=== PATIENT | male | born 1970 | race American Indian/Alaskan Native ===

== ENCOUNTER 2016-06-07 13:29 | Inpatient (IN) | payer MEDICARE ==
[2016-06-07 14:43] LABS: Basophils % (Auto) 0.6 % (0.0-1.8); Eosinophils % (Auto) 1.2 % (0.0-4.3); Hemoglobin 13.6 gm/dl (11.8-15.2); Mean Corpuscular HGB Conc 32 % (32-34); Mean Corpuscular Hemoglobin 27 pg (28-32); Mean Corpuscular Volume 84 fl (84-94); Platelet Count 203 K/mm3 (140-440); Red Blood Count 5.01 M/mm3 (3.65-5.03); Red Cell Distribution Width 13.3 % (13.2-15.2)
[2016-06-07 15:06] LABS: Blood Urea Nitrogen 13 mg/dL (9-20); Calcium 8.9 mg/dL (8.4-10.2); Carbon Dioxide 20 mmol/L (22-30); Glucose 156 mg/dL (75-100); Potassium 4.2 mmol/L (3.6-5.0); Sodium 140 mmol/L (137-145)
[2016-06-07 15:12] LABS: Anion Gap 18 mmol/L
--- NOTE | 2016-06-07 15:20 | Emergency Department Report ---
ED General Adult HPI - General Chief complaint: Medical Clearance Stated complaint: SYNCOPE Time Seen by Provider: 06/07/16 15:04 Source: patient, RN notes reviewed Mode of arrival: Ambulatory Limitations: No Limitations, Other (patient is a poor historian) - History of Present Illness Initial comments: This is a 45-year-old male, previously unknown to me. He typically follows at the [facility] in [place]. His edge inker heels is Dr. Troy Osullivan; [phone]. Patient has a past medical history of cardiomyopathy and AICD. He is not certain what his ejection fraction is, he does not know the etiology of his cardiomyopathy. Patient presents to the ER with epigastric pain, chest pain and syncope. Patient was taking a hot shower, reports that he developed upper abdominal discomfort, and reports that his to later activated/fired. He thinks he hit his head, but is not certain. He bit his lip. He has right shoulder pain. There is no extremity weakness. There is no extremity numbness. There is no posterior leg pain. No posterior leg swelling. No recent trips greater than 4 hours. He reports compliance with his medications. He denies toxic ingestions. -: Sudden Location: head, abdomen, right, upper extremity Quality: aching Consistency: intermittent Improves with: rest Worsens with: movement Associated Symptoms: chest pain, loss of appetite, syncope. denies: confusion - Related Data Home Medications Medication Instructions Recorded Confirmed Last Taken Amiodarone [Cordarone 200 MG TAB] 400 mg PO QDAY 09/27/15 06/07/16 06/06/16 Aspirin [Aspirin BABY CHEW TAB] 81 mg PO QDAY 09/27/15 06/07/16 06/06/16 Carvedilol [Coreg] 25 mg PO BID 09/27/15 06/07/16 06/06/16 Digoxin [Lanoxin] 0.125 mg PO DAILY 09/27/15 06/07/16 06/06/16 Furosemide [Lasix TAB] 40 mg PO QDAY 09/27/15 06/07/16 06/06/16 Lisinopril [Zestril] 20 mg PO QDAY 09/27/15 06/07/16 06/06/16 Pravastatin (Nf) [Pravachol] 40 mg PO QHS 09/27/15 06/07/16 06/06/16 amLODIPine [Norvasc] 10 mg PO DAILY 09/27/15 06/07/16 06/06/16 Insulin NPH Hum/Reg Insulin Hm 25 unit SQ QHS 06/07/16 06/07/16 06/06/16 [HumuLIN 70/30 Kwikpen] Insulin NPH Hum/Reg Insulin Hm 35 unit SQ QAM 06/07/16 06/07/16 06/06/16 [HumuLIN 70/30 Kwikpen] diphenhydrAMINE [Benadryl CAP] 25 mg PO Q8HR PRN 06/07/16 06/07/16 06/06/16 guaiFENesin [Mucinex] 600 mg PO BID 06/07/16 06/07/16 06/06/16 Allergies Allergy/AdvReac Type Severity Reaction Status Date / Time pineapple Allergy Anaphylaxis Verified 09/26/15 20:36 ED Review of Systems ROS: Stated complaint: SYNCOPE Other details as noted in HPI Constitutional: malaise. denies: fever Eyes: denies: eye discharge ENT: denies: epistaxis Respiratory: see HPI Cardiovascular: chest pain, syncope Gastrointestinal: abdominal pain Genitourinary: denies: urgency, dysuria Musculoskeletal: arthralgia Skin: denies: rash Neurological: headache. denies: as per HPI, numbness, paresthesias, confusion Psychiatric: as per HPI ED Past Medical Hx - Past Medical History Previous Medical History?: Yes Hx Hypertension: Yes Hx Congestive Heart Failure: Yes Hx Diabetes: Yes Additional medical history: Afib? - Surgical History Past Surgical History?: Yes Hx Internal Defibrillator: Yes - Social History Smoking Status: Never Smoker - Medications Home Medications: Home Medications Medication Instructions Recorded Confirmed Last Taken Type Amiodarone [Cordarone 200 MG TAB] 400 mg PO QDAY 09/27/15 06/07/16 06/06/16 History Aspirin [Aspirin BABY CHEW TAB] 81 mg PO QDAY 09/27/15 06/07/16 06/06/16 History Carvedilol [Coreg] 25 mg PO BID 09/27/15 06/07/16 06/06/16 History Digoxin [Lanoxin] 0.125 mg PO DAILY 09/27/15 06/07/16 06/06/16 History Furosemide [Lasix TAB] 40 mg PO QDAY 09/27/15 06/07/16 06/06/16 History Lisinopril [Zestril] 20 mg PO QDAY 09/27/15 06/07/16 06/06/16 History Pravastatin (Nf) [Pravachol] 40 mg PO QHS 09/27/15 06/07/16 06/06/16 History amLODIPine [Norvasc] 10 mg PO DAILY 09/27/15 06/07/16 06/06/16 History Insulin NPH Hum/Reg Insulin Hm 25 unit SQ QHS 06/07/16 06/07/16 06/06/16 History [HumuLIN 70/30 Kwikpen] Insulin NPH Hum/Reg Insulin Hm 35 unit SQ QAM 06/07/16 06/07/16 06/06/16 History [HumuLIN 70/30 Kwikpen] diphenhydrAMINE [Benadryl CAP] 25 mg PO Q8HR PRN 06/07/16 06/07/16 06/06/16 History guaiFENesin [Mucinex] 600 mg PO BID 06/07/16 06/07/16 06/06/16 History ED Physical Exam - General Limitations: No Limitations General appearance: alert, in no apparent distress - Head Head exam: Present: atraumatic, normocephalic - Eye Eye exam: Present: normal appearance, PERRL, EOMI. Absent: nystagmus - ENT ENT exam: Present: normal exam, normal orophraynx, mucous membranes moist, normal external ear exam, other (no intraoral lacerations are noted. The teeth have no laxity and are not mobile.) - Neck Neck exam: Present: normal inspection, full ROM. Absent: tenderness, meningismus - Respiratory Respiratory exam: Present: normal lung sounds bilaterally. Absent: respiratory distress, wheezes, rales, rhonchi, stridor, chest wall tenderness - Cardiovascular Cardiovascular Exam: Present: regular rate, normal rhythm, normal heart sounds. Absent: bradycardia, tachycardia, irregular rhythm, systolic murmur, diastolic murmur, rubs, gallop - GI/Abdominal GI/Abdominal exam: Present: soft, normal bowel sounds. Absent: distended, tenderness, guarding, rebound, rigid, pulsatile mass - Rectal Rectal exam: Present: deferred - Extremities Exam Extremities exam: Present: normal inspection, full ROM, normal capillary refill. Absent: tenderness, pedal edema, joint swelling, calf tenderness - Back Exam Back exam: Present: normal inspection, full ROM. Absent: tenderness, CVA tenderness (R), CVA tenderness (L), muscle spasm, paraspinal tenderness, vertebral tenderness - Neurological Exam Neurological exam: Present: alert, oriented X3, normal gait, other (Extraocular movements intact. Tongue midline. No facial droop. Facial sensation intact to light touch in the V1, V2, V3 distribution bilaterally. 5 and 5 strength in 4 extremities.. Sensation is intact to light touch in 4 extremities.). Absent : motor sensory deficit - Psychiatric Psychiatric exam: Present: normal affect, normal mood - Skin Skin exam: Present: warm, dry, intact, normal color. Absent: rash ED Course Vital Signs 06/07/16 06/07/16 06/07/16 13:59 14:01 14:09 Temperature 98.2 F Pulse Rate 96 H 96 H Respiratory 17 13 16 Rate Blood Pressure 123/74 123/74 O2 Sat by Pulse 99 99 Oximetry 06/07/16 06/07/16 06/07/16 15:00 15:40 17:15 Temperature Pulse Rate 81 89 Respiratory 29 H 18 Rate Blood Pressure 130/103 130/103 O2 Sat by Pulse 96 100 Oximetry - Reevaluation(s) Reevaluation #1: 06/07/16 16:37 Differential diagnosis: Structural cardiac disease, arrhythmia Assessment and plan: 45-year-old male status post episode of syncope. He has a GCS of 15, with an NIH score of 0. He is clinically sober. No pulmonary embolus or DVT risk factors, low risk by well's criteria, perc negative. Intraoral exam shows a minimal contusion on the lower lip, no obvious lacerations. Has full passive and active range of motion of the right upper extremity/shoulder. Chest x-ray negative, shows defibrillator The patient has a [employer] device, and it was interrogated, which demonstrated a run of ventricular fibrillation which was terminated with defibrillator shock. Patient is clinically sober at this time. The cervical spine is cleared through nexus and tongan c spine rule 06/07/16 16:39 Reevaluation #2: 06/07/16 16:38 CT scan of the head, abdomen, pelvis are performed and are pending. Case is discussed with the Hospital physician, , who accepts the patient to his service. Case discussed with cardiology, Alla Lucas, her group will follow as a consult. I have requested the patient's medical records to be faxed over from the [facility] in [place]. Currently awaiting. Reevaluation #3: 06/07/16 18:39 CT scan of the head, abdomen, pelvis negative ED Medical Decision Making - Lab Data Result diagrams: 06/07/16 14:25 06/07/16 14:25 Vital Signs 06/07/16 06/07/16 14:09 15:40 Temperature 98.2 F Pulse Rate 96 H Respiratory 16 18 Rate Blood Pressure 123/74 O2 Sat by Pulse 99 100 Oximetry Lab Results 06/07/16 06/07/16 06/07/16 Range/Units 14:25 14:25 15:33 WBC 9.0 (4.5-11.0) K/mm3 RBC 5.01 (3.65-5.03) M/mm3 Hgb 13.6 (11.8-15.2) gm/dl Hct 42.0 (35.5-45.6) % MCV 84 (84-94) fl MCH 27 L (28-32) pg MCHC 32 (32-34) % RDW 13.3 (13.2-15.2) % Plt Count 203 (140-440) K/mm3 Lymph % (Auto) 19.9 (13.4-35.0) % [place] % (Auto) 11.6 H (0.0-7.3) % Eos % (Auto) 1.2 (0.0-4.3) % Baso % (Auto) 0.6 (0.0-1.8) % Lymph # 1.8 (1.2-5.4) K/mm3 [place] # 1.0 H (0.0-0.8) K/mm3 Eos # 0.1 (0.0-0.4) K/mm3 Baso # 0.1 (0.0-0.1) K/mm3 Seg Neutrophils % 66.7 (40.0-70.0) % Seg Neutrophils # 6.0 (1.8-7.7) K/mm3 PT 14.2 (12.2-14.9) Sec. INR 1.11 (0.87-1.13) Sodium 140 (137-145) mmol/L Potassium 4.2 (3.6-5.0) mmol/L Chloride 106.0 (98-107) mmol/L Carbon Dioxide 20 L (22-30) mmol/L Anion Gap 18 mmol/L BUN 13 (9-20) mg/dL Creatinine 1.3 (0.8-1.5) mg/dL Estimated GFR > 60 ml/min BUN/Creatinine Ratio 10.00 % Glucose 156 H (75-100) mg/dL Calcium 8.9 (8.4-10.2) mg/dL Magnesium (1.7-2.3) mg/dL Troponin T 0.014 (0.00-0.029) ng/mL Lipase (13-60) units/L 06/07/16 06/07/16 Range/Units 15:33 15:33 WBC (4.5-11.0) K/mm3 RBC (3.65-5.03) M/mm3 Hgb (11.8-15.2) gm/dl Hct (35.5-45.6) % MCV (84-94) fl MCH (28-32) pg MCHC (32-34) % RDW (13.2-15.2) % Plt Count (140-440) K/mm3 Lymph % (Auto) (13.4-35.0) % [place] % (Auto) (0.0-7.3) % Eos % (Auto) (0.0-4.3) % Baso % (Auto) (0.0-1.8) % Lymph # (1.2-5.4) K/mm3 [place] # (0.0-0.8) K/mm3 Eos # (0.0-0.4) K/mm3 Baso # (0.0-0.1) K/mm3 Seg Neutrophils % (40.0-70.0) % Seg Neutrophils # (1.8-7.7) K/mm3 PT (12.2-14.9) Sec. INR (0.87-1.13) Sodium (137-145) mmol/L Potassium (3.6-5.0) mmol/L Chloride (98-107) mmol/L Carbon Dioxide (22-30) mmol/L Anion Gap mmol/L BUN (9-20) mg/dL Creatinine (0.8-1.5) mg/dL Estimated GFR ml/min BUN/Creatinine Ratio % Glucose (75-100) mg/dL Calcium (8.4-10.2) mg/dL Magnesium 1.9 (1.7-2.3) mg/dL Troponin T (0.00-0.029) ng/mL Lipase 46 (13-60) units/L - EKG Data 06/07/16 16:41 Normal sinus, 93 bpm, prolonged QTC at 494 ms, borderline left axis deviation, poor R-wave progression noted, atrial enlargement, abnormal EKG, not morphologically consistent with STEMI. - Radiology Data Radiology results: report reviewed, image reviewed Chest x-ray negative, demonstrates left-sided AICD. CT scan of the head, abdomen, pelvis negative Critical care attestation.: If time is entered above; I have spent that time in minutes in the direct care of this critically ill patient, excluding procedure time. ED Disposition Clinical Impression: Ventricular fibrillation, Syncope Disposition: OP ADMITTED IP TO THIS HOSP Is pt being admited?: Yes Does the pt Need Aspirin: Yes Condition: Good Instructions: Syncope (ED) Referrals: PRIMARY CARE, [Primary Care Provider] - 3-5 Days
--- NOTE | 2016-06-07 15:49 | XRay Report ---
Portable chest: Comparison is made to the prior examination of September 27, 2015. The cardiac contour is normal and unchanged. There has been interval replacement of the pacer battery with addition of a second monitor lead both of which are in the right ventricle. The lungs remain clear and there is no vascular congestion. Impression: No acute cardiopulmonary pathology identified.
[2016-06-07 16:27] LABS: INR 1.11 (0.87-1.13)
--- NOTE | 2016-06-07 16:34 | Cat Scan Report ---
FINAL REPORT PROCEDURE: CT HEAD/BRAIN WO CON TECHNIQUE: Computerized tomography of the head was performed without contrast material. HISTORY: syncope COMPARISON: No prior studies are available for comparison. FINDINGS: Brain: Brain density appears normal. No evidence of intracranial hemorrhage. No parenchymal hemorrhage, mass lesions or mass effect are seen. No abnormal extraxial fluid collects or masses are seen. Minimal nonspecific mineralization of the basal ganglia are visualized. Ventricles: Ventricles are normal size and are midline. Bone Windows: No evidence of skull fracture. Paranasal sinuses: Clear Mastoid air cells: Clear IMPRESSION: Negative exam. No acute abnormalities are seen.
--- NOTE | 2016-06-07 16:41 | Cat Scan Report ---
FINAL REPORT PROCEDURE: CT ABDOMEN PELVIS WO CON TECHNIQUE: Computerized axial tomography of the abdomen and pelvis was performed without intravenous contrast. This study is performed without intravascular contrast material and its sensitivity for abdominal and pelvic pathology, including neoplasms, inflammation, abscess, free fluid, thrombosis, arterial dissection and infarction, is reduced compared with a contrast enhanced study. HISTORY: syncope abd pain COMPARISON: No prior studies are available for comparison. FINDINGS: Lower Lung barker: No sinificant abnormality seen. Cardiac leads are visualized in the right side of the heart. Upper Abdomen: The unenhanced images the liver, gallbladder, spleen, adrenal glands and pancreas are unremarkable. Kidneys, Ureters and Urinary bladder: No abnormalities are seen. Retroperitoneum: Atherosclerotic changes are seen in the abdominal aorta. No aneurysm is visualized. Nonspecific subcentimeter lymph nodes are seen in the retroperitoneum. No pathologically enlarged lymph nodes are identified. Bowel: Minimal diverticulosis visualized in the hepatic flexure. No evidence of diverticulitis. No evidence of bowel obstruction, ascites or free intraperitoneal gas. Normal-appearing appendix is seen in the right lower quadrant. Reproductive organs: Prostate gland does not appear to be enlarged. Other: No acute bony abnormalities are identified. IMPRESSION: Minimal colonic diverticulosis without evidence of diverticulitis. Pacemaker leads visualized in the right side of the heart. No acute abnormalities are identified..
[2016-06-07 17:38] LABS: Urine Drugs of Abuse Note Disclamer
--- NOTE | 2016-06-07 17:43 | Event Note ---
Date: 06/07/16 See H/p in reports Syncope Chest pain V fib transient AICD discharge Cardiomyopathy CHF HTN
[2016-06-07] MEDS ORDERED: BENADRYL PO PRN (17:48)
[2016-06-07] MEDS ORDERED: DULCOLAX PR PRN ×2 (18:01→18:18)
[2016-06-07] MEDS ORDERED: MILK OF MAGNESIA PO PRN ×2 (18:01→18:18)
[2016-06-07] MEDS ORDERED: DILAUDID IV PRN (18:01)
[2016-06-07] MEDS ORDERED: ZOFRAN IV PRN ×2 (18:01→18:18)
[2016-06-07] MEDS ORDERED: PERCOCET 5/325 PO PRN (18:01)
[2016-06-07] MEDS ORDERED: TYLENOL PO PRN ×2 (18:01→18:18)
[2016-06-07 18:19] LABS: Bilirubin,Urine NEG (Negative); Blood,Urine SM (Negative); Ketones,Urine NEG (Negative); Leukocyte Esterase,Urine NEG (Negative); Mucus,Urine FEW /HPF; Nitrite,Urine NEG (Negative); Urobilinogen,Urine < 2.0 mg/dL (<2.0)
[2016-06-07 18:21] LABS: Protein,Urine >500 mg/dL (Negative)
[2016-06-07] MEDS ORDERED: SODIUM CHLORIDE FLUSH SYRINGE 10 ML IV PRN (18:27)
[2016-06-07] MEDS ORDERED: BABY ASPIRIN PO ONE (18:40)
[2016-06-07] MEDS ORDERED: LASIX ONE (19:04)
[2016-06-07] MEDS: LASIX PO SCH (19:14)
[2016-06-07] MEDS: BABY ASPIRIN PO SCH (19:14)
[2016-06-07 19:23] LABS: Creatine Kinase MB 2.5 ng/mL (0.0-4.0)
[2016-06-07] MEDS: LOVENOX SUB-Q SCH (19:24)
[2016-06-07] MEDS: ZESTRIL PO SCH (19:26)
[2016-06-07] MEDS: NORVASC PO SCH (19:27)
[2016-06-07] MEDS: LANOXIN PO SCH (19:45)
[2016-06-07] MEDS: CORDARONE PO SCH (19:45)
--- NOTE | 2016-06-07 20:15 | Event Note ---
Date: 06/07/16 Patient's digoxin level is still pending. The digoxin level is a send out assay is our lab does not have the ability to run it. The results are still pending. I will defer to the inpatient team to follow-up on the digoxin level.
[2016-06-07] MEDS ORDERED: INSULIN NPH HUM SQ SCH (22:00)
[2016-06-07] MEDS ORDERED: REG INSULIN SQ SCH (22:00)
[2016-06-07] MEDS ORDERED: PRAVASTATIN 40 MG PO SCH (22:00)
[2016-06-07] MEDS: MUCINEX ER PO SCH (22:36)
[2016-06-07 22:37] LABS: Creatine Kinase MB 2.4 ng/mL (0.0-4.0)
[2016-06-07] MEDS: ZOCOR PO SCH (22:37)
[2016-06-07] MEDS: COREG PO SCH (22:37)
--- NOTE | 2016-06-08 00:54 | Admit Criteria Form ---
Admission Criteria Documentation: CARDIOLOGY GRG Clinical Indications for Admission to Inpatient Care ( Place 'X' for any and all applicable criteria): Hospital admission is needed for appropriate care of the patient because of ANY ONE of the following (1): [ ] I. Hemodynamic instability as indicated by ALL of the following (1)(2)(3) (4)(5) [ ]a) Vital signs or other findings not as expected for chronic patient condition or baseline [ ]b) Instability indicated by ANY ONE of the following: [ ]i) Hypotension [ ]ii) Symptomatic Tachycardia unresponsive to treatment ( e.g., analgesia, fluids, sedation as indicated) [ ]iii) Inadequate perfusion indicated by ANY ONE of the following: [ ] 1) Lactic acidosis (> 2 mmol/L) [ ] 2) New abnormal capillary refill (> 3 seconds) [ ] 3) Reduced urine output [ ] 4) New altered mental status [ ]iv) Orthostatic vital sign changes unresponsive to treatment (e.g., fluids) [ ]v) IV inotropic or vasopressor medication required to maintain adequate blood pressure or perfusion [ ] II. Severe heart failure as indicated by ANY ONE of the following(17)(18) [ ]a) Respiratory distress [ ]b) Hypotension [ ]c) Anasarca (refractory to outpatient therapy) [ ]d) Cardiac arrhythmias of immediate concern [ ]e) Myocardial ischemia [ ] III. Cardiac arrhythmias or findings of immediate concern indicated by ANY ONE of the following (19)(20): [ ] a) Heart rhythms that are inherently dangerous or unstable indicated by ANY ONE of the following (21)(22)(23): [ ] i) Resuscitated ventricular fibrillation or cardiac arrest [ ] ii) Ventricular escape rhythm [ ] iii) Sustained ventricular tachycardia (30 seconds or more of ventricular rhythm at greater than 100 beats per minute) [ ] iv) Nonsustained ventricular tachycardia and ANY ONE of the following: [ ] 1) Suspected cardiac ischemia as cause or consequence of ventricular tachycardia [ ] 2) In setting of acute myocarditis [ ] b) Unstable cardiac conduction defects indicated by ANY ONE of the following(23)(24)(25) [ ] i) Type II second-degree atrioventricular block [ ]ii) Third-degree atrioventricular block [ ]iii) New-onset left bundle branch block with suspected myocardial ischemia [ ]c) Any heart rhythm and ANY ONE of the following (21)(22)(26)(27) (28) [ ] i) Continuous long-term ECG monitoring needed (e.g., initiation of drug requiring monitoring for more than 24 hours) [ ] ii) Patient has automatic implanted cardioverter defibrillator that is repeatedly firing, malfunctioning, or in need of immediate adjustment of settings beyond the scope of ambulatory or observation care [ ]d) Heart rhythms of concern due to ANY ONE of the following: [ ] i) Hypotension [ ] ii) Respiratory distress [ ] iii) Association with other significant symptoms (e.g., bradycardia with syncope or ongoing dizziness, supraventricular tachycardia with chest pain (14)(15)(17) [ ] IV. Monitoring for cardiac contusion beyond the scope of observation care needed [A](30)(31)(32) [ ] V. Surgical or device complication (e.g., valve replacement complication , pacemaker dysfunction) (35)(41)(44)(45)(46) [ ] . Inpatient palliative care needed. [B](49) Also use Inpatient Palliative Care Criteria [ ] VII. Nonbacterial thrombotic (marantic) endocarditis (36)(43)(47)(48) [X ] VIII. Cardiology condition, symptom, or finding for which emergency and observation care has failed or are not considered appropriate. [ ] IX. Acute valvular disease requiring inpatient as indicated by ANY ONE of the following (41) [ ]a) Acute valvular regurgitation (42) [ ]b) Noninfectious valvulitis (43) [ ]c) Obstructive valve thrombosis [ ]d) Paravalvular leak [ ]e) Other significant valvular disorder remaining after emergency or observation level of care (as appropriate) [ ]X. Pericardial disease requiring inpatient treatment as indicated by ANY ONE of the following (33)(34)(35)(36)(37) [ ]a) Suspected tamponade (38)(39)(40) [ ]b) Hemopericardium [ ]c) Other significant pericardial disorder remaining after emergency or observation level of care (as appropriate) [ ] XI. Cardiac ischemia beyond scope of emergency and observation care. [ ] XII. Hypertension requiring inpatient treatment as indicated by ANY ONE of the following (6)(7)(8) [ ]a) SBP greater than 220 mm Hg or DBP greater than 120 mmHg despite treatment [ ]b) SBP greater than 140 mm Hg or DBP greater than 100 mm Hg with evidence of acute end organ damage as indicated by ANY ONE of the following [ ] i) Altered mental status [ ] ii) Acute renal failure as indicated by new onset of ANY ONE of the following (9)(10)(11)(12)(13) [ ]1) 3-fold rise in serum creatinine from baseline [ ]2) Serum creatinine greater than 4 mg/dL ( 354 micromoles/L) with acute rise greater than 0.5 mg/dL (44.2 micromoles/L) [ ]3) Reduction of more than 75% in estimated glomerular filtration rate from baseline [ ]4) Estimated glomerular filtration rate less than 35 mL/min/1.73m2 (0.59 mL/sec/1.73m2) in child up to 18 years of age [ ]5) Cessation of urine output indicated by ALL of the following [ ]A. Adequate volume status [ ]B. Inadequate urine output as indicated by ANY ONE of the following [ ]a. Urine output less than 0.3 mL/kg/hr for 24 hours [ ]b. Anuria (urine output less than 0.1 mL/kg/hr) for 12 hours [ ] iii) Aortic dissection [ ] iv) Myocardial Ischemia [ ] v) Left ventricular heart failure [ ]vi) Retinal Hemorrhage [ ]vii) Other significant finding [ ]c) Hypertension in child requiring inpatient treatment as indicated by ALL of the following(14)(15)(16) [ ] i) Outpatient treatment not effective, not available, or not appropriate [ ]ii) SBP or DBP greater than 95th percentile for age [ ]iii) Evidence of acute end organ damage as indicated by ANY ONE of the following [ ]1) Altered mental status [ ]2) Acute renal failure as indicated by new onset of ANY ONE of the following(9)(10)(11)(12)(13) [ ]A. 3-fold rise in serum creatinine from baseline [ ]B. Serum creatinine greater than 4 mg/dL (354 micromoles/L) with acute rise greater than 0.5 mg/dL (44.2 micromoles/L) [ ]C. Reduction of more than 75% in estimated glomerular filtration rate from baseline [ ]D. Estimated glomerular filtration rate less than 35 mL/min/1.73m2 (0.59 mL/sec/1.73m2) in child up to 18 years of age [ ]E. Cessation of urine output indicated by ALL of the following [ ]a. Adequate volume status [ ]b. Inadequate urine output as indicated by ANY ONE of the following [ ]i) Urine output less than 0.3 mL/kg/hr for 24 hours [ ]ii) Anuria ( urine output less than 0.1 mL/kg/hr) for 12 hours [ ]3) Severe headache [ ]4) Visual disturbance [ ]5) Retinal hemorrhage [ ]6) Other significant finding [ ]XIII. Complications of transplanted heart indicated by ANY ONE of the following(61): [ ]a) Acute graft rejection requiring inpatient management (eg, intravenous immunosuppression)(62)(63) [ ]b) Acute graft heart failure indicated by ANY ONE of the following(64): [ ]i) Hemodynamic instability [ ]ii) Cardiac arrhythmias of immediate concern [ ]iii) Pulmonary edema that is very severe (eg, mechanical ventilation needed, imminent or likely, need for 100% oxygen to keep oxygen saturation above 90%) [ ]iv) Pulmonary edema that is persistent as indicated by ALL of the following: [ ]1) New need for oxygen therapy to keep oxygen saturation above 90% (or increased FiO2 need from baseline) [ ]2) Has not improved sufficiently with emergency department or observation care IV diuretics or other heart failure treatments[E] [ ]v) Altered mental status that is severe or persistent [ ]vi) Increased creatinine (new on laboratory test) with reduction of more than 50% in estimated glomerular filtration rate from baseline [ ]vii) Progressively (ongoing) rising creatinine (known from past laboratory test) with reduction of more than 25% in estimated glomerular filtration rate from baseline [ ]viii) Acute renal failure [ ]ix) Acute peripheral ischemia (eg, examination shows pulseless, cool, mottled, or cyanotic extremity) [ ]x) Pulmonary artery catheter monitoring needed [ ]xi) Other sign or symptom of heart failure requiring inpatient treatment (ie, too severe or not responsive to outpatient and observation care treatment) [ ]c) Infection requiring inpatient management (eg, Hemodynamic instability, need for intravenous antimicrobial treatment)(66)(67)(68)(69)(70) [ ]d) Cardiac allograft vasculopathy requiring inpatient management ( eg evidence of cardiac ischemia)(71) [ ]e) Other complication of transplanted heart (eg, stroke, severe pulmonary hypertension, severe valvular dysfunction) requiring inpatient management(72) The original [facility] [employer] content created by [facility] [employer] has been revised. The portions of the content which have been revised are identified through the use of italic text or in bold, and [facility] has neither reviewed nor approved the modified material. All other unmodified content is copyright [facility] [email or web address]. Please see references footnoted in the original [facility] [email or web address] edition 2016 Admission Criteria Met: Yes
[2016-06-08 01:05] LABS: Creatine Kinase MB 2.2 ng/mL (0.0-4.0)
[2016-06-08 05:37] LABS: Basophils % (Auto) 0.5 % (0.0-1.8); Eosinophils % (Auto) 3.1 % (0.0-4.3); Hematocrit 42.3 % (35.5-45.6); Hemoglobin 14.1 gm/dl (11.8-15.2); Mean Corpuscular HGB Conc 33 % (32-34); Mean Corpuscular Hemoglobin 27 pg (28-32); Mean Corpuscular Volume 82 fl (84-94); Platelet Count 192 K/mm3 (140-440); Red Blood Count 5.14 M/mm3 (3.65-5.03); Red Cell Distribution Width 13.1 % (13.2-15.2); White Blood Count 7.9 K/mm3 (4.5-11.0)
[2016-06-08 06:03] LABS: Alanine Aminotransferase 19 units/L (7-56); Albumin 3.1 g/dL (3.9-5); Albumin/Globulin Ratio 0.9 %; Alkaline Phosphatase 46 units/L (35-129); Anion Gap 17 mmol/L; BUN/Creatinine Ratio 10.71; Bilirubin,Total 0.5 mg/dL (0.1-1.2); Blood Urea Nitrogen 15 mg/dL (9-20); Calcium 8.6 mg/dL (8.4-10.2); Carbon Dioxide 22 mmol/L (22-30); Chloride 104.3 mmol/L (98-107); Glucose 170 mg/dL (75-100); Potassium 3.7 mmol/L (3.6-5.0); Sodium 140 mmol/L (137-145); Total Protein 6.4 g/dL (6.3-8.2)
[2016-06-08] MEDS ORDERED: LEXISCAN IV ONE (08:40)
[2016-06-08] MEDS ORDERED: REG INSULIN SQ SCH (10:00)
[2016-06-08] MEDS ORDERED: INSULIN NPH HUM SQ SCH (10:00)
[2016-06-08] MEDS: CORDARONE PO SCH (10:58)
[2016-06-08] MEDS: NORVASC PO SCH (10:58)
[2016-06-08] MEDS: LOVENOX SUB-Q SCH (10:58)
[2016-06-08] MEDS: LASIX PO SCH (10:58)
[2016-06-08] MEDS: MUCINEX ER PO SCH ×2 (10:58→22:15)
[2016-06-08] MEDS: LANOXIN PO SCH (10:58)
[2016-06-08] MEDS: BABY ASPIRIN PO SCH (10:58)
[2016-06-08] MEDS: COREG PO SCH ×2 (10:58→22:15)
[2016-06-08] MEDS: ZESTRIL PO SCH (10:58)
--- NOTE | 2016-06-08 11:20 | Consultation ---
History of Present Illness Consult date: 06/08/16 History of present illness: 45 year old -[place] male with a history of a dilated cardiomyopathy presented after defibrillation by these AICD. Currently denies any chest pain dizziness. 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 Past History Past Medical History: hypertension, other (Dilated nonischemic cardiomyopathy) Past Surgical History: Other (S/p AICD) Medications and Allergies Allergies Allergy/AdvReac Type Severity Reaction Status Date / Time pineapple Allergy Anaphylaxis Verified 09/26/15 20:36 Home Medications Medication Instructions Recorded Confirmed Last Taken Type Amiodarone [Cordarone 200 MG TAB] 400 mg PO QDAY 09/27/15 06/07/16 06/06/16 History Aspirin [Aspirin BABY CHEW TAB] 81 mg PO QDAY 09/27/15 06/07/16 06/06/16 History Carvedilol [Coreg] 25 mg PO BID 09/27/15 06/07/16 06/06/16 History Digoxin [Lanoxin] 0.125 mg PO DAILY 09/27/15 06/07/16 06/06/16 History Furosemide [Lasix TAB] 40 mg PO QDAY 09/27/15 06/07/16 06/06/16 History Lisinopril [Zestril] 20 mg PO QDAY 09/27/15 06/07/16 06/06/16 History Pravastatin (Nf) [Pravachol] 40 mg PO QHS 09/27/15 06/07/16 06/06/16 History amLODIPine [Norvasc] 10 mg PO DAILY 09/27/15 06/07/16 06/06/16 History Insulin NPH Hum/Reg Insulin Hm 25 unit SQ QHS 06/07/16 06/07/16 06/06/16 History [HumuLIN 70/30 Kwikpen] Insulin NPH Hum/Reg Insulin Hm 35 unit SQ QAM 06/07/16 06/07/16 06/06/16 History [HumuLIN 70/30 Kwikpen] diphenhydrAMINE [Benadryl CAP] 25 mg PO Q8HR PRN 06/07/16 06/07/16 06/06/16 History guaiFENesin [Mucinex] 600 mg PO BID 06/07/16 06/07/16 06/06/16 History Active Meds: Active Medications Acetaminophen (Tylenol) 650 mg PO Q4H PRN PRN Reason: Pain MILD(1-3)/Fever >100.5/SPRING Amiodarone HCl (Cordarone) 400 mg PO QDAY [facility] Last Admin: 06/08/16 10:58 Dose: 400 mg Amlodipine Besylate (Norvasc) 10 mg PO DAILY [facility] Last Admin: 06/08/16 10:58 Dose: 10 mg Aspirin (Baby Aspirin) 81 mg PO QDAY [facility] Last Admin: 06/08/16 10:58 Dose: 81 mg Bisacodyl (Dulcolax) 10 mg MO QDAY PRN PRN Reason: Constipation unrelieved by MOM Carvedilol (Coreg) 25 mg PO BID [facility] Last Admin: 06/08/16 10:58 Dose: 25 mg Digoxin (Lanoxin) 0.125 mg PO DAILY [facility] Last Admin: 06/08/16 10:58 Dose: 0.125 mg Diphenhydramine HCl (Benadryl) 25 mg PO Q8HR PRN PRN Reason: as needeed Enoxaparin Sodium (Lovenox) 40 mg SUB-Q QDAY [facility] Last Admin: 06/08/16 10:58 Dose: 40 mg Furosemide (Lasix) 40 mg PO QDAY [facility] Last Admin: 06/08/16 10:58 Dose: 40 mg Guaifenesin (Mucinex Er) 600 mg PO BID [facility] Last Admin: 06/08/16 10:58 Dose: 600 mg Hydromorphone HCl (Dilaudid) 0.5 mg IV Q3H PRN PRN Reason: Pain , Severe (7-10) Insulin Human Isoph/Insulin Regular (Novolin 70/30) 25 unit SUB-Q QHS [facility] Last Admin: 06/07/16 22:37 Dose: Not Given Insulin Human Isoph/Insulin Regular (Novolin 70/30) 35 unit SUB-Q QAMDIAB [facility] Last Admin: 06/08/16 11:03 Dose: 35 unit Lisinopril (Zestril) 20 mg PO QDAY [facility] Last Admin: 06/08/16 10:58 Dose: 20 mg Magnesium Hydroxide (Milk Of Magnesia) 30 ml PO Q4H PRN PRN Reason: Constipation Ondansetron HCl (Zofran) 4 mg IV Q8H PRN PRN Reason: N/V unrelieved by Reglan Oxycodone/Acetaminophen (Percocet 5/325) 1 tab PO Q6H PRN PRN Reason: Pain, Moderate (4-6) Simvastatin (Zocor) 20 mg PO QHS [facility] Last Admin: 06/07/16 22:37 Dose: 20 mg Sodium Chloride (Sodium Chloride Flush Syringe 10 Ml) 10 ml IV PRN PRN PRN Reason: LINE FLUSH Review of Systems All systems: negative Physical Examination Vital Signs Resp 17 06/07/16 13:59 General appearance: no acute distress, well-nourished HEENT: Positive: PERRL, Mucus Membranes Moist Neck: Positive: neck supple, trachea midline Cardiac: Positive: Reg Rate and Rhythm, S1/S2, S3, PMI, Dilated, Laterally Displaced. Negative: Audible Murmur Lungs: Positive: clear to auscultation, Normal Breath Sounds, No Wheeze, Rales, Rhonchi Neuro: Positive: Grossly Intact Abdomen: Positive: Soft, Active Bowel Sounds. Negative: Tender, Distended Male genitourinary: Positive: normal Skin: Positive: Clear Incision: Cardiac Cath Site Musculoskeletal: No Pain, Normal Range of Motion Extremities: Present: normal. Absent: edema Results 06/08/16 05:18 06/08/16 05:18 Cardiac Enzymes 06/07/16 06/07/16 06/08/16 Range/Units 18:49 21:43 00:25 AST (5-40) units/L CK-MB (CK-2) 2.5 2.4 2.2 (0.0-4.0) ng/mL 06/08/16 Range/Units 05:18 AST 15 (5-40) units/L CK-MB (CK-2) (0.0-4.0) ng/mL Lipids 06/08/16 Range/Units 00:25 Triglycerides 336 H (2-149) mg/dL Cholesterol 184 (50-199) mg/dL HDL Cholesterol 35 L (40-59) mg/dL Cholesterol/HDL Ratio 5.25 % CBC 06/08/16 Range/Units 05:18 WBC 7.9 (4.5-11.0) K/mm3 RBC 5.14 H (3.65-5.03) M/mm3 Hgb 14.1 (11.8-15.2) gm/dl Hct 42.3 (35.5-45.6) % Plt Count 192 (140-440) K/mm3 Lymph # 2.3 (1.2-5.4) K/mm3 Pierce # 0.9 H (0.0-0.8) K/mm3 Eos # 0.2 (0.0-0.4) K/mm3 Baso # 0.0 (0.0-0.1) K/mm3 Comprehensive Metabolic Panel 06/08/16 Range/Units 05:18 Sodium 140 (137-145) mmol/L Potassium 3.7 (3.6-5.0) mmol/L Chloride 104.3 (98-107) mmol/L Carbon Dioxide 22 (22-30) mmol/L BUN 15 (9-20) mg/dL Creatinine 1.4 (0.8-1.5) mg/dL Glucose 170 H (75-100) mg/dL Calcium 8.6 (8.4-10.2) mg/dL AST 15 (5-40) units/L ALT 19 (7-56) units/L Alkaline Phosphatase 46 (35-129) units/L Total Protein 6.4 (6.3-8.2) g/dL Albumin 3.1 L (3.9-5) g/dL Assessment and Plan 1. Spontaneous V. fib status post AICD discharge. 2. Dilated known ischemic cardiomyopathy. Plan. Resume home medication. Stress importance of compliance. Increase amiodarone to 400 mg twice a day.
--- NOTE | 2016-06-08 19:25 | Progress Note ---
Assessment and Plan - Patient Problems (1) Syncope Current Visit: Yes Status: Acute Plan to address problem: Sec to Vfib of 5 secs followed by AICD discharge AICD interrogated in ER (2) Ventricular fibrillation Current Visit: Yes Status: Resolved Plan to address problem: one episode of V fib of 5 secs.No further events Patient to continue Amiodarone 400 mg po qd And be compliant (3) IDDM (insulin dependent diabetes mellitus) Current Visit: Yes Status: Chronic Plan to address problem: Cont humalog 70/30 at 20 and 25 am and pm. Needs upward adjustment at discharge. Will increase to 30 in am and 30 in pm (4) HTN (hypertension) Current Visit: Yes Status: Chronic Qualifiers: Hypertension type: essential hypertension Qualified Code(s): I10 - Essential (primary) hypertension Plan to address problem: Cont coreg and lisinopril (5) Chest pain Current Visit: Yes Status: Acute Plan to address problem: Lexiscan negative (6) HLD (hyperlipidemia) Current Visit: Yes Status: Chronic Qualifiers: Hyperlipidemia type: mixed hyperlipidemia Qualified Code(s): E78.2 - Mixed hyperlipidemia Plan to address problem: Add fenofibrate (7) DVT prophylaxis Current Visit: Yes Status: Acute Plan to address problem: on lovenox (8) Discharge planning issues Current Visit: Yes Status: Acute Plan to address problem: For discarge in am Subjective Date of service: 06/08/16 Principal diagnosis: Syncope+V fib for 5 secs folowed by AICD discarge and shock Interval history: Doing well.No further discharges No chest pain Objective - Constitutional Vitals: Vital Signs - 12hr 06/08/16 06/08/16 06/08/16 10:00 10:51 11:00 Temperature 97.5 F L Pulse Rate 90 Pulse Rate [ 87 From Monitor] Respiratory 20 Rate Blood Pressure 124/90 [Left Arm] O2 Sat by Pulse 97 97 Oximetry 06/08/16 15:32 Temperature 97.4 F L Pulse Rate Pulse Rate [ 78 From Monitor] Respiratory 20 Rate Blood Pressure 105/68 [Left Arm] O2 Sat by Pulse 97 Oximetry General appearance: Present: no acute distress, well-nourished - EENT Eyes: PERRL, EOM intact ENT: hearing intact, clear oral mucosa Ears: bilateral: normal - Neck Neck: supple, normal ROM - Respiratory Respiratory effort: normal Respiratory: bilateral: CTA - Breasts Breasts: normal - Cardiovascular Rhythm: regular Heart Sounds: Present: S1 & S2. Absent: gallop, rub Extremities: pulses intact, No edema, normal color, Full ROM - Gastrointestinal General gastrointestinal: Present: soft, non-tender, non-distended, normal bowel sounds - Genitourinary Male genitourinary: normal - Integumentary Integumentary: clear, warm, dry - Musculoskeletal Musculoskeletal: 1, strength equal bilaterally - Neurologic Neurologic: moves all extremities - Psychiatric Psychiatric: memory intact, appropriate mood/affect, intact judgment & insight - Labs CBC & Chem 7: 06/08/16 05:18 06/08/16 05:18 Labs: Abnormal lab results 06/08/16 06/08/16 06/08/16 Range/Units 00:25 05:18 05:18 RBC 5.14 H (3.65-5.03) M/mm3 MCV 82 L (84-94) fl MCH 27 L (28-32) pg RDW 13.1 L (13.2-15.2) % Mobile % (Auto) 11.7 H (0.0-7.3) % Mobile # 0.9 H (0.0-0.8) K/mm3 Glucose 170 H (75-100) mg/dL Troponin T 0.032 H (0.00-0.029) ng/mL Albumin 3.1 L (3.9-5) g/dL Triglycerides 336 H (2-149) mg/dL HDL Cholesterol 35 L (40-59) mg/dL
--- NOTE | 2016-06-08 19:39 | Discharge Summary ---
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 Hospitalization Condition: Good Procedures: AICD interrogation Vfib for 5 secs Lexiscan negative Hospital course: High A1c insulin adjusted Disposition: DISCHARGED TO HOME OR SELFCARE Time spent for discharge: 32 minutes - Discharge Diagnoses (1) Syncope Status: Acute (2) Ventricular fibrillation Status: Resolved (3) IDDM (insulin dependent diabetes mellitus) Status: Chronic (4) HTN (hypertension) Status: Chronic Qualifiers: Hypertension type: essential hypertension Qualified Code(s): I10 - Essential (primary) hypertension (5) Chest pain Status: Acute (6) HLD (hyperlipidemia) Status: Chronic Qualifiers: Hyperlipidemia type: mixed hyperlipidemia Qualified Code(s): E78.2 - Mixed hyperlipidemia (7) DVT prophylaxis Status: Acute (8) Discharge planning issues Status: Acute Core Measure Documentation - Palliative Care Palliative Care/ Comfort Measures: Not Applicable - Core Measures Any of the following diagnoses?: none Exam - Constitutional Vitals: Temp Pulse Resp BP Pulse Ox 97.4 F L 78 20 105/68 97 06/08/16 15:32 06/08/16 15:32 06/08/16 15:32 06/08/16 15:32 06/08/16 15:32 General appearance: Present: no acute distress, well-nourished - EENT Eyes: Present: PERRL ENT: hearing intact, clear oral mucosa - Neck Neck: Present: supple, normal ROM - Respiratory Respiratory effort: normal Respiratory: bilateral: CTA - Cardiovascular Heart Sounds: Present: S1 & S2. Absent: rub, click - Extremities Extremities: pulses symmetrical, No edema Peripheral Pulses: within normal limits - Abdominal General gastrointestinal: Present: soft, non-tender, non-distended, normal bowel sounds Male genitourinary: Present: normal - Integumentary Integumentary: Present: clear, warm, dry - Musculoskeletal Musculoskeletal: gait normal, strength equal bilaterally - Psychiatric Psychiatric: appropriate mood/affect, intact judgment & insight - Neurologic Neurologic: CNII-XII intact, moves all extremities Plan Activity: no restrictions Diet: diabetic Follow up with: PRIMARY CARE, [Primary Care Provider] - 3-5 Days Prescriptions: Fenofibrate [Tricor] 145 mg PO QDAY #30 tablet Insulin NPH/Regular [NovoLIN 70/30] 35 unit SUB-Q BID #3 vial Lisinopril [Zestril TAB] 20 mg PO QDAY #30 tablet
--- NOTE | 2016-06-08 21:21 | History and Physical Report ---
CHIEF COMPLAINT: Chest pain and passed out. HISTORY OF PRESENT ILLNESS: A 45-year-old male with history of cardiomyopathy and AICD, felt chest pain and passed out. He felt a shock. He was taking a hot shower when he developed upper abdominal discomfort and reports that his AICD activated and fired. He thinks he passed out and apparently, hit his head, but is not certain. Also, he bit his lip. Also, he has right shoulder pain. No palpitations. No diaphoresis. Chest pain was transient. Syncope was transient. AICD was interrogated in the ER and was found to have a 5 second ventricular fibrillation. Hence the AICD went off. PAST MEDICAL HISTORY: Significant for arrhythmias, V-fib, hypertension, congestive heart failure, hyperlipidemia, insulin-dependent diabetes. CURRENT MEDICATIONS: Amiodarone 400 mg p.o. daily, aspirin 81 mg p.o. daily, Coreg 25 mg p.o. b.i.d., digoxin 0.125 p.o. daily, Lasix 40 mg p.o. daily, lisinopril 20 mg p.o. daily, pravastatin 40 mg p.o. at bedtime, amlodipine 10 mg p.o. daily, insulin NPH 70/30 25 units in the night time and 35 units in the morning, diphenhydramine 25 p.o. q.8, and guaifenesin 600 mg twice a day. ALLERGIES: PINEAPPLE. PAST SURGICAL HISTORY: AICD placement. SOCIAL HISTORY: Does not smoke. No alcohol, no recreational drugs. FAMILY HISTORY: Significant for hypertension. REVIEW OF SYSTEMS: GENERAL: No weight loss, no weight gain, no fever, no chills. HEENT: No sore throat, . No diplopia. RESPIRATORY SYSTEM: No shortness of breath, no wheezing, no cough. CARDIOVASCULAR: Chest pain present. Passed out. Palpitations present. Shock x 1 present. GASTROINTESTINAL: No hematemesis, no hematuria, no flank pain, no constipation. Has had some epigastric pain, which resolved spontaneously. GENITOURINARY SYSTEM: No dysuria, no flank pain, hematuria. CENTRAL NERVOUS SYSTEM: Syncope present. No seizures present. SKIN: No rashes. PSYCHIATRIC: No depression. INTEGUMENTARY: No rash and no ulcer. ALLERGIES AND IMMUNOLOGIC: No urticaria. No wheezing. HEMATOLOGIC AND LYMPHATIC SYSTEM: No lymphadenopathy. No easy bruising. A 14-point review of systems done other than syncope, shock, and chest pain, review of systems is essentially negative. PHYSICAL EXAMINATION: GENERAL: Young male, cooperative during examination. VITAL SIGNS: Blood pressure was 108/71, temperature 97.6, pulse is 86, respirations 18. HEENT: Unremarkable. Pupils equal and reactive. NECK: Supple. No lymphadenopathy, no thyromegaly. LUNGS: Clear to auscultation and percussion. Good air entry. CARDIOVASCULAR: S1, S2 heard. No gallop, no murmur, no rub. Apical impulse in left fifth intercostal space and midclavicular line. ABDOMEN: Soft and benign. No hepatosplenomegaly, no guarding, no rigidity. Hernial orifices are normal. EXTREMITIES: Good pedal pulses. No pedal edema. CENTRAL NERVOUS SYSTEM: Alert and oriented x 4. Nonfocal exam. SKIN: Normal. LABORATORY DATA: Significant for white count of 9000, H and H of 13.6 and 42.0, platelet count is 203. Sodium is 140, potassium is 4.2, chloride is 106, bicarb is 20, BUN and creatinine are 13 and 1.3. A1c is 10.6. Troponin is 0.014 and 0.025, and 0.028. CK is 74, 69, and 62. CK-MB is negative. Triglycerides are 336. Cholesterol is 184. Urine negative. Digoxin is less than 0.2. ASSESSMENT AND PLAN: 1. Syncope secondary to ventricular fibrillation, cause known. Hence no extensive workup for syncope. Stress test ordered. Interrogation done and AICD is functioning well. The patient had 5 second ventricular fibrillation. 2. Ventricular fibrillation. The patient's amiodarone to continue at 400 mg once a day. 3. Hyperlipidemia. Continue Pravachol 40 mg p.o. daily. 4. . Continue lisinopril 20 mg daily and Coreg 25 mg twice a day. 5. Insulin-dependent diabetes. Continue insulin 25 units in the night time and 20 units of 70/30 in the morning. 6. Hypertriglyceridemia. Add fenofibrate 145 p.o. daily. The patient to be discharged on fenofibrate 145. 7. Chest pain, enzymes have been negative. Lexiscan to be done. 8. Deep venous thrombosis prophylaxis, Lovenox 40 mg subcutaneous daily. [facility]# [id number] VICKY/ANA
[2016-06-08] MEDS: ZOCOR PO SCH (22:15)
[2016-06-09 08:32] VITALS: BP 129/97
--- NOTE | 2016-06-09 09:35 | Progress Note ---
Assessment and Plan 1. Spontaneous V. fib status post AICD discharge. 2. Dilated known ischemic cardiomyopathy. Plan. Resume home medication. Stress importance of compliance. Increase amiodarone to 400 mg twice a day. Patient is stable and Cardiac oliver may be discharged home to follow up in the office Subjective Date of service: 06/09/16 Principal diagnosis: Syncope+V fib for 5 secs folowed by AICD discarge and shock Interval history: No cardiac symptoms. Objective Vital Signs Temp Pulse Pulse Resp BP Pulse Ox 06/09/16 07:30 97.4 F L 77 20 134/81 97 06/09/16 06:00 81 06/09/16 05:08 98.7 F 60 18 121/64 100 06/09/16 00:14 98.2 F 80 18 109/81 97 06/08/16 20:12 97.9 F 80 18 118/86 99 06/08/16 15:32 97.4 F L 78 20 105/68 97 06/08/16 11:00 90 06/08/16 10:51 97.5 F L 87 20 124/90 97 06/08/16 10:00 97 - Physical Examination General: Appears Well, No Apparent Distress HEENT: Positive: PERRL, Mucus Membranes Moist Neck: Positive: neck supple, trachea midline Cardiac: Positive: Regular Rate, S1/S2, S3, PMI, Dilated, Laterally Displaced Lungs: Positive: No Wheeze, Rales, Rhonchi Neuro: Positive: Grossly Intact Abdomen: Positive: Soft, Active Bowel Sounds. Negative: Tender, Distended Skin: Positive: Clear Incision: Cardiac Cath Site Musculoskeletal: No Pain, Normal Range of Motion Extremities: Present: normal. Absent: edema
[2016-06-09] MEDS: COREG PO SCH (10:11)
[2016-06-09] MEDS: LANOXIN PO SCH (10:12)
[2016-06-09] MEDS: CORDARONE PO SCH (10:12)
[2016-06-09] MEDS: NORVASC PO SCH (10:12)
[2016-06-09] MEDS: MUCINEX ER PO SCH (10:12)
[2016-06-09] MEDS: LOVENOX SUB-Q SCH (10:13)
[2016-06-09] MEDS: ZESTRIL PO SCH (10:13)
[2016-06-09] MEDS: LASIX PO SCH (10:13)
[2016-06-09] MEDS: BABY ASPIRIN PO SCH (10:13)
--- NOTE | 2016-06-10 21:18 | Treadmill Report ---
THALLIUM STRESS TEST LEFT VENTRICLE: Left ventricle is dilated. There is a moderate size, fixed inferior defect with no reversibility on the resting study. Gated analysis suggests at least moderately severe left ventricular systolic dysfunction with ejection fraction calculated at 30%. CONCLUSION: Evidence of dilated cardiomyopathy, with a prior inferior wall myocardial infarction. There is minimal to no significant reversible ischemia demonstrated. Clinical correlation is recommended. JOB# [id number] CA/NTS
== END 2016-06-09 11:16 | disposition home or self-care (01) | DRG 310 ==
LOC: ED 13:29 → 4A 18:01
PROVIDERS: ADMIT Internal Medicine; ATTEND Hospitalist
PROC: 4B02XTZ Measurement of Cardiac Defibrillator, External Approach (ICD-10-PCS; principal; 2016-06-07)
DX: I49.01 Ventricular fibrillation (principal); I42.0 Dilated cardiomyopathy; I50.9 Heart failure, unspecified; E11.9 Type 2 diabetes mellitus without complications; E78.2 Mixed hyperlipidemia; I11.0 Hypertensive heart disease with heart failure; E78.1 Pure hyperglyceridemia; Z95.810 Presence of automatic (implantable) cardiac defibrillator; Z79.899 Other long term (current) drug therapy; Z79.4 Long term (current) use of insulin; Z79.82 Long term (current) use of aspirin; Z91.018 Allergy to other foods; Z82.49 Family history of ischemic heart disease and other diseases of the circulatory system
CPT/HCPCS: 36415; 70450; 71010; 74176; 78452; 80048; 80053; 80061; 80162; 80307; 81001; 82550; 82553; 82962; 83036; 83690; 83735; 84484; 85025; 85610; 93005; 93010; 93017; 96372; A9502; J1650; J1815; J2785

== ENCOUNTER 2016-10-22 15:42 | Inpatient (IN) | payer MEDICARE ==
--- NOTE | 2016-10-22 17:52 | Emergency Department Report ---
Entered by ANGELINA SPENCER, acting as scribe for SHARRON CELIS PA. Chief Complaint: Nausea/Vomiting/Diarrhea Stated Complaint: ABD PAIN/DIZZY Time Seen by Provider: 10/22/16 17:40 - HPI History of Present Illness: 46 year old male with PMHx Cardiomyopathy presents hypotensive with c/o nausea and vomiting. Patient was recently admitted to this facility for cardiac issues on 06/11/2016. - ROS Review of Systems: Abdomen/GI: positive for nausea, vomiting - Exam Vital Signs: Vital Signs 10/22/16 17:18 Temperature 98.2 F Pulse Rate 64 Respiratory 20 Rate Blood Pressure 87/59 O2 Sat by Pulse 98 Oximetry Physical Exam: Constitutional: Patient is non-toxic and in no acute distress. ENT: Dry mucous membranes. Cardiac: Normal rate and rhythm. Normal S1/S2 with no murmurs, rubs or gallops. Respiratory: No respiratory distress. Breath sounds are clear to auscultation bilaterally. Abdomen: No distension. Soft and non-tender in all quadrants. MSE screening note: Focused history and physical exam performed. Due to findings the following was ordered: EKG, CBC, BMP, UA ED Disposition for MSE Condition: Stable This documentation as recorded by the scribe,ANGELINA SPENCER,accurately reflects the service I personally performed and the decisions made by ,SHARRON CELIS PA.
[2016-10-22 18:14] LABS: Basophils % (Auto) 0.2 % (0.0-1.8); Eosinophils % (Auto) 2.7 % (0.0-4.3); Hematocrit 55.8 % (35.5-45.6); Hemoglobin 17.7 gm/dl (11.8-15.2); Mean Corpuscular HGB Conc 32 % (32-34); Mean Corpuscular Hemoglobin 27 pg (28-32); Mean Corpuscular Volume 84 fl (84-94); Platelet Count 265 K/mm3 (140-440); Red Blood Count 6.64 M/mm3 (3.65-5.03); Red Cell Distribution Width 15.9 % (13.2-15.2); White Blood Count 12.7 K/mm3 (4.5-11.0)
[2016-10-22 18:30] LABS: BUN/Creatinine Ratio 10.95; Calcium 9.4 mg/dL (8.4-10.2); Chloride 99.2 mmol/L (98-107); Potassium 5.1 mmol/L (3.6-5.0)
[2016-10-23] MEDS ORDERED: ZOFRAN IV ONE (00:17)
[2016-10-23] MEDS ORDERED: NACL 0.9% 500 ML 500 ML IV ONE (00:17)
--- NOTE | 2016-10-23 00:19 | Emergency Department Report ---
HPI - General Chief Complaint: Nausea/Vomiting/Diarrhea Time Seen by Provider: 10/22/16 17:51 - HPI HPI: The patient is a 46-year-old male with a history of diabetes or hypertension, who presents for evaluation of abdominal pain. The patient reports generalized cramping in quality abdominal pain for the past 2 days, 8/10 in severity, exacerbated with retching, and associated with nausea and nonbilious, nonbloody emesis and multiple episodes of loose watery stools, . He believes that his symptoms resulted from something that he ate 2 days ago. The patient denies fever, chills, night sweats, blood in the stool, dark tarry stool, dysuria, hematuria, flank pain, genital discharge, inability to pass flatus. ED Past Medical Hx - Past Medical History Previous Medical History?: Yes Hx Hypertension: Yes Hx Congestive Heart Failure: Yes Hx Diabetes: Yes Additional medical history: Afib? - Surgical History Past Surgical History?: Yes Hx Pacemaker: Yes Hx Internal Defibrillator: Yes - Social History Smoking Status: Never Smoker Substance Use Type: None - Medications Home Medications: Home Medications Medication Instructions Recorded Confirmed Last Taken Type Amiodarone [Cordarone 200 MG TAB] 400 mg PO QDAY 09/27/15 10/23/16 06/06/16 History Aspirin [Aspirin BABY CHEW TAB] 81 mg PO QDAY 09/27/15 10/23/16 06/06/16 History Carvedilol [Coreg] 25 mg PO BID 09/27/15 10/23/16 06/06/16 History Furosemide [Lasix TAB] 40 mg PO QDAY 09/27/15 10/23/16 06/06/16 History Pravastatin (Nf) [Pravachol] 40 mg PO QHS 09/27/15 10/23/16 06/06/16 History amLODIPine [Norvasc] 10 mg PO DAILY 09/27/15 10/23/16 06/06/16 History Insulin NPH Hum/Reg Insulin Hm 25 unit SQ QHS 06/07/16 10/23/16 06/06/16 History [HumuLIN 70/30 Kwikpen] Insulin NPH Hum/Reg Insulin Hm 35 unit SQ QAM 06/07/16 10/23/16 06/06/16 History [HumuLIN 70/30 Kwikpen] diphenhydrAMINE [Benadryl CAP] 25 mg PO Q8HR PRN 06/07/16 10/23/16 06/06/16 History guaiFENesin [Mucinex] 600 mg PO BID 06/07/16 10/23/16 06/06/16 History Digoxin [Lanoxin] 0.125 mg PO DAILY tablet 06/08/16 10/23/16 Unknown Rx Fenofibrate [Tricor] 145 mg PO QDAY #30 tablet 06/08/16 10/23/16 Unknown Rx Insulin NPH/Regular [NovoLIN 70/30] 35 unit SUB-Q BID #3 vial 06/08/16 10/23/16 Unknown Rx Lisinopril [Zestril TAB] 20 mg PO QDAY #30 tablet 06/08/16 10/23/16 Unknown Rx Amiodarone [Cordarone 200 MG TAB] 400 mg PO QDAY #30 tablet 06/09/16 10/23/16 Unknown Rx Carvedilol [Coreg] 25 mg PO BID #60 tablet 06/09/16 10/23/16 Unknown Rx Insulin NPH/Regular [NovoLIN 70/30] 35 unit SUB-Q QHS #3 vial 06/09/16 10/23/16 Unknown Rx ED Review of Systems ROS: Stated complaint: ABD PAIN/DIZZY Other details as noted in HPI Constitutional: denies: fever ENT: denies: throat or neck pain Respiratory: denies: cough, shortness of breath Cardiovascular: denies: chest pain Endocrine: denies unexplained weight loss or gain Gastrointestinal: reports abdominal pain, nausea Genitourinary: denies: dysuria Musculoskeletal: denies: leg swelling Skin: denies: rash Neurological: denies: headache Hematological/Lymphatic: denies: easy bleeding or easy bruising Psych: denies sadness or hopelessness Physical Exam - Physical Exam Vital Signs: Vital Signs 10/22/16 10/22/16 10/22/16 17:18 22:53 23:53 Temperature 98.2 F Pulse Rate 64 73 75 Respiratory 20 18 16 Rate Blood Pressure 87/59 103/64 Blood Pressure 102/75 [Left] O2 Sat by Pulse 98 100 100 Oximetry Physical Exam: General: well-nourished, well-developed, no acute distress Head: Normocephalic, atraumatic Eyes: normal sclera ENT: Mucous membranes are pale and dry Neck: No neck stiffness, no cervical adenopathy Respiratory: Breath sounds equal bilaterally, no wheezing, rales, or rhonchi Cardio: S1 and S2 present, no murmurs, rubs, gallops, capillary refill is delayed Abdomen: Normoactive bowel sounds, soft abdomen, generalized tenderness to palpation present, no rigidity, no guarding or rebound tenderness Chest WALL/Back: No tenderness to palpation of the chest wall, no CVA tenderness with percussion Musc: No pitting edema Skin: No rash Neuro: no facial drooping, normal speech Psych: Normal affect ED Course Vital Signs 10/22/16 10/22/16 10/22/16 17:18 22:53 23:53 Temperature 98.2 F Pulse Rate 64 73 75 Respiratory 20 18 16 Rate Blood Pressure 87/59 103/64 Blood Pressure 102/75 [Left] O2 Sat by Pulse 98 100 100 Oximetry ED Medical Decision Making - Lab Data Result diagrams: 10/22/16 18:03 10/22/16 18:03 - Medical Decision Making The patient was seen and examined by myself. The patient is placed on a front desk monitor and continuous pulse ox. On initial evaluation, the patient was found to be in no distress. Evaluation orders are placed. IV access is established and the patient is given 1 L normal saline fluid bolus for treatment of dehydration, and Zofran for nausea, and IV morphine for pain. Lab results revealed severely elevated creatinine of 4.0, elevated BUN, elevated potassium level of 5.1, the patient given Kayexalate for treatment of hyperkalemia. And elevated glucose of 190. As patient is found to have significantly increased creatinine from baseline of 1.4, and with elevated potassium level, he will be admitted for continued resuscitation, and close cardiovascular monitoring.The on-call hospitalist service was contacted. They agreed to admit the patient for further treatment and close monitoring. The ED admit order was placed. The patient was admitted in guarded condition. Critical care attestation.: If time is entered above; I have spent that time in minutes in the direct care of this critically ill patient, excluding procedure time. ED Disposition Clinical Impression: Dehydration, Acute hyperkalemia, Abdominal pain, acute, generalized Acute renal failure (ARF) Qualifiers: Acute renal failure type: unspecified Qualified Code(s): N17.9 - Acute kidney failure, unspecified Disposition: OP ADMITTED IP TO THIS HOSP Is pt being admited?: Yes Does the pt Need Aspirin: Yes Condition: Serious Referrals: PRIMARY CARE, [Primary Care Provider] - 3-5 Days Time of Disposition: 00:18
[2016-10-23 00:36] LABS: Bilirubin,Urine NEG (Negative); Blood,Urine NEG (Negative); Ketones,Urine TR mg/dL (Negative); Leukocyte Esterase,Urine TR (Negative); Nitrite,Urine NEG (Negative); RBC,Urine < 1.0 /HPF (0.0-6.0); Urobilinogen,Urine < 2.0 mg/dL (<2.0); WBC,Urine < 1.0 /HPF (0.0-6.0)
[2016-10-23 00:39] LABS: Protein,Urine >500 mg/dL (Negative)
[2016-10-23] MEDS ORDERED: MORPHINE IV ONE (00:44)
[2016-10-23] MEDS ORDERED: KIONEX PO ONE (00:44)
[2016-10-23] MEDS ORDERED: NACL 0.9% 1000 ML 1,000 ML ONE (00:44)
[2016-10-23] MEDS ORDERED: D50W (25GM) IV PRN (03:25)
[2016-10-23] MEDS ORDERED: TYLENOL PO PRN (03:25)
--- NOTE | 2016-10-23 03:57 | History and Physical Report ---
History of Present Illness Date of examination: 10/23/16 Chief complaint: Abdominal pain History of present illness: Patient is a 46-year-old man with a history of CHF, hypertension, diabetes mellitus type 2, dilated cardiomyopathy with the AICD (pt says he has defibrillator with pacemaker, but prior Cardiology note just mentions AICD) and prior syncopal V.fib shocks who presents with 2 day history of generalized crampy intermittent moderately intense abdominal pains associated with nonbloody loose stools and nausea vomiting. Patient believes is something he ate. Patient denies any fevers or mucus of blood in the stools. Patient doesn' t member of family member having similar symptoms. Past medical history: As HPI Past surgical history: Defibrillator placement Social history: Nonsmoker, no alcohol or drugs, full code Family history: Mother had a heart attack in her 50s, diabetes and hypertension run in the family ROS: as HPI and all other ROS reviewed and negative. Medications and Allergies Allergies Allergy/AdvReac Type Severity Reaction Status Date / Time pineapple Allergy Anaphylaxis Verified 09/26/15 20:36 Home Medications Medication Instructions Recorded Confirmed Last Taken Type Amiodarone [Cordarone 200 MG TAB] 400 mg PO QDAY 09/27/15 10/23/16 06/06/16 History Aspirin [Aspirin BABY CHEW TAB] 81 mg PO QDAY 09/27/15 10/23/16 06/06/16 History Carvedilol [Coreg] 25 mg PO BID 09/27/15 10/23/16 06/06/16 History Furosemide [Lasix TAB] 40 mg PO QDAY 09/27/15 10/23/16 06/06/16 History Pravastatin (Nf) [Pravachol] 40 mg PO QHS 09/27/15 10/23/16 06/06/16 History amLODIPine [Norvasc] 10 mg PO DAILY 09/27/15 10/23/16 06/06/16 History Insulin NPH Hum/Reg Insulin Hm 25 unit SQ QHS 06/07/16 10/23/16 06/06/16 History [HumuLIN 70/30 Kwikpen] Insulin NPH Hum/Reg Insulin Hm 35 unit SQ QAM 06/07/16 10/23/16 06/06/16 History [HumuLIN 70/30 Kwikpen] diphenhydrAMINE [Benadryl CAP] 25 mg PO Q8HR PRN 06/07/16 10/23/16 06/06/16 History guaiFENesin [Mucinex] 600 mg PO BID 06/07/16 10/23/16 06/06/16 History Digoxin [Lanoxin] 0.125 mg PO DAILY tablet 06/08/16 10/23/16 Unknown Rx Fenofibrate [Tricor] 145 mg PO QDAY #30 tablet 06/08/16 10/23/16 Unknown Rx Insulin NPH/Regular [NovoLIN 70/30] 35 unit SUB-Q BID #3 vial 06/08/16 10/23/16 Unknown Rx Lisinopril [Zestril TAB] 20 mg PO QDAY #30 tablet 06/08/16 10/23/16 Unknown Rx Amiodarone [Cordarone 200 MG TAB] 400 mg PO QDAY #30 tablet 06/09/16 10/23/16 Unknown Rx Carvedilol [Coreg] 25 mg PO BID #60 tablet 06/09/16 10/23/16 Unknown Rx Insulin NPH/Regular [NovoLIN 70/30] 35 unit SUB-Q QHS #3 vial 06/09/16 10/23/16 Unknown Rx Active Meds: Active Medications Acetaminophen (Tylenol) 325 mg PO Q6H PRN PRN Reason: Pain, Mild (1-3) Amiodarone HCl (Cordarone) 400 mg PO QDAY MALACHI Aspirin (Baby Aspirin) 81 mg PO QDAY MALACHI Dextrose (D50w (25gm)) 50 ml IV PRN PRN PRN Reason: Hypoglycemia Diphenhydramine HCl (Benadryl) 25 mg PO Q8HR PRN PRN Reason: as needeed Furosemide (Lasix) 40 mg PO QDAY MALACHI Heparin Sodium (Porcine) (Heparin) 5,000 unit SUB-Q Q12HR MALACHI Sodium Chloride (Nacl 0.9% 1000 Ml) 500 mls @ 100 mls/hr IV DIRECT MALACHI Insulin Aspart (Novolog) 0 units SUB-Q ACHS MALACHI PRN Reason: Protocol Miscellaneous Medication (Pravastatin (Nf)) 40 mg PO QHS MALACHI Ondansetron HCl (Zofran) 4 mg IV Q4H PRN PRN Reason: Nausea And Vomiting Exam - Physical Exam Narrative exam: GEN: WDWN, NAD, AWAKE, ALERT, ORIENTATED3 HEENT: NCAT, PERRL, EOMI, OP CLEAR NECK: SUPPLE, NO THYROMEGALY, NO JVD, NO LAD CVS: RRR, NORMAL S1S2 LUNGS/CHEST: CTA B, NORMAL CHEST EXPANSION B, GOOD AIR ENTRY B ABD: SOFT NTND, GBS, NO REBOUND OR GUARDING EXT/SKIN: NO SIGNIFICANT EDEMA OR RASH, mucous membranes dry MSK: FROM X 4 EXTREMITIES NEURO: CN 2-12 GROSSLY INTACT, NO new FOCAL DEFICITS PSY: CALM - Constitutional Vitals: Temp Pulse Resp BP Pulse Ox 98.2 F 75 16 102/75 100 10/22/16 17:18 10/22/16 23:53 10/22/16 23:53 10/22/16 23:53 10/22/16 23:53 Results - Labs CBC & Chem 7: 10/22/16 18:03 10/22/16 18:03 Labs: Abnormal lab results 10/22/16 10/22/16 10/22/16 Range/Units 18:03 18:03 18:03 WBC 12.7 H (4.5-11.0) K/mm3 RBC 6.64 H (3.65-5.03) M/mm3 Hgb 17.7 H (11.8-15.2) gm/dl Hct 55.8 H (35.5-45.6) % MCH 27 L (28-32) pg RDW 15.9 H (13.2-15.2) % Lymph % (Auto) 9.4 L (13.4-35.0) % Day % (Auto) 7.5 H (0.0-7.3) % Day # 1.0 H (0.0-0.8) K/mm3 Seg Neutrophils % 80.2 H (40.0-70.0) % Seg Neutrophils # 10.2 H (1.8-7.7) K/mm3 Sodium 136 L (137-145) mmol/L Potassium 5.1 H (3.6-5.0) mmol/L Carbon Dioxide 20 L (22-30) mmol/L BUN 46 H (9-20) mg/dL Creatinine 4.2 H (0.8-1.5) mg/dL Glucose 197 H (75-100) mg/dL POC Glucose (70-105) NT-Pro-B Natriuret Pep 937.2 H (0-450) pg/mL 10/22/16 10/23/16 Range/Units 21:18 00:40 WBC (4.5-11.0) K/mm3 RBC (3.65-5.03) M/mm3 Hgb (11.8-15.2) gm/dl Hct (35.5-45.6) % MCH (28-32) pg RDW (13.2-15.2) % Lymph % (Auto) (13.4-35.0) % Day % (Auto) (0.0-7.3) % Day # (0.0-0.8) K/mm3 Seg Neutrophils % (40.0-70.0) % Seg Neutrophils # (1.8-7.7) K/mm3 Sodium (137-145) mmol/L Potassium (3.6-5.0) mmol/L Carbon Dioxide (22-30) mmol/L BUN (9-20) mg/dL Creatinine (0.8-1.5) mg/dL Glucose (75-100) mg/dL POC Glucose 130 H 183 H (70-105) NT-Pro-B Natriuret Pep (0-450) pg/mL Assessment and Plan Patient is a 46-year-old man with a history of CHF, hypertension, diabetes mellitus type 2, dyslipidemia, dilated cardiomyopathy with the AICD (pt says he has defibrillator with pacemaker, but prior Cardiology note just mentions AICD) and prior syncopal V.fib shocks who presents with 2 day history of generalized crampy intermittent moderately intense abdominal pains associated with nonbloody loose stools and nausea vomiting. Patient believes is something he ate. Patient denies any fevers or mucus of blood in the stools. Patient doesn' t member of family member having similar symptoms. He is found have a creatinine of 1.2 with a baseline creatinine 1.4 on 06/08/2016, so digoxin was held. He was also found to have hyperkalemia so lisinopril was held and low blood pressure so Coreg and Norvasc were held. -Abdominal pain, appears to be acute gastroenteritis: Treat symptomatically and supportively -Acute renal failure, due to renal tubular stasis/hypotension: Treat w/ IV fluids but careful w/ heart failure, renal ultrasound and consult nephrology -Hyperkalemia, mild: Hold lisinopril -Hypotension: Hold antihypertensive, consult cardiology -Diabetes mellitus, uncontrolled with hyperglycemia: Add sliding scale insulin -History of CHF, dilated cardiomyopathy: Consult cardiology to adjust medications, question if he needs to be on amiodarone and digoxin -DVT prophylaxis: SCDs and subcutaneous heparin
[2016-10-23] MEDS ORDERED: NACL 0.9% 1000 ML 500 ML IV SCH (04:00)
--- NOTE | 2016-10-23 05:02 | Ultrasound Report ---
FINAL REPORT PROCEDURE: US RENAL BILAT TECHNIQUE: Real-time sonography in multiple planes of the kidneys, ureters and urinary bladder was performed with image documentation. CPT 82719 HISTORY: arf COMPARISON: No prior studies are available for comparison. FINDINGS: RIGHT kidney: There is increased cortical echotexture indicating chronic medical renal disease. There is no mass, cyst, stone or hydronephrosis.. Length: 9.1 cm. LEFT kidney: There is increased cortical echotexture indicating chronic medical renal disease. There is no mass, cyst, stone or hydronephrosis... Length: 9.7cm. Bladder: Normal. IMPRESSION: There is increased cortical echotexture bilaterally indicating chronic medical renal disease. There is no hydronephrosis.
--- NOTE | 2016-10-23 07:31 | XRay Report ---
AP CHEST: HISTORY: chest pain 2-lead pacemaker device is unchanged since 06/07/16. AP view of the chest demonstrates a normal mediastinal and cardiac contour with clear lungs and normal bony and soft tissue structures. IMPRESSION: No acute cardiopulmonary process identified.
--- NOTE | 2016-10-23 07:51 | Admit Criteria Form ---
Admission Criteria Documentation: GENERAL ADMISSION CRITERIA (Place 'X' for any and all applicable criteria): Admission is indicated for ANY ONE of the following: [X ]I. Hemodynamic instability as indicated by ANY ONE of the following(1)(2 )(3)(4)(5): [X ]a) Vital sign abnormality not readily corrected by appropriate treatment within 12 to 24 hours indicated by ANY ONE of the following: [X ]i) Hypotension [ ]ii) Symptomatic Tachycardia unresponsive to treatment (eg , analgesia, fluids, sedation as indicated) [ ]iii) Orthostatic vital sign changes unresponsive to treatment (eg, fluids) [ ]b) Vital sign abnormality that is severe indicated by ANY ONE of the following: [ ]i) Inadequate perfusion indicated by ANY ONE of the following: [ ]1) Lactic acidosis (greater than 2 mmol/L) [ ]2) New abnormal capillary refill (greater than 3 seconds) [ ]3) Other metabolic acidosis (arterial pH less than 7.35) not otherwise explained [ ]4) Reduced urine output [ ]5) Altered mental status [ ]6) Myocardial Ischemia [ ]v) Mean arterial pressure[A] less than 60 mm Hg [ ]vi) Mean arterial pressure[A] less than 70 mm Hg after 30 minutes of appropriate treatment (eg, fluid resuscitation) [ ]vii) IV inotropic or vasopressor medication required to maintain adequate blood pressure or perfusion [ ]viii) Sustained heart rate greater than 120 beats per minute in adult or child 6 years or older[B]] [ ]II. Hypertension requiring inpatient treatment as indicated by ANY ONE of the following(6)(7)(8): [ ]a) SBP greater than 220 mm Hg or DBP greater than 120 mm Hg despite treatment [ ]b) SBP greater than 140 mm Hg or DBP greater than 100 mm Hg with evidence of acute end organ damage as indicated by ANY ONE of the following: [ ]i) Encephalopathy [ ]ii) Acute renal failure as indicated by new onset of ANY ONE of the following(9)(10)(11)(12)(13): [ ]1) A 3-fold rise in serum creatinine from baseline [ ]2) Serum creatinine greater than 4 mg/dL ( 354 micromoles/L) with acute rise greater than 0.5 mg/dL (44.2 micromoles/L) [ ]3) Reduction of more than 75% in estimated glomerular filtration rate from baseline [ ]4) Estimated glomerular filtration rate less than 35 mL/min/1.73m2 (0.59 mL/sec/1.73m2) in child up to 18 years of age [ ]5) Cessation of urine output indicated by ALL of the following: [ ]A. Adequate volume status [ ]B. Inadequate urine output as indicated by ANY ONE of the following: [ ]a. Urine output less than 0.3 mL/kg/hr for 24 hours [ ]b. Anuria (urine output less than 0.1 mL/kg/hr) for 12 hours [ ]iii) Aortic dissection [ ]iv) Myocardial ischemia [ ]v) Left ventricular heart failure [ ]vi) Retinal hemorrhage [ ]vii) Other significant finding [ ]c) Hypertension in child requiring inpatient treatment as indicated by ALL of the following(14)(15)(16): [ ]i) Outpatient treatment not effective, not available, or not appropriate [ ]ii) SBP or DBP greater than 95th percentile for age [ ]iii) Evidence of acute end organ damage as indicated by ANY ONE of the following: [ ]1) Altered mental status [ ]2) Acute renal failure as indicated by new onset of ANY ONE of the following(9)(10)(11)(12)(13): [ ]A. A 3-fold rise in serum creatinine from baseline [ ]B. Serum creatinine greater than 4 mg/dL (354 micromoles/L) with acute rise greater than 0.5 mg/dL (44.2 micromoles/L) [ ]C. Reduction of more than 75% in estimated glomerular filtration rate from baseline [ ]D. Estimated glomerular filtration rate less than 35 mL/min/1.73m2 (0.59 mL/sec/1.73m2)in child up to 18 years of age [ ]E. Cessation of urine output indicated by ALL of the following: [ ]a. Adequate volume status [ ]b. Inadequate urine output as indicated by ANY ONE of the following: [ ]1) Urine output less than 0.3 mL/kg/hr for 24 hours [ ]2) Anuria (urine output less than 0.1 mL/kg/hr) for 12 hours [ ]3) Severe headache [ ]4) Visual disturbance [ ]5) Retinal hemorrhage [ ]6) Other significant finding [ ]III. Acute cardiac or peripheral ischemia as indicated by ANY ONE of the following: [ ]a) Acute coronary syndrome(17)(18) [ ]b) Acute peripheral ischemia (eg, pulseless, cool, mottled, or cyanotic extremity)(19) [ ]IV. Cardiac arrhythmias or findings of immediate concern indicated by ANY ONE of the following(20)(21): [ ]a) Heart rhythms that are inherently dangerous or unstable indicated by ANY ONE of the following(22)(23)(24): [ ]i) Resuscitated ventricular fibrillation or cardiac arrest [ ]ii) Ventricular escape rhythm [ ]iii) Sustained ventricular tachycardia (30 seconds or more of ventricular rhythm at greater than 100 beats per minute) [ ]iv) Nonsustained ventricular tachycardia and ANY ONE of the following: [ ]1) Suspected cardiac ischemia as cause or consequence of ventricular tachycardia [ ]2) In setting of acute myocarditis [ ]b) Unstable cardiac conduction defects indicated by ANY ONE of the following(24)(25)(26): [ ]i) Type II second-degree atrioventricular block [ ]ii) Third-degree atrioventricular block [ ]iii) New-onset left bundle branch block with suspected myocardial ischemia [ ]c) Any heart rhythm and ANY ONE of the following(22)(23)(27)(28)( 29): [ ] i) Continuous long-term ECG monitoring needed (eg, initiation of drug requiring monitoring for more than 24 hours) [ ] ii) Patient has automatic implanted cardioverter defibrillator that is repeatedly firing, malfunctioning, or in need of immediate adjustment of settings beyond the scope of ambulatory or observation care. [ ]d) Heart rhythms of concern due to ANY ONE of the following: [ ]i) Hypotension [ ]ii) Respiratory distress [ ]iii) Association with other significant symptoms (eg, bradycardia with syncope or ongoing dizziness, supraventricular tachycardia with chest pain) (27)(28) (30) [ ] V. Severe heart failure as indicated by ANY ONE of the following ( 31)(32): [ ]a) Respiratory distress [ ]b) Hypotension [ ]c) Anasarca (refractory to outpatient therapy) [ ]d) Cardiac arrhythmias of immediate concern [ ]e) Myocardial ischemia [ ]. Respiratory abnormalities, including ANY ONE of the following(33)(34) (35)(36): [ ]a) Respiratory rate greater than 30 breaths per minute unresponsive to treatment [A] [ ]b) New saturation of arterial oxygen less than 90% [ ]c) New partial pressure of carbon dioxide greater than 44 mm Hg ( 5.9 kPa) [ ]d) Supplemental oxygen or respiratory treatments needed that are new or not performable at other levels of care [ ]e) New-onset cyanosis [ ]f) Inability to protect airway [ ]g) Chronic lung disease with severe deterioration (not responsive to emergency and observation care treatment as appropriate) as indicated by ANY ONE of the following(34)(36 ): [ ]i) SaO2 5% below baseline in patient with chronic hypoxemia [ ]ii) New requirement for supplemental oxygen to keep SaO2 at baseline or acceptable level [ ]iii) Required supplemental oxygen performable only in acute inpatient setting [ ]iv) Severe airflow or ventilation abnormalities [ ]v) Previously mobile patient unable to walk between rooms [ ]vi Inability to eat or sleep due to dyspnea [ ]vii) Rapid rate of exacerbation onset [ ]viii) Altered mental status ]VII. Severe airflow or ventilation abnormalities (not responsive to emergency and observation care treatment as appropriate) as indicated by ANY ONE of the following(33)(34)(35)(37): [ ]a) PCO2 greater than 42 mm Hg (5.6 kPa) and pH less than 7.35 (new ) [ ]b) Documented PCO2 increased more than 5 mm Hg (0.7 kPa) from disease baseline [ ]c) Airflow measurements [B] less than 60% of previous best or predicted (eg, peak expiratory flow rate less than 300 L/minute) despite intensive emergent treatment [C] [ ]d) Required respiratory treatments that are performable only in acute inpatient setting [ ]VIII. Impending or actual respiratory arrest ( Also use Respiratory Failure GRG for severe respiratory disease and long-term mechanical ventilation patients) [ ]IX. Neurologic abnormalities, including ANY ONE of the following: [ ]a) New findings that suggest ANY ONE of the following: [ ]i) [employer] infection(38) [ ]ii) Cerebral bleeding, ischemia, or vasospasm(39)(40) [ ]iii) Increased intracranial pressure, hydrocephalus, or cerebral edema(41)(42)(43) [ ]iv) Spinal cord injury(44) [ ]b) Uncontrolled seizures(45) [ ]c) New-onset coma (eg, Ern[place] coma scale score less than 9) or unexplained abnormal mental status (eg, [place] coma scale score less than 14) [D](41)(46)(47) [ ]X. New-onset severe neurologic findings requiring inpatient care; examples include(42)(48)(49): [ ]a) Papilledema [ ]b) Cerebral edema [ ]c) Mass effect on CT scan [ ]XI. Suspected acute intra-abdominal process with peritoneal signs, abdominal mass, or similar findings (50)(51)(52) [ ]XII. Severe physiologic disorder remaining after emergency or observation level care (as appropriate) as indicated by ANY ONE of the following (53): [ ]a) Significant dehydration [ ]b) Diabetic ketoacidosis [ ]c) Hyperglycemic hyperosmolar state (eg, osmolality greater than 320 mOsm/kg (mmol/kg) [ ]d) Hypoglycemia [ ]e) Other (new) acid-base disorder with pH less than 7.35 or greater than 7.5(54) [ ]f) Thyroid storm (55) [ ]g) Myxedema coma (55) [ ]XIII. Abdominal abnormalities with ANY ONE of the following(56)(57): [ ]a) Absent bowel sounds with complete ileus [ ]b) Signs of intestinal obstruction or peritonitis [E] [ ]c) Nausea and vomiting that cannot be controlled with outpatient or observation care [ ]XIV. Acute renal failure as indicated by new onset of ANY ONE of the following(9)(10)(11)(12)(13): [ ]a) A 3-fold rise in serum creatinine from baseline [ ]b) Serum creatinine greater than 4 mg/dL (354 micromoles/L) with acute rise greater than 0.5 mg/dL (44.2 micromoles/L) [ ]c) Reduction of more than 75% in estimated glomerular filtration rate from baseline [ ]d) Estimated glomerular filtration rate less than 35 mL/min/ 1.73m2 (0.59 mL/sec/1.73m2) in child up to 18 years of age [ ]e) Cessation of urine output indicated by ALL of the following: [ ]i) Adequate volume status [ ]ii) Inadequate urine output as indicated by ANY ONE of the following: [ ]1) Urine output less than 0.3 mL/kg/hr for 24 hours [ ]2) Anuria (urine output less than 0.1 mL/kg/hr) for 12 hours [ ]XV. Significant uremic complications as indicated by ANY ONE of the following(58)(59)(60): [ ]a) Outpatient therapy is ineffective or not feasible for ANY ONE of the following: [ ]i) Severe heart failure [ ]ii) Severehypertension [ ]iii) Pleural effusion [ ]iv) Pericarditis or pericardial effusion [ ]b) Cardiac arrhythmias of immediate concern [ ]c) Intractable nausea or vomiting [ ]d) Recurrent seizures [ ]e) Encephalopathy [ ]f) Bleeding abnormalities (eg, platelet dysfunction) with active (eg, gastrointestinal) bleeding [ ]g) Dialysis indicated before long-term access or ambulatory arrangements can be made [ ]h) Significant metabolic or electrolyte abnormalities (eg, severe acidosis or hyperkalemia) [ ]XVI. High fever or other high-risk infection situation as indicated by ANY ONE of the following(61)(62)(63)(64): [ ]a) Outpatient and observation care antimicrobial treatment unavailable, not effective, or not appropriate [ ]b) Documented bacteremia [ ]c) Temperature greater than 40.5 degrees C (104.9 degrees F) ( oral) [ ]d) Temperature greater than 39.5 degrees C (103.1 degrees F) ( oral) or less than 36 degrees C (96.8 degrees F) (rectal) that does not respond to e treatment and observation care [ ] XVII. Temperature less than 95 degrees F (35 degrees C)(rectal)(65) [ ] XVIII. Severe nutritional abnormalities as indicated by ALL of the following (66)(67): [ ]a) Inability to tolerate or establish sufficient oral or other enteral nutrition in outpatient setting [ ]b) Parenteral nutrition regimen need that must be implemented on inpatient basis [ ] XIX. Severe electrolyte abnormalities indicated by ALL of the following(68) (69)(70): [ ]a) Electrolytes and associated findings are not as expected for patient baseline or acceptable treatment effects. [ ]b) Severe abnormalities indicated by ANY ONE of the following: [ ]i) Sodium less than 130 mEq/L (mmol/L) (new) [ ]ii)Sodium less than 135 mEq/L (mmol/L) with ANY ONE of the following: [ ]1) Uncorrectable (to near normal or chronic baseline) after trial of outpatient and emergency treatment [ ]2) Altered mental status [ ]3) Seizures [ ]4) Severe medical etiology requiring inpatient management (eg, heart failure, hypovolemia) [ ]iii) Sodium greater than 155 mEq/L (mmol/L) [ ]iv) Sodium greater than 150 mEq/L (mmol/L) with ANY ONE of the following: [ ]1) Uncorrectable (to near normal or chronic baseline) with outpatient and emergency treatment [ ]2) Altered mental status [ ]3) Seizures [ ]4) Severe medical etiology (eg, hypovolemia, diabetes insipidus) [ ]v) Potassium less than 2.5 mEq/L (mmol/L) despite outpatient and emergency treatment [ ]vi) Potassium less than 3 mEq/L (mmol/L) with ANY ONE of the following: [ ]1) Weakness [ ]2) Cardiac abnormality (eg, arrhythmia, conduction disturbance) [ ]3) Cardiac ischemia [ ]4) Ileus [ ]5) Ongoing medical cause requiring inpatient management (eg, acute renal wasting or SIADH) [ ]6) Other severe symptoms [ ]vii) Potassium greater than 6.5 mEq/L (mmol/L) [ ]viii) Potassium greater than 5 mEq/L (mmol/L) with ANY ONE of the following: [ ]1) Uncorrectable (to near normal or chronic baseline) with outpatient and emergency treatment [ ]2) Severe ECG findings [F] [ ]3) Acute worsening of renal failure (creatinine greater than 2.5 mg/dL (221 micromoles/L) or significant elevation for age and size) [ ]4) Severe weakness [ ]5) Severe medical etiology (eg, hemolysis, infection, drug overdose) [ ]ix) Calcium less than 7 mg/dL (1.75 mmol/L) despite outpatient and emergency treatment (72) [ ]x) Calcium less than 8 mg/dL (2 mmol/L) with significant symptoms or findings; examples include(72): [ ]1) Altered mental status [ ]2) Muscle spasms [ ]3) Seizures [ ]4) Breathing difficulty [ ]5) Cardiac abnormality (eg, arrhythmia or conduction disturbance) [ ]xi) Calcium greater than 14 mg/dL (3.5 mmol/L)(72) [ ]xii) Calcium greater than 12 mg/dL (3 mmol/L) with ANY ONE of the following(72): [ ]1) Uncorrectable (to near normal or chronic baseline) with outpatient and emergency treatment [ ]2) Significant dehydration or hypovolemia as indicated by ALL of the following(70)(73)(74): [ ]A. Not resolved with initial treatments [ ]B. Clinically significant dehydration as indicated by ANY ONE of the following: [ ]a. Vomiting refractory to outpatient treatment (ie, precluding oral rehydration) [ ]b. Inability to drink [ ]c. Hypernatremia or other electrolyte abnormality unable to be corrected with outpatient and emergency treatment [ ]d. Failure to remain hydrated with outpatient therapy [ ]e. Reduced urine output [ ]f. Hypotension [ ]g. Serious cause for dehydration requiring acute hospitalization (eg, bowel obstruction, increased intracranial pressure, infectious cause) [ ]h. Child with ANY ONE of the following(75): [ ]1) Severe abdominal tenderness [ ]2) Adequate care not available at home [ ]3) Severe dehydration ( greater than 9% loss of body weight) [ ]4) Significant symptoms or findings; examples include: [ ]A. Altered mental status [ ]B. Cardiac abnormality (eg, arrhythmia, conduction disturbance) [ ]C. Malignant etiology requiring inpatient treatment [ ]xiii) Phosphorus less than 1 mg/dL (0.32 mmol/L) [ ]xiv) Phosphorus less than 1.5 mg/dL (0.48 mmol/L) with ANY ONE of the following: [ ]1) Patient unresponsive to outpatient and emergency treatment [ ]2) Significant symptoms or findings; examples include: [ ]A. Weakness [ ]B. Altered mental status [ ]C. Breathing difficulty [ ]D. Seizures [ ]E. Rhabdomyolysis [ ]xv) Phosphorus greater than 10 mg/dL (3.2 mmol/L) [ ]xvi) Phosphorus greater than 4.5 mg/dL (1.45 mmol/L) (new) with ANY ONE of the following: [ ]1) Severe medical etiology (eg, crush injury, acute renal failure) [ ]2) Associated hypocalcemia with significant findings; examples include: [ ]A. Neurologic symptoms [ ]B. Altered mental status [ ]C. Muscle spasms [ ]D. Seizures [ ]E. Breathing difficulty [ ]F. Cardiac abnormality (eg, arrhythmia, conduction disturbance) [ ]xvii) Magnesium less than 1 mg/dL (0.41 mmol/L) [ ]xviii) Magnesium less than 1.5 mg/dL (0.62 mmol/L) with ANY ONE of the following: [ ]1) Patient unresponsive to outpatient and emergency treatment [ ]2) Associated hypocalcemia with significant findings; examples include: [ ]A. Altered mental status [ ]B. Muscle spasms [ ]C. Seizures [ ]D. Breathing difficulty [ ]E. Cardiac abnormality (eg, arrhythmia , conduction disturbance) [ ]3) Associated hypokalemia (potassium less than 3 mEq/L (mmol/L)) with risk of arrhythmia [ ]xix) Magnesium greater than 4 mEq/L (2 mmol/L) [ ]xx) Magnesium greater than 2.5 mEq/L (1.25 mmol/L) with significant symptoms or findings; examples include: [ ]1) Weakness [ ]2) Altered mental status [ ]3) Cardiac abnormality (eg, arrhythmia, conduction disturbance) [ ]4) Breathing difficulty [ ]5) Severe medical etiology (eg, renal failure, hypovolemia) [ ]xxi) Uric acid greater than 20 mg/dL (1190 micromoles/L)(76) [ ]xxii) Uric acid greater than 8 mg/dL (476 micromoles/L) with significant symptoms or findings of tumor lysis syndrome; examples include(76): [ ]1) Creatinine greater than 1.5 times upper limit of normal [ ]2) Cardiac abnormality (eg, arrhythmia, conduction disturbance) [ ]3) Seizure [ ]XX. Acute blood loss causing significant abnormality as indicated by ANY ONE of the following(77)(78): [ ]a) Hemoglobin less than 10 g/dL (100 g/L) (not baseline) [ ]b) Hematocrit less than 30% (0.30) (not baseline) [ ]c) Repeat hematocrit decreased more than 2% (0.02) [ ]d) Uncontrolled bleeding [ ]XXI. Severe anemia indicated by ANY ONE of the following(78)(79): [ ]a) Altered mental status [ ]b) Chest pain [ ]c) Exertional dyspnea [ ]d) Syncope [ ]e) Other findings suggesting inadequate perfusion [ ]f) Treatment with transfusion or volume replacement is ineffective at resolving ANY ONE of the following [G]: [ ]i) Tachycardia for age [ ]ii) Orthostatic vital sign changes as indicated by ANY ONE of the following(80): [ ]1) Fall in SBP of 20 mm Hg or more 1 to 3 minutes after patient sits or stands from recumbent position [ ]2) Fall in DBP of 10 mm Hg or more 1 to 3 minutes after patient sits or stands from recumbent position [ ]XXII. High-risk low platelet count as indicated by ANY ONE of the following( 81)(82): [ ]a) Severe or life-threatening bleeding (eg, intracranial, major gastrointestinal, or extensive mucosal bleeding), with any reduced platelet count [ ]b) Platelet count less than 20,000/mm3 (20 x109/L) with any active bleeding [ ]c) Platelet count less than 10,000/mm3 (10 x109/L) with minor purpura or petechiae [ ]d) Platelet count less than 5000/mm3 (5 x109/L) [ ]e) Low platelet count with hemolytic anemia [ ]XXIII. Disseminated intravascular coagulation(77)(83) [ ]XXIV. Severe adverse drug or systemic toxin reaction requiring inpatient treatment; examples include(84)(85): [ ]a) Serotonin syndrome(86) [ ]b) Neuroleptic malignant syndrome(86) [ ]c) Cholinergic syndrome with severe symptoms (eg, bronchorrhea, weakness, mental status changes, seizures) [ ]d) Sympathetic syndrome with severe symptoms (eg, seizures, mental status changes, cardiac dysrhythmias) [ ]e) Anticholinergic syndrome [ ]XXV. Severe pain requiring acute inpatient management as indicated by ALL of the following (87)(88)(89): [ ]a) Continuous or frequent (eg, every 2 to 4 hours) parenteral analgesics required [H] [ ]b) Rapid improvement expected from treatment or acute intervention (eg, surgery, anesthesia procedure) [ ]XXVI.Severe behavioral health issues judged unmanageable at a lower level of care (eg, residential) in a patient who is ANY ONE of the following(91) [ ]a) Acutely suicidal [ ]b) A danger to self (eg, self-mutilating or suicidal behavior) [ ]c) A danger to others (eg, assaultive or homicidal behavior) [ ]d) Incapacitated because of grave disability (eg, inability to provide for self at lower level of care) (92) [ ]XXVII. Inpatient monitoring needed; examples include(1)(3)(87)(93)(94)(95)(96 ): [ ]a) Vital signs, neurologic signs, or vascular checks more frequently than every 4 hours [ ]b) Cardiac or respiratory monitoring beyond the scope (eg, over 24 hours) of observation care [ ]c) Pulmonary artery catheter monitoring [ ]d) Suspected compartment syndrome(97) (98) [ ]e) Cerebral bleeding, hydrocephalus, or vasospasm monitoring [ ]f) Increased intracranial pressure or cerebral edema monitoring [ ]g) monitoring [ ]XXVIII. Treatment requiring inpatient care; examples include: [ ]a) IV fluid to replace significant ongoing losses (greater than 3 L/m2 per day)(53) [ ]b) High concentration oxygen (greater than 40%)(33)(99)(100) [ ]c) Frequent respiratory therapy (more frequently than every 4 hours) to maintain airflow rates greater than 60% of baseline(33)(99)(100) [ ]d) Epidural analgesia(87) [ ]e) IV anticoagulation, vasoactive, or antiarrhythmic medication(19 )(23) [ ]f) Acute thrombolytics (generally require 24 hours of observation )(101)(102) [ ]XXIX. Emergency procedures needed; examples include: [ ]a) Emergency inpatient surgery [ ]b) Temporary pacemaker placement(103) [ ]c) Chest tube placement with active evacuation (eg, suction, drainage)(104) [ ]d) Emergent cardioversion(105) [ ]e) Emergent cardiac or vascular procedures (eg, cardiac catheterization, angioplasty) (17)(18) [ ]f) Emergent dialysis access placement and institution(10)(106) [ ]g) Emergent pericardiocentesis(107) [ ]h) Emergent plasmapheresis or leukapheresis(83) [ ]i) Emergent tracheostomy The original [employer] content created by [employer] has been revised. The portions of the content which have been revised are identified through the use of italic text or in bold, and [employer] has neither reviewed nor approved the modified material. All other unmodified content is copyright [employer]. Please see references footnoted in the original [employer] edition 2016 Admission Criteria Met: Yes
[2016-10-23] MEDS: NOVOLOG SUB-Q SCH ×4 (08:36→21:44)
[2016-10-23] MEDS ORDERED: NORVASC PO SCH (10:00)
[2016-10-23] MEDS ORDERED: CORDARONE PO SCH (10:00)
[2016-10-23] MEDS ORDERED: LASIX PO SCH (10:00)
[2016-10-23] MEDS ORDERED: TRICOR PO SCH (10:00)
[2016-10-23] MEDS ORDERED: COREG PO SCH (10:00)
[2016-10-23] MEDS ORDERED: LANOXIN PO SCH (10:00)
--- NOTE | 2016-10-23 11:19 | Consultation ---
History of Present Illness - Reason for Consult Consult date: 10/23/16 acute renal failure, chronic renal failure, hyperkalemia - History of Present Illness Patient is a 46-year-old man with a history of Chronic systolic CHF eith EF 30% , Hypertension, Diabetes mellitus type 2, Dilated cardiomyopathy s/p AICD and prior syncopal V.fib shocks who presented with 3 day history of N, V, D and abdominal pain. He has had several episodes of N & V over the past few days. Stools are watery and non-bloody. Abdominal pain is generalized, crampy, intermittent and moderately intense. His symptoms are mostly improved except for semi formed stools. Patient denies any fever, jaundice, dizziness, dysuria , hematuria, weakness or blood in the stools. His baseline creatinine is around 1.4 and admitted with creatinine os 4.2 and potassium of 5.1. His initial BP was low, currently his BP is better. Past History Past Medical History: arrhythmia, diabetes, heart failure, hypertension Medications and Allergies Allergies Allergy/AdvReac Type Severity Reaction Status Date / Time pineapple Allergy Anaphylaxis Verified 09/26/15 20:36 Home Medications Medication Instructions Recorded Confirmed Last Taken Type Amiodarone [Cordarone 200 MG TAB] 400 mg PO QDAY 09/27/15 10/23/16 06/06/16 History Aspirin [Aspirin BABY CHEW TAB] 81 mg PO QDAY 09/27/15 10/23/16 06/06/16 History Carvedilol [Coreg] 25 mg PO BID 09/27/15 10/23/16 06/06/16 History Furosemide [Lasix TAB] 40 mg PO QDAY 09/27/15 10/23/16 06/06/16 History Pravastatin (Nf) [Pravachol] 40 mg PO QHS 09/27/15 10/23/16 06/06/16 History amLODIPine [Norvasc] 10 mg PO DAILY 09/27/15 10/23/16 06/06/16 History Insulin NPH Hum/Reg Insulin Hm 25 unit SQ QHS 06/07/16 10/23/16 06/06/16 History [HumuLIN 70/30 Kwikpen] Insulin NPH Hum/Reg Insulin Hm 35 unit SQ QAM 06/07/16 10/23/16 06/06/16 History [HumuLIN 70/30 Kwikpen] diphenhydrAMINE [Benadryl CAP] 25 mg PO Q8HR PRN 06/07/16 10/23/16 06/06/16 History guaiFENesin [Mucinex] 600 mg PO BID 06/07/16 10/23/16 06/06/16 History Digoxin [Lanoxin] 0.125 mg PO DAILY tablet 06/08/16 10/23/16 Unknown Rx Fenofibrate [Tricor] 145 mg PO QDAY #30 tablet 06/08/16 10/23/16 Unknown Rx Insulin NPH/Regular [NovoLIN 70/30] 35 unit SUB-Q BID #3 vial 06/08/16 10/23/16 Unknown Rx Lisinopril [Zestril TAB] 20 mg PO QDAY #30 tablet 06/08/16 10/23/16 Unknown Rx Amiodarone [Cordarone 200 MG TAB] 400 mg PO QDAY #30 tablet 06/09/16 10/23/16 Unknown Rx Carvedilol [Coreg] 25 mg PO BID #60 tablet 06/09/16 10/23/16 Unknown Rx Insulin NPH/Regular [NovoLIN 70/30] 35 unit SUB-Q QHS #3 vial 06/09/16 10/23/16 Unknown Rx Active Meds: Active Medications Acetaminophen (Tylenol) 325 mg PO Q6H PRN PRN Reason: Pain, Mild (1-3) Amiodarone HCl (Cordarone) 400 mg PO QDAY MALACHI Aspirin (Baby Aspirin) 81 mg PO QDAY MALACHI Dextrose (D50w (25gm)) 50 ml IV PRN PRN PRN Reason: Hypoglycemia Diphenhydramine HCl (Benadryl) 25 mg PO Q8HR PRN PRN Reason: as needeed Furosemide (Lasix) 40 mg PO QDAY MALACHI Heparin Sodium (Porcine) (Heparin) 5,000 unit SUB-Q Q12HR MALACHI Sodium Chloride (Nacl 0.9% 1000 Ml) 500 mls @ 100 mls/hr IV DIRECT MALACHI Insulin Aspart (Novolog) 0 units SUB-Q ACHS MALACHI PRN Reason: Protocol Last Admin: 10/23/16 08:36 Dose: Not Given Ondansetron HCl (Zofran) 4 mg IV Q4H PRN PRN Reason: Nausea And Vomiting Simvastatin (Zocor) 20 mg PO QHS [facility] Review of Systems Constitutional: no weight loss, no weight gain, no fever, no chills, no weakness , no poor appetite Ears, nose, mouth and throat: no sinus pain, no epistaxis Cardiovascular: high blood pressure, no chest pain, no orthopnea, no rapid/ irregular heart beat, no edema, no syncope, no lightheadedness, no shortness of breath Respiratory: no cough, no shortness of breath Gastrointestinal: abdominal pain, nausea, vomiting, diarrhea, change in bowel habits, no hematemesis, no coffee ground emesis, no BRBPR, no melena, no hematochezia Genitourinary Male: no dysuria, no hematuria Rectal: no pain, no bleeding Musculoskeletal: no neck stiffness Integumentary: no rash, no wounds Neurological: no head injury, no paralysis, no syncope Psychiatric: no memory loss Endocrine: no weight change Hematologic/Lymphatic: no easy bruising, no easy bleeding Exam - Vital Signs Vital signs: Vital Signs Temp Pulse Resp BP Pulse Ox 98.2 F 64 20 87/59 98 10/22/16 17:18 10/22/16 17:18 10/22/16 17:18 10/22/16 17:18 10/22/16 17:18 - General Appearance General appearance: well-developed, well-nourished, appears stated age, other ( no distress) EENT: ATNC, PERRL, mucous membranes dry, hearing intact, vision intact Neck: Present: neck supple, trachea midline Respiratory: Clear to Ascultation Heart: regular, S1S2, no murmurs Gastrointestinal: Present: normoactive bowel sounds. Absent: tenderness, distended Integumentary: no rash Neurologic: no focal deficit, no asterixis, alert and oriented x3, CN 3-12 intact Musculoskeletal: Present: other (no edema) Psychiatric: mood/affect appropriate, cooperative Results - Lab Results 10/22/16 18:03 10/22/16 18:03 Most recent lab results Calcium 9.4 mg/dL (8.4-10.2) 10/22/16 18:03 - Image Kidney/bladder ultrasound: pending Assessment and Plan - Patient Problems (1) Acute renal failure (ARF) Current Visit: Yes Status: Acute Qualifiers: Acute renal failure type: unspecified Qualified Code(s): N17.9 - Acute kidney failure, unspecified Plan to address problem: Acute Kidney Injury superimposed on CKD stage 2-3 in the volume depletion and hypotension. BP is better at this time. If needed will give IV fluids. Monitor renal function. (2) Acute hyperkalemia Current Visit: Yes Status: Acute Plan to address problem: Hyperkalemia in the setting of [place]. Repeat lab results are pending. (3) Abdominal pain, acute, generalized Current Visit: Yes Status: Acute (4) Systolic CHF, chronic Current Visit: Yes Status: Chronic Plan to address problem: Compensated.
--- NOTE | 2016-10-23 11:27 | Consultation ---
History of Present Illness Consult date: 10/23/16 Consult reason: known to you History of present illness: This is a 46yr old male with a long standing history of dilated cardiomyopathy with an single chamber AICD for primary prevention. Most recent cardiac workup was done at this hospital 4 months ago. He had a persantine thallium stress test that showed no reversible ischemia, EF 30%. He presented to this hospital with nausea vomiting and abdominal pain. He has no chest pain or shortness of breath. He denies AICD discharge. Found acute renal failure with a creatinine of 4.2 and hyperkalemic with a potassium of 5.1 and admitted for treatment. Past History Past Medical History: diabetes, heart failure, hypertension Medications and Allergies Allergies Allergy/AdvReac Type Severity Reaction Status Date / Time pineapple Allergy Anaphylaxis Verified 09/26/15 20:36 Home Medications Medication Instructions Recorded Confirmed Last Taken Type Amiodarone [Cordarone 200 MG TAB] 400 mg PO QDAY 09/27/15 10/23/16 06/06/16 History Aspirin [Aspirin BABY CHEW TAB] 81 mg PO QDAY 09/27/15 10/23/16 06/06/16 History Carvedilol [Coreg] 25 mg PO BID 09/27/15 10/23/16 06/06/16 History Furosemide [Lasix TAB] 40 mg PO QDAY 09/27/15 10/23/16 06/06/16 History Pravastatin (Nf) [Pravachol] 40 mg PO QHS 09/27/15 10/23/16 06/06/16 History amLODIPine [Norvasc] 10 mg PO DAILY 09/27/15 10/23/16 06/06/16 History Insulin NPH Hum/Reg Insulin Hm 25 unit SQ QHS 06/07/16 10/23/16 06/06/16 History [HumuLIN 70/30 Kwikpen] Insulin NPH Hum/Reg Insulin Hm 35 unit SQ QAM 06/07/16 10/23/16 06/06/16 History [HumuLIN 70/30 Kwikpen] diphenhydrAMINE [Benadryl CAP] 25 mg PO Q8HR PRN 06/07/16 10/23/16 06/06/16 History guaiFENesin [Mucinex] 600 mg PO BID 06/07/16 10/23/16 06/06/16 History Digoxin [Lanoxin] 0.125 mg PO DAILY tablet 06/08/16 10/23/16 Unknown Rx Fenofibrate [Tricor] 145 mg PO QDAY #30 tablet 06/08/16 10/23/16 Unknown Rx Insulin NPH/Regular [NovoLIN 70/30] 35 unit SUB-Q BID #3 vial 06/08/16 10/23/16 Unknown Rx Lisinopril [Zestril TAB] 20 mg PO QDAY #30 tablet 06/08/16 10/23/16 Unknown Rx Amiodarone [Cordarone 200 MG TAB] 400 mg PO QDAY #30 tablet 06/09/16 10/23/16 Unknown Rx Carvedilol [Coreg] 25 mg PO BID #60 tablet 06/09/16 10/23/16 Unknown Rx Insulin NPH/Regular [NovoLIN 70/30] 35 unit SUB-Q QHS #3 vial 06/09/16 10/23/16 Unknown Rx Active Meds: Active Medications Acetaminophen (Tylenol) 325 mg PO Q6H PRN PRN Reason: Pain, Mild (1-3) Amiodarone HCl (Cordarone) 400 mg PO QDAY MALACHI Aspirin (Baby Aspirin) 81 mg PO QDAY MALACHI Dextrose (D50w (25gm)) 50 ml IV PRN PRN PRN Reason: Hypoglycemia Diphenhydramine HCl (Benadryl) 25 mg PO Q8HR PRN PRN Reason: as needeed Furosemide (Lasix) 40 mg PO QDAY MALACHI Heparin Sodium (Porcine) (Heparin) 5,000 unit SUB-Q Q12HR MALACHI Sodium Chloride (Nacl 0.9% 1000 Ml) 500 mls @ 100 mls/hr IV DIRECT MALACHI Insulin Aspart (Novolog) 0 units SUB-Q ACHS MALACHI PRN Reason: Protocol Last Admin: 10/23/16 08:36 Dose: Not Given Ondansetron HCl (Zofran) 4 mg IV Q4H PRN PRN Reason: Nausea And Vomiting Simvastatin (Zocor) 20 mg PO QHS [facility] Physical Examination Vital Signs Temp Pulse Resp BP Pulse Ox 98.2 F 64 20 87/59 98 10/22/16 17:18 10/22/16 17:18 10/22/16 17:18 10/22/16 17:18 10/22/16 17:18 General appearance: no acute distress HEENT: Positive: PERRL Neck: Positive: trachea midline Cardiac: Positive: Reg Rate and Rhythm Results 10/22/16 18:03 10/22/16 18:03 Assessment and Plan Abdominal pain with n/v Acute renal failure Hyperkalemia Hx of Nonischemic cardiomyopathy no reversible ischemia on MPI 05/2016 Presence of AICD (Medtronic) Hx of VF -on amiodarone for suppression Diabetes mellitus
[2016-10-23] MEDS: BABY ASPIRIN PO SCH (12:01)
[2016-10-23 14:10] LABS: BUN/Creatinine Ratio 13.25; Calcium 8.7 mg/dL (8.4-10.2); Chloride 98.3 mmol/L (98-107); Potassium 4.1 mmol/L (3.6-5.0)
[2016-10-23] MEDS: ZOCOR PO SCH (21:44)
[2016-10-23] MEDS: BENADRYL PO PRN (21:44)
[2016-10-23] MEDS: HEPARIN SUB-Q SCH (21:44)
[2016-10-23] MEDS ORDERED: PRAVASTATIN 40 MG PO SCH (22:00)
--- NOTE | 2016-10-24 08:51 | Progress Note ---
Assessment and Plan Abdominal pain with n/v Acute renal failure coreg, lisinopril and digoxin are currently on hold Hyperkalemia Hx of Nonischemic cardiomyopathy no reversible ischemia on MPI 05/2016 Presence of AICD (Medtronic) Hx of VF -on amiodarone for suppression Diabetes mellitus Continue amiodarone to 200 mg po daily for suppression of Vfib. Subjective Date of service: 10/24/16 Interval history: Patient is resting in bed comfortably. He has no chest pain, shortness of breath or palpitations. Objective Vital Signs Temp Pulse Pulse Pulse Resp BP 10/23/16 22:00 97.7 F 74 75 18 106/78 10/23/16 16:00 97.9 F 69 20 124/72 - Physical Examination General: No Apparent Distress HEENT: Positive: PERRL Neck: Positive: trachea midline Cardiac: Positive: Reg Rate and Rhythm - Labs and Meds Comprehensive Metabolic Panel 10/23/16 Range/Units 13:30 Sodium 137 (137-145) mmol/L Potassium 4.1 (3.6-5.0) mmol/L Chloride 98.3 (98-107) mmol/L Carbon Dioxide 21 L (22-30) mmol/L BUN 57 H (9-20) mg/dL Creatinine 4.3 H (0.8-1.5) mg/dL Glucose 157 H (75-100) mg/dL Calcium 8.7 (8.4-10.2) mg/dL
[2016-10-24] MEDS: ZOFRAN IV PRN ×2 (09:00→20:32)
[2016-10-24] MEDS: NOVOLOG SUB-Q SCH ×3 (09:04→16:53)
[2016-10-24 09:32] LABS: Hematocrit 52.3 % (35.5-45.6); Hemoglobin 17.2 gm/dl (11.8-15.2); Mean Corpuscular HGB Conc 33 % (32-34); Mean Corpuscular Hemoglobin 27 pg (28-32); Mean Corpuscular Volume 83 fl (84-94); Platelet Count 266 K/mm3 (140-440); Red Blood Count 6.35 M/mm3 (3.65-5.03); Red Cell Distribution Width 15.5 % (13.2-15.2); White Blood Count 11.7 K/mm3 (4.5-11.0)
[2016-10-24 09:48] LABS: BUN/Creatinine Ratio 16.47; Calcium 8.8 mg/dL (8.4-10.2); Chloride 99.7 mmol/L (98-107); Potassium 4.4 mmol/L (3.6-5.0)
[2016-10-24] MEDS: BABY ASPIRIN PO SCH (10:29)
[2016-10-24] MEDS: HEPARIN SUB-Q SCH (10:29)
[2016-10-24] MEDS: CORDARONE PO SCH (10:29)
--- NOTE | 2016-10-24 12:48 | Progress Note ---
Assessment and Plan - Patient Problems (1) Acute renal failure (ARF) Current Visit: Yes Status: Acute Qualifiers: Acute renal failure type: unspecified Qualified Code(s): N17.9 - Acute kidney failure, unspecified Plan to address problem: Acute Kidney Injury superimposed on CKD stage 2-3 in the volume depletion and hypotension. Creatinine is improving. BP is better. Due to N, V and poor PO intake will start him on IV fluids. Monitor renal function. (2) Acute hyperkalemia Current Visit: Yes Status: Acute Plan to address problem: Hyperkalemia in the setting of [place]. Improved. (3) Abdominal pain, acute, generalized Current Visit: Yes Status: Acute (4) Systolic CHF, chronic Current Visit: Yes Status: Chronic Plan to address problem: Compensated. Subjective Date of service: 10/24/16 Interval history: Patient c/o N & V this morning. Objective - Vital Signs Vital signs: Vital Signs - 12hr 10/24/16 10/24/16 08:01 12:20 Temperature 98 F 98.3 F Pulse Rate [ 88 76 Apical] Respiratory 18 18 Rate Blood Pressure 108/68 122/84 [Left Arm] O2 Sat by Pulse 98 Oximetry - General Appearance General appearance: well-developed, well-nourished, appears stated age, other ( no distress) EENT: ATNC, PERRL, mucous membranes moist Neck: supple Respiratory: Present: Clear to Ascultation Cardiology: regular, S1S2, no murmurs Gastrointestinal: normoactive bowel sounds, no tenderness, no distended Integumentary: no rash Neurologic: no focal deficit, no asterixis, alert and oriented x3, CN 3-12 intact Musculoskeletal: other (no edema) Psychiatric: mood/affect appropriate, cooperative - Lab 10/24/16 09:18 10/24/16 09:18 Most recent lab results Calcium 8.8 mg/dL (8.4-10.2) 10/24/16 09:18
--- NOTE | 2016-10-24 13:58 | Progress Note ---
Assessment and Plan Assessment and plan: Patient is a 46-year-old man with a history of CHF, hypertension, diabetes mellitus type 2, dyslipidemia, dilated cardiomyopathy with the AICD (pt says he has defibrillator with pacemaker, but prior Cardiology note just mentions AICD) and prior syncopal V.fib shocks who presents with 2 day history of generalized crampy intermittent moderately intense abdominal pains associated with nonbloody loose stools and nausea vomiting. Patient believes is something he ate. Patient denies any fevers or mucus of blood in the stools. Patient doesn' t member of family member having similar symptoms. He is found have a creatinine of 1.2 with a baseline creatinine 1.4 on 06/08/2016, so digoxin was held. He was also found to have hyperkalemia so lisinopril was held and low blood pressure so Coreg and Norvasc were held. -Abdominal pain, appears to be acute gastroenteritis: Treat symptomatically and supportively -Acute renal failure, due to renal tubular stasis/hypotension: Treat w/ IV fluids but careful w/ heart failure, renal ultrasound and consult nephrology -Hyperkalemia, mild: Hold lisinopril -Hypotension: Hold antihypertensive, consult cardiology -Diabetes mellitus, uncontrolled with hyperglycemia: Add sliding scale insulin -History of CHF, dilated cardiomyopathy: Consult cardiology adjusted medications , -DVT prophylaxis: SCDs and subcutaneous heparin Still with nausea vomiting: Chest abdominal x-ray. History Interval history: Patient seen and examined. Follow up on acute renal failure. Overnight uneventful. No cp, sob, or severe headaches. Imaging, old records, testing, labs , nursing notes reviewed. Patient has nausea vomiting without abdominal pain Hospitalist Physical - Physical exam Narrative exam: GEN: WDWN, NAD, AWAKE, ALERT, ORIENTATED3 HEENT: NCAT, PERRL, EOMI, OP CLEAR NECK: SUPPLE, NO THYROMEGALY, NO JVD, NO LAD CVS: RRR, NORMAL S1S2 LUNGS/CHEST: CTA B, NORMAL CHEST EXPANSION B, GOOD AIR ENTRY B ABD: SOFT NTND, GBS, NO REBOUND OR GUARDING EXT/SKIN: NO SIGNIFICANT EDEMA OR RASH, mucous membranes dry MSK: FROM X 4 EXTREMITIES NEURO: CN 2-12 GROSSLY INTACT, NO new FOCAL DEFICITS PSY: CALM - Constitutional Vitals: Temp Pulse Resp BP Pulse Ox 98.3 F 76 18 122/84 98 10/24/16 12:20 10/24/16 12:20 10/24/16 12:20 10/24/16 12:20 10/24/16 08:01 General appearance: Present: no acute distress Results - Labs CBC & Chem 7: 10/24/16 09:18 10/24/16 09:18 Labs: Laboratory Last Values WBC 11.7 K/mm3 (4.5-11.0) H 10/24/16 09:18 RBC 6.35 M/mm3 (3.65-5.03) H 10/24/16 09:18 Hgb 17.2 gm/dl (11.8-15.2) H 10/24/16 09:18 Hct 52.3 % (35.5-45.6) H 10/24/16 09:18 MCV 83 fl (84-94) L 10/24/16 09:18 MCH 27 pg (28-32) L 10/24/16 09:18 MCHC 33 % (32-34) 10/24/16 09:18 RDW 15.5 % (13.2-15.2) H 10/24/16 09:18 Plt Count 266 K/mm3 (140-440) 10/24/16 09:18 Lymph % (Auto) 9.4 % (13.4-35.0) L 10/22/16 18:03 [place] % (Auto) 7.5 % (0.0-7.3) H 10/22/16 18:03 Eos % (Auto) 2.7 % (0.0-4.3) 10/22/16 18:03 Baso % (Auto) 0.2 % (0.0-1.8) 10/22/16 18:03 Lymph # 1.2 K/mm3 (1.2-5.4) 10/22/16 18:03 [place] # 1.0 K/mm3 (0.0-0.8) H 10/22/16 18:03 Eos # 0.3 K/mm3 (0.0-0.4) 10/22/16 18:03 Baso # 0.0 K/mm3 (0.0-0.1) 10/22/16 18:03 Seg Neutrophils % 80.2 % (40.0-70.0) H 10/22/16 18:03 Seg Neutrophils # 10.2 K/mm3 (1.8-7.7) H 10/22/16 18:03 Sodium 138 mmol/L (137-145) 10/24/16 09:18 Potassium 4.4 mmol/L (3.6-5.0) 10/24/16 09:18 Chloride 99.7 mmol/L (98-107) 10/24/16 09:18 Carbon Dioxide 22 mmol/L (22-30) 10/24/16 09:18 Anion Gap 21 mmol/L 10/24/16 09:18 BUN 56 mg/dL (9-20) H 10/24/16 09:18 Creatinine 3.4 mg/dL (0.8-1.5) H 10/24/16 09:18 Estimated GFR 24 ml/min 10/24/16 09:18 BUN/Creatinine Ratio 16.47 % 10/24/16 09:18 Glucose 119 mg/dL (75-100) H 10/24/16 09:18 POC Glucose 149 (70-105) H 10/24/16 11:10 Calcium 8.8 mg/dL (8.4-10.2) 10/24/16 09:18 NT-Pro-B Natriuret Pep 937.2 pg/mL (0-450) H 10/22/16 18:03 Urine Color [place] (Yellow) 10/22/16 23:53 Urine Turbidity Cloudy (Clear) 10/22/16 23:53 Urine pH 5.0 (5.0-7.0) 10/22/16 23:53 Ur Specific [place] 1.028 (1.003-1.030) 10/22/16 23:53 Urine Protein >500 mg/dL (Negative) 10/22/16 23:53 Urine Glucose (UA) 50 mg/dL (Negative) 10/22/16 23:53 Urine Ketones Tr mg/dL (Negative) 10/22/16 23:53 Urine Blood Neg (Negative) 10/22/16 23:53 Urine Nitrite Neg (Negative) 10/22/16 23:53 Urine Bilirubin Neg (Negative) 10/22/16 23:53 Urine Urobilinogen < 2.0 mg/dL (<2.0) 10/22/16 23:53 Ur Leukocyte Esterase Tr (Negative) 10/22/16 23:53 Urine WBC (Auto) < 1.0 /HPF (0.0-6.0) 10/22/16 23:53 Urine RBC (Auto) < 1.0 /HPF (0.0-6.0) 10/22/16 23:53
--- NOTE | 2016-10-24 14:36 | XRay Report ---
ABDOMEN RADIOGRAPHS INDICATION: Nausea, vomiting. COMPARISON: 06/07/[address] FINDINGS: Frontal abdominal radiographs demonstrate nonobstructive bowel gas pattern. No focal suspicious calcifications, pneumatosis or pneumoperitoneum. Clear visualized lung bases. Left AICD with dual-chamber leads. EKG leads. Intact bones. CONCLUSION: No acute abdominal radiographic abnormality, as described. Thank you for the opportunity to participate in this patient's care.
[2016-10-25] MEDS: NOVOLOG SUB-Q SCH ×5 (00:03→21:48)
[2016-10-25] MEDS: HEPARIN SUB-Q SCH ×3 (00:10→21:44)
[2016-10-25] MEDS: ZOCOR PO SCH ×2 (00:10→21:44)
[2016-10-25] MEDS: ZOFRAN IV PRN ×2 (02:00→08:01)
[2016-10-25 06:18] LABS: Calcium 8.6 mg/dL (8.4-10.2)
--- NOTE | 2016-10-25 08:54 | Progress Note ---
Assessment and Plan - Patient Problems (1) Acute renal failure (ARF) Current Visit: Yes Status: Acute Qualifiers: Acute renal failure type: unspecified Qualified Code(s): N17.9 - Acute kidney failure, unspecified Plan to address problem: Acute Kidney Injury superimposed on CKD stage 2-3 in the volume depletion and hypotension. Creatinine continues to improve. IV fluids. Monitor renal function. (2) Acute hyperkalemia Current Visit: Yes Status: Acute Plan to address problem: Hyperkalemia in the setting of [place]. Improved. (3) Abdominal pain, acute, generalized Current Visit: Yes Status: Acute Plan to address problem: GI consulted. (4) Systolic CHF, chronic Current Visit: Yes Status: Chronic Plan to address problem: Compensated. Subjective Date of service: 10/25/16 Interval history: Patient continues to have N & V. Objective - Vital Signs Vital signs: Vital Signs - 12hr 10/25/16 00:00 Temperature 97.4 F L Pulse Rate [ 74 Apical] Respiratory 20 Rate Blood Pressure 126/71 [Left Arm] O2 Sat by Pulse 97 Oximetry - General Appearance General appearance: well-developed, well-nourished, appears stated age, other ( no distress) EENT: ATNC, PERRL, mucous membranes moist, hearing intact, vision intact Neck: supple Respiratory: Present: Clear to Ascultation Cardiology: regular, S1S2, no murmurs Gastrointestinal: normoactive bowel sounds, no tenderness, no distended Integumentary: no rash Neurologic: no focal deficit, no asterixis, alert and oriented x3, CN 3-12 intact Musculoskeletal: other (no edema) Psychiatric: mood/affect appropriate, cooperative - Lab 10/24/16 09:18 10/25/16 05:30 Most recent lab results Calcium 8.6 mg/dL (8.4-10.2) 10/25/16 05:30
--- NOTE | 2016-10-25 09:31 | Progress Note ---
Assessment and Plan Abdominal pain with n/v Acute renal failure coreg and lisinopril currently on hold Hyperkalemia Hx of Nonischemic cardiomyopathy no reversible ischemia on MPI 05/2016 Presence of AICD ([employer]tronic) Hx of VF -on amiodarone for suppression digoxin held due to renal failure Diabetes mellitus Recommendations: Resume medical therapy for his nonischemic cardiomyopathy as BP tolerates. Conservative cardiac management. Subjective Date of service: 10/25/16 Interval history: Patient reports intermittent abdominal pain. He has no chest pain, shortness of breath or palpitations. Objective Vital Signs Temp Pulse Resp BP Pulse Ox 10/25/16 00:00 97.4 F L 74 20 126/71 97 10/24/16 20:00 97.9 F 79 20 131/85 99 10/24/16 16:20 98.3 F 82 16 112/72 10/24/16 12:20 98.3 F 76 18 122/84 - Physical Examination General: No Apparent Distress HEENT: Positive: PERRL Neck: Positive: trachea midline Cardiac: Positive: Reg Rate and Rhythm Lungs: Positive: Decreased Breath Sounds Neuro: Positive: Grossly Intact - Labs and Meds CBC 10/24/16 Range/Units 09:18 WBC 11.7 H (4.5-11.0) K/mm3 RBC 6.35 H (3.65-5.03) M/mm3 Hgb 17.2 H (11.8-15.2) gm/dl Hct 52.3 H (35.5-45.6) % Plt Count 266 (140-440) K/mm3 Comprehensive Metabolic Panel 10/24/16 10/25/16 Range/Units 09:18 05:30 Sodium 138 136 L (137-145) mmol/L Potassium 4.4 4.0 (3.6-5.0) mmol/L Chloride 99.7 102.0 (98-107) mmol/L Carbon Dioxide 22 20 L (22-30) mmol/L BUN 56 H 51 H (9-20) mg/dL Creatinine 3.4 H 3.0 H (0.8-1.5) mg/dL Glucose 119 H 135 H (75-100) mg/dL Calcium 8.8 8.6 (8.4-10.2) mg/dL
--- NOTE | 2016-10-25 09:41 | Progress Note ---
Assessment and Plan Assessment and plan: Patient is a 46-year-old man with a history of CHF, hypertension, diabetes mellitus type 2, dyslipidemia, dilated cardiomyopathy with the AICD (pt says he has defibrillator with pacemaker, but prior Cardiology note just mentions AICD) and prior syncopal V.fib shocks who presents with 2 day history of generalized crampy intermittent moderately intense abdominal pains associated with nonbloody loose stools and nausea vomiting. Patient believes is something he ate. Patient denies any fevers or mucus of blood in the stools. Patient doesn' t member of family member having similar symptoms. He is found have a creatinine of 1.2 with a baseline creatinine 1.4 on 06/08/2016, so digoxin was held. He was also found to have hyperkalemia so lisinopril was held and low blood pressure so Coreg and Norvasc were held. -Abdominal pain, appears to be acute gastroenteritis: Treat symptomatically and supportively -Acute renal failure, due to renal tubular stasis/hypotension: Treat w/ IV fluids but careful w/ heart failure, renal ultrasound and consult nephrology -Hyperkalemia, mild: Hold lisinopril -Hypotension: Hold antihypertensive, consult cardiology -Diabetes mellitus, uncontrolled with hyperglycemia: Add sliding scale insulin -History of CHF, dilated cardiomyopathy: Consult cardiology adjusted medications , -DVT prophylaxis: SCDs and subcutaneous heparin Still with nausea and vomiting: Downgrade diet, CT abdomen and pelvis with oral contrast only, consult GI History Interval history: Patient seen and examined. Follow up on acute renal failure. Overnight uneventful. No cp, sob, or severe headaches. Imaging, old records, testing, labs , nursing notes reviewed. Patient still has nausea, vomiting without abdominal pains. Hospitalist Physical - Physical exam Narrative exam: GEN: WDWN, NAD, AWAKE, ALERT, ORIENTATED3 CVS: RRR, NORMAL S1S2 LUNGS/CHEST: CTA B, NORMAL CHEST EXPANSION B, GOOD AIR ENTRY B ABD: SOFT, nd, GBS, NO REBOUND OR GUARDING EXT/SKIN: NO SIGNIFICANT EDEMA OR RASH, mucous membranes moist MSK: FROM X 4 EXTREMITIES NEURO: CN 2-12 GROSSLY INTACT, NO new FOCAL DEFICITS PSY: CALM - Constitutional Vitals: Temp Pulse Resp BP Pulse Ox 98.1 F 76 18 124/88 98 10/25/16 07:30 10/25/16 07:30 10/25/16 07:30 10/25/16 07:30 10/25/16 07:30 General appearance: Present: no acute distress Results - Labs CBC & Chem 7: 10/24/16 09:18 10/25/16 05:30 Labs: Laboratory Last Values WBC 11.7 K/mm3 (4.5-11.0) H 10/24/16 09:18 RBC 6.35 M/mm3 (3.65-5.03) H 10/24/16 09:18 Hgb 17.2 gm/dl (11.8-15.2) H 10/24/16 09:18 Hct 52.3 % (35.5-45.6) H 10/24/16 09:18 MCV 83 fl (84-94) L 10/24/16 09:18 MCH 27 pg (28-32) L 10/24/16 09:18 MCHC 33 % (32-34) 10/24/16 09:18 RDW 15.5 % (13.2-15.2) H 10/24/16 09:18 Plt Count 266 K/mm3 (140-440) 10/24/16 09:18 Lymph % (Auto) 9.4 % (13.4-35.0) L 10/22/16 18:03 [place] % (Auto) 7.5 % (0.0-7.3) H 10/22/16 18:03 Eos % (Auto) 2.7 % (0.0-4.3) 10/22/16 18:03 Baso % (Auto) 0.2 % (0.0-1.8) 10/22/16 18:03 Lymph # 1.2 K/mm3 (1.2-5.4) 10/22/16 18:03 [place] # 1.0 K/mm3 (0.0-0.8) H 10/22/16 18:03 Eos # 0.3 K/mm3 (0.0-0.4) 10/22/16 18:03 Baso # 0.0 K/mm3 (0.0-0.1) 10/22/16 18:03 Seg Neutrophils % 80.2 % (40.0-70.0) H 10/22/16 18:03 Seg Neutrophils # 10.2 K/mm3 (1.8-7.7) H 10/22/16 18:03 Sodium 136 mmol/L (137-145) L 10/25/16 05:30 Potassium 4.0 mmol/L (3.6-5.0) 10/25/16 05:30 Chloride 102.0 mmol/L (98-107) 10/25/16 05:30 Carbon Dioxide 20 mmol/L (22-30) L 10/25/16 05:30 Anion Gap 18 mmol/L 10/25/16 05:30 BUN 51 mg/dL (9-20) H 10/25/16 05:30 Creatinine 3.0 mg/dL (0.8-1.5) H 10/25/16 05:30 Estimated GFR 28 ml/min 10/25/16 05:30 BUN/Creatinine Ratio 17.00 % 10/25/16 05:30 Glucose 135 mg/dL (75-100) H 10/25/16 05:30 POC Glucose 121 (70-105) H 10/25/16 06:00 Calcium 8.6 mg/dL (8.4-10.2) 10/25/16 05:30 NT-Pro-B Natriuret Pep 937.2 pg/mL (0-450) H 10/22/16 18:03 Urine Color Malathi (Yellow) 10/22/16 23:53 Urine Turbidity Cloudy (Clear) 10/22/16 23:53 Urine pH 5.0 (5.0-7.0) 10/22/16 23:53 Ur Specific Dell 1.028 (1.003-1.030) 10/22/16 23:53 Urine Protein >500 mg/dL (Negative) 10/22/16 23:53 Urine Glucose (UA) 50 mg/dL (Negative) 10/22/16 23:53 Urine Ketones Tr mg/dL (Negative) 10/22/16 23:53 Urine Blood Neg (Negative) 10/22/16 23:53 Urine Nitrite Neg (Negative) 10/22/16 23:53 Urine Bilirubin Neg (Negative) 10/22/16 23:53 Urine Urobilinogen < 2.0 mg/dL (<2.0) 10/22/16 23:53 Ur Leukocyte Esterase Tr (Negative) 10/22/16 23:53 Urine WBC (Auto) < 1.0 /HPF (0.0-6.0) 10/22/16 23:53 Urine RBC (Auto) < 1.0 /HPF (0.0-6.0) 10/22/16 23:53
[2016-10-25] MEDS ORDERED: NACL 0.9% 1000 ML 1,000 ML IV SCH (10:00)
[2016-10-25] MEDS: CORDARONE PO SCH (10:00)
[2016-10-25] MEDS: BABY ASPIRIN PO SCH (10:01)
--- NOTE | 2016-10-25 10:32 | Gastroenterology Consultation ---
History of Present Illness - Reason for Consult Consult date: 10/25/16 intractable N/V - History of Present Illness Patient is a 46 y/o male with 4 day hx of N/V and watery/loose stools. Pt correlates symptoms starting after something he ate on Friday. Reports BM x 2 today with green watery stool and vomiting x 1 after eating eggs/grits/toast for breakfast. He admits to abdominal soreness from vomiting, but denies abd pain. Abd is not distended. Denies odynophagia, dysphagia, heartburn/ regurgitation, hematemesis, melena, hematochezia, fever, chills, night sweats, or wt loss. No hx of PUD or gastroparesis. PMH significant for CHF, HTN, cardiomyopathy w/AICD, and DM. Past History Past Medical History: arrhythmia, diabetes, heart failure, hypertension Medications and Allergies Allergies Allergy/AdvReac Type Severity Reaction Status Date / Time pineapple Allergy Anaphylaxis Verified 09/26/15 20:36 Home Medications Medication Instructions Recorded Confirmed Last Taken Type Amiodarone [Cordarone 200 MG TAB] 400 mg PO QDAY 09/27/15 10/23/16 06/06/16 History Aspirin [Aspirin BABY CHEW TAB] 81 mg PO QDAY 09/27/15 10/23/16 06/06/16 History Carvedilol [Coreg] 25 mg PO BID 09/27/15 10/23/16 06/06/16 History Furosemide [Lasix TAB] 40 mg PO QDAY 09/27/15 10/23/16 06/06/16 History Pravastatin (Nf) [Pravachol] 40 mg PO QHS 09/27/15 10/23/16 06/06/16 History amLODIPine [Norvasc] 10 mg PO DAILY 09/27/15 10/23/16 06/06/16 History Insulin NPH Hum/Reg Insulin Hm 25 unit SQ QHS 06/07/16 10/23/16 06/06/16 History [HumuLIN 70/30 Kwikpen] Insulin NPH Hum/Reg Insulin Hm 35 unit SQ QAM 06/07/16 10/23/16 06/06/16 History [HumuLIN 70/30 Kwikpen] diphenhydrAMINE [Benadryl CAP] 25 mg PO Q8HR PRN 06/07/16 10/23/1606/06/17 History guaiFENesin [Mucinex] 600 mg PO BID 06/07/16 10/23/16 06/06/16 History Digoxin [Lanoxin] 0.125 mg PO DAILY tablet 06/08/16 10/23/16 Unknown Rx Fenofibrate [Tricor] 145 mg PO QDAY #30 tablet 06/08/16 10/23/16 Unknown Rx Insulin NPH/Regular [NovoLIN 70/30] 35 unit SUB-Q BID #3 vial 06/08/16 10/23/16 Unknown Rx Lisinopril [Zestril TAB] 20 mg PO QDAY #30 tablet 06/08/16 10/23/16 Unknown Rx Amiodarone [Cordarone 200 MG TAB] 400 mg PO QDAY #30 tablet 06/09/16 10/23/16 Unknown Rx Carvedilol [Coreg] 25 mg PO BID #60 tablet 06/09/16 10/23/16 Unknown Rx Insulin NPH/Regular [NovoLIN 70/30] 35 unit SUB-Q QHS #3 vial 06/09/16 10/23/16 Unknown Rx Active Meds: Active Medications Acetaminophen (Tylenol) 325 mg PO Q6H PRN PRN Reason: Pain, Mild (1-3) Amiodarone HCl (Cordarone) 200 mg PO QDAY [facility] Last Admin: 10/25/16 10:00 Dose: 200 mg Aspirin (Baby Aspirin) 81 mg PO QDAY [facility] Last Admin: 10/25/16 10:01 Dose: 81 mg Dextrose (D50w (25gm)) 50 ml IV PRN PRN PRN Reason: Hypoglycemia Diphenhydramine HCl (Benadryl) 25 mg PO Q8HR PRN PRN Reason: as needeed Last Admin: 10/23/16 21:44 Dose: 25 mg Heparin Sodium (Porcine) (Heparin) 5,000 unit SUB-Q Q12HR [facility] Last Admin: 10/25/16 10:01 Dose: 5,000 unit Sodium Chloride (Nacl 0.9% 1000 Ml) 500 mls @ 100 mls/hr IV DIRECT MALACHI Sodium Chloride (Nacl 0.9% 1000 Ml) 1,000 mls @ 50 mls/hr IV DIRECT MALACHI Insulin Aspart (Novolog) 0 units SUB-Q ACHS [facility] PRN Reason: Protocol Last Admin: 10/25/16 09:08 Dose: Not Given Ondansetron HCl (Zofran) 4 mg IV Q4H PRN PRN Reason: Nausea And Vomiting Last Admin: 10/25/16 08:01 Dose: 4 mg Simvastatin (Zocor) 20 mg PO QHS [facility] Last Admin: 10/25/16 00:10 Dose: 20 mg Review of Systems - Review of Systems All systems: negative Gastrointestinal: abdominal pain (cramps and soreness from vomiting), nausea, vomiting, diarrhea Exam - Constitutional Vital Signs: Temp Pulse Resp BP Pulse Ox 98.1 F 76 18 124/88 98 10/25/16 07:30 10/25/16 07:30 10/25/16 07:30 10/25/16 07:30 10/25/16 07:30 General appearance: no acute distress - EENT Eyes: PERRL, EOM intact ENT: hearing intact - Neck Neck: normal ROM - Respiratory Respiratory: bilateral: CTA - Cardiovascular Rhythm: regular Heart Sounds: Present: S1 & S2 Extremities: No edema - Gastrointestinal General gastrointestinal: Present: soft, tender (generalized), non-distended, normal bowel sounds - Integumentary Integumentary: Present: warm, dry - Neurologic Neurological: alert and oriented x3 - Psychiatric Psychiatric: appropriate mood/affect, cooperative - Labs CBC & Chem 7: 10/24/16 09:18 10/25/16 05:30 Lab Results: Laboratory Results - last 24 hr 10/24/16 10/24/16 10/24/16 11:10 16:42 22:11 Sodium Potassium Chloride Carbon Dioxide Anion Gap BUN Creatinine Estimated GFR BUN/Creatinine Ratio Glucose POC Glucose 149 H 117 H 146 H Calcium 10/25/16 10/25/16 05:30 06:00 Sodium 136 L Potassium 4.0 Chloride 102.0 Carbon Dioxide 20 L Anion Gap 18 BUN 51 H Creatinine 3.0 H Estimated GFR 28 BUN/Creatinine Ratio 17.00 Glucose 135 H POC Glucose 121 H Calcium 8.6 Assessment and Plan 1. intractable N/V - most likely acute gastroenteritis -WBC 11.7 -afebrile -pt unable to tolerate regular diet- changed to clear liquids -diarrhea x 2 today with loose green stool- if continues will check stool culture - continue current meds - CT scan-results pending - further recommendations pending CT scan results
--- NOTE | 2016-10-25 15:00 | Cat Scan Report ---
CT OF THE ABDOMEN AND PELVIS WITHOUT CONTRAST HISTORY: Nausea and vomiting. TECHNIQUE: Helical CT without contrast. Sagittal and coronal reformatted images. FINDINGS: Within the limits of a noncontrast exam, the abdominal and pelvic viscera are within normal limits. The liver, biliary system, pancreas, spleen, kidneys, adrenal glands and bladder are unremarkable. The bowel loops are normal caliber and wall thickness. Normal appendix. The aorta is normal caliber. No ascites, bulky adenopathy or inflammatory changes. The lung bases are clear. Normal heart size. No suspicious bony lesion. IMPRESSION: Unremarkable noncontrast CT of the abdomen and pelvis. No significant change since 06/07/16.
[2016-10-25] MEDS: BENADRYL PO PRN (21:50)
[2016-10-26 06:08] LABS: Albumin 3.1 g/dL (3.9-5); Albumin/Globulin Ratio 0.8 %; BUN/Creatinine Ratio 14.61; Bilirubin,Total 0.5 mg/dL (0.1-1.2); Calcium 8.7 mg/dL (8.4-10.2); Chloride 102.8 mmol/L (98-107); Potassium 4.1 mmol/L (3.6-5.0); Total Protein 6.9 g/dL (6.3-8.2)
[2016-10-26] MEDS: NOVOLOG SUB-Q SCH ×2 (07:54→11:31)
--- NOTE | 2016-10-26 08:59 | Discharge Summary ---
Providers - Providers Date of Admission: 10/23/16 03:23 Date of discharge: 10/26/16 Attending physician: DALLAS HU 10/23/16 03:49 Consult to Physician [CONS] Routine Consulting Provider: REGGIE LEE Reason For Exam: h/o vfib, cmp, pt known to you Place consult to:: Mona GONZALEZ Notified:: [place], office Phone number called:: Was contact made?: Yes If yes, spoke with:: aiyana Time called:: 09:58 10/25/16 09:37 Consult to Physician [CONS] Routine Consulting Provider: ALAINA PARISI Reason For Exam: intractable n/v Place consult to:: Adrián Parisi MD Notified:: OFFICE Phone number called:: [phone] Was contact made?: Yes If yes, spoke with:: MARGO BELTRÁN Time called:: 09:50 Comment:: JEANIE NOTIFIED Primary care physician: RADIOLOGICAL TECHNOLOGIST Hospitalization Condition: Stable Hospital course: Patient is a 46-year-old man with a history of CHF, hypertension, diabetes mellitus type 2, dyslipidemia, dilated cardiomyopathy with the AICD (pt says he has defibrillator with pacemaker, but prior Cardiology note just mentions AICD) and prior syncopal V.fib shocks who presents with 2 day history of generalized crampy intermittent moderately intense abdominal pains associated with nonbloody loose stools and nausea vomiting. Patient believes is something he ate. Patient denies any fevers or mucus of blood in the stools. Patient doesn' t member of family member having similar symptoms. He is found have a creatinine of 1.2 with a baseline creatinine 1.4 on 06/08/2016, so digoxin was held. He was also found to have hyperkalemia so lisinopril was held and low blood pressure so Coreg. lasix and Norvasc were held. -Abdominal pain, appears to be acute gastroenteritis: Treat symptomatically and supportively -Acute renal failure, due to renal tubular stasis/hypotension: Treat w/ IV fluids but careful w/ heart failure, renal ultrasound and consult nephrology -Hyperkalemia, mild: Hold lisinopril -Hypotension: Hold antihypertensive, consult cardiology -Diabetes mellitus, uncontrolled with hyperglycemia: Add sliding scale insulin -History of CHF, dilated cardiomyopathy: Consult cardiology adjusted medications ==>new dose of amiodarone, -DVT prophylaxis: SCDs and subcutaneous heparin Still with nausea and vomiting: Downgrade diet, CT abdomen and pelvis with oral contrast only, consult GI==>resolved, ct ap negative Cr went from 4.5 down to 2.6 today 10/26/16 per GI pt seen and examined, chart reviewed, consult below reviewed - pt preents 4 days abdominal pain, nausea vomiting after meal vss p.e.: nad abd: benign - probable gastroenteritis - await ct results - if ct benign advance diet - ok to d/c in am if stable - other management as below Disposition: DISCHARGED TO HOME OR SELFCARE Time spent for discharge: 36 minutes Core Measure Documentation - Palliative Care Palliative Care/ Comfort Measures: Not Applicable - Core Measures Any of the following diagnoses?: none - VTE Discharge Requirements Deep Vein Thrombosis/Pulmonary Embolism Present on Admission: No Has pt received <5 days of overlap therapy or INR<2.0: No Anticoagulant overlap therapy prescribed at discharge: No Contraindication No Overlap Therapy order at DC: Not Indicated Exam - Physical Exam Narrative exam: GEN: WDWN, NAD, AWAKE, ALERT, ORIENTATED3 CVS: RRR, NORMAL S1S2 LUNGS/CHEST: CTA B, NORMAL CHEST EXPANSION B, GOOD AIR ENTRY B ABD: SOFT, nd, GBS, NO REBOUND OR GUARDING EXT/SKIN: NO SIGNIFICANT EDEMA OR RASH, mucous membranes moist MSK: FROM X 4 EXTREMITIES NEURO: CN 2-12 GROSSLY INTACT, NO new FOCAL DEFICITS PSY: CALM - Constitutional Vitals: Temp Pulse Resp BP Pulse Ox 97.6 F 72 18 135/101 97 10/26/16 07:27 10/26/16 07:27 10/26/16 07:27 10/26/16 07:27 10/26/16 07:27 Plan Activity: other (no strenous activites until cleared by PCP. ) Diet: clear liquids, advance as tolerated Additional Instructions: See your Cardiology to restart blood pressure medications. Tell them to review this discharge summary. Follow up with: JUVE VILLEDA MD [Primary Care Provider] - 3-5 Days REGGIE LEE MD [Staff Physician] - 7 Days Prescriptions: RX: Amiodarone [Cordarone 200 MG TAB] 200 mg PO QDAY #30 tablet RX: Carvedilol [Coreg] 3.125 mg PO BID #60 tablet RX: hydrALAZINE [Apresoline TAB] 25 mg PO Q8HR #90 tablet
[2016-10-26] MEDS: CORDARONE PO SCH (09:38)
[2016-10-26] MEDS: BABY ASPIRIN PO SCH (09:38)
[2016-10-26] MEDS: HEPARIN SUB-Q SCH (09:39)
--- NOTE | 2016-10-26 09:46 | Progress Note ---
Assessment and Plan - Patient Problems (1) Acute renal failure (ARF) Current Visit: Yes Status: Acute Qualifiers: Acute renal failure type: unspecified Qualified Code(s): N17.9 - Acute kidney failure, unspecified Plan to address problem: Acute Kidney Injury superimposed on CKD stage 2-3 in the volume depletion and hypotension. Creatinine continues to improve. F/u with me in 1-2 weeks. (2) Acute hyperkalemia Current Visit: Yes Status: Acute Plan to address problem: Hyperkalemia in the setting of [place]. Improved. (3) Abdominal pain, acute, generalized Current Visit: Yes Status: Acute Plan to address problem: Improved. (4) Systolic CHF, chronic Current Visit: Yes Status: Chronic Plan to address problem: Compensated. Subjective Date of service: 10/26/16 Interval history: Patient is feeling better. Objective - Vital Signs Vital signs: Vital Signs - 12hr 10/26/16 10/26/16 10/26/16 00:33 03:49 07:27 Temperature 98.6 F 97.5 F L 97.6 F Pulse Rate [ 64 Left Radial] Pulse Rate [ 60 72 Right Radial] Respiratory 18 18 18 Rate Blood Pressure 145/100 127/89 135/101 [Left Arm] O2 Sat by Pulse 98 96 97 Oximetry - General Appearance General appearance: well-developed, well-nourished, other (no distress) EENT: ATNC, PERRL, mucous membranes moist, hearing intact, vision intact Neck: no JVD, supple Respiratory: Present: Clear to Ascultation Cardiology: regular, S1S2, no murmurs Gastrointestinal: normoactive bowel sounds, no tenderness, no distended Integumentary: no rash Neurologic: no focal deficit, no asterixis, alert and oriented x3, CN 3-12 intact Musculoskeletal: other (no edema) Psychiatric: mood/affect appropriate, cooperative - Lab 10/24/16 09:18 10/26/16 05:23 Most recent lab results Calcium 8.7 mg/dL (8.4-10.2) 10/26/16 05:23
--- NOTE | 2016-10-26 10:17 | Progress Note ---
Assessment and Plan - Patient Problems (1) Systolic CHF, chronic Current Visit: Yes Status: Chronic Plan to address problem: Patient has a history of nonischemic cardiomyopathy and chronic left ventricle systolic dysfunction. We will resume routine heart failure medications, start carvedilol 3.125 mg twice a day, but due to his renal insufficiency and recent hypokalemia, I will hold off on CAITLIN inhibitor therapy at this time and instead use hydralazine 25 mg 3 times a day for afterload reduction. Subjective Date of service: 10/26/16 Interval history: Patient looks and feels comfortable, his abdominal pain, nausea vomiting and diarrhea improving. There are no cardiac complaints. Objective Vital Signs Temp Pulse Pulse Pulse Resp BP Pulse Ox 10/26/16 07:27 97.6 F 72 18 135/101 97 10/26/16 03:49 97.5 F L 60 18 127/89 96 10/26/16 00:33 98.6 F 64 18 145/100 98 10/25/16 21:10 98.4 F 84 18 120/84 98 10/25/16 16:30 98.1 F 68 16 140/90 - Physical Examination General: Appears Well, No Apparent Distress HEENT: Positive: PERRL Neck: Positive: trachea midline Cardiac: Positive: Reg Rate and Rhythm Lungs: Positive: clear to auscultation Neuro: Positive: Grossly Intact Abdomen: Positive: Soft Skin: Positive: Clear Extremities: Absent: edema - Labs and Meds Cardiac Enzymes 10/26/16 Range/Units 05:23 AST 12 (5-40) units/L Comprehensive Metabolic Panel 10/26/16 Range/Units 05:23 Sodium 139 (137-145) mmol/L Potassium 4.1 (3.6-5.0) mmol/L Chloride 102.8 (98-107) mmol/L Carbon Dioxide 21 L (22-30) mmol/L BUN 38 H (9-20) mg/dL Creatinine 2.6 H (0.8-1.5) mg/dL Glucose 91 (75-100) mg/dL Calcium 8.7 (8.4-10.2) mg/dL AST 12 (5-40) units/L ALT 10 (7-56) units/L Alkaline Phosphatase 53 (35-129) units/L Total Protein 6.9 (6.3-8.2) g/dL Albumin 3.1 L (3.9-5) g/dL
[2016-10-26] MEDS ORDERED: COREG PO SCH (11:00)
[2016-10-26] MEDS ORDERED: PNEUMOVAX 23 IM ONE (11:01)
[2016-10-26 11:52] VITALS: BP 127/93
[2016-10-26] MEDS ORDERED: APRESOLINE PO SCH (14:00)
== END 2016-10-26 14:07 | disposition home or self-care (01) | DRG 314 ==
LOC: ED 15:42 → 3A 10-23 03:23
PROVIDERS: ADMIT Internal Medicine; ATTEND Internal Medicine
DX: I95.9 Hypotension, unspecified (principal); N17.0 Acute kidney failure with tubular necrosis; I42.0 Dilated cardiomyopathy; I50.22 Chronic systolic (congestive) heart failure; K52.9 Noninfective gastroenteritis and colitis, unspecified; E87.5 Hyperkalemia; E11.22 Type 2 diabetes mellitus with diabetic chronic kidney disease; N18.3 Chronic kidney disease, stage 3 (moderate); E11.65 Type 2 diabetes mellitus with hyperglycemia; E86.0 Dehydration; Z95.810 Presence of automatic (implantable) cardiac defibrillator; Z91.018 Allergy to other foods; Z79.82 Long term (current) use of aspirin; Z79.899 Other long term (current) drug therapy; Z82.49 Family history of ischemic heart disease and other diseases of the circulatory system; Z83.3 Family history of diabetes mellitus
CPT/HCPCS: 36415; 71010; 74020; 74176; 76770; 80048; 80053; 81001; 82962; 83880; 85025; 85027; 87040; 87086; 90732; 93005; 93010; J1644; J1815; J2270; J2405; J7030

== ENCOUNTER 2016-10-30 15:13 | Outpatient (CLI) | payer MEDICARE ==
[2016-10-30 15:42] LABS: Bilirubin,Urine NEG (Negative); Blood,Urine SM (Negative); Ketones,Urine NEG (Negative); Leukocyte Esterase,Urine NEG (Negative); Mucus,Urine FEW /HPF; Nitrite,Urine NEG (Negative); Urobilinogen,Urine < 2.0 mg/dL (<2.0)
[2016-10-30 15:45] LABS: Protein,Urine >500 mg/dL (Negative)
[2016-10-30 15:58] LABS: BUN/Creatinine Ratio 8.88; Calcium 8.9 mg/dL (8.4-10.2); Magnesium 1.8 mg/dL (1.7-2.3); Phosphorous 3.6 mg/dL (2.5-4.5); Potassium 4.3 mmol/L (3.6-5.0)
== END 2016-10-30 15:14 | disposition home or self-care (01) ==
LOC: LAB 15:13
PROVIDERS: ATTEND Internal Medicine Nephrology
DX: N17.9 Acute kidney failure, unspecified (principal); I11.0 Hypertensive heart disease with heart failure; E11.9 Type 2 diabetes mellitus without complications
CPT/HCPCS: 36415; 80048; 81001; 83735; 84100

== ENCOUNTER 2016-12-13 10:10 | Inpatient (IN) | payer MEDICARE ==
[2016-12-13 11:34] LABS: BUN/Creatinine Ratio 10.55; Calcium 8.7 mg/dL (8.4-10.2); Chloride 105.6 mmol/L (98-107); Potassium 4.8 mmol/L (3.6-5.0)
[2016-12-13 11:52] LABS: Basophils % (Auto) 0.6 % (0.0-1.8); Hematocrit 39.1 % (35.5-45.6); Hemoglobin 12.4 gm/dl (11.8-15.2); Mean Corpuscular HGB Conc 32 % (32-34); Mean Corpuscular Hemoglobin 27 pg (28-32); Mean Corpuscular Volume 85 fl (84-94); Platelet Count 279 K/mm3 (140-440); Red Blood Count 4.62 M/mm3 (3.65-5.03); Red Cell Distribution Width 17.5 % (13.2-15.2); White Blood Count 10.6 K/mm3 (4.5-11.0)
[2016-12-13 12:00] LABS: INR 1.05 (0.87-1.13); Partial Thromboplastin Time 30.1 Sec. (24.2-36.6)
--- NOTE | 2016-12-13 12:03 | XRay Report ---
PA and lateral chest: SOB. The heart is big. A precordial pacer is present with a disconnected ICD. There is no vascular congestion in the lungs are generally clear. The disconnected ICD is new as is the precordial pacer when compared to the study of November 08, 2016. There is some question as to whether the cardiac contour may be larger. Impressions: 1. Interval change in pacers as described. 2. Questionable interval enlargement of cardiac contour.
[2016-12-13] MEDS ORDERED: PROVENTIL IH ONE (17:38)
--- NOTE | 2016-12-13 17:42 | Emergency Department Report ---
ED Shortness of Breath HPI - General Chief Complaint: Dyspnea/Respdistress Stated Complaint: ASTHMA/SOB/POST SURGERY Time Seen by Provider: 12/13/16 17:35 Source: patient Mode of arrival: Ambulatory Limitations: No Limitations - History of Present Illness Initial Comments: 46-year-old male with past medical history of CHF ejection fraction 20%, hypertension presenting to the complaining of shortness of breath. Patient states symptoms started approximate 4 days ago after he had his face ICD inserted. Patient states initially after surgery he had no complaints however the day after he started havign cough with SOB. Initially cough is productive however now it is dry and nonproductive. Patient denies chest pain. Patient denies lower extremity edema or hemoptysis. Patient states coughing is worse when he lays supine and improves when he sits upright. Patient admits he has history of asthma however his last exacerbation with and his teenage years. MD Complaint: shortness of breath -: Gradual, days(s) (4) Severity: mild Quality: dull Consistency: intermittent Improves With: upright position Worsens With: lying flat, exertion Known History Of: asthma Associated Symptoms: denies other symptoms - Related Data Home Oxygen Therapy: No Home Medications Medication Instructions Recorded Confirmed Last Taken Furosemide [Lasix TAB] 40 mg PO QDAY 11/08/16 11/08/16 11/07/16 Previous Rx's Medication Instructions Recorded Last Taken Type Carvedilol [Coreg] 3.125 mg PO BID #60 tablet 10/26/16 11/07/16 Rx Pravastatin (Nf) [Pravachol] 40 mg PO QHS #30 10/26/16 11/07/16 Rx hydrALAZINE [Apresoline TAB] 25 mg PO Q8HR #90 tablet 10/26/16 11/07/16 Rx Allergies Allergy/AdvReac Type Severity Reaction Status Date / Time pineapple Allergy Anaphylaxis Verified 12/13/16 10:42 lisinopril AdvReac COUGH Verified 12/13/16 10:44 ED Review of Systems ROS: Stated complaint: ASTHMA/SOB/POST SURGERY Other details as noted in HPI Constitutional: denies: chills, fever Eyes: denies: eye pain, eye discharge, vision change ENT: denies: ear pain, throat pain Respiratory: denies: cough, shortness of breath, wheezing Cardiovascular: denies: chest pain, palpitations Endocrine: no symptoms reported Gastrointestinal: denies: abdominal pain, nausea, diarrhea Genitourinary: denies: urgency, dysuria Musculoskeletal: denies: back pain, joint swelling, arthralgia Skin: denies: rash, lesions Neurological: denies: headache, weakness, paresthesias Psychiatric: denies: anxiety, depression Hematological/Lymphatic: denies: easy bleeding, easy bruising ED Past Medical Hx - Past Medical History Hx Hypertension: Yes Hx Congestive Heart Failure: Yes Hx Diabetes: Yes Hx Asthma: Yes Hx COPD: No Additional medical history: Afib? - Surgical History Hx Pacemaker: Yes Hx Internal Defibrillator: Yes (X 3) - Social History Smoking Status: Never Smoker Substance Use Type: Prescribed - Medications Home Medications: Home Medications Medication Instructions Recorded Confirmed Last Taken Type Carvedilol [Coreg] 3.125 mg PO BID #60 tablet 10/26/16 11/08/16 11/07/16 Rx Pravastatin (Nf) [Pravachol] 40 mg PO QHS #30 10/26/16 11/08/16 11/07/16 Rx hydrALAZINE [Apresoline TAB] 25 mg PO Q8HR #90 tablet 10/26/16 11/08/16 Rx Furosemide [Lasix TAB] 40 mg PO QDAY 11/08/16 11/08/16 11/07/16 History ED Physical Exam - General Limitations: No Limitations General appearance: alert, in no apparent distress - Head Head exam: Present: atraumatic, normocephalic - Eye Eye exam: Present: normal appearance - ENT ENT exam: Present: mucous membranes moist - Neck Neck exam: Present: normal inspection - Respiratory Respiratory exam: Present: normal lung sounds bilaterally. Absent: respiratory distress, wheezes, rales, rhonchi, chest wall tenderness, accessory muscle use, decreased breath sounds - Cardiovascular Cardiovascular Exam: Present: regular rate, normal rhythm. Absent: systolic murmur, diastolic murmur, rubs, gallop - GI/Abdominal GI/Abdominal exam: Present: soft, normal bowel sounds - Rectal Rectal exam: Present: deferred - Extremities Exam Extremities exam: Present: normal inspection, full ROM. Absent: tenderness, calf tenderness - Back Exam Back exam: Present: normal inspection - Neurological Exam Neurological exam: Present: alert, oriented X3 - Psychiatric Psychiatric exam: Present: normal affect, normal mood - Skin Skin exam: Present: warm, dry, intact, normal color. Absent: rash ED Course Vital Signs 12/13/16 12/13/16 12/13/16 10:45 16:53 17:09 Temperature 97.5 F L Pulse Rate 83 Pulse Rate [ Bilateral Upper Lobe] Respiratory 17 16 18 Rate Respiratory Rate [Bilateral Upper Lobe] Blood Pressure 110/82 O2 Sat by Pulse 99 100 Oximetry 12/13/16 12/13/16 18:26 18:33 Temperature Pulse Rate Pulse Rate [ 85 88 Bilateral Upper Lobe] Respiratory Rate Respiratory 18 18 Rate [Bilateral Upper Lobe] Blood Pressure O2 Sat by Pulse Oximetry - Reevaluation(s) Reevaluation #1: 12/13/16 18:35 Dr. Mcdonald cardiology, agrees with workup thus far and will see patient in consult. Reevaluation #2: 12/13/16 19:48 Patient states treatment in the ED has improved his symptoms he agrees to admission. ED Medical Decision Making - Lab Data Result diagrams: 12/13/16 11:03 12/13/16 11:03 - EKG Data -: EKG Interpreted by Me EKG shows normal: sinus rhythm (84), axis (negative axis), intervals (QTC 545 ) , ST-T waves (non specific ) Rate: normal - EKG Data When compared to previous EKG there are: no significant change Interpretation: no acute changes - Radiology Data Radiology results: image reviewed interpreted by me: Chest x-ray positive for cardiomegaly, no pulmonary edema appreciated, no infiltrates appreciated. - Medical Decision Making 46-year-old male with history of CHF, hypertension presenting to the ED with shortness of breath. 1) short Of breath I'm concerned CHF exacerbation differential could be pulmonary embolism given he just had a procedure 4 days ago. His creatinine elevated therefore CTA chest pain cannot be performed, we will order a VQ scan. Given BNP is elevated I will also give patient 40 Lasix IV for aggressive diuresis and admitted to hospitalist. Dr. Dubon has admitted the patient to his service. Patient agrees to admission plan. - Differential Diagnosis ACS, PE, PNA, Bronchitis Critical Care Time: Yes Critical care time in (mins) excluding proc time.: 35 Critical care attestation.: If time is entered above; I have spent that time in minutes in the direct care of this critically ill patient, excluding procedure time. Critical Care Time: 35 minutes ED Disposition Clinical Impression: Systolic CHF, chronic, Shortness of breath, Cough Disposition: DC-[id number] OP ADMIT IP TO THIS HOSP Is pt being admited?: Yes Condition: Stable Referrals: PRIMARY CARE, [Primary Care Provider] - 3-5 Days
[2016-12-13] MEDS ORDERED: LASIX IV ONE (18:34)
--- NOTE | 2016-12-13 19:27 | Admit Criteria Form ---
Admission Criteria Documentation: HEART FAILURE: COMMON COMPLICATIONS Clinical Indications for Inpatient Care (andreafski/check or initial the applicable condition/criteria): Ongoing inpatient care may be indicated for heart failure with 1 or more of the following (1)(2)(3)(4)(5)(6)(7)(8): [ ]I. New-onset heart failure [ ]II. Acute cardiac ischemia causing or associated with failure [ ]III. Ongoing need for care for primary condition requiring frequent therapy adjustments because of changes in cardiac function (eg, drug dosage changes for drugs that are renally metabolized) [X]IV. Complications of heart failure, including 1 or more of the following: [ ]a) Hemodynamic instability [ ]b) Pericardial effusion [ ]c) Symptomatic pleural effusion(16) [ ]d) Hypoxemia [ ]e) Tachypnea [X]f) Dyspnea [ ]g) Syncope [ ]h) Altered mental status [ ]i) Acute renal insufficiency that is severe (reduction of more than 50% in estimated glomerular filtration rate from baseline) or progressive (reduction of more than 25% in estimated glomerular filtration rate from baseline, with creatinine continuing to rise) [ ]j) Debilitating anasarca (eg tissue breakdown with infection, inability to void due to edema)(E) (17) [ ]k) Clinically significant metabolic abnormalities due to heart failure (e.g., new-onset metabolic acidosis) Extended stay may be needed until ALL of the following are present(1)(3)(18)(41) (55): [ ]a) Hemodynamic stability [ ]b) Stable and effective diuretic regimen established (or patient on stable dialysis regimen if in chronic renal failure) [ ]c) Volume status acceptable on oral medication [ ]d) Breathing comfortably at rest [ ]e) Saturation of arterial oxygen greater than 90% or at acceptable baseline [ ]f) Pulmonary edema absent or improved [ ]g) Peripheral or sacral edema absent or improved [ ]h) Renal function stable and manageable at a lower level of care [ ]i) Complications (e.g., pleural effusion) resolved or manageable at a lower level of care [ ]j) Patient or caregiver has received written discharge instructions or educational material addressing activity level, diet, discharge medications, follow-up appointment, weight monitoring, and what to do if symptoms worsen. (56)(57)(58) The original [facility] [employer] content created by Annita Meier has been revised. The portions of the content which have been revised are identified through the use of italic text or in bold, and Annita Meier has neither reviewed nor approved the modified material.All other unmodified content is copyright [facility] [employer]. Please see references footnoted in the original [facility] edition 2017 Admission Criteria Met: Yes
--- NOTE | 2016-12-13 19:49 | History and Physical Report ---
History of Present Illness History of present illness: 46 YO Male with CHF, Systolic(EF 20%), HTN, DM, Asthma, Atrial Fib presents to ED for evaluation. Pt states that he has been experiencing shortness of breath and coughing for the past 4 days, with worsening symptoms over the past 1 day. Patient states symptoms started approximately 4 days ago after he had his ICD inserted. Patient denies chest pain, fever, chills, Palpitations, lower extremity edema or hemoptysis. Patient acknowledges productive cough with clear sputum. Past History Past Medical History: atrial fib, diabetes, heart failure, hypertension Past Surgical History: Other (ICD placement) Social history: single. denies: smoking, alcohol abuse, prescription drug abuse , IV drug use Family history: hypertension Medications and Allergies Allergies Allergy/AdvReac Type Severity Reaction Status Date / Time pineapple Allergy Anaphylaxis Verified 12/13/16 10:42 lisinopril AdvReac COUGH Verified 12/13/16 10:44 Home Medications Medication Instructions Recorded Confirmed Last Taken Type Carvedilol [Coreg] 3.125 mg PO BID #60 tablet 10/26/16 12/13/16 11/07/16 Rx Pravastatin (Nf) [Pravachol] 40 mg PO QHS #30 10/26/16 12/13/16 11/07/16 Rx Furosemide [Lasix TAB] 40 mg PO QDAY 11/08/16 12/13/16 11/07/16 History Amiodarone [Cordarone 200 MG TAB] 200 mg PO QDAY 12/13/16 12/13/16 Unknown History Aspirin EC [Aspirin Enteric Coated 81 mg PO QDAY 12/13/16 12/13/16 Unknown History TAB] Insulin Aspart Prot/Aspart(Nf) 35 units SQ QAM 12/13/16 12/13/16 Unknown History [NovoLOG Mix 70/30 VIAL] Losartan [Cozaar] 50 mg PO QDAY 12/13/16 12/13/16 Unknown History Oxycodone HCl/Acetaminophen 1 tab PO Q6H PRN 12/13/16 12/13/16 Unknown History [Percocet 10/325 mg] Spironolactone [Aldactone] 25 mg PO QDAY 12/13/16 12/13/16 Unknown History Review of Systems All systems: negative Constitutional: no fever Ears, nose, mouth and throat: no ear pain Cardiovascular: orthopnea, shortness of breath, paroxysmal nocturnal dyspnea Respiratory: cough, cough with sputum Gastrointestinal: no abdominal pain Genitourinary Male: no dysuria Rectal: no pain Musculoskeletal: no neck stiffness Integumentary: no rash Neurological: no head injury, no ataxia Psychiatric: no anxiety Endocrine: no cold intolerance, no polyuria, no nocturia Hematologic/Lymphatic: no easy bruising Allergic/Immunologic: no urticaria Exam - Constitutional Vitals: Temp Pulse Resp BP Pulse Ox 97.5 F L 88 18 110/82 100 12/13/16 10:45 12/13/16 18:33 12/13/16 18:33 12/13/16 10:45 12/13/16 17:09 General appearance: Present: mild distress - EENT Eyes: Present: PERRL ENT: hearing intact, clear oral mucosa - Neck Neck: Present: supple, normal ROM - Respiratory Respiratory effort: normal Respiratory: bilateral: CTA - Cardiovascular Heart Sounds: Present: S1 & S2. Absent: rub, click - Extremities Extremities: pulses symmetrical, No edema Peripheral Pulses: within normal limits - Abdominal General gastrointestinal: Present: soft, non-tender, non-distended, normal bowel sounds Male genitourinary: Present: normal - Integumentary Integumentary: Present: clear, warm, dry - Musculoskeletal Musculoskeletal: gait normal, strength equal bilaterally - Psychiatric Psychiatric: appropriate mood/affect, intact judgment & insight - Neurologic Neurologic: CNII-XII intact, moves all extremities Results - Labs CBC & Chem 7: 12/13/16 11:03 12/13/16 11:03 Labs: Abnormal lab results 12/13/16 12/13/16 12/13/16 Range/Units 11:03 11:03 11:03 MCH 27 L (28-32) pg RDW 17.5 H (13.2-15.2) % Lymph % (Auto) 12.6 L (13.4-35.0) % Seg Neutrophils % 77.5 H (40.0-70.0) % Seg Neutrophils # 8.2 H (1.8-7.7) K/mm3 Creatinine 1.8 H (0.8-1.5) mg/dL Glucose 143 H (75-100) mg/dL POC Glucose (70-105) Troponin T 0.068 H (0.00-0.029) ng/mL NT-Pro-B Natriuret Pep 6987 H (0-450) pg/mL 12/13/16 Range/Units 13:30 MCH (28-32) pg RDW (13.2-15.2) % Lymph % (Auto) (13.4-35.0) % Seg Neutrophils % (40.0-70.0) % Seg Neutrophils # (1.8-7.7) K/mm3 Creatinine (0.8-1.5) mg/dL Glucose (75-100) mg/dL POC Glucose 128 H (70-105) Troponin T (0.00-0.029) ng/mL NT-Pro-B Natriuret Pep (0-450) pg/mL Assessment and Plan - Patient Problems (1) CHF (congestive heart failure) Current Visit: Yes Status: Acute Qualifiers: Congestive heart failure type: systolic Congestive heart failure chronicity : acute on chronic Qualified Code(s): I50.23 - Acute on chronic systolic ( congestive) heart failure Plan to address problem: CHF protocol: fluid restriction, monitor uop q shift, daily weight, afterload reduction, resume home medication, diuretics, telemetry monitoring, cardiology consulted. (2) Respiratory failure Current Visit: Yes Status: Acute Qualifiers: Chronicity: acute Respiratory failure complication: hypoxia Qualified Code(s): J96.01 - Acute respiratory failure with hypoxia Plan to address problem: Supplemental oxygen, nebs, aspiration precautions, NIPPV as clinically indicated. (3) HTN (hypertension) Current Visit: Yes Status: Acute Qualifiers: Hypertension type: H (4) Diabetes Current Visit: Yes Status: Acute Qualifiers: Diabetes mellitus type: D Diabetes mellitus complication status: D Diabetes mellitus complication detail: D Diabetic retinopathy severity: D Proliferative retinopathy type: P Diabetes mellitus macular edema: D Diabetes mellitus care home insulin use: D Laterality: L Chronic kidney disease stage: C Plan to address problem: Monitor BP q shift (5) Atrial fibrillation Current Visit: Yes Status: Acute Qualifiers: Atrial fibrillation type: A Plan to address problem: rate controlled, continue current therapy, cardiology consulted. (6) DVT prophylaxis Current Visit: Yes Status: Acute
[2016-12-13] MEDS ORDERED: TYLENOL PO PRN (19:51)
[2016-12-13] MEDS ORDERED: DUONEB *Not for PRN Use IH (19:51)
[2016-12-13] MEDS ORDERED: PROVENTIL IH PRN (20:14)
[2016-12-13] MEDS ORDERED: PRAVASTATIN 40 MG PO SCH (22:00)
[2016-12-13] MEDS: APRESOLINE PO SCH (22:57)
[2016-12-13] MEDS: COREG PO SCH (22:58)
[2016-12-13] MEDS: ZOCOR PO SCH (22:59)
[2016-12-14] MEDS: LASIX IV SCH ×2 (05:26→17:25)
[2016-12-14] MEDS: APRESOLINE PO SCH ×2 (05:26→13:57)
--- NOTE | 2016-12-14 09:52 | Consultation ---
History of Present Illness Consult date: 12/14/16 Consult reason: congestive heart failure History of present illness: 46-year-old man with a history of a dilated, nonischemic cardiomyopathy and severe left ventricle systolic dysfunction. He has an indwelling [employer] ICD. He presents to the emergency room at this time with shortness of breath and orthopnea, clinically consistent with decompensated heart failure. Chest x- ray reveals severe cardiomegaly, with mild interstitial edema. EKG is in normal sinus rhythm, left anterior fascicular block, poor R-wave progression, no acute ischemic changes. Cardiology consultation was requested. Past History Past Medical History: heart failure Past Surgical History: Other (ICD placement) Medications and Allergies Allergies Allergy/AdvReac Type Severity Reaction Status Date / Time pineapple Allergy Anaphylaxis Verified 12/13/16 10:42 lisinopril AdvReac COUGH Verified 12/13/16 10:44 Home Medications Medication Instructions Recorded Confirmed Last Taken Type Carvedilol [Coreg] 3.125 mg PO BID #60 tablet 10/26/16 12/13/16 11/07/16 Rx Pravastatin (Nf) [Pravachol] 40 mg PO QHS #30 10/26/16 12/13/16 11/07/16 Rx Furosemide [Lasix TAB] 40 mg PO QDAY 11/08/16 12/13/16 11/07/16 History Amiodarone [Cordarone 200 MG TAB] 200 mg PO QDAY 12/13/16 12/13/16 Unknown History Aspirin EC [Aspirin Enteric Coated 81 mg PO QDAY 12/13/16 12/13/16 Unknown History TAB] Insulin Aspart Prot/Aspart(Nf) 35 units SQ QAM 12/13/16 12/13/16 Unknown History [NovoLOG Mix 70/30 VIAL] Losartan [Cozaar] 50 mg PO QDAY 12/13/16 12/13/16 Unknown History Oxycodone HCl/Acetaminophen 1 tab PO Q6H PRN 12/13/16 12/13/16 Unknown History [Percocet 10/325 mg] Spironolactone [Aldactone] 25 mg PO QDAY 12/13/16 12/13/16 Unknown History Active Meds: Active Medications Acetaminophen (Tylenol) 650 mg PO Q4H PRN PRN Reason: Pain MILD(1-3)/Fever >100.5/SPRING Last Admin: 12/13/16 22:59 Dose: 650 mg Albuterol (Proventil) 2.5 mg IH Q4HRT PRN PRN Reason: Wheezing Carvedilol (Coreg) 3.125 mg PO BID REPLACED BY [facility] Last Admin: 12/13/16 22:58 Dose: 3.125 mg Furosemide (Lasix) 20 mg IV BID@0600,1800 REPLACED BY [facility] Last Admin: 12/14/16 05:26 Dose: 20 mg Hydralazine HCl (Apresoline) 25 mg PO Q8HR REPLACED BY [facility] Last Admin: 12/14/16 05:26 Dose: 25 mg Insulin Aspart (Novolog) 0 units SUB-Q ACHS REPLACED BY [facility] PRN Reason: Protocol Simvastatin (Zocor) 40 mg PO QHS REPLACED BY [facility] Last Admin: 12/13/16 22:59 Dose: 40 mg Review of Systems Cardiovascular: orthopnea, shortness of breath, no chest pain, no palpitations, no rapid/irregular heart beat, no edema, no syncope, no lightheadedness Physical Examination Vital Signs Temp Pulse Resp BP Pulse Ox 97.5 F L 83 17 110/82 99 12/13/16 10:45 12/13/16 10:45 12/13/16 10:45 12/13/16 10:45 12/13/16 10:45 General appearance: no acute distress HEENT: Positive: PERRL Neck: Positive: neck supple Cardiac: Positive: Reg Rate and Rhythm Lungs: Positive: Decreased Breath Sounds Neuro: Positive: Grossly Intact Abdomen: Positive: Soft Male genitourinary: Positive: deferred Skin: Positive: Clear Extremities: Absent: edema Results 12/13/16 11:03 12/13/16 11:03 EKG interpretations - EKG Sinus rhythms and dysrhythmias: sinus rhythm Assessment and Plan - Patient Problems (1) Systolic CHF, chronic Current Visit: Yes Status: Chronic Plan to address problem: Patient presents with acute on chronic systolic heart failure. In addition to diuretics, afterload reducing agents and beta blockers, will institute a trial of IV inotropic therapy. Milrinone therapy for 48 hours.
[2016-12-14] MEDS: COREG PO SCH (10:16)
[2016-12-14] MEDS: NOVOLOG SUB-Q SCH ×4 (10:18→23:00)
--- NOTE | 2016-12-14 10:57 | Nuclear Medicine Report ---
VENTILATION/PERFUSION LUNG SCAN: 12/13/16 19:51:00 CLINICAL: Shortness of breath TECHNIQUE: 15.0 millicuries of xenon-133 was administered by aerosol and 5.0 mCi of technetium 99m MAA was administered intravenously. Comparison is made to yesterday's chest x-ray. FINDINGS: Inhalation of Xenon gas demonstrates a normal distribution of the activity throughout both lungs. The wash out phases show no focal retention of activity. After injection of Technetium 99m macroaggregated albumin gamma camera imaging of the lungs in multiple projections demonstrates normal pulmonary contours with a homogeneous distribution of activity. No focal areas of perfusion deficiency are identified. IMPRESSION: Low probability for pulmonary embolus.
[2016-12-14] MEDS: PRIMACOR 20 MG in D5W 80 ML IV SCH (11:18)
--- NOTE | 2016-12-14 16:10 | Progress Note ---
Assessment and Plan Assessment and plan: --Acute on chronic respiratory failure secondary to acute exacerbation of congestive heart failure systolic dysfunction Oxygen titrated to O2 sats more than 90%, Nebulizers as needed Anti-failure medications and supportive care --Acute on chronic systolic congestive heart failure Continue antiseizure medications and output monitoring and cardiology evaluation if needed Cardiology started milrinone drip --Hypertension; rate controlled, continue current antihypertensives and when necessary medications --Type 2 diabetes mellitus; Accu-Chek sliding scale coverage and ADA diet and insulin Closely monitor blood sugars and adjust as needed --Atrial fibrillation rate controlled Continue beta blockers --DVT prophylaxis; Lovenox renal dose Closely monitor the patient and adjust management as needed Care discussed with the patient as well as his nurse History Interval history: Patient seen and evaluated medical records reviewed Feels slightly better still complains of shortness of breath Alert awake oriented 3 not in acute distress, afebrile and vital signs are stable Hospitalist Physical - Constitutional Vitals: Temp Pulse Resp BP Pulse Ox 98.1 F 94 H 18 120/74 94 12/14/16 11:35 12/14/16 13:57 12/14/16 11:35 12/14/16 13:57 12/14/16 11:51 General appearance: Present: no acute distress, well-nourished, disheveled - EENT Eyes: Present: PERRL, EOM intact - Neck Neck: Present: supple, normal ROM - Cardiovascular Rhythm: regular Heart Sounds: Present: S1 & S2, gallop - Extremities Extremities: no ischemia, pulses intact - Abdominal General gastrointestinal: soft, non-tender - Integumentary Integumentary: Present: clear, warm - Psychiatric Psychiatric: appropriate mood/affect, cooperative - Neurologic Neurologic: CNII-XII intact, moves all extremities Results - Labs CBC & Chem 7: 12/13/16 11:03 12/13/16 11:03 Labs: Laboratory Last Values WBC 10.6 K/mm3 (4.5-11.0) 12/13/16 11:03 RBC 4.62 M/mm3 (3.65-5.03) 12/13/16 11:03 Hgb 12.4 gm/dl (11.8-15.2) 12/13/16 11:03 Hct 39.1 % (35.5-45.6) 12/13/16 11:03 MCV 85 fl (84-94) 12/13/16 11:03 MCH 27 pg (28-32) L 12/13/16 11:03 MCHC 32 % (32-34) 12/13/16 11:03 RDW 17.5 % (13.2-15.2) H 12/13/16 11:03 Plt Count 279 K/mm3 (140-440) 12/13/16 11:03 Lymph % (Auto) 12.6 % (13.4-35.0) L 12/13/16 11:03 [place] % (Auto) 7.3 % (0.0-7.3) 12/13/16 11:03 Eos % (Auto) 2.0 % (0.0-4.3) 12/13/16 11:03 Baso % (Auto) 0.6 % (0.0-1.8) 12/13/16 11:03 Lymph # 1.3 K/mm3 (1.2-5.4) 12/13/16 11:03 [place] # 0.8 K/mm3 (0.0-0.8) 12/13/16 11:03 Eos # 0.2 K/mm3 (0.0-0.4) 12/13/16 11:03 Baso # 0.1 K/mm3 (0.0-0.1) 12/13/16 11:03 Seg Neutrophils % 77.5 % (40.0-70.0) H 12/13/16 11:03 Seg Neutrophils # 8.2 K/mm3 (1.8-7.7) H 12/13/16 11:03 PT 14.2 Sec. (12.2-14.9) 12/13/16 11:11 INR 1.05 (0.87-1.13) 12/13/16 11:11 APTT 30.1 Sec. (24.2-36.6) 12/13/16 11:11 D-Dimer 787.66 ng/mlDDU (0-234) H 12/13/16 20:11 Sodium 140 mmol/L (137-145) 12/13/16 11:03 Potassium 4.8 mmol/L (3.6-5.0) 12/13/16 11:03 Chloride 105.6 mmol/L (98-107) 12/13/16 11:03 Carbon Dioxide 22 mmol/L (22-30) 12/13/16 11:03 Anion Gap 17 mmol/L 12/13/16 11:03 BUN 19 mg/dL (9-20) 12/13/16 11:03 Creatinine 1.8 mg/dL (0.8-1.5) H 12/13/16 11:03 Estimated GFR 50 ml/min 12/13/16 11:03 BUN/Creatinine Ratio 10.55 % 12/13/16 11:03 Glucose 143 mg/dL (75-100) H 12/13/16 11:03 POC Glucose 130 (70-105) H 12/14/16 11:39 Calcium 8.7 mg/dL (8.4-10.2) 12/13/16 11:03 Troponin T 0.068 ng/mL (0.00-0.029) H 12/13/16 11:03 NT-Pro-B Natriuret Pep 6987 pg/mL (0-450) H 12/13/16 11:03 Triglycerides 145 mg/dL (2-149) 12/13/16 11:03 Cholesterol 187 mg/dL (50-199) 12/13/16 11:03 LDL Cholesterol Direct 112 mg/dL (50-130) 12/13/16 11:03 HDL Cholesterol 46 mg/dL (40-59) 12/13/16 11:03 Cholesterol/HDL Ratio 4.06 % 12/13/16 11:03
[2016-12-14] MEDS: LOVENOX SUB-Q SCH (17:25)
[2016-12-15] MEDS: APRESOLINE PO SCH ×3 (02:49→21:59)
[2016-12-15] MEDS: ZOCOR PO SCH ×2 (02:49→21:58)
[2016-12-15] MEDS: COREG PO SCH ×4 (02:50→21:58)
[2016-12-15] MEDS: NOVOLOG SUB-Q SCH ×4 (08:18→22:01)
[2016-12-15] MEDS ORDERED: LOVENOX SUB-Q SCH (10:00)
--- NOTE | 2016-12-15 10:05 | Progress Note ---
Assessment and Plan Assessment and plan: --Acute on chronic systolic congestive heart failure, EF 30% Continue anti-failure medications and output monitoring Milrinone drip per protocol --Acute on chronic respiratory failure secondary to acute exacerbation of congestive heart failure systolic dysfunction Oxygen titrated to O2 sats more than 90%, Nebulizers as needed Anti-failure medications and supportive care --Hypertension; rate controlled, continue current antihypertensives and when necessary medications --Type 2 diabetes mellitus; Accu-Chek sliding scale coverage and ADA diet and insulin Closely monitor blood sugars and adjust as needed --s/p AICD ; stable --DVT prophylaxis; Lovenox renal dose Possible discharge in 1-2 days if stable Plan of Care discussed with the patient as well as his nurse History Interval history: Patient seen and examined in his room this morning medical records reviewed Patient is receiving milrinone drip, denies any chest pain or shortness of breath Alert awake oriented 3 not in acute distress, vital signs reviewed stable Hospitalist Physical - Constitutional Vitals: Temp Pulse Resp BP Pulse Ox 97.8 F 80 18 132/89 92 12/15/16 07:55 12/15/16 09:19 12/15/16 08:49 12/15/16 09:19 12/15/16 07:55 General appearance: Present: no acute distress, well-nourished, disheveled - EENT Eyes: Present: PERRL, EOM intact - Neck Neck: Present: supple, normal ROM - Respiratory Respiratory: bilateral: diminished, negative: rales, rhonchi, wheezing - Cardiovascular Rhythm: regular Heart Sounds: Present: S1 & S2 - Extremities Extremities: no ischemia, No edema - Abdominal General gastrointestinal: soft, non-tender, non-distended, normal bowel sounds - Integumentary Integumentary: Present: clear, warm - Psychiatric Psychiatric: appropriate mood/affect, cooperative - Neurologic Neurologic: CNII-XII intact, moves all extremities Results - Labs CBC & Chem 7: 12/13/16 11:03 12/13/16 11:03 Labs: Laboratory Last Values WBC 10.6 K/mm3 (4.5-11.0) 12/13/16 11:03 RBC 4.62 M/mm3 (3.65-5.03) 12/13/16 11:03 Hgb 12.4 gm/dl (11.8-15.2) 12/13/16 11:03 Hct 39.1 % (35.5-45.6) 12/13/16 11:03 MCV 85 fl (84-94) 12/13/16 11:03 MCH 27 pg (28-32) L 12/13/16 11:03 MCHC 32 % (32-34) 12/13/16 11:03 RDW 17.5 % (13.2-15.2) H 12/13/16 11:03 Plt Count 279 K/mm3 (140-440) 12/13/16 11:03 Lymph % (Auto) 12.6 % (13.4-35.0) L 12/13/16 11:03 [place] % (Auto) 7.3 % (0.0-7.3) 12/13/16 11:03 Eos % (Auto) 2.0 % (0.0-4.3) 12/13/16 11:03 Baso % (Auto) 0.6 % (0.0-1.8) 12/13/16 11:03 Lymph # 1.3 K/mm3 (1.2-5.4) 12/13/16 11:03 [place] # 0.8 K/mm3 (0.0-0.8) 12/13/16 11:03 Eos # 0.2 K/mm3 (0.0-0.4) 12/13/16 11:03 Baso # 0.1 K/mm3 (0.0-0.1) 12/13/16 11:03 Seg Neutrophils % 77.5 % (40.0-70.0) H 12/13/16 11:03 Seg Neutrophils # 8.2 K/mm3 (1.8-7.7) H 12/13/16 11:03 PT 14.2 Sec. (12.2-14.9) 12/13/16 11:11 INR 1.05 (0.87-1.13) 12/13/16 11:11 APTT 30.1 Sec. (24.2-36.6) 12/13/16 11:11 D-Dimer 787.66 ng/mlDDU (0-234) H 12/13/16 20:11 Sodium 140 mmol/L (137-145) 12/13/16 11:03 Potassium 4.8 mmol/L (3.6-5.0) 12/13/16 11:03 Chloride 105.6 mmol/L (98-107) 12/13/16 11:03 Carbon Dioxide 22 mmol/L (22-30) 12/13/16 11:03 Anion Gap 17 mmol/L 12/13/16 11:03 BUN 19 mg/dL (9-20) 12/13/16 11:03 Creatinine 1.8 mg/dL (0.8-1.5) H 12/13/16 11:03 Estimated GFR 50 ml/min 12/13/16 11:03 BUN/Creatinine Ratio 10.55 % 12/13/16 11:03 Glucose 143 mg/dL (75-100) H 12/13/16 11:03 POC Glucose 138 (70-105) H 12/15/16 08:02 Calcium 8.7 mg/dL (8.4-10.2) 12/13/16 11:03 Troponin T 0.068 ng/mL (0.00-0.029) H 12/13/16 11:03 NT-Pro-B Natriuret Pep 6987 pg/mL (0-450) H 12/13/16 11:03 Triglycerides 145 mg/dL (2-149) 12/13/16 11:03 Cholesterol 187 mg/dL (50-199) 12/13/16 11:03 LDL Cholesterol Direct 112 mg/dL (50-130) 12/13/16 11:03 HDL Cholesterol 46 mg/dL (40-59) 12/13/16 11:03 Cholesterol/HDL Ratio 4.06 % 12/13/16 11:03
--- NOTE | 2016-12-15 13:01 | Progress Note ---
Assessment and Plan - Patient Problems (1) Systolic CHF, chronic Current Visit: Yes Status: Chronic Plan to address problem: Continue medical therapy for heart failure including intravenous milrinone. Subjective Date of service: 12/15/16 Interval history: Patient is comfortable, in no acute distress. Shortness of breath and orthopnea have improved. Objective Vital Signs Temp Pulse Pulse Resp BP BP Pulse Ox 12/15/16 09:19 80 132/89 12/15/16 09:00 97 12/15/16 08:49 18 12/15/16 07:55 97.8 F 80 18 132/89 92 12/15/16 05:50 64 12/15/16 04:53 98.6 F 64 18 121/68 95 12/15/16 00:54 98.3 F 85 18 137/91 100 12/14/16 21:36 90 12/14/16 21:13 60 12/14/16 20:38 97.9 F 86 20 115/80 99 12/14/16 16:56 72 12/14/16 16:15 98.0 F 90 18 115/72 92 12/14/16 13:57 94 H 120/74 - Physical Examination General: No Apparent Distress HEENT: Positive: PERRL Neck: Positive: neck supple Cardiac: Positive: Reg Rate and Rhythm Lungs: Positive: Decreased Breath Sounds Neuro: Positive: Grossly Intact Abdomen: Positive: Soft Skin: Positive: Clear Extremities: Absent: edema - EKG Sinus rhythms and dysrhythmias: sinus rhythm
[2016-12-15] MEDS: LASIX IV SCH (18:35)
[2016-12-15] MEDS: LOVENOX SUB-Q SCH (18:36)
[2016-12-15] MEDS: PRIMACOR 20 MG in D5W 80 ML IV SCH (20:10)
[2016-12-16] MEDS: LASIX IV SCH (06:16)
[2016-12-16] MEDS: APRESOLINE PO SCH (06:17)
[2016-12-16 08:24] VITALS: BP 131/95
[2016-12-16] MEDS: COREG PO SCH (09:33)
[2016-12-16] MEDS: NOVOLOG SUB-Q SCH (09:34)
--- NOTE | 2016-12-16 11:27 | Discharge Summary ---
Providers - Providers Date of Admission: 12/13/16 19:51 Date of discharge: 12/23/16 Attending physician: LORETTA MCDONALD Primary care physician: JUVE VILLEDA MD Hospitalization Condition: Stable Disposition: DC-30 STILL A PATIENT Exam - Constitutional Vitals: Temp Pulse Resp BP Pulse Ox 98.7 F 84 20 131/95 92 12/16/16 07:30 12/16/16 09:55 12/16/16 09:55 12/16/16 07:30 12/16/16 10:58 Plan Follow up with: JUVE VILLEDA MD [Primary Care Provider] - 3-5 Days
--- NOTE | 2016-12-16 12:37 | Progress Note ---
Assessment and Plan Systolic heart failure Hx of Nonischemic cardiomyopathy no reversible ischemia on MPI 05/2016 Presence of AICD ([employer]) Hx of VF -on amiodarone as an outpatient for suppression Diabetes mellitus Recommendations: Continue medical therapy for his nonischemic cardiomyopathy. Stable cardiac oliver. F/U with [facility] within 1 week of discharge. Subjective Date of service: 12/16/16 Interval history: Patient reports he is feeling better. Continues on IV milrinone. No events on telemetry overnight. Objective Vital Signs Temp Pulse Pulse Resp BP BP Pulse Ox 12/16/16 10:58 92 12/16/16 09:55 84 20 96 12/16/16 07:59 80 12/16/16 07:30 98.7 F 84 20 131/95 96 12/16/16 06:17 81 122/77 12/16/16 04:20 98.2 F 81 20 120/77 92 12/16/16 01:29 98.3 F 82 18 118/78 98 12/15/16 22:29 100 12/15/16 21:59 80 121/79 12/15/16 21:58 80 121/79 12/15/16 20:35 98.0 F 80 18 121/79 97 12/15/16 16:50 97.4 F L 80 18 120/84 94 - Physical Examination General: No Apparent Distress HEENT: Positive: PERRL Neck: Positive: neck supple Cardiac: Positive: Reg Rate and Rhythm Neuro: Positive: Grossly Intact Extremities: Absent: edema - EKG Sinus rhythms and dysrhythmias: sinus rhythm
== END 2016-12-16 12:08 | disposition home or self-care (01) | DRG 291 ==
LOC: ED 10:10 → 4A 19:51
PROVIDERS: ADMIT Internal Medicine; ATTEND Internal Medicine
DX: I11.0 Hypertensive heart disease with heart failure (principal); J96.20 Acute and chronic respiratory failure, unspecified whether with hypoxia or hypercapnia; I50.23 Acute on chronic systolic (congestive) heart failure; E11.9 Type 2 diabetes mellitus without complications; I48.91 Unspecified atrial fibrillation; J45.909 Unspecified asthma, uncomplicated; I42.9 Cardiomyopathy, unspecified; Z95.810 Presence of automatic (implantable) cardiac defibrillator; Z79.899 Other long term (current) drug therapy; Z91.018 Allergy to other foods; Z88.8 Allergy status to other drugs, medicaments and biological substances
CPT/HCPCS: 36415; 71020; 78582; 80048; 80061; 82962; 83735; 83880; 84484; 85025; 85379; 85610; 85730; 93005; 93010; 94640; 96374; A9540; A9558; J1650; J1940; J2260

== ENCOUNTER 2016-12-24 09:16 | Inpatient (IN) | payer MEDICARE ==
--- NOTE | 2016-12-24 09:31 | Emergency Department Report ---
Chief Complaint: Dyspnea/Respdistress Stated Complaint: DEEPIKA Time Seen by Provider: 12/24/16 09:25 - HPI History of Present Illness: PT c/o sob. gradual onset yesterday. PT states he is taking his medication as prescribed but he feels like he felt when he was dx with fluid on his lungs on - ROS Review of Systems: + cough - cp - Exam Vital Signs: Vital Signs 12/24/16 09:23 Temperature 97.6 F Pulse Rate 43 L Respiratory 18 Rate Blood Pressure 140/102 O2 Sat by Pulse 98 Oximetry Physical Exam: pt looks well, non toxic. bradycardic lungs cta - dry cough noted MSE screening note: Focused history and physical exam performed. Due to findings the following was ordered: labs, ekg, xr ED Disposition for MSE Condition: Stable
[2016-12-24 10:45] LABS: Basophils % (Auto) 0.7 % (0.0-1.8); Eosinophils % (Auto) 1.5 % (0.0-4.3); Hemoglobin 13.5 gm/dl (11.8-15.2); Mean Corpuscular HGB Conc 32 % (32-34); Mean Corpuscular Hemoglobin 28 pg (28-32); Mean Corpuscular Volume 86 fl (84-94); Platelet Count 314 K/mm3 (140-440); Red Cell Distribution Width 17.8 % (13.2-15.2)
[2016-12-24 11:19] LABS: Albumin 2.9 g/dL (3.9-5); Albumin/Globulin Ratio 0.7 %; Bilirubin,Total 1.3 mg/dL (0.1-1.2); Calcium 8.8 mg/dL (8.4-10.2); Chloride 104.2 mmol/L (98-107); Potassium 4.6 mmol/L (3.6-5.0); Total Protein 6.8 g/dL (6.3-8.2)
--- NOTE | 2016-12-24 13:01 | XRay Report ---
CHEST 2 VIEWS INDICATION: Shortness of breath. COMPARISON: 12/13/2016 FINDINGS: PA and lateral chest radiographs demonstrate stable cardiomediastinal silhouette/mild cardiomegaly. Slightly crowded markings centrally again seen as also an abandoned ventricular pacemaker lead coiled proximally over the left mid lung while another left chest wall AICD with a single lead heading cephalad projects over the spine. No pleural effusions or CHF. Intact bones. CONCLUSION: No significant interval change, as described. Thank you for the opportunity to participate in this patient's care.
--- NOTE | 2016-12-24 16:38 | Emergency Department Report ---
HPI - General Chief Complaint: Dyspnea/Respdistress Time Seen by Provider: 12/24/16 09:25 - HPI HPI: PT c/o sob. gradual onset yesterday. PT states he is taking his medication as prescribed but he feels like he felt when he was dx with fluid on his lungs on . The patient has a history of CHF, AICD placement. He states that he has been compliant with his medication but has not been taking his Lasix due to a lapse on his prescription. Patient denies any fever but does have nightly cough. Has PND and orthopnea. Leg swelling slightly improved since last admission but still present. ED Past Medical Hx - Past Medical History Previous Medical History?: Yes Hx Hypertension: Yes Hx Congestive Heart Failure: Yes Hx Diabetes: Yes Hx Asthma: Yes Hx COPD: No Additional medical history: Afib? - Surgical History Past Surgical History?: Yes Hx Pacemaker: Yes Hx Internal Defibrillator: Yes (X 3) - Social History Smoking Status: Never Smoker Substance Use Type: Prescribed - Medications Home Medications: Home Medications Medication Instructions Recorded Confirmed Last Taken Type Carvedilol [Coreg] 3.125 mg PO BID #60 tablet 10/26/16 12/13/16 11/07/16 Rx Pravastatin (Nf) [Pravachol] 40 mg PO QHS #30 10/26/16 12/13/16 11/07/16 Rx Furosemide [Lasix TAB] 40 mg PO QDAY 11/08/16 12/13/16 11/07/16 History Amiodarone [Cordarone 200 MG TAB] 200 mg PO QDAY 12/13/16 12/13/16 Unknown History Aspirin EC [Aspirin Enteric Coated 81 mg PO QDAY 12/13/16 12/13/16 Unknown History TAB] Insulin Aspart Prot/Aspart(Nf) 35 units SQ QAM 12/13/16 12/13/16 Unknown History [NovoLOG Mix 70/30 VIAL] Losartan [Cozaar] 50 mg PO QDAY 12/13/16 12/13/16 Unknown History Oxycodone HCl/Acetaminophen 1 tab PO Q6H PRN 12/13/16 12/13/16 Unknown History [Percocet 10/325 mg] Spironolactone [Aldactone] 25 mg PO QDAY 12/13/16 12/13/16 Unknown History ED Review of Systems ROS: Stated complaint: DEEPIKA Other details as noted in HPI Comment: All other systems reviewed and negative Cardiovascular: chest pain, dyspnea on exertion, orthopnea, edema, paroxysmal nocturnal dyspnea Psychiatric: as per HPI Physical Exam - Physical Exam Vital Signs: Vital Signs 12/24/16 12/24/16 12/24/16 09:23 15:10 15:12 Temperature 97.6 F Pulse Rate 43 L 86 86 Respiratory 18 17 16 Rate Blood Pressure 140/102 Blood Pressure [Left] O2 Sat by Pulse 98 95 Oximetry 12/24/16 12/24/16 12/24/16 15:14 15:16 15:18 Temperature Pulse Rate 86 88 86 Respiratory 21 19 19 Rate Blood Pressure 133/100 133/100 133/100 Blood Pressure [Left] O2 Sat by Pulse 97 97 96 Oximetry 12/24/16 12/24/16 12/24/16 15:20 15:21 15:22 Temperature Pulse Rate 86 87 87 Respiratory 10 L 12 26 H Rate Blood Pressure 119/98 119/98 119/98 Blood Pressure [Left] O2 Sat by Pulse 98 97 95 Oximetry 12/24/16 12/24/16 12/24/16 15:24 15:26 15:28 Temperature Pulse Rate 85 86 86 Respiratory 11 L 10 L 17 Rate Blood Pressure 119/98 119/98 119/98 Blood Pressure [Left] O2 Sat by Pulse 96 94 94 Oximetry 12/24/16 15:32 Temperature 98.1 F Pulse Rate 84 Respiratory 12 Rate Blood Pressure Blood Pressure 119/98 [Left] O2 Sat by Pulse 94 Oximetry Physical Exam: General Adult Exam GENERAL APPEARANCE: Well developed, well nourished, alert and cooperative, and appears to be in no acute distress. HEAD: normocephalic. EYES: PERRL, EOMI. Fundi normal, vision is grossly intact. EARS: External auditory canals and tympanic membranes clear, hearing grossly intact. NOSE: No nasal discharge. THROAT: Oral cavity and pharynx normal. No inflammation, swelling, exudate, or lesions. Teeth and gingiva in good general condition. NECK: Neck supple, non-tender without lymphadenopathy, masses or thyromegaly. CARDIAC: Normal S1 and S2. No S3, S4 or murmurs. Rhythm is regular. Severe JVD bilaterally Capillary refill is less than 2 seconds. No carotid bruits. LUNGS: diminished breath sounds, bilaterally ABDOMEN: Positive bowel sounds. Soft, nondistended, nontender. No guarding or rebound. No masses. MUSKULOSKELETAL: Adequately aligned spine. ROM intact spine and extremities. No joint erythema or tenderness. Normal muscular development. Normal gait. BACK: Examination of the spine reveals normal gait and posture, no spinal deformity, symmetry of spinal muscles, without tenderness, decreased range of motion or muscular spasm. EXTREMITIES: No significant deformity or joint abnormality. No edema. Peripheral pulses intact. No varicosities. LOWER EXTREMITY: 2+ edema bilateral NEUROLOGICAL: CN II-XII intact. Strength and sensation symmetric and intact throughout. Reflexes 2+ throughout. Cerebellar testing normal. SKIN: Skin normal color, texture and turgor with no lesions or eruptions. PSYCHIATRIC: The mental examination revealed the patient was oriented to person , place, and time. The patient was able to demonstrate good judgement and reason , without hallucinations, abnormal affect or abnormal behaviors during the examination. Patient is not suicidal. ED Course Vital Signs 12/24/16 12/24/16 12/24/16 09:23 15:10 15:12 Temperature 97.6 F Pulse Rate 43 L 86 86 Respiratory 18 17 16 Rate Blood Pressure 140/102 Blood Pressure [Left] O2 Sat by Pulse 98 95 Oximetry 12/24/16 12/24/16 12/24/16 15:14 15:16 15:18 Temperature Pulse Rate 86 88 86 Respiratory 21 19 19 Rate Blood Pressure 133/100 133/100 133/100 Blood Pressure [Left] O2 Sat by Pulse 97 97 96 Oximetry 12/24/16 12/24/16 12/24/16 15:20 15:21 15:22 Temperature Pulse Rate 86 87 87 Respiratory 10 L 12 26 H Rate Blood Pressure 119/98 119/98 119/98 Blood Pressure [Left] O2 Sat by Pulse 98 97 95 Oximetry 12/24/16 12/24/16 12/24/16 15:24 15:26 15:28 Temperature Pulse Rate 85 86 86 Respiratory 11 L 10 L 17 Rate Blood Pressure 119/98 119/98 119/98 Blood Pressure [Left] O2 Sat by Pulse 96 94 94 Oximetry 12/24/16 15:32 Temperature 98.1 F Pulse Rate 84 Respiratory 12 Rate Blood Pressure Blood Pressure 119/98 [Left] O2 Sat by Pulse 94 Oximetry ED Medical Decision Making - Lab Data Result diagrams: 12/24/16 10:33 12/24/16 10:33 Critical care attestation.: If time is entered above; I have spent that time in minutes in the direct care of this critically ill patient, excluding procedure time. ED Disposition Clinical Impression: Acute exacerbation of CHF (congestive heart failure) Disposition: OP ADMIT IP TO THIS HOSP Is pt being admited?: Yes Does the pt Need Aspirin: No Condition: Stable Referrals: PRIMARY CARE, [Primary Care Provider] - 3-5 Days
--- NOTE | 2016-12-24 16:59 | History and Physical Report ---
History of Present Illness Chief complaint: I cant breathe History of present illness: 46 YO Male with CHF, Systolic(EF 20%), HTN, DM, Asthma, Atrial Fib presents to ED for evaluation. Pt states that he has been experiencing shortness of breath and coughing for the past week, with worsening symptoms over the past 1 day. Patient states symptoms started approximately 7 days ago and have gotten progressively worse. Pt acknowledges Othopnea/PND, diet and medication noncompliance. Patient denies chest pain, fever, chills, Palpitations, hemoptysis, productive cough, or recent ill contacts. Past History Past Medical History: atrial fib, diabetes, heart failure, hypertension, other ( asthma) Past Surgical History: Other (Pacemaker/ICD) Social history: single. denies: smoking, alcohol abuse Family history: diabetes, hypertension Medications and Allergies Allergies Allergy/AdvReac Type Severity Reaction Status Date / Time pineapple Allergy Anaphylaxis Verified 12/13/16 10:42 lisinopril AdvReac COUGH Verified 12/13/16 10:44 Home Medications Medication Instructions Recorded Confirmed Last Taken Type Carvedilol [Coreg] 3.125 mg PO BID #60 tablet 10/26/16 12/24/16 12/23/16 Rx Pravastatin (Nf) [Pravachol] 40 mg PO QHS #30 10/26/16 12/24/16 12/23/16 Rx Furosemide [Lasix TAB] 40 mg PO QDAY 11/08/16 12/24/16 11/07/16 History Amiodarone [Cordarone 200 MG TAB] 200 mg PO QDAY 12/13/16 12/24/16 12/23/16 History Aspirin EC [Aspirin Enteric Coated 81 mg PO QDAY 12/13/16 12/24/16 12/23/16 History TAB] Insulin Aspart Prot/Aspart(Nf) 35 units SQ QAM 12/13/16 12/24/16 12/23/16 History [NovoLOG Mix 70/30 VIAL] Losartan [Cozaar] 50 mg PO QDAY 12/13/16 12/24/16 12/23/16 History Oxycodone HCl/Acetaminophen 1 tab PO Q6H PRN 12/13/16 12/24/16 12/23/16 History [Percocet 10/325 mg] Spironolactone [Aldactone] 25 mg PO QDAY 12/13/16 12/24/16 12/23/16 History Review of Systems All systems: negative Constitutional: weight gain, no weight loss Ears, nose, mouth and throat: no ear pain Cardiovascular: orthopnea, paroxysmal nocturnal dyspnea, no chest pain Respiratory: no cough Gastrointestinal: no abdominal pain Genitourinary Male: no flank pain Rectal: no pain Musculoskeletal: no neck stiffness Integumentary: no rash Neurological: no weakness Psychiatric: no anxiety Endocrine: no cold intolerance, no heat intolerance Hematologic/Lymphatic: no easy bruising Allergic/Immunologic: no urticaria Exam - Constitutional Vitals: Temp Pulse Resp BP Pulse Ox 98.1 F 84 12 119/98 94 12/24/16 15:32 12/24/16 15:32 12/24/16 15:32 12/24/16 15:32 12/24/16 15:32 General appearance: Present: mild distress - EENT Eyes: Present: PERRL ENT: hearing intact, clear oral mucosa - Neck Neck: Present: supple, normal ROM - Respiratory Respiratory effort: normal Respiratory: bilateral: diminished - Cardiovascular Rhythm: irregularly irregular Heart Sounds: Present: S1 & S2. Absent: rub, click - Extremities Extremities: pulses symmetrical Extremity abnormal: edema Peripheral Pulses: within normal limits - Abdominal General gastrointestinal: Present: soft, non-tender, non-distended, normal bowel sounds Male genitourinary: Present: normal - Integumentary Integumentary: Present: clear, warm, dry - Musculoskeletal Musculoskeletal: gait normal, strength equal bilaterally - Psychiatric Psychiatric: appropriate mood/affect, intact judgment & insight - Neurologic Neurologic: CNII-XII intact, moves all extremities Results - Labs CBC & Chem 7: 12/24/16 10:33 12/24/16 10:33 Labs: Abnormal lab results 12/24/16 12/24/16 Range/Units 10:33 10:33 RDW 17.8 H (13.2-15.2) % Lymph % (Auto) 12.3 L (13.4-35.0) % [place] % (Auto) 7.4 H (0.0-7.3) % Seg Neutrophils % 78.1 H (40.0-70.0) % Seg Neutrophils # 8.6 H (1.8-7.7) K/mm3 Sodium 136 L (137-145) mmol/L Carbon Dioxide 14 L (22-30) mmol/L BUN 28 H (9-20) mg/dL Creatinine 2.0 H (0.8-1.5) mg/dL Glucose 115 H (75-100) mg/dL Total Bilirubin 1.30 H (0.1-1.2) mg/dL NT-Pro-B Natriuret Pep 7791 H (0-450) pg/mL Albumin 2.9 L (3.9-5) g/dL Assessment and Plan - Patient Problems (1) Acute exacerbation of CHF (congestive heart failure) Current Visit: Yes Status: Acute Qualifiers: Congestive heart failure type: systolic Qualified Code(s): I50.23 - Acute on chronic systolic (congestive) heart failure (2) Metabolic acidosis Current Visit: Yes Status: Acute (3) Acute renal failure (ARF) Current Visit: No Status: Acute Qualifiers: Acute renal failure type: unspecified Qualified Code(s): N17.9 - Acute kidney failure, unspecified (4) DVT prophylaxis Current Visit: No Status: Acute (5) Diabetes Current Visit: No Status: Acute Qualifiers: Diabetes mellitus type: D Diabetes mellitus complication status: D Diabetes mellitus complication detail: D Diabetic retinopathy severity: D Proliferative retinopathy type: P Diabetes mellitus macular edema: D Diabetes mellitus residential insulin use: D Laterality: L Chronic kidney disease stage: C (6) HTN (hypertension) Current Visit: No Status: Chronic Qualifiers: Hypertension type: essential hypertension Qualified Code(s): I10 - Essential (primary) hypertension (7) DVT prophylaxis Current Visit: Yes Status: Acute
--- NOTE | 2016-12-24 17:12 | Admit Criteria Form ---
Admission Criteria Documentation: HEART FAILURE: COMMON COMPLICATIONS Clinical Indications for Inpatient Care ([place]/check or initial the applicable condition/criteria): Ongoing inpatient care may be indicated for heart failure with 1 or more of the following (1)(2)(3)(4)(5)(6)(7)(8): [ ]I. New-onset heart failure [ ]II. Acute cardiac ischemia causing or associated with failure [ ]III. Ongoing need for care for primary condition requiring frequent therapy adjustments because of changes in cardiac function (eg, drug dosage changes for drugs that are renally metabolized) [X]IV. Complications of heart failure, including 1 or more of the following: [ ]a) Hemodynamic instability [ ]b) Pericardial effusion [ ]c) Symptomatic pleural effusion(16) [ ]d) Hypoxemia [ ]e) Tachypnea [ X]f) Dyspnea [ ]g) Syncope [ ]h) Altered mental status [ ]i) Acute renal insufficiency that is severe (reduction of more than 50% in estimated glomerular filtration rate from baseline) or progressive (reduction of more than 25% in estimated glomerular filtration rate from baseline, with creatinine continuing to rise) [ ]j) Debilitating anasarca (eg tissue breakdown with infection, inability to void due to edema)(E) (17) [ ]k) Clinically significant metabolic abnormalities due to heart failure (e.g., new-onset metabolic acidosis) Extended stay may be needed until ALL of the following are present(1)(3)(18)(41) (55): [ ]a) Hemodynamic stability [ ]b) Stable and effective diuretic regimen established (or patient on stable dialysis regimen if in chronic renal failure) [ ]c) Volume status acceptable on oral medication [ ]d) Breathing comfortably at rest [ ]e) Saturation of arterial oxygen greater than 90% or at acceptable baseline [ ]f) Pulmonary edema absent or improved [ ]g) Peripheral or sacral edema absent or improved [ ]h) Renal function stable and manageable at a lower level of care [ ]i) Complications (e.g., pleural effusion) resolved or manageable at a lower level of care [ ]j) Patient or caregiver has received written discharge instructions or educational material addressing activity level, diet, discharge medications, follow-up appointment, weight monitoring, and what to do if symptoms worsen. (56)(57)(58) The original [facility] [employer] content created by Annita Meier has been revised. The portions of the content which have been revised are identified through the use of italic text or in bold, and Annita Meier has neither reviewed nor approved the modified material.All other unmodified content is copyright [facility]. Please see references footnoted in the original [facility] edition 2017 Admission Criteria Met: Yes
[2016-12-24] MEDS ORDERED: ZOFRAN IV PRN (17:54)
[2016-12-24] MEDS ORDERED: PROVENTIL IH PRN (17:54)
[2016-12-24] MEDS ORDERED: MILK OF MAGNESIA PO PRN (17:54)
[2016-12-24] MEDS ORDERED: DULCOLAX PR PRN (17:54)
[2016-12-24] MEDS ORDERED: TYLENOL PO PRN (17:54)
[2016-12-24] MEDS ORDERED: NON-FORMULARY (Oxycodone Hcl/Acetaminophen [Percocet 10/325 Mg] 1 TAB) PO PRN (17:58)
[2016-12-24] MEDS ORDERED: PERCOCET 5/325 PO PRN (18:12)
[2016-12-24] MEDS ORDERED: ROXICODONE PO PRN (18:12)
[2016-12-24] MEDS: ZOCOR PO SCH (21:26)
[2016-12-24] MEDS: COREG PO SCH (21:27)
[2016-12-24] MEDS ORDERED: PRAVASTATIN 40 MG PO SCH (22:00)
[2016-12-25] MEDS: NOVOLOG SUB-Q SCH ×4 (07:57→22:29)
[2016-12-25] MEDS ORDERED: ASPART SQ SCH (10:00)
[2016-12-25] MEDS ORDERED: ALDACTONE PO SCH (10:00)
[2016-12-25] MEDS ORDERED: COZAAR PO SCH (10:00)
[2016-12-25] MEDS ORDERED: INSULIN ASPART PROT SQ SCH (10:00)
[2016-12-25] MEDS: COREG PO SCH ×2 (10:52→22:28)
[2016-12-25] MEDS: CORDARONE PO SCH (10:52)
[2016-12-25] MEDS: LASIX IV SCH (10:53)
[2016-12-25] MEDS: HALFPRIN EC PO SCH (10:53)
--- NOTE | 2016-12-25 14:15 | Progress Note ---
Assessment and Plan Assessment and plan: 46 YO Male with CHF, Systolic(EF 20%), HTN, DM, Asthma, Atrial Fib presents to ED for evaluation. Pt states that he has been experiencing shortness of breath and coughing for the past week, with worsening symptoms over the past 1 day. Patient states symptoms started approximately 7 days ago and have gotten progressively worse. Pt acknowledges Othopnea/PND, diet and medication noncompliance. Patient denies chest pain, fever, chills, Palpitations, hemoptysis, productive cough, or recent ill contacts. * Acute on chronic systolic congestive heart failure * cardiology consult, daily weight, BB, ARB. Counselling on medication and physician follow up compliance, lasix prescription on discharge. * Metabolic acidosis * expect improvement with diuresis, if not, will add Bicarb. * Acute on chronic respiratory failure secondary to CHF * oxygen and wean as tolerated * Acute kidney injury secondary to vasomotor nephropathy * Monitor, baseline creatnine 1.8 * Diabetes mellitus * continue insulin therapy * Hypertension * Continue home meds * S/P AICD * DVT/GI Prophy * pLAN DISCUSSED IN DETAIL WITH PATIENT. History Interval history: Patient seen and examined, in no acute distress. reports improvement in respiratory status. ran out of medication for lasix and missed doctors appt. Hospitalist Physical - Physical exam Narrative exam: VITAL SIGNS: Reviewed. GENERAL: The patient appeared well nourished and normally developed. Vital signs as documented. HEAD: No signs of head trauma. EYES: Pupils are equal. Extraocular motions intact. EARS: Hearing grossly intact. MOUTH: Oropharynx is normal. NECK: No adenopathy, no JVD. CHEST: Chest with diminished breath sounds bilaterally. No wheezes, rales, or rhonchi. CARDIAC: Regular rate and rhythm. S1 and S2, without murmurs, gallops, or rubs. VASCULAR: No Edema. Peripheral pulses normal and equal in all extremities. ABDOMEN: Soft, without detectable tenderness. No sign of distention. No rebound or guarding, and no masses palpated. Bowel Sounds normal. MUSCULOSKELETAL: Good range of motion of all major joints. Extremities without clubbing, cyanosis or edema. NEUROLOGIC EXAM: Alert and oriented x 3. No focal sensory or strength deficits. Speech normal. Follows commands. PSYCHIATRIC: Mood normal. SKIN: No rash or lesions. - Constitutional Vitals: Temp Pulse Resp BP Pulse Ox 99.0 F 88 18 130/110 97 12/25/16 12:15 12/25/16 12:15 12/25/16 12:15 12/25/16 12:15 12/25/16 12:15 General appearance: Present: mild distress Results - Labs CBC & Chem 7: 12/24/16 10:33 12/24/16 10:33 Labs: Laboratory Last Values WBC 11.0 K/mm3 (4.5-11.0) 12/24/16 10:33 RBC 4.90 M/mm3 (3.65-5.03) 12/24/16 10:33 Hgb 13.5 gm/dl (11.8-15.2) 12/24/16 10:33 Hct 42.0 % (35.5-45.6) 12/24/16 10:33 MCV 86 fl (84-94) 12/24/16 10:33 MCH 28 pg (28-32) 12/24/16 10:33 MCHC 32 % (32-34) 12/24/16 10:33 RDW 17.8 % (13.2-15.2) H 12/24/16 10:33 Plt Count 314 K/mm3 (140-440) 12/24/16 10:33 Lymph % (Auto) 12.3 % (13.4-35.0) L 12/24/16 10:33 [place] % (Auto) 7.4 % (0.0-7.3) H 12/24/16 10:33 Eos % (Auto) 1.5 % (0.0-4.3) 12/24/16 10:33 Baso % (Auto) 0.7 % (0.0-1.8) 12/24/16 10:33 Lymph # 1.4 K/mm3 (1.2-5.4) 12/24/16 10:33 [place] # 0.8 K/mm3 (0.0-0.8) 12/24/16 10:33 Eos # 0.2 K/mm3 (0.0-0.4) 12/24/16 10:33 Baso # 0.1 K/mm3 (0.0-0.1) 12/24/16 10:33 Seg Neutrophils % 78.1 % (40.0-70.0) H 12/24/16 10:33 Seg Neutrophils # 8.6 K/mm3 (1.8-7.7) H 12/24/16 10:33 Sodium 136 mmol/L (137-145) L 12/24/16 10:33 Potassium 4.6 mmol/L (3.6-5.0) 12/24/16 10:33 Chloride 104.2 mmol/L (98-107) 12/24/16 10:33 Carbon Dioxide 14 mmol/L (22-30) L 12/24/16 10:33 Anion Gap 22 mmol/L 12/24/16 10:33 BUN 28 mg/dL (9-20) H 12/24/16 10:33 Creatinine 2.0 mg/dL (0.8-1.5) H 12/24/16 10:33 Estimated GFR 44 ml/min 12/24/16 10:33 BUN/Creatinine Ratio 14.00 % 12/24/16 10:33 Glucose 115 mg/dL (75-100) H 12/24/16 10:33 POC Glucose 111 (70-105) H 12/25/16 12:19 Calcium 8.8 mg/dL (8.4-10.2) 12/24/16 10:33 Total Bilirubin 1.30 mg/dL (0.1-1.2) H 12/24/16 10:33 AST 34 units/L (5-40) 12/24/16 10:33 ALT 54 units/L (7-56) 12/24/16 10:33 Alkaline Phosphatase 90 units/L (35-129) 12/24/16 10:33 Troponin T 0.022 ng/mL (0.00-0.029) 12/24/16 10:33 NT-Pro-B Natriuret Pep 7791 pg/mL (0-450) H 12/24/16 10:33 Total Protein 6.8 g/dL (6.3-8.2) 12/24/16 10:33 Albumin 2.9 g/dL (3.9-5) L 12/24/16 10:33 Albumin/Globulin Ratio 0.7 % 12/24/16 10:33
[2016-12-25] MEDS: ZOCOR PO SCH (22:28)
[2016-12-26] MEDS: NOVOLOG SUB-Q SCH (08:46)
--- NOTE | 2016-12-26 09:07 | Discharge Summary ---
Providers - Providers Date of Admission: 12/24/16 17:54 Date of discharge: 12/26/16 Attending physician: KANU MCLAUGHLIN MD 12/25/16 11:28 Consult to Physician [CONS] Routine Consulting Provider: REGGIE LEE Reason For Exam: chf Place consult to:: DR. LEE Notified:: OFFICE Phone number called:: [phone] Was contact made?: Yes Time called:: 11:42 Comment:: CONSULT COMPLETED - RONNIE Primary care physician: FLEET MAINTENANCE MANAGER Hospitalization Reason for admission: CHF Condition: Stable Hospital course: 46 YO Male with CHF, Systolic(EF 20%), HTN, DM, Asthma, Atrial Fib presents to ED for evaluation. Pt states that he has been experiencing shortness of breath and coughing for the past week, with worsening symptoms over the past 1 day. Patient states symptoms started approximately 7 days ago and have gotten progressively worse. Pt acknowledges Othopnea/PND, diet and medication noncompliance. Patient denies chest pain, fever, chills, Palpitations, hemoptysis, productive cough, or recent ill contacts. Discharge diagnosis * Acute on chronic systolic congestive heart failure * Patient was seen by cardiology, daily weights were obtained and measured patient was continued on beta yris and ARB. Patient has not been compliant with his medications this was discussed and stressed in detail also follow-up appointment was also stressed in detail. lasix prescription was given on discharge. He does have ACEI allergy * Metabolic acidosis * Improved * Acute on chronic respiratory failure secondary to CHF * oxygen and wean as tolerated * Acute kidney injury secondary to vasomotor nephropathy * Monitor, baseline creatnine 1.8 * Diabetes mellitus * continue insulin therapy * Hypertension * Continue home meds * History of V. fib-vision chronically on amiodarone for suppression * Nonischemic cardiomyopathy * Patient was informed to follow-up with cardiology in 1 week from discharge and occasional slow [place] at that time he verbalized understanding * Moderate protein calorie malnutrition * We have extensive discussion about dietary changes patient verbalized understanding. Is clinically stable at this point for discharge Disposition: DC-01 TO HOME OR SELFCARE Time spent for discharge: 35 mins Core Measure Documentation - Palliative Care Palliative Care/ Comfort Measures: Not Applicable - Core Measures Any of the following diagnoses?: heart failure - VTE Discharge Requirements Deep Vein Thrombosis/Pulmonary Embolism Present on Admission: No - Heart Failure Discharge Requirements CAITLIN/ARB for LVSD if EF <40%: Yes Beta yris at discharge: Yes Exam - Physical Exam Narrative exam: VITAL SIGNS: Reviewed. GENERAL: The patient appeared well nourished and normally developed. Vital signs as documented. HEAD: No signs of head trauma. EYES: Pupils are equal. Extraocular motions intact. EARS: Hearing grossly intact. MOUTH: Oropharynx is normal. NECK: No adenopathy, no JVD. CHEST: Chest with diminished breath sounds bilaterally. No wheezes, rales, or rhonchi. CARDIAC: Regular rate and rhythm. S1 and S2, without murmurs, gallops, or rubs. VASCULAR: No Edema. Peripheral pulses normal and equal in all extremities. ABDOMEN: Soft, without detectable tenderness. No sign of distention. No rebound or guarding, and no masses palpated. Bowel Sounds normal. MUSCULOSKELETAL: Good range of motion of all major joints. Extremities without clubbing, cyanosis or edema. NEUROLOGIC EXAM: Alert and oriented x 3. No focal sensory or strength deficits. Speech normal. Follows commands. PSYCHIATRIC: Mood normal. SKIN: No rash or lesions. - Constitutional Vitals: Temp Pulse Resp BP Pulse Ox 97.7 F 88 22 123/104 95 12/26/16 08:42 12/26/16 08:42 12/26/16 08:42 12/26/16 08:42 12/26/16 08:42 Plan Activity: advance as tolerated, fall precautions Diet: low fat, renal Special Instructions: restrict fluid intake to (1000CC/DAY), record daily weights, record daily BP diary Additional Instructions: NEEDS RENAL FUNCTION TEST IN 1 WEEK. Follow up with: JUVE VILLEDA MD [Primary Care Provider] - 3-5 Days DARIEN RAY MD [Staff Physician] - 7 Days Prescriptions: Amiodarone [Cordarone 200 MG TAB] 200 mg PO QDAY #14 tablet Carvedilol [Coreg] 3.125 mg PO BID #30 tablet Furosemide [Lasix TAB] 40 mg PO QDAY #15 tablet Losartan [Cozaar] 100 mg PO QDAY #15 tablet Spironolactone [Aldactone] 25 mg PO QDAY #15 tablet traMADol [Ultram] 50 mg PO Q6HR PRN #14 tablet PRN Reason: Pain
[2016-12-26] MEDS ORDERED: COREG PO SCH ×2 (10:00)
[2016-12-26] MEDS ORDERED: COZAAR PO SCH (10:00)
--- NOTE | 2016-12-26 10:58 | Consultation ---
History of Present Illness Consult date: 12/26/16 Consult reason: congestive heart failure History of present illness: This is a 46yr old man with a history of a ventricular fibrillation and takes amiodarone for suppression. He has a dilated, nonischemic cardiomyopathy. He has an indwelling [employer] ICD. A year ago, while living in [place], he was found to have an impending lead fracture. At that time his he had a new lead placed, abandoning the old. His most recent cardiac workup was done within the last year. He had a persantine thallium test that reports no ischemia. Ejection fraction 10-15% on his most recent echocardiogram. He presents to the emergency room at this time with shortness of breath admitted with decompensated heart failure. Patient admits to running out of his diuretics. Chest x-ray reports mild cardiomegaly, but no evidence of CHF. EKG shows no acute ischemic changes. Cardiology consultation was requested. Patient is on the telemetry floor and reports feeling better since his initial treatment including intravenous diuretics. Past History Past Medical History: atrial fib, diabetes, heart failure, hypertension, other ( asthma) Past Surgical History: Other (Pacemaker/ICD) Social history: single. denies: smoking, alcohol abuse Family history: diabetes, hypertension Medications and Allergies Allergies Allergy/AdvReac Type Severity Reaction Status Date / Time pineapple Allergy Anaphylaxis Verified 12/13/16 10:42 lisinopril AdvReac COUGH Verified 12/13/16 10:44 Home Medications Medication Instructions Recorded Confirmed Last Taken Type Pravastatin (Nf) [Pravachol] 40 mg PO QHS #30 10/26/16 12/24/16 12/23/16 Rx Aspirin EC [Aspirin Enteric Coated 81 mg PO QDAY 12/13/16 12/24/16 12/23/16 History TAB] Insulin Aspart Prot/Aspart(Nf) 35 units SQ QAM 12/13/16 12/24/16 12/23/16 History [NovoLOG Mix 70/30 VIAL] Amiodarone [Cordarone 200 MG TAB] 200 mg PO QDAY #14 tablet 12/26/16 Unknown Rx Carvedilol [Coreg] 3.125 mg PO BID #30 tablet 12/26/16 Unknown Rx Furosemide [Lasix TAB] 40 mg PO QDAY #15 tablet 12/26/16 Unknown Rx Losartan [Cozaar] 100 mg PO QDAY #15 tablet 12/26/16 Unknown Rx Spironolactone [Aldactone] 25 mg PO QDAY #15 tablet 12/26/16 Unknown Rx traMADol [Ultram] 50 mg PO Q6HR PRN #14 tablet 12/26/16 Unknown Rx Active Meds: Active Medications Acetaminophen (Tylenol) 650 mg PO Q4H PRN PRN Reason: Pain MILD(1-3)/Fever >100.5/SPRING Albuterol (Proventil) 2.5 mg IH Q4HRT PRN PRN Reason: Shortness Of Breath Amiodarone HCl (Cordarone) 200 mg PO QDAY [facility] Last Admin: 12/25/16 10:52 Dose: 200 mg Aspirin (Halfprin Ec) 81 mg PO QDAY [facility] Last Admin: 12/25/16 10:53 Dose: 81 mg Bisacodyl (Dulcolax) 10 mg DE QDAY PRN PRN Reason: Constipation unrelieved by MOM Carvedilol (Coreg) 3.125 mg PO BID [facility] Furosemide (Lasix) 40 mg IV QDAY [facility] Last Admin: 12/25/16 10:53 Dose: 40 mg Insulin Aspart (Novolog) 0 units SUB-Q ACHS [facility] PRN Reason: Protocol Last Admin: 12/26/16 08:46 Dose: Not Given Insulin Human Isoph/Insulin Regular (Novolin 70/30) 35 unit SUB-Q QAMDIAB [facility] Last Admin: 12/26/16 08:47 Dose: Not Given Losartan Potassium (Cozaar) 100 mg PO QDAY [facility] Magnesium Hydroxide (Milk Of Magnesia) 30 ml PO Q4H PRN PRN Reason: Constipation Ondansetron HCl (Zofran) 4 mg IV Q8H PRN PRN Reason: N/V unrelieved by Reglan Oxycodone HCl (Roxicodone) 5 mg PO Q6H PRN PRN Reason: Pain, Moderate (4-6) Oxycodone/Acetaminophen (Percocet 5/325) 1 tab PO Q6H PRN PRN Reason: Pain, Moderate (4-6) Last Admin: 12/24/16 21:26 Dose: 1 tab Simvastatin (Zocor) 20 mg PO QHS [facility] Last Admin: 12/25/16 22:28 Dose: 20 mg Spironolactone (Aldactone) 25 mg PO QDAY [facility] Last Admin: 12/25/16 10:51 Dose: 25 mg Physical Examination Vital Signs Temp Pulse Resp BP Pulse Ox 97.6 F 43 L 18 140/102 98 12/24/16 09:23 12/24/16 09:23 12/24/16 09:23 12/24/16 09:23 12/24/16 09:23 Results 12/24/16 10:33 12/24/16 10:33 Assessment and Plan Acute CHF exacerbation, systolic s/t noncompliance with medications Acute on chronic renal failure Hx of Nonischemic cardiomyopathy no reversible ischemia on MPI 05/2016 EF 10-15% on echo 09/2016 ACEi allergy Hx of VF -on amiodarone for suppression Diabetes mellitus Recommendations: Continue medical therapy for his nonischemic cardiomyopathy and history of VF. Advised compliance with medications and dietary restrictions. F/U with [facility] within 1wk of discharge.
[2016-12-26] MEDS: HALFPRIN EC PO SCH (10:59)
[2016-12-26] MEDS: CORDARONE PO SCH (11:00)
[2016-12-26] MEDS: LASIX IV SCH (11:01)
[2016-12-26 11:03] VITALS: BP 124/103
== END 2016-12-26 12:05 | disposition home or self-care (01) | DRG 291 ==
LOC: ED 09:16 → 4A 17:54
PROVIDERS: ADMIT Internal Medicine; ATTEND Internal Medicine
DX: I11.0 Hypertensive heart disease with heart failure (principal); J96.20 Acute and chronic respiratory failure, unspecified whether with hypoxia or hypercapnia; N17.0 Acute kidney failure with tubular necrosis; E44.0 Moderate protein-calorie malnutrition; E87.2 Acidosis; I50.23 Acute on chronic systolic (congestive) heart failure; E11.9 Type 2 diabetes mellitus without complications; I48.91 Unspecified atrial fibrillation; J45.909 Unspecified asthma, uncomplicated; Z95.810 Presence of automatic (implantable) cardiac defibrillator; Z79.82 Long term (current) use of aspirin; Z83.3 Family history of diabetes mellitus; Z82.49 Family history of ischemic heart disease and other diseases of the circulatory system; Z91.018 Allergy to other foods; Z88.6 Allergy status to analgesic agent; Z68.25 Body mass index [BMI] 25.0-25.9, adult
CPT/HCPCS: 36415; 71020; 80053; 82962; 83880; 84484; 85025; 93005; 93010; J1815; J1940

== ENCOUNTER 2018-07-14 09:58 | Emergency (ER) | payer MEDICARE ==
[2018-07-14 10:15] VITALS: BP 108/82
--- NOTE | 2018-07-14 11:00 | Emergency Department Report ---
ED Back Pain/Injury HPI - General Chief Complaint: Back Pain/Injury Stated Complaint: LOWER BACK PAIN Time Seen by Provider: 07/14/18 10:47 Source: patient Limitations: No Limitations - History of Present Illness Initial Comments: Patient is a 48-year-old male with past medical history congestive heart failure diabetes hypertension who is presenting with low back pain for the last 4 days. Patient states hurts worse with movement. He denies any nausea vomiting diarrhea fevers chills dysuria or urinary frequency. Patient states she feels as though his back is tight and is worse in the morning. Patient states with bending over and feels a pulling sensation in his lower back. Patient denies any bowel or bladder dysfunction. Severity scale (0 -10): 7 Quality: aching - Related Data Home Medications Medication Instructions Recorded Confirmed Last Taken Aspirin EC [Aspirin Enteric Coated 81 mg PO QDAY 12/13/16 12/24/16 12/23/16 TAB] Insulin Aspart Prot/Aspart(Nf) 35 units SQ QAM 12/13/16 12/24/16 12/23/16 [NovoLOG Mix 70/30 VIAL] Previous Rx's Medication Instructions Recorded Last Taken Type Pravastatin [Pravachol] 40 mg PO QHS #30 10/26/16 12/23/16 Rx Amiodarone [Cordarone 200 MG TAB] 200 mg PO QDAY #14 tablet 12/26/16 Unknown Rx Carvedilol [Coreg] 3.125 mg PO BID #30 tablet 12/26/16 Unknown Rx Furosemide [Lasix TAB] 40 mg PO QDAY #15 tablet 12/26/16 Unknown Rx Losartan [Cozaar] 100 mg PO QDAY #15 tablet 12/26/16 Unknown Rx Spironolactone [Aldactone] 25 mg PO QDAY #15 tablet 12/26/16 Unknown Rx traMADol [Ultram] 50 mg PO Q6HR PRN #14 tablet 12/26/16 Unknown Rx methOCARBAMOL [Robaxin TAB] 500 mg PO Q6H PRN #15 tablet 07/14/18 Unknown Rx traMADol [Ultram] 50 mg PO Q6HR PRN #12 tablet 07/14/18 Unknown Rx Allergies Allergy/AdvReac Type Severity Reaction Status Date / Time pineapple Allergy Anaphylaxis Verified 07/14/18 10:03 ED Review of Systems ROS: Stated complaint: LOWER BACK PAIN Other details as noted in HPI Comment: All other systems reviewed and negative ED Past Medical Hx - Past Medical History Afib? Family history: no significant family history ED Back Pain Physical Exam - Exam General: Vital signs noted. No distress. Alert and acting appropriately. Back/Abdomen: Yes Perilumbar Tenderness, No Abdominal Tenderness, No Perithoracic Tenderness, No Sacroiliac Tenderness, No Flank Tenderness, No Straight Leg Raise Pain Neuro: Yes Normal Sensation, Yes Normal DTR's, Yes Normal Gait, No Motor Weakness ED Course Vital Signs 07/14/18 10:09 Temperature 97.4 F L Pulse Rate 89 Respiratory 18 Rate Blood Pressure 108/82 O2 Sat by Pulse 100 Oximetry ED Medical Decision Making - Medical Decision Making Patient clinically with muscular skeletal lower back pain. Patient will be referred to Dr. Watson will be given meds for symptomatic relief. Critical care attestation.: If time is entered above; I have spent that time in minutes in the direct care of this critically ill patient, excluding procedure time. ED Disposition Clinical Impression: Lumbar strain Qualifiers: Encounter type: initial encounter Qualified Code(s): S39.012A - Strain of muscle, fascia and tendon of lower back, initial encounter Disposition: DC-01 TO HOME OR SELFCARE Is pt being admited?: No Does the pt Need Aspirin: No Condition: Stable Instructions: Muscle Strain (ED), Back Pain (ED) Referrals: NIKUNJ WATSON MD [Staff Physician] - 3-5 Days Time of Disposition: 11:00
== END 2018-07-14 11:19 | disposition home or self-care (01) ==
LOC: ED 09:58
DX: S39.012A Strain of muscle, fascia and tendon of lower back, initial encounter (principal); I11.0 Hypertensive heart disease with heart failure; I50.9 Heart failure, unspecified; E11.9 Type 2 diabetes mellitus without complications; Z91.018 Allergy to other foods; Z79.899 Other long term (current) drug therapy
CPT/HCPCS: 99282

== ENCOUNTER 2018-08-24 09:26 | Inpatient (IN) | payer MEDICARE ==
--- NOTE | 2018-08-24 10:38 | Emergency Department Report ---
Chief Complaint: Weakness Stated Complaint: BODY SORE/SOB/PAIN - HPI History of Present Illness: numerous complaints: weak, dizzy, sob and chest pain pmh includes a/c chf, AICD... followed by [facility] Dr Briones asked we send to main ED Basic labs ordered for beginning work up - Exam Vital Signs: Vital Signs 08/24/18 09:37 Temperature 98.2 F Pulse Rate 85 Respiratory 20 Rate Blood Pressure 135/86 O2 Sat by Pulse 100 Oximetry MSE screening note: Focused history and physical exam performed. Due to findings the following was ordered: ED Disposition for MSE Condition: Stable Referrals: CORDELL GLEASON MD [Primary Care Provider] - 3-5 Days
--- NOTE | 2018-08-24 11:18 | Emergency Department Report ---
HPI - General Chief Complaint: Weakness Time Seen by Provider: 08/24/18 11:01 - HPI HPI: Room 6 The patient is a 48-year-old male presenting with a chief complaint of shortness of breath. The patient states his symptoms began 2 to 3 days ago with shortness of breath and dyspnea on exertion. Patient admits to a cough that has been nonproductive. Patient states she's also had chills and a dry mouth. Patient denies chest pain and tenderness to soreness of the rib cage when he coughs. The patient states he has been compliant with his Lasix. Patient denies history of fever Location: Lungs Duration: 2-3 days Quality: Shortness of breath Severity: [See above] Modifying factors: [see above] Context: [see above] Mode of transportation: [not driving] ED Past Medical Hx - Past Medical History Previous Medical History?: Yes Hx Hypertension: Yes Hx Congestive Heart Failure: Yes Hx Diabetes: Yes Hx Asthma: Yes Additional medical history: Afib - Surgical History Past Surgical History?: Yes Hx Pacemaker: Yes Hx Internal Defibrillator: Yes (X 3) - Family History Family history: no significant - Social History Smoking Status: Never Smoker Substance Use Type: None (denies illicit drug use) - Medications Home Medications: Home Medications Medication Instructions Recorded Confirmed Last Taken Type Pravastatin [Pravachol] 40 mg PO QHS #30 10/26/16 12/24/16 12/23/16 Rx Aspirin EC [Aspirin Enteric Coated 81 mg PO QDAY 12/13/16 12/24/16 12/23/16 History TAB] Insulin Aspart Prot/Aspart(Nf) 35 units SQ QAM 12/13/16 12/24/16 12/23/16 History [NovoLOG Mix 70/30 VIAL] Amiodarone [Cordarone 200 MG TAB] 200 mg PO QDAY #14 tablet 12/26/16 Unknown Rx Carvedilol [Coreg] 3.125 mg PO BID #30 tablet 12/26/16 Unknown Rx Furosemide [Lasix TAB] 40 mg PO QDAY #15 tablet 12/26/16 Unknown Rx Losartan [Cozaar] 100 mg PO QDAY #15 tablet 12/26/16 Unknown Rx Spironolactone [Aldactone] 25 mg PO QDAY #15 tablet 12/26/16 Unknown Rx traMADol [Ultram] 50 mg PO Q6HR PRN #14 tablet 12/26/16 Unknown Rx methOCARBAMOL [Robaxin TAB] 500 mg PO Q6H PRN #15 tablet 07/14/18 Unknown Rx traMADol [Ultram] 50 mg PO Q6HR PRN #12 tablet 07/14/18 Unknown Rx ED Review of Systems ROS: Stated complaint: BODY SORE/SOB/PAIN Other details as noted in HPI Constitutional: denies: fever Eyes: denies: eye pain Respiratory: cough, shortness of breath Cardiovascular: denies: chest pain Endocrine: no symptoms reported Gastrointestinal: denies: abdominal pain Genitourinary: denies: dysuria Musculoskeletal: myalgia Neurological: denies: headache Physical Exam - Physical Exam Vital Signs: Vital Signs 08/24/18 09:37 Temperature 98.2 F Pulse Rate 85 Respiratory 20 Rate Blood Pressure 135/86 O2 Sat by Pulse 100 Oximetry Physical Exam: GENERAL: The patient is well-developed well-nourished male lying on stretcher not appearing to be in acute distress. [] HEENT: Normocephalic. Atraumatic. Extraocular motions are intact. Patient has moist mucous membranes. NECK: Supple. Trachea midline CHEST/LUNGS: Clear to auscultation. There is no respiratory distress noted. HEART/CARDIOVASCULAR: Regular. There is no tachycardia. There is no gallop rub or murmur. ABDOMEN: Abdomen is soft, nontender. Patient has normal bowel sounds. There is no abdominal distention. SKIN: There is no rash. There is trace bilateral lower extremity edema. There is no diaphoresis. NEURO: The patient is awake, alert, and oriented. The patient is cooperative. The patient has normal speech MUSCULOSKELETAL: There is no evidence of acute injury. ED Course Vital Signs 08/24/18 09:37 Temperature 98.2 F Pulse Rate 85 Respiratory 20 Rate Blood Pressure 135/86 O2 Sat by Pulse 100 Oximetry ED Medical Decision Making - Lab Data Result diagrams: 08/24/18 11:07 08/24/18 11:07 Laboratory Tests 08/24/18 08/24/18 08/24/18 11:07 11:07 11:07 WBC 9.0 RBC 4.36 Hgb 12.1 Hct 37.0 MCV 85 MCH 28 MCHC 33 RDW 14.9 Plt Count 159 Lymph % (Auto) 8.2 L [place] % (Auto) 10.8 H Eos % (Auto) 0.8 Baso % (Auto) 0.6 Lymph # 0.7 L [place] # 1.0 H Eos # 0.1 Baso # 0.1 Seg Neutrophils % 79.6 H Seg Neutrophils # 7.2 Sodium 136 L Potassium 4.3 Chloride 105.1 Carbon Dioxide 17 L Anion Gap 18 BUN 32 H Creatinine 2.9 H Estimated GFR 28 BUN/Creatinine Ratio 11 Glucose 253 H Calcium 8.7 Total Bilirubin 1.10 AST 42 H ALT 46 Alkaline Phosphatase 71 Troponin T 0.059 H NT-Pro-B Natriuret Pep 21952 H Total Protein 7.1 Albumin 3.4 L Albumin/Globulin Ratio 0.9 Triglycerides 128 Cholesterol 199 LDL Cholesterol Direct 154 H TSH 28.340 H Free T4 0.47 L Urine Color Urine Turbidity Urine pH Ur Specific [place] Urine Protein Urine Glucose (UA) Urine Ketones Urine Blood Urine Nitrite Urine Bilirubin Urine Urobilinogen Ur Leukocyte Esterase Urine WBC (Auto) Urine RBC (Auto) Urine Mucus Influenza A (Rapid) Influenza B (Rapid) 08/24/18 08/24/18 12:10 Unknown WBC RBC Hgb Hct MCV MCH MCHC RDW Plt Count Lymph % (Auto) [place] % (Auto) Eos % (Auto) Baso % (Auto) Lymph # [place] # Eos # Baso # Seg Neutrophils % Seg Neutrophils # Sodium Potassium Chloride Carbon Dioxide Anion Gap BUN Creatinine Estimated GFR BUN/Creatinine Ratio Glucose Calcium Total Bilirubin AST ALT Alkaline Phosphatase Troponin T NT-Pro-B Natriuret Pep Total Protein Albumin Albumin/Globulin Ratio Triglycerides Cholesterol LDL Cholesterol Direct TSH Free T4 Urine Color Yellow Urine Turbidity Clear Urine pH 5.0 Ur Specific [place] 1.017 Urine Protein >2000 mg dl Urine Glucose (UA) >=500 Urine Ketones Neg Urine Blood Sm Urine Nitrite Neg Urine Bilirubin Neg Urine Urobilinogen < 2.0 Ur Leukocyte Esterase Neg Urine WBC (Auto) 1.0 Urine RBC (Auto) 2.0 Urine Mucus Few Influenza A (Rapid) Negative Influenza B (Rapid) Negative - EKG Data -: EKG Interpreted by Me EKG shows normal: sinus rhythm Rate: normal - EKG Data When compared to previous EKG there are: previous EKG unavailable Interpretation: nonspecific ST-T wave kaylie (T-wave inversions in lead aVL) - Radiology Data Radiology results: report reviewed (chest x-ray), image reviewed (chest x-ray) interpreted by me: Chest x-ray-no focal infiltrates, no pneumothorax [facility] [address] [place] [address] XRay Report Signed Patient: MELA HENSLEY MR#: [id number] : 1970 Acct:[id number] Age/Sex: 48 / M ADM Date: 08/24/18 Loc: ED Attending Dr: Ordering Physician: ASHER CHACON Date of Service: 08/24/18 Procedure(s): XR chest routine 2V Accession Number(s): [id number] cc: ASHER CHACON Fluoro Time In Minutes: ROUTINE CHEST, TWO VIEWS: HISTORY: Dyspnea. The trachea, heart, mediastinal contour, lung barker and bony thorax are unremarkable. Pacemaker device is unchanged since 12/24/16. IMPRESSION: No acute cardiopulmonary process is identified. Transcribed By: TTR Dictated By: ANNIE SKELTON JR, MD Electronically Authenticated By: ANNIE SKELTON JR, MD Signed Date/Time: 08/24/18 1133 DD/ 1133 TD/TT: 08/24/18 1133 - Differential Diagnosis CHF exacerbation, pneumonia, bronchitis, Critical care attestation.: If time is entered above; I have spent that time in minutes in the direct care of this critically ill patient, excluding procedure time. ED Disposition Clinical Impression: Acute on chronic renal insufficiency, Hypothyroidism, Shortness of breath Disposition: OP ADMIT IP TO THIS HOSP Is pt being admited?: Yes Does the pt Need Aspirin: No Condition: Stable Referrals: CORDELL GLEASON MD [Primary Care Provider] - 3-5 Days Time of Disposition: 12:39 (hospitalist paged (Dr Hilton))
--- NOTE | 2018-08-24 11:38 | XRay Report ---
ROUTINE CHEST, TWO VIEWS: HISTORY: Dyspnea. The trachea, heart, mediastinal contour, lung barker and bony thorax are unremarkable. Pacemaker device is unchanged since 12/24/16. IMPRESSION: No acute cardiopulmonary process is identified.
[2018-08-24 11:44] LABS: Basophils # (Auto) 0.1 K/mm3 (0.0-0.1); Basophils % (Auto) 0.6 % (0.0-1.8); Eosinophils # (Auto) 0.1 K/mm3 (0.0-0.4); Eosinophils % (Auto) 0.8 % (0.0-4.3); Hemoglobin 12.1 gm/dl (11.8-15.2); Lymphocytes # (Auto) 0.7 K/mm3 (1.2-5.4); Lymphocytes % (Auto) 8.2 % (13.4-35.0); Mean Corpuscular HGB Conc 33 % (32-34); Mean Corpuscular Volume 85 fl (84-94); Monocytes % (Auto) 10.8 % (0.0-7.3); Platelet Count 159 K/mm3 (140-440); Red Blood Count 4.36 M/mm3 (3.65-5.03); Red Cell Distribution Width 14.9 % (13.2-15.2)
[2018-08-24 12:02] LABS: Albumin 3.4 g/dL (3.9-5); Calcium 8.7 mg/dL (8.4-10.2)
[2018-08-24 12:13] LABS: Free T4 (Free Thyroxine) 0.47 ng/dL (0.76-1.46)
[2018-08-24 12:21] LABS: Bilirubin,Urine NEG (Negative); Blood,Urine SM (Negative); Color,Urine Yellow (Yellow); Mucus,Urine FEW /HPF; Urobilinogen,Urine < 2.0 mg/dL (<2.0)
[2018-08-24 12:23] LABS: Protein,Urine >2000 mg dL mg/dL (Negative)
[2018-08-24 12:42] LABS: Chol/HDL Ratio 4.14 %
--- NOTE | 2018-08-24 21:42 | Event Note ---
Date: 08/24/18
[2018-08-24] MEDS ORDERED: ROBAXIN PO PRN (21:44)
[2018-08-24] MEDS ORDERED: PERCOCET 5/325 PO PRN (21:47)
[2018-08-24] MEDS ORDERED: DILAUDID IV PRN (21:47)
[2018-08-24] MEDS ORDERED: SODIUM CHLORIDE FLUSH SYRINGE 10 ML IV PRN ×2 (21:47→21:54)
[2018-08-24] MEDS ORDERED: ZOFRAN IV PRN ×2 (21:47→21:54)
[2018-08-24] MEDS ORDERED: TYLENOL PO PRN ×2 (21:47→21:54)
[2018-08-24] MEDS ORDERED: SODIUM CHLORIDE FLUSH SYRINGE 10 ML IV SCH (22:00)
[2018-08-24] MEDS ORDERED: PEPCID PO SCH (22:00)
[2018-08-24] MEDS: ALDACTONE PO SCH (22:45)
[2018-08-24] MEDS: HALFPRIN EC PO SCH (22:46)
[2018-08-24] MEDS: K-DUR PO SCH (22:46)
[2018-08-24] MEDS: COZAAR PO SCH (22:46)
[2018-08-24] MEDS: COREG PO SCH (22:46)
[2018-08-24] MEDS: PRAVACHOL PO SCH (22:47)
[2018-08-24] MEDS: SODIUM CHLORIDE FLUSH SYRINGE 10 ML IV SCH (22:47)
[2018-08-24] MEDS: PEPCID PO SCH (22:47)
[2018-08-24] MEDS: CORDARONE PO SCH (22:47)
[2018-08-24] MEDS: LASIX IV SCH (22:48)
[2018-08-24] MEDS: LOVENOX SUB-Q SCH (22:48)
[2018-08-24] MEDS: HumaLOG SUB-Q SCH (22:48)
[2018-08-25 07:02] LABS: Basophils # (Auto) 0.1 K/mm3 (0.0-0.1); Basophils % (Auto) 0.8 % (0.0-1.8); Eosinophils # (Auto) 0.1 K/mm3 (0.0-0.4); Eosinophils % (Auto) 1.4 % (0.0-4.3); Hematocrit 37.4 % (35.5-45.6); Hemoglobin 12.2 gm/dl (11.8-15.2); Lymphocytes # (Auto) 1.2 K/mm3 (1.2-5.4); Lymphocytes % (Auto) 13.3 % (13.4-35.0); Mean Corpuscular HGB Conc 33 % (32-34); Mean Corpuscular Volume 85 fl (84-94); Monocytes % (Auto) 11.2 % (0.0-7.3); Platelet Count 170 K/mm3 (140-440); Red Cell Distribution Width 14.6 % (13.2-15.2)
--- NOTE | 2018-08-25 07:03 | Consultation ---
History of Present Illness - Reason for Consult Consult date: 08/25/18 acute renal failure, chronic renal failure - History of Present Illness Patient is a 47 Yo male who is well known to our service with history significant for HTN, Diabetes mellitus type 2, Dilated cardiomyopathy s/p AICD, Chronic systolic CHF and CKD stage 3 who presented to ER with multiple symptoms including generalized weakness, some shortness of breath, non-productive cough and rib pain. For the past 3-4 days he has been taking Advil for body pain. Patient denies any fever, jaundice, dizziness, dysuria, hematuria, weakness or blood in the stools. Labs were significant for creatinine 2.9, TSH 28, elevated Troponin and BNP. CXR without any acute changes. Nephrology was consulted for further evaluation and treatment. Past History Past Medical History: diabetes, heart failure, hypertension, hyperlipidemia, renal failure Medications and Allergies Allergies Allergy/AdvReac Type Severity Reaction Status Date / Time pineapple Allergy Anaphylaxis Verified 08/24/18 21:54 Home Medications Medication Instructions Recorded Confirmed Last Taken Type Pravastatin [Pravachol] 40 mg PO QHS #30 10/26/16 08/24/18 12/23/16 Rx Aspirin EC [Aspirin Enteric Coated 81 mg PO QDAY 12/13/16 08/24/18 12/23/16 History TAB] Insulin Aspart Prot/Aspart(Nf) 35 units SQ QAM 12/13/16 08/24/18 12/23/16 History [NovoLOG Mix 70/30 VIAL] Amiodarone [Cordarone 200 MG TAB] 200 mg PO QDAY #14 tablet 12/26/16 08/24/18 Unknown Rx Carvedilol [Coreg] 3.125 mg PO BID #30 tablet 12/26/16 08/24/18 Unknown Rx Furosemide [Lasix TAB] 40 mg PO QDAY #15 tablet 12/26/16 08/24/18 Unknown Rx Losartan [Cozaar] 100 mg PO QDAY #15 tablet 12/26/16 08/24/18 Unknown Rx Spironolactone [Aldactone] 25 mg PO QDAY #15 tablet 12/26/16 08/24/18 Unknown Rx methOCARBAMOL [Robaxin TAB] 500 mg PO Q6H PRN #15 tablet 07/14/18 08/24/18 Unknown Rx Active Meds: Active Medications Acetaminophen (Tylenol) 650 mg PO Q4H PRN PRN Reason: Pain MILD(1-3)/Fever >100.5/[place] Amiodarone HCl (Cordarone) 200 mg PO QDAY [facility] Last Admin: 08/24/18 22:47 Dose: 200 mg Documented by: Aspirin (Halfprin Ec) 81 mg PO QDAY [facility] Last Admin: 08/24/18 22:46 Dose: 81 mg Documented by: Carvedilol (Coreg) 3.125 mg PO BID [facility] Last Admin: 08/24/18 22:46 Dose: 3.125 mg Documented by: Enoxaparin Sodium (Lovenox) 30 mg SUB-Q QDAY@2200 [facility] Last Admin: 08/24/18 22:48 Dose: 30 mg Documented by: Famotidine (Pepcid) 10 mg PO BID [facility] Last Admin: 08/24/18 22:47 Dose: 10 mg Documented by: Furosemide (Lasix) 40 mg IV Q24HR [facility] Last Admin: 08/24/18 22:48 Dose: 40 mg Documented by: Hydromorphone HCl (Dilaudid) 0.5 mg IV Q3H PRN PRN Reason: Pain , Severe (7-10) Insulin Human Isoph/Insulin Regular (Humulin 70/30) [facility] Insulin Human Lispro (Humalog) 0 unit SUB-Q [facility]; Protocol Last Admin: 08/24/18 22:48 Dose: 3 unit Documented by: Levothyroxine Sodium (Synthroid) 125 mcg PO DAILY@0600 [facility] Losartan Potassium (Cozaar) 100 mg PO QDAY [facility] Last Admin: 08/24/18 22:46 Dose: 100 mg Documented by: Methocarbamol (Robaxin) 500 mg PO Q6H PRN PRN Reason: Pain Ondansetron HCl (Zofran) 4 mg IV Q8H PRN PRN Reason: Nausea And Vomiting Oxycodone/Acetaminophen (Percocet 5/325) 1 tab PO Q6H PRN PRN Reason: Pain, Moderate (4-6) Potassium Chloride (K-Dur) 20 meq PO QDAY [facility] Last Admin: 08/24/18 22:46 Dose: 20 meq Documented by: Pravastatin Sodium (Pravachol) 40 mg PO QHS [facility] Last Admin: 08/24/18 22:47 Dose: 40 mg Documented by: Sodium Chloride (Sodium Chloride Flush Syringe 10 Ml) 10 ml IV BID [facility] Last Admin: 08/24/18 22:47 Dose: 10 ml Documented by: Sodium Chloride (Sodium Chloride Flush Syringe 10 Ml) 10 ml IV PRN PRN PRN Reason: LINE FLUSH Last Admin: 08/24/18 23:33 Dose: 10 ml Documented by: Spironolactone (Aldactone) 25 mg PO QDAY [facility] Last Admin: 08/24/18 22:45 Dose: 25 mg Documented by: Review of Systems Constitutional: weakness, no weight loss, no weight gain, no fever, no chills, no poor appetite Cardiovascular: shortness of breath, dyspnea on exertion, high blood pressure, no chest pain, no orthopnea, no edema, no syncope, no lightheadedness, no leg edema Respiratory: cough, shortness of breath, dyspnea on exertion, no cough with sputum, no hemoptysis, no sleep apnea, no home oxygen Gastrointestinal: no abdominal pain, no nausea, no vomiting, no diarrhea, no hematemesis, no melena, no hematochezia Genitourinary Male: no dysuria, no hematuria Rectal: no bleeding Musculoskeletal: no neck stiffness, no gait dysfunction Integumentary: no redness, no wounds Neurological: weakness, no paralysis, no seizures, no syncope, no convulsions, no aphasia, no change in speech, no change in mentation, no confusion Exam - Vital Signs Vital signs: Vital Signs Temp Pulse Resp BP Pulse Ox 98.2 F 85 20 135/86 100 08/24/18 09:37 08/24/18 09:37 08/24/18 09:37 08/24/18 09:37 08/24/18 09:37 - General Appearance General appearance: well-developed, well-nourished, appears stated age, other (not in distress) EENT: ATNC, PERRL, mucous membranes moist, hearing intact, vision intact Neck: Present: neck supple, trachea midline Respiratory: Clear to Ascultation Heart: regular, S1S2, no murmurs Gastrointestinal: Present: normoactive bowel sounds. Absent: tenderness, distended Integumentary: no rash, warm and dry Neurologic: no focal deficit, no asterixis, alert and oriented x3 Musculoskeletal: Present: other (no edema) Psychiatric: cooperative Results - Lab Results 08/25/18 06:33 08/26/18 05:55 Most recent lab results Calcium 8.7 mg/dL (8.4-10.2) 08/24/18 11:07 - Image Kidney/bladder ultrasound: pending Assessment and Plan 1. Acute kidney injury: [place] superimposed on CKD in the setting of NSAID and CHF. Urine studies and Renal US. Monitor renal function. Renal prognosis is guarded. Avoid nephrotoxic agents. Meds dosage based on GFR. 2. CHF exacerbation: Followed by Cards. 3. Proteinuria: Secondary to diabetic nephropathy. HbA1C 13.7 4. Uncontrolled DM type 2. 5. Hypothyroid. 6. Hypertension. 7. Medical non-compliance: Counseled.
--- NOTE | 2018-08-25 07:17 | History and Physical Report ---
CHIEF COMPLAINT: 1. Increasing shortness of breath. 2. Cough. HISTORY OF PRESENT ILLNESS: A 48-year-old male presenting with a chief complaint of shortness of breath since last 3 days. Shortness of breath, more on exertion. Also, orthopnea present. Cough that is nonproductive. The patient has a history of CHF, but has been noncompliant with his Lasix. Exacerbating factors are minimal exertion. Rest is a relieving factor. No chest pain. The patient has class 4 NYHA symptoms. PAST MEDICAL HISTORY: Significant for hypertension, congestive heart failure, diabetes, asthma, atrial fibrillation. PAST SURGICAL HISTORY: Pacemaker and internal defibrillator. FAMILY HISTORY: No significant family history. SOCIAL HISTORY: Does not smoke. No alcohol, no recreational drugs. CURRENT MEDICATIONS: Pravachol 40 mg daily, insulin 70/30 is 35 units in the morning, amiodarone 200 mg p.o. daily, Coreg 3.125 b.i.d., Lasix 40 mg p.o. daily, losartan 100 mg p.o. daily, Aldactone 25 mg daily, tramadol 50 mg p.o. daily, Robaxin 500 mg p.o. q.6 hours and p.r.n. and tramadol 50 mg p.o. q.6 hours p.r.n. REVIEW OF SYSTEMS: Significant for shortness of breath on minimal exertion. Orthopnea present. PHYSICAL EXAMINATION: GENERAL: On examination, middle-aged male, cooperative during examination. VITAL SIGNS: Blood pressure is 141/98, temperature is 99.3, pulse is 95, and sats are 94%. HEENT: Unremarkable. Pupils are equal and reactive. NECK: Supple, no lymphadenopathy, no thyromegaly. LUNGS: Scattered rales bilaterally. CARDIOVASCULAR: S1, S2 heard. No gallop, no murmur, no rub. Apical impulse in left fifth intercostal space and midclavicular line. ABDOMEN: Soft and benign. No hepatosplenomegaly. No guarding, no rigidity. Hernial orifices are normal. EXTREMITIES: Good pedal pulses. No pedal edema. CENTRAL NERVOUS SYSTEM: Alert and oriented x 4, nonfocal exam. LABORATORY DATA: White count is 9000, H and H are 12.1 and 37.0, and platelet count is 159,000. Sodium is 136, potassium is 4.3, BUN and creatinine are 32 and 2.9, and glucose is 253. Hemoglobin A1c is 13.7. Troponin is 0.059. BNP is 17,864. Albumin is 3.4 and TSH is 28.34. Urine is negative. Flu rapid screen is negative. Chest x-ray shows no acute cardiopulmonary process is identified. EKG shows normal sinus rhythm, nonspecific ST-T wave changes. T-wave inversions in lead aVL. ASSESSMENT AND PLAN: 1. Congestive heart failure exacerbation. The patient is started on IV Lasix, daily weights, daily intake and output. Also, echocardiogram ordered. Stress test ordered. 2. Chest discomfort occasionally. We will get ____ stress test and troponins. Troponin is high. Cardiology consulted. 3. Acute kidney injury, renal consult was requested. Increase in creatinine from 2 to 2.9. The patient has chronic kidney disease on top of which Lasix is being used. We will try to optimize Lasix. 4. Hypertension. Continue antihypertensives in the form of Coreg. 5. Insulin-dependent diabetes. The patient's diabetes is poorly controlled. We will increase dosage of insulin from 35 to 50 units in the morning and night time. 6. New-onset hypothyroidism, levothyroxine 125 mcg is added. 7. Arrhythmias. The patient is on amiodarone. The patient has a defibrillator. 8. Deep venous thrombosis prophylaxis, Lovenox added. JOB# [id number] VICKY/ANA
[2018-08-25 07:26] LABS: Albumin 3.2 g/dL (3.9-5); Calcium 8.6 mg/dL (8.4-10.2)
[2018-08-25] MEDS: SYNTHROID PO SCH (07:34)
[2018-08-25] MEDS ORDERED: ASPART SQ SCH (10:00)
[2018-08-25] MEDS ORDERED: INSULIN ASPART PROT SQ SCH (10:00)
[2018-08-25] MEDS: ALDACTONE PO SCH (10:12)
[2018-08-25] MEDS: PEPCID PO SCH ×2 (10:12→21:40)
[2018-08-25] MEDS: COZAAR PO SCH (10:12)
[2018-08-25] MEDS: COREG PO SCH ×2 (10:13→21:41)
[2018-08-25] MEDS: CORDARONE PO SCH (10:13)
[2018-08-25] MEDS: K-DUR PO SCH (10:13)
[2018-08-25] MEDS: LASIX IV SCH (10:13)
[2018-08-25] MEDS: SODIUM CHLORIDE FLUSH SYRINGE 10 ML IV SCH ×2 (10:14→21:41)
[2018-08-25] MEDS: HALFPRIN EC PO SCH (10:14)
[2018-08-25] MEDS: HumaLOG SUB-Q SCH ×4 (12:24→21:41)
--- NOTE | 2018-08-25 13:26 | Progress Note ---
Assessment and Plan Assessment and plan: Acute on chronic systolic congestive heart failure, EF 30% Continue heart failure medications and output monitoring. Continue Coreg, Lasix Acute on chronic respiratory failure secondary to acute exacerbation of congestive heart failure systolic dysfunction Oxygen titrated to O2 sats more than 90%, Nebulizers as needed Continue diuresis as noted above Hypertension; continue current antihypertensives and when necessary medications Type 2 diabetes mellitus; Accu-Chek sliding scale coverage and ADA diet and long-acting insulin Closely monitor blood sugars and adjust as needed Dilated cardiomyopathy. As above. History of V. fib. s/p AICD. Patient also on amiodarone for suppression. DVT prophylaxis; Lovenox renal dose Stress test in May 2016 revealed evidence of dilated cardiomyopathy with prior inferior wall infarction. History Interval history: Patient complained of cough Hospitalist Physical - Constitutional Vitals: Temp Pulse Resp BP Pulse Ox 98.7 F 86 18 124/88 93 08/25/18 08:00 08/25/18 08:00 08/25/18 08:00 08/25/18 10:13 08/25/18 08:00 General appearance: Present: no acute distress, well-nourished - EENT Eyes: Present: PERRL, EOM intact ENT: hearing intact, clear oral mucosa, dentition normal - Neck Neck: Present: supple, normal ROM - Respiratory Respiratory effort: normal Respiratory: bilateral: CTA - Cardiovascular Rhythm: regular Heart Sounds: Present: S1 & S2. Absent: gallop, rub - Extremities Extremities: no ischemia, No edema, Full ROM - Abdominal General gastrointestinal: soft, non-tender, non-distended, normal bowel sounds - Integumentary Integumentary: Present: clear, warm, dry - Neurologic Neurologic: CNII-XII intact, moves all extremities Results - Labs CBC & Chem 7: 08/25/18 06:33 08/25/18 06:33 Labs: Laboratory Last Values WBC 8.9 K/mm3 (4.5-11.0) 08/25/18 06:33 RBC 4.40 M/mm3 (3.65-5.03) 08/25/18 06:33 Hgb 12.2 gm/dl (11.8-15.2) 08/25/18 06:33 Hct 37.4 % (35.5-45.6) 08/25/18 06:33 MCV 85 fl (84-94) 08/25/18 06:33 MCH 28 pg (28-32) 08/25/18 06:33 MCHC 33 % (32-34) 08/25/18 06:33 RDW 14.6 % (13.2-15.2) 08/25/18 06:33 Plt Count 170 K/mm3 (140-440) 08/25/18 06:33 Lymph % (Auto) 13.3 % (13.4-35.0) L 08/25/18 06:33 [place] % (Auto) 11.2 % (0.0-7.3) H 08/25/18 06:33 Eos % (Auto) 1.4 % (0.0-4.3) 08/25/18 06:33 Baso % (Auto) 0.8 % (0.0-1.8) 08/25/18 06:33 Lymph # 1.2 K/mm3 (1.2-5.4) 08/25/18 06:33 [place] # 1.0 K/mm3 (0.0-0.8) H 08/25/18 06:33 Eos # 0.1 K/mm3 (0.0-0.4) 08/25/18 06:33 Baso # 0.1 K/mm3 (0.0-0.1) 08/25/18 06:33 Seg Neutrophils % 73.3 % (40.0-70.0) H 08/25/18 06:33 Seg Neutrophils # 6.5 K/mm3 (1.8-7.7) 08/25/18 06:33 Sodium 137 mmol/L (137-145) 08/25/18 06:33 Potassium 4.2 mmol/L (3.6-5.0) 08/25/18 06:33 Chloride 106.9 mmol/L (98-107) 08/25/18 06:33 Carbon Dioxide 16 mmol/L (22-30) L 08/25/18 06:33 Anion Gap 18 mmol/L 08/25/18 06:33 BUN 32 mg/dL (9-20) H 08/25/18 06:33 Creatinine 2.8 mg/dL (0.8-1.5) H 08/25/18 06:33 Estimated GFR 30 ml/min 08/25/18 06:33 BUN/Creatinine Ratio 11 % 08/25/18 06:33 Glucose 160 mg/dL (75-100) H 08/25/18 06:33 POC Glucose 293 (70-105) H 08/25/18 12:31 Hemoglobin A1c 13.7 % (4-6) H 08/24/18 21:10 Calcium 8.6 mg/dL (8.4-10.2) 08/25/18 06:33 Total Bilirubin 1.30 mg/dL (0.1-1.2) H 08/25/18 06:33 AST 27 units/L (5-40) 08/25/18 06:33 ALT 40 units/L (7-56) 08/25/18 06:33 Alkaline Phosphatase 70 units/L (35-129) 08/25/18 06:33 Troponin T 0.059 ng/mL (0.00-0.029) H 08/24/18 11:07 NT-Pro-B Natriuret Pep 08113 pg/mL (0-450) H 08/24/18 11:07 Total Protein 6.7 g/dL (6.3-8.2) 08/25/18 06:33 Albumin 3.2 g/dL (3.9-5) L 08/25/18 06:33 Albumin/Globulin Ratio 0.9 % 08/25/18 06:33 Triglycerides 128 mg/dL (2-149) 08/24/18 11:07 Cholesterol 199 mg/dL (50-199) 08/24/18 11:07 LDL Cholesterol Direct 154 mg/dL (50-130) H 08/24/18 11:07 HDL Cholesterol 48 mg/dL (40-59) 08/24/18 11:07 Cholesterol/HDL Ratio 4.14 % 08/24/18 11:07 TSH 28.340 mlU/mL (0.270-4.200) H 08/24/18 11:07 Free T4 0.47 ng/dL (0.76-1.46) L 08/24/18 11:07 Urine Color Yellow (Yellow) 08/24/18 12:10 Urine Turbidity Clear (Clear) 08/24/18 12:10 Urine pH 5.0 (5.0-7.0) 08/24/18 12:10 Ur Specific [place] 1.017 (1.003-1.030) 08/24/18 12:10 Urine Protein >2000 mg dl mg/dL (Negative) 08/24/18 12:10 Urine Glucose (UA) >=500 mg/dL (Negative) 08/24/18 12:10 Urine Ketones Neg mg/dL (Negative) 08/24/18 12:10 Urine Blood Sm (Negative) 08/24/18 12:10 Urine Nitrite Neg (Negative) 08/24/18 12:10 Urine Bilirubin Neg (Negative) 08/24/18 12:10 Urine Urobilinogen < 2.0 mg/dL (<2.0) 08/24/18 12:10 Ur Leukocyte Esterase Neg (Negative) 08/24/18 12:10 Urine WBC (Auto) 1.0 /HPF (0.0-6.0) 08/24/18 12:10 Urine RBC (Auto) 2.0 /HPF (0.0-6.0) 08/24/18 12:10 Urine Mucus Few /HPF 08/24/18 12:10 Influenza A (Rapid) Negative (Negative) 08/24/18 Unknown Influenza B (Rapid) Negative (Negative) 08/24/18 Unknown Active Medications - Current Medications Current Medications: Generic Name Dose Route Start Last Admin Trade Name Freq PRN Reason Stop Dose Admin Acetaminophen 650 mg 08/24/18 21:47 Tylenol PO Q4H PRN Pain MILD(1-3)/Fever >100.5/SPRING Amiodarone HCl 200 mg 08/24/18 22:00 08/25/18 10:13 Cordarone PO 200 mg QDAY [facility] Administration Aspirin 81 mg 08/24/18 22:00 08/25/18 10:14 Halfprin Ec PO 81 mg QDAY [facility] Administration Carvedilol 3.125 mg 08/24/18 22:00 08/25/18 10:13 Coreg PO 3.125 mg BID [facility] Administration Enoxaparin Sodium 30 mg 08/24/18 22:00 08/24/18 22:48 Lovenox SUB-Q 30 mg QDAY@2200 [facility] Administration Famotidine 10 mg 08/24/18 22:00 08/25/18 10:12 Pepcid PO 10 mg BID [facility] Administration Furosemide 40 mg 08/24/18 22:00 08/25/18 10:13 Lasix IV 40 mg Q24HR [facility] Administration Hydromorphone HCl 0.5 mg 08/24/18 21:47 Dilaudid IV Q3H PRN Pain , Severe (7-10) Insulin Human Isoph/Insulin Regular 35 unit 08/25/18 08:00 08/25/18 12:24 Humulin 70/30 SUB-Q Not Given QAMDIAB [facility] Insulin Human Lispro 0 unit 08/24/18 22:00 08/25/18 12:24 Humalog SUB-Q Not Given ACHS [facility] Protocol Levothyroxine Sodium 125 mcg 08/25/18 06:00 08/25/18 07:34 Synthroid PO Not Given DAILY@0600 [facility] Losartan Potassium 100 mg 08/24/18 22:00 08/25/18 10:12 Cozaar PO 100 mg QDAY [facility] Administration Methocarbamol 500 mg 08/24/18 21:44 Robaxin PO Q6H PRN Pain Ondansetron HCl 4 mg 08/24/18 21:47 Zofran IV Q8H PRN Nausea And Vomiting Oxycodone/Acetaminophen 1 tab 08/24/18 21:47 Percocet 5/325 PO Q6H PRN Pain, Moderate (4-6) Potassium Chloride 20 meq 08/24/18 22:00 08/25/18 10:13 K-Dur PO 20 meq QDAY [facility] Administration Pravastatin Sodium 40 mg 08/24/18 22:00 08/24/18 22:47 Pravachol PO 40 mg QHS [facility] Administration Sodium Chloride 10 ml 08/24/18 22:00 08/25/18 10:14 Sodium Chloride Flush Syringe 10 Ml IV 10 ml BID [facility] Administration Sodium Chloride 10 ml 08/24/18 21:47 08/24/18 23:33 Sodium Chloride Flush Syringe 10 Ml IV 10 ml PRN PRN Administration LINE FLUSH Spironolactone 25 mg 08/24/18 22:00 08/25/18 10:12 Aldactone PO 25 mg QDAY [facility] Administration
--- NOTE | 2018-08-25 14:21 | Consultation ---
History of Present Illness Consult date: 08/25/18 Consult reason: congestive heart failure History of present illness: The patient is a 48-year-old man, well-known to service. He has a severe dilated nonischemic cardiomyopathy, ejection fraction less than 20%. He has an in situ cardiac defibrillator. He presents to the hospital at this time with multiple constitutional symptoms of generalized weakness, some shortness of breath, some cough and generalized body aches. His ECG is normal sinus rhythm with a nonspecific intraventricular conduction delay. No acute ischemic changes. Asked x-ray showed cardiomegaly, but clear lungs and no interstitial edema. There is an intravenous ICD lead that is not connected to a battery, and another full compliment subcutaneous ICD. Most significant finding is however on his laboratory values, where his TSH is elevated at 28 consistent with hypothyroidism, and there is chronic kidney disease with a creatinine of 2.8. With respect to his hypothyroid state, they will be noted that the patient's home therapy includes Amiodarone. On examination he also appears to have fullness at the base of his neck consistent with a goiter. Past History Past Medical History: heart failure, hypertension Past Surgical History: Other (cardiac defibrillator) Medications and Allergies Allergies Allergy/AdvReac Type Severity Reaction Status Date / Time pineapple Allergy Anaphylaxis Verified 08/24/18 21:54 Home Medications Medication Instructions Recorded Confirmed Last Taken Type Pravastatin [Pravachol] 40 mg PO QHS #30 10/26/16 08/24/18 12/23/16 Rx Aspirin EC [Aspirin Enteric Coated 81 mg PO QDAY 12/13/16 08/24/18 12/23/16 History TAB] Insulin Aspart Prot/Aspart(Nf) 35 units SQ QAM 12/13/16 08/24/18 12/23/16 History [NovoLOG Mix 70/30 VIAL] Amiodarone [Cordarone 200 MG TAB] 200 mg PO QDAY #14 tablet 12/26/16 08/24/18 Unknown Rx Carvedilol [Coreg] 3.125 mg PO BID #30 tablet 12/26/16 08/24/18 Unknown Rx Furosemide [Lasix TAB] 40 mg PO QDAY #15 tablet 12/26/16 08/24/18 Unknown Rx Losartan [Cozaar] 100 mg PO QDAY #15 tablet 12/26/16 08/24/18 Unknown Rx Spironolactone [Aldactone] 25 mg PO QDAY #15 tablet 12/26/16 08/24/18 Unknown Rx methOCARBAMOL [Robaxin TAB] 500 mg PO Q6H PRN #15 tablet 07/14/18 08/24/18 Unknown Rx Active Meds: Active Medications Acetaminophen (Tylenol) 650 mg PO Q4H PRN PRN Reason: Pain MILD(1-3)/Fever >100.5/[place] Amiodarone HCl (Cordarone) 200 mg PO QDAY [facility] Last Admin: 08/25/18 10:13 Dose: 200 mg Documented by: Aspirin (Halfprin Ec) 81 mg PO QDAY [facility] Last Admin: 08/25/18 10:14 Dose: 81 mg Documented by: Carvedilol (Coreg) 3.125 mg PO BID [facility] Last Admin: 08/25/18 10:13 Dose: 3.125 mg Documented by: Enoxaparin Sodium (Lovenox) 30 mg SUB-Q QDAY@2200 [facility] Last Admin: 08/24/18 22:48 Dose: 30 mg Documented by: Famotidine (Pepcid) 10 mg PO BID [facility] Last Admin: 08/25/18 10:12 Dose: 10 mg Documented by: Furosemide (Lasix) 40 mg IV Q24HR [facility] Last Admin: 08/25/18 10:13 Dose: 40 mg Documented by: Guaifenesin (Robitussin) 200 mg PO Q6H PRN PRN Reason: Cough Hydromorphone HCl (Dilaudid) 0.5 mg IV Q3H PRN PRN Reason: Pain , Severe (7-10) Insulin Human Isoph/Insulin Regular (Humulin 70/30) 35 unit SUB-Q QAMDIAB [facility] Last Admin: 08/25/18 12:24 Dose: Not Given Documented by: Insulin Human Lispro (Humalog) 0 unit SUB-Q [facility]; Protocol Last Admin: 08/25/18 13:14 Dose: 3 unit Documented by: Levothyroxine Sodium (Synthroid) 125 mcg PO DAILY@0600 [facility] Last Admin: 08/25/18 07:34 Dose: Not Given Documented by: Losartan Potassium (Cozaar) 100 mg PO QDAY [facility] Last Admin: 08/25/18 10:12 Dose: 100 mg Documented by: Methocarbamol (Robaxin) 500 mg PO Q6H PRN PRN Reason: Pain Ondansetron HCl (Zofran) 4 mg IV Q8H PRN PRN Reason: Nausea And Vomiting Oxycodone/Acetaminophen (Percocet 5/325) 1 tab PO Q6H PRN PRN Reason: Pain, Moderate (4-6) Potassium Chloride (K-Dur) 20 meq PO QDAY [facility] Last Admin: 08/25/18 10:13 Dose: 20 meq Documented by: Pravastatin Sodium (Pravachol) 40 mg PO QHS [facility] Last Admin: 08/24/18 22:47 Dose: 40 mg Documented by: Sodium Chloride (Sodium Chloride Flush Syringe 10 Ml) 10 ml IV BID [facility] Last Admin: 08/25/18 10:14 Dose: 10 ml Documented by: Sodium Chloride (Sodium Chloride Flush Syringe 10 Ml) 10 ml IV PRN PRN PRN Reason: LINE FLUSH Last Admin: 08/24/18 23:33 Dose: 10 ml Documented by: Spironolactone (Aldactone) 25 mg PO QDAY [facility] Last Admin: 08/25/18 10:12 Dose: 25 mg Documented by: Review of Systems Cardiovascular: shortness of breath, no chest pain, no orthopnea, no palpitations, no rapid/irregular heart beat, no edema, no syncope, no lightheadedness Physical Examination Vital Signs Temp Pulse Resp BP Pulse Ox 98.2 F 85 20 135/86 100 08/24/18 09:37 08/24/18 09:37 08/24/18 09:37 08/24/18 09:37 08/24/18 09:37 General appearance: no acute distress HEENT: Positive: PERRL Neck: Positive: neck supple Cardiac: Positive: Reg Rate and Rhythm Lungs: Positive: Decreased Breath Sounds Neuro: Positive: Grossly Intact Abdomen: Positive: Soft Male genitourinary: Positive: deferred Skin: Positive: Clear Extremities: Absent: edema Results 08/25/18 06:33 08/25/18 06:33 Cardiac Enzymes 08/25/18 Range/Units 06:33 AST 27 (5-40) units/L CBC 08/25/18 Range/Units 06:33 WBC 8.9 (4.5-11.0) K/mm3 RBC 4.40 (3.65-5.03) M/mm3 Hgb 12.2 (11.8-15.2) gm/dl Hct 37.4 (35.5-45.6) % Plt Count 170 (140-440) K/mm3 Lymph # 1.2 (1.2-5.4) K/mm3 [place] # 1.0 H (0.0-0.8) K/mm3 Eos # 0.1 (0.0-0.4) K/mm3 Baso # 0.1 (0.0-0.1) K/mm3 Comprehensive Metabolic Panel 08/25/18 Range/Units 06:33 Sodium 137 (137-145) mmol/L Potassium 4.2 (3.6-5.0) mmol/L Chloride 106.9 (98-107) mmol/L Carbon Dioxide 16 L (22-30) mmol/L BUN 32 H (9-20) mg/dL Creatinine 2.8 H (0.8-1.5) mg/dL Glucose 160 H (75-100) mg/dL Calcium 8.6 (8.4-10.2) mg/dL AST 27 (5-40) units/L ALT 40 (7-56) units/L Alkaline Phosphatase 70 (35-129) units/L Total Protein 6.7 (6.3-8.2) g/dL Albumin 3.2 L (3.9-5) g/dL EKG interpretations - Telemetry EKG Rhythm: Sinus Rhythm Assessment and Plan - Patient Problems (1) Hypothyroidism Current Visit: Yes Status: Acute Plan to address problem: We will defer to internal medicine and endocrinology for management of the patient's hypothyroidism and thyroid goiter. We will discontinue amiodarone therapy at this time in response to the thyroid disease. (2) Acute exacerbation of CHF (congestive heart failure) Current Visit: No Status: Acute Qualifiers: Qualified Code(s): I50.23 - Acute on chronic systolic (congestive) heart failure Plan to address problem: Medical therapy including diuretics, afterload agents, beta blockers and oral antiplatelet therapy.
[2018-08-25] MEDS: ROBITUSSIN PO PRN (18:42)
[2018-08-25 19:52] LABS: Creatinine,Urine 63.9 mg/dL (0.1-20.0)
[2018-08-25 20:03] LABS: Protein/Creatinine Ratio,Urine 3.05
[2018-08-25] MEDS: PRAVACHOL PO SCH (21:40)
[2018-08-25] MEDS: LOVENOX SUB-Q SCH (21:40)
[2018-08-26] MEDS: SYNTHROID PO SCH ×2 (05:48→12:13)
[2018-08-26] MEDS: ROBITUSSIN PO PRN (05:52)
[2018-08-26 06:49] LABS: Calcium 8.9 mg/dL (8.4-10.2)
[2018-08-26] MEDS ORDERED: SYNTHROID PO SCH (09:49)
--- NOTE | 2018-08-26 10:21 | Progress Note ---
Assessment and Plan 1. Acute kidney injury: [place] superimposed on CKD in the setting of NSAID and CHF. Renal US negative for hydro. Creatinine leveled off. Monitor renal function. Renal prognosis is guarded. Avoid nephrotoxic agents. Meds dosage based on GFR. 2. CHF exacerbation: Followed by Cards. Appears compensated. 3. Proteinuria: Secondary to diabetic nephropathy. HbA1C 13.7 On Losartan. 4. Uncontrolled DM type 2. 5. Hypothyroid. 6. Hypertension. 7. Medical non-compliance: Counseled. Subjective Date of service: 08/26/18 Interval history: Patient was seen and examined at the bedside. Objective - Vital Signs Vital signs: Vital Signs - 12hr 08/25/18 08/25/18 08/26/18 23:00 23:41 04:47 Temperature 98.0 F 97.9 F Pulse Rate 86 80 72 Respiratory 12 14 Rate Blood Pressure 119/84 124/93 O2 Sat by Pulse 97 91 Oximetry 08/26/18 07:50 Temperature 97.5 F L Pulse Rate 77 Respiratory 16 Rate Blood Pressure 140/102 O2 Sat by Pulse 98 Oximetry - General Appearance General appearance: well-developed, well-nourished, appears stated age, other (not in distress) EENT: ATNC, PERRL, mucous membranes moist, hearing intact, vision intact Neck: supple, other (chronically enlarged neck) Respiratory: Present: Clear to Ascultation Cardiology: regular, S1S2, no murmurs Gastrointestinal: normoactive bowel sounds, no tenderness, no distended Integumentary: no rash, warm and dry Neurologic: no focal deficit, no asterixis, alert and oriented x3 Musculoskeletal: other (no edema) Psychiatric: cooperative - Lab 08/25/18 06:33 08/26/18 05:55 Most recent lab results Calcium 8.9 mg/dL (8.4-10.2) 08/26/18 05:55 Phosphorus 3.10 mg/dL (2.5-4.5) 08/26/18 05:55 Magnesium 2.10 mg/dL (1.7-2.3) 08/26/18 05:55 Urine Creatinine 63.9 mg/dL (0.1-20.0) H 08/25/18 17:15 Urine Sodium 117 mmol/L 08/25/18 17:15 Urine Total Protein 195 mg/dL (5-11.8) H 08/25/18 17:15 Medications & Allergies - Medications Allergies/Adverse Reactions: Allergies pineapple Allergy (Verified 08/24/18 21:54) Anaphylaxis Home Medications: Home Medications Medication Instructions Recorded Confirmed Last Taken Type Pravastatin [Pravachol] 40 mg PO QHS #30 10/26/16 08/24/18 12/23/16 Rx Aspirin EC [Aspirin Enteric Coated 81 mg PO QDAY 12/13/16 08/24/18 12/23/16 History TAB] Insulin Aspart Prot/Aspart(Nf) 35 units SQ QAM 12/13/16 08/24/18 12/23/16 History [NovoLOG Mix 70/30 VIAL] Amiodarone [Cordarone 200 MG TAB] 200 mg PO QDAY #14 tablet 12/26/16 08/24/18 Unknown Rx Carvedilol [Coreg] 3.125 mg PO BID #30 tablet 12/26/16 08/24/18 Unknown Rx Furosemide [Lasix TAB] 40 mg PO QDAY #15 tablet 12/26/16 08/24/18 Unknown Rx Losartan [Cozaar] 100 mg PO QDAY #15 tablet 12/26/16 08/24/18 Unknown Rx Spironolactone [Aldactone] 25 mg PO QDAY #15 tablet 12/26/16 08/24/18 Unknown Rx methOCARBAMOL [Robaxin TAB] 500 mg PO Q6H PRN #15 tablet 07/14/18 08/24/18 Unknown Rx Active Medications: Generic Name Dose Route Start Last Admin Trade Name Freq PRN Reason Stop Dose Admin Acetaminophen 650 mg 08/24/18 21:47 Tylenol PO Q4H PRN Pain MILD(1-3)/Fever >100.5/[place] Amiodarone HCl 200 mg 08/24/18 22:00 08/25/18 10:13 Cordarone PO 200 mg QDAY [facility]I Administration Aspirin 81 mg 08/24/18 22:00 08/25/18 10:14 Halfprin Ec PO 81 mg QDAY [facility] Administration Carvedilol 3.125 mg 08/24/18 22:00 08/25/18 21:41 Coreg PO 3.125 mg BID [facility]I Administration Enoxaparin Sodium 30 mg 08/24/18 22:00 08/25/18 21:40 Lovenox SUB-Q 30 mg QDAY@2200 [facility] Administration Famotidine 10 mg 08/24/18 22:00 08/25/18 21:40 Pepcid PO 10 mg BID [facility] Administration Furosemide 40 mg 08/24/18 22:00 08/25/18 10:13 Lasix IV 40 mg Q24HR [facility] Administration Guaifenesin 200 mg 08/25/18 13:36 08/26/18 05:52 Robitussin PO 200 mg Q6H PRN Administration Cough Hydromorphone HCl 0.5 mg 08/24/18 21:47 Dilaudid IV Q3H PRN Pain , Severe (7-10) Insulin Human Isoph/Insulin Regular 35 unit 08/25/18 08:00 08/25/18 12:24 Humulin 70/30 SUB-Q Not Given QAMDIAB [facility] Insulin Human Lispro 0 unit 08/24/18 22:00 08/25/18 21:41 Humalog SUB-Q 3 unit ACHS [facility] Administration Protocol Levothyroxine Sodium 150 mcg 08/26/18 09:49 Synthroid PO DAILY@0600 [facility] Losartan Potassium 100 mg 08/24/18 22:00 08/25/18 10:12 Cozaar PO 100 mg QDAY [facility] Administration Methocarbamol 500 mg 08/24/18 21:44 Robaxin PO Q6H PRN Pain Ondansetron HCl 4 mg 08/24/18 21:47 Zofran IV Q8H PRN Nausea And Vomiting Oxycodone/Acetaminophen 1 tab 08/24/18 21:47 Percocet 5/325 PO Q6H PRN Pain, Moderate (4-6) Potassium Chloride 20 meq 08/24/18 22:00 08/25/18 10:13 K-Dur PO 20 meq QDAY [facility] Administration Pravastatin Sodium 40 mg 08/24/18 22:00 08/25/18 21:40 Pravachol PO 40 mg QHS [facility] Administration Sodium Chloride 10 ml 08/24/18 22:00 08/25/18 21:41 Sodium Chloride Flush Syringe 10 Ml IV 10 ml BID [facility] Administration Sodium Chloride 10 ml 08/24/18 21:47 08/24/18 23:33 Sodium Chloride Flush Syringe 10 Ml IV 10 ml PRN PRN Administration LINE FLUSH Spironolactone 25 mg 08/24/18 22:00 08/25/18 10:12 Aldactone PO 25 mg QDAY [facility]ACHI Administration
--- NOTE | 2018-08-26 11:56 | Ultrasound Report ---
PROCEDURE: US RENAL BILAT TECHNIQUE: Transverse longitudinal sonograms obtained with ann scale sonography HISTORY: Acute renal failure. COMPARISONS: None FINDINGS: Right kidney measures 10.6 x 5.6 x 4.2 cm. Cortex 1.5 cm. Left kidney measures 10.2 x 4.6 x 4.3 cm. Cortex 1.2 cm. Kidneys demonstrate increased cortical echogenicity. Normal cortical thickness. No calculus. No hydro nephrosis. No cyst or mass. The bladder appears unremarkable. IMPRESSION: Normal-sized kidneys without hydronephrosis. Increase in cortical echogenicity which can be seen in the setting of medical renal disease.. This document is electronically signed by Dheeraj Velasquez MD., August 26 2018 11:54:43 AM ET
[2018-08-26] MEDS: COREG PO SCH ×2 (12:06→21:51)
[2018-08-26] MEDS: LASIX IV SCH (12:06)
[2018-08-26] MEDS: COZAAR PO SCH (12:07)
[2018-08-26] MEDS: K-DUR PO SCH (12:07)
[2018-08-26] MEDS: ALDACTONE PO SCH (12:08)
[2018-08-26] MEDS: HALFPRIN EC PO SCH (12:08)
[2018-08-26] MEDS: SODIUM CHLORIDE FLUSH SYRINGE 10 ML IV SCH ×2 (12:09→21:53)
[2018-08-26] MEDS: PEPCID PO SCH ×2 (12:13→21:51)
--- NOTE | 2018-08-26 13:10 | Progress Note ---
Assessment and Plan Assessment and plan: Acute on chronic systolic congestive heart failure, EF 30% Continue heart failure medications and output monitoring. Continue Coreg, Lasix Acute on chronic respiratory failure secondary to acute exacerbation of congestive heart failure systolic dysfunction Oxygen titrated to O2 sats more than 90%, Nebulizers as needed Continue diuresis as noted above Enlarged thyroid/goiter. Check ultrasound. Check T3 and T4. Hypertension; continue current antihypertensives and when necessary medications Type 2 diabetes mellitus; Accu-Chek sliding scale coverage and ADA diet and long-acting insulin Closely monitor blood sugars and adjust as needed Dilated cardiomyopathy. As above. History of V. fib. s/p AICD. Patient also on amiodarone for suppression. DVT prophylaxis; Lovenox renal dose Stress test in May 2016 revealed evidence of dilated cardiomyopathy with prior inferior wall infarction. History Interval history: No new issues overnight. Hospitalist Physical - Constitutional Vitals: Temp Pulse Resp BP Pulse Ox 97.5 F L 77 16 140/102 98 08/26/18 07:50 08/26/18 07:50 08/26/18 07:50 08/26/18 12:08 08/26/18 07:50 General appearance: Present: no acute distress - EENT Eyes: Present: PERRL, EOM intact ENT: hearing intact, clear oral mucosa, dentition normal - Neck Neck: Present: supple, normal ROM, enlarged thyroid - Respiratory Respiratory effort: normal Respiratory: bilateral: CTA - Cardiovascular Rhythm: regular Heart Sounds: Present: S1 & S2. Absent: gallop, rub - Extremities Extremities: no ischemia, No edema, Full ROM - Abdominal General gastrointestinal: soft, non-tender, non-distended, normal bowel sounds - Integumentary Integumentary: Present: clear, warm, dry - Neurologic Neurologic: CNII-XII intact, moves all extremities Results - Labs CBC & Chem 7: 08/25/18 06:33 08/26/18 05:55 Labs: Laboratory Last Values WBC 8.9 K/mm3 (4.5-11.0) 08/25/18 06:33 RBC 4.40 M/mm3 (3.65-5.03) 08/25/18 06:33 Hgb 12.2 gm/dl (11.8-15.2) 08/25/18 06:33 Hct 37.4 % (35.5-45.6) 08/25/18 06:33 MCV 85 fl (84-94) 08/25/18 06:33 MCH 28 pg (28-32) 08/25/18 06:33 MCHC 33 % (32-34) 08/25/18 06:33 RDW 14.6 % (13.2-15.2) 08/25/18 06:33 Plt Count 170 K/mm3 (140-440) 08/25/18 06:33 Lymph % (Auto) 13.3 % (13.4-35.0) L 08/25/18 06:33 [place] % (Auto) 11.2 % (0.0-7.3) H 08/25/18 06:33 Eos % (Auto) 1.4 % (0.0-4.3) 08/25/18 06:33 Baso % (Auto) 0.8 % (0.0-1.8) 08/25/18 06:33 Lymph # 1.2 K/mm3 (1.2-5.4) 08/25/18 06:33 [place] # 1.0 K/mm3 (0.0-0.8) H 08/25/18 06:33 Eos # 0.1 K/mm3 (0.0-0.4) 08/25/18 06:33 Baso # 0.1 K/mm3 (0.0-0.1) 08/25/18 06:33 Seg Neutrophils % 73.3 % (40.0-70.0) H 08/25/18 06:33 Seg Neutrophils # 6.5 K/mm3 (1.8-7.7) 08/25/18 06:33 Sodium 136 mmol/L (137-145) L 08/26/18 05:55 Potassium 3.9 mmol/L (3.6-5.0) 08/26/18 05:55 Chloride 104.7 mmol/L (98-107) 08/26/18 05:55 Carbon Dioxide 18 mmol/L (22-30) L 08/26/18 05:55 Anion Gap 17 mmol/L 08/26/18 05:55 BUN 38 mg/dL (9-20) H 08/26/18 05:55 Creatinine 2.9 mg/dL (0.8-1.5) H 08/26/18 05:55 Estimated GFR 28 ml/min 08/26/18 05:55 BUN/Creatinine Ratio 13 % 08/26/18 05:55 Glucose 162 mg/dL (75-100) H 08/26/18 05:55 POC Glucose 248 (70-105) H 08/26/18 12:55 Hemoglobin A1c 13.7 % (4-6) H 08/24/18 21:10 Calcium 8.9 mg/dL (8.4-10.2) 08/26/18 05:55 Phosphorus 3.10 mg/dL (2.5-4.5) 08/26/18 05:55 Magnesium 2.10 mg/dL (1.7-2.3) 08/26/18 05:55 Total Bilirubin 1.30 mg/dL (0.1-1.2) H 08/25/18 06:33 AST 27 units/L (5-40) 08/25/18 06:33 ALT 40 units/L (7-56) 08/25/18 06:33 Alkaline Phosphatase 70 units/L (35-129) 08/25/18 06:33 Troponin T 0.059 ng/mL (0.00-0.029) H 08/24/18 11:07 NT-Pro-B Natriuret Pep 84353 pg/mL (0-450) H 08/24/18 11:07 Total Protein 6.7 g/dL (6.3-8.2) 08/25/18 06:33 Albumin 3.2 g/dL (3.9-5) L 08/25/18 06:33 Albumin/Globulin Ratio 0.9 % 08/25/18 06:33 Triglycerides 128 mg/dL (2-149) 08/24/18 11:07 Cholesterol 199 mg/dL (50-199) 08/24/18 11:07 LDL Cholesterol Direct 154 mg/dL (50-130) H 08/24/18 11:07 HDL Cholesterol 48 mg/dL (40-59) 08/24/18 11:07 Cholesterol/HDL Ratio 4.14 % 08/24/18 11:07 TSH 28.340 mlU/mL (0.270-4.200) H 08/24/18 11:07 Free T4 0.47 ng/dL (0.76-1.46) L 08/24/18 11:07 Urine Color Yellow (Yellow) 08/24/18 12:10 Urine Turbidity Clear (Clear) 08/24/18 12:10 Urine pH 5.0 (5.0-7.0) 08/24/18 12:10 Ur Specific [place] 1.017 (1.003-1.030) 08/24/18 12:10 Urine Protein >2000 mg dl mg/dL (Negative) 08/24/18 12:10 Urine Glucose (UA) >=500 mg/dL (Negative) 08/24/18 12:10 Urine Ketones Neg mg/dL (Negative) 08/24/18 12:10 Urine Blood Sm (Negative) 08/24/18 12:10 Urine Nitrite Neg (Negative) 08/24/18 12:10 Urine Bilirubin Neg (Negative) 08/24/18 12:10 Urine Urobilinogen < 2.0 mg/dL (<2.0) 08/24/18 12:10 Ur Leukocyte Esterase Neg (Negative) 08/24/18 12:10 Urine WBC (Auto) 1.0 /HPF (0.0-6.0) 08/24/18 12:10 Urine RBC (Auto) 2.0 /HPF (0.0-6.0) 08/24/18 12:10 Urine Mucus Few /HPF 08/24/18 12:10 Urine Creatinine 63.9 mg/dL (0.1-20.0) H 08/25/18 17:15 Protein/Creatinin Ratio 3.05 08/25/18 17:15 Urine Sodium 117 mmol/L 08/25/18 17:15 Urine Total Protein 195 mg/dL (5-11.8) H 08/25/18 17:15 Influenza A (Rapid) Negative (Negative) 08/24/18 Unknown Influenza B (Rapid) Negative (Negative) 08/24/18 Unknown Active Medications - Current Medications Current Medications: Generic Name Dose Route Start Last Admin Trade Name Freq PRN Reason Stop Dose Admin Acetaminophen 650 mg 08/24/18 21:47 Tylenol PO Q4H PRN Pain MILD(1-3)/Fever >100.5/SPRING Amiodarone HCl 200 mg 08/24/18 22:00 08/25/18 10:13 Cordarone PO 200 mg QDAY MALACHI Administration Aspirin 81 mg 08/24/18 22:00 08/26/18 12:08 Halfprin Ec PO 81 mg QDAY MALACHI Administration Carvedilol 3.125 mg 08/24/18 22:00 08/26/18 12:06 Coreg PO 3.125 mg BID MALACHI Administration Enoxaparin Sodium 30 mg 08/24/18 22:00 08/25/18 21:40 Lovenox SUB-Q 30 mg QDAY@2200 [facility]ACHI Administration Famotidine 10 mg 08/24/18 22:00 08/26/18 12:13 Pepcid PO 10 mg BID MALACHI Administration Furosemide 40 mg 08/24/18 22:00 08/26/18 12:06 Lasix IV 40 mg Q24HR [facility]ACHI Administration Guaifenesin 200 mg 08/25/18 13:36 08/26/18 05:52 Robitussin PO 200 mg Q6H PRN Administration Cough Hydromorphone HCl 0.5 mg 08/24/18 21:47 Dilaudid IV Q3H PRN Pain , Severe (7-10) Insulin Human Isoph/Insulin Regular 35 unit 08/25/18 08:00 08/26/18 12:05 Humulin 70/30 SUB-Q 35 unit QAMDIAB MALACHI Administration Insulin Human Lispro 0 unit 08/24/18 22:00 08/25/18 21:41 Humalog SUB-Q 3 unit ACHS MALACHI Administration Protocol Levothyroxine Sodium 150 mcg 08/26/18 11:00 08/26/18 12:13 Synthroid PO 150 mcg DAILY@0600 [facility]ACHI Administration Losartan Potassium 100 mg 08/24/18 22:00 08/26/18 12:07 Cozaar PO 100 mg QDAY MALACHI Administration Methocarbamol 500 mg 08/24/18 21:44 Robaxin PO Q6H PRN Pain Ondansetron HCl 4 mg 08/24/18 21:47 Zofran IV Q8H PRN Nausea And Vomiting Oxycodone/Acetaminophen 1 tab 08/24/18 21:47 Percocet 5/325 PO Q6H PRN Pain, Moderate (4-6) Potassium Chloride 20 meq 08/24/18 22:00 08/26/18 12:07 K-Dur PO 20 meq QDAY [facility]ACHI Administration Pravastatin Sodium 40 mg 08/24/18 22:00 08/25/18 21:40 Pravachol PO 40 mg QHS MALACHI Administration Sodium Chloride 10 ml 08/24/18 22:00 08/26/18 12:09 Sodium Chloride Flush Syringe 10 Ml IV 10 ml BID MALACHI Administration Sodium Chloride 10 ml 08/24/18 21:47 08/24/18 23:33 Sodium Chloride Flush Syringe 10 Ml IV 10 ml PRN PRN Administration LINE FLUSH Spironolactone 25 mg 08/24/18 22:00 08/26/18 12:08 Aldactone PO 25 mg QDAY MALACHI Administration
[2018-08-26] MEDS: CORDARONE PO SCH (14:02)
[2018-08-26] MEDS: HumaLOG SUB-Q SCH ×4 (14:03→23:28)
--- NOTE | 2018-08-26 14:08 | Progress Note ---
Assessment and Plan - Patient Problems (1) Hypothyroidism Current Visit: Yes Status: Acute Plan to address problem: We will defer to internal medicine and endocrinology for management of the patient's hypothyroidism and thyroid goiter. We have discontinued amiodarone therapy at this time in response to the thyroid disease. (2) Acute exacerbation of CHF (congestive heart failure) Current Visit: No Status: Acute Qualifiers: Qualified Code(s): I50.23 - Acute on chronic systolic (congestive) heart failure Plan to address problem: Medical therapy including diuretics, afterload agents, beta blockers and oral antiplatelet therapy. Subjective Date of service: 08/26/18 Interval history: Patient is comfortable, no cardiac complaints. Objective Vital Signs Temp Pulse Resp BP BP Pulse Ox 08/26/18 12:08 140/102 08/26/18 12:07 140/102 08/26/18 12:06 140/102 08/26/18 07:50 97.5 F L 77 16 140/102 98 08/26/18 04:47 97.9 F 72 14 124/93 91 08/25/18 23:41 98.0 F 80 12 119/84 97 08/25/18 23:00 86 08/25/18 21:41 87 135/97 08/25/18 19:37 98.5 F 87 12 135/97 96 08/25/18 15:59 98.1 F 78 18 121/79 96 - Physical Examination General: Appears Well, No Apparent Distress HEENT: Positive: PERRL Neck: Positive: neck supple Cardiac: Positive: Reg Rate and Rhythm Lungs: Positive: clear to auscultation Neuro: Positive: Grossly Intact Abdomen: Positive: Soft Skin: Positive: Clear Extremities: Absent: edema - Labs and Meds Comprehensive Metabolic Panel 08/26/18 Range/Units 05:55 Sodium 136 L (137-145) mmol/L Potassium 3.9 (3.6-5.0) mmol/L Chloride 104.7 (98-107) mmol/L Carbon Dioxide 18 L (22-30) mmol/L BUN 38 H (9-20) mg/dL Creatinine 2.9 H (0.8-1.5) mg/dL Glucose 162 H (75-100) mg/dL Calcium 8.9 (8.4-10.2) mg/dL
[2018-08-26] MEDS: PRAVACHOL PO SCH (21:51)
[2018-08-26] MEDS: LOVENOX SUB-Q SCH (21:52)
[2018-08-26] MEDS: AMBIEN PO PRN (23:40)
[2018-08-27] MEDS: SYNTHROID PO SCH (05:23)
[2018-08-27 06:34] LABS: Calcium 8.9 mg/dL (8.4-10.2)
--- NOTE | 2018-08-27 09:02 | Progress Note ---
Assessment and Plan 1. Acute kidney injury: [place] superimposed on CKD in the setting of NSAID and CHF. Renal US negative for hydro. Creatinine leveled off. Suspect new baseline. Monitor renal function. Renal prognosis is guarded. Avoid nephrotoxic agents. Meds dosage based on GFR. 2. CHF exacerbation: Followed by Cards. Appears compensated. 3. Proteinuria: Secondary to diabetic nephropathy. On Losartan. 4. Uncontrolled DM type 2: HbA1C 13.7 5. Hypothyroid. 6. Hypertension. 7. Medical non-compliance: Counseled. Subjective Date of service: 08/27/18 Interval history: Patient was seen and examined at the bedside. Doing ok. Objective - Vital Signs Vital signs: Vital Signs - 12hr 08/26/18 08/26/18 08/26/18 21:51 22:30 23:37 Temperature 98.2 F Pulse Rate 73 74 Pulse Rate [ 73 Apical] Respiratory 18 16 Rate Blood Pressure 143/107 137/100 O2 Sat by Pulse 94 Oximetry 08/27/18 04:03 Temperature 97.6 F Pulse Rate 69 Pulse Rate [ Apical] Respiratory 12 Rate Blood Pressure 129/94 O2 Sat by Pulse 95 Oximetry - General Appearance General appearance: well-developed, well-nourished, appears stated age, other (not in distress) EENT: ATNC, PERRL, mucous membranes moist, hearing intact, vision intact Neck: no thyromegaly, supple Respiratory: Present: Clear to Ascultation Cardiology: regular, S1S2, no murmurs Gastrointestinal: normoactive bowel sounds, no tenderness, no distended Integumentary: no rash, warm and dry Neurologic: no focal deficit, no asterixis, alert and oriented x3 Musculoskeletal: other (no edema) - Lab 08/25/18 06:33 08/27/18 05:43 Most recent lab results Calcium 8.9 mg/dL (8.4-10.2) 08/27/18 05:43 Phosphorus 3.10 mg/dL (2.5-4.5) 08/26/18 05:55 Magnesium 2.10 mg/dL (1.7-2.3) 08/26/18 05:55 Urine Creatinine 63.9 mg/dL (0.1-20.0) H 08/25/18 17:15 Urine Sodium 117 mmol/L 08/25/18 17:15 Urine Total Protein 195 mg/dL (5-11.8) H 08/25/18 17:15 Medications & Allergies - Medications Allergies/Adverse Reactions: Allergies pineapple Allergy (Verified 08/24/18 21:54) Anaphylaxis Home Medications: Home Medications Medication Instructions Recorded Confirmed Last Taken Type Pravastatin [Pravachol] 40 mg PO QHS #30 10/26/16 08/24/18 12/23/16 Rx Aspirin EC [Aspirin Enteric Coated 81 mg PO QDAY 12/13/16 08/24/18 12/23/16 History TAB] Insulin Aspart Prot/Aspart(Nf) 35 units SQ QAM 12/13/16 08/24/18 12/23/16 History [NovoLOG Mix 70/30 VIAL] Amiodarone [Cordarone 200 MG TAB] 200 mg PO QDAY #14 tablet 12/26/16 08/24/18 Unknown Rx Carvedilol [Coreg] 3.125 mg PO BID #30 tablet 12/26/16 08/24/18 Unknown Rx Furosemide [Lasix TAB] 40 mg PO QDAY #15 tablet 12/26/16 08/24/18 Unknown Rx Losartan [Cozaar] 100 mg PO QDAY #15 tablet 12/26/16 08/24/18 Unknown Rx Spironolactone [Aldactone] 25 mg PO QDAY #15 tablet 12/26/16 08/24/18 Unknown Rx methOCARBAMOL [Robaxin TAB] 500 mg PO Q6H PRN #15 tablet 07/14/18 08/24/18 Unknown Rx Active Medications: Generic Name Dose Route Start Last Admin Trade Name Freq PRN Reason Stop Dose Admin Acetaminophen 650 mg 08/24/18 21:47 Tylenol PO Q4H PRN Pain MILD(1-3)/Fever >100.5/SPRING Amiodarone HCl 200 mg 08/24/18 22:00 08/26/18 14:02 Cordarone PO 200 mg QDAY MALACHI Administration Aspirin 81 mg 08/24/18 22:00 08/26/18 12:08 Halfprin Ec PO 81 mg QDAY MALACHI Administration Carvedilol 3.125 mg 08/24/18 22:00 08/26/18 21:51 Coreg PO 3.125 mg BID MALACHI Administration Enoxaparin Sodium 30 mg 08/24/18 22:00 08/26/18 21:52 Lovenox SUB-Q 30 mg QDAY@2200 [facility]ACHI Administration Famotidine 10 mg 08/24/18 22:00 08/26/18 21:51 Pepcid PO 10 mg BID MALACHI Administration Furosemide 40 mg 08/24/18 22:00 08/26/18 12:06 Lasix IV 40 mg Q24HR MALACHI Administration Guaifenesin 200 mg 08/25/18 13:36 08/26/18 05:52 Robitussin PO 200 mg Q6H PRN Administration Cough Hydromorphone HCl 0.5 mg 08/24/18 21:47 Dilaudid IV Q3H PRN Pain , Severe (7-10) Insulin Human Isoph/Insulin Regular 35 unit 08/25/18 08:00 08/26/18 12:05 Humulin 70/30 SUB-Q 35 unit QAMDIAB MALACHI Administration Insulin Human Lispro 0 unit 08/24/18 22:00 08/26/18 23:28 Humalog SUB-Q Not Given ACHS [facility] Protocol Levothyroxine Sodium 150 mcg 08/26/18 11:00 08/27/18 05:23 Synthroid PO 150 mcg DAILY@0600 MALACHI Administration Losartan Potassium 100 mg 08/24/18 22:00 08/26/18 12:07 Cozaar PO 100 mg QDAY MALACHI Administration Methocarbamol 500 mg 08/24/18 21:44 Robaxin PO Q6H PRN Pain Ondansetron HCl 4 mg 08/24/18 21:47 Zofran IV Q8H PRN Nausea And Vomiting Oxycodone/Acetaminophen 1 tab 08/24/18 21:47 Percocet 5/325 PO Q6H PRN Pain, Moderate (4-6) Potassium Chloride 20 meq 08/24/18 22:00 08/26/18 12:07 K-Dur PO 20 meq QDAY MALACHI Administration Pravastatin Sodium 40 mg 08/24/18 22:00 08/26/18 21:51 Pravachol PO 40 mg QHS MALACHI Administration Sodium Chloride 10 ml 08/24/18 22:00 08/26/18 21:53 Sodium Chloride Flush Syringe 10 Ml IV 10 ml BID MALACHI Administration Sodium Chloride 10 ml 08/24/18 21:47 08/24/18 23:33 Sodium Chloride Flush Syringe 10 Ml IV 10 ml PRN PRN Administration LINE FLUSH Spironolactone 25 mg 08/24/18 22:00 08/26/18 12:08 Aldactone PO 25 mg QDAY MALACHI Administration Zolpidem Tartrate 5 mg 08/26/18 23:27 08/26/18 23:40 Ambien PO 5 mg QHS PRN Administration Sleep
[2018-08-27] MEDS: COREG PO SCH ×2 (09:27→22:27)
[2018-08-27] MEDS: K-DUR PO SCH (09:28)
[2018-08-27] MEDS: CORDARONE PO SCH (09:28)
[2018-08-27] MEDS: PEPCID PO SCH ×2 (09:28→22:27)
[2018-08-27] MEDS: ALDACTONE PO SCH (09:28)
[2018-08-27] MEDS: ROBITUSSIN PO PRN (09:29)
[2018-08-27] MEDS: HALFPRIN EC PO SCH (09:30)
[2018-08-27] MEDS: COZAAR PO SCH (09:30)
[2018-08-27] MEDS: HumaLOG SUB-Q SCH ×4 (09:32→22:28)
[2018-08-27] MEDS: SODIUM CHLORIDE FLUSH SYRINGE 10 ML IV SCH ×2 (09:55→22:30)
[2018-08-27] MEDS ORDERED: LASIX PO SCH (10:00)
--- NOTE | 2018-08-27 13:46 | Progress Note ---
Assessment and Plan Assessment and plan: Acute on chronic systolic congestive heart failure, EF 30% Continue heart failure medications and output monitoring. Continue Coreg, Lasix Acute on chronic respiratory failure secondary to acute exacerbation of congestive heart failure systolic dysfunction Oxygen titrated to O2 sats more than 90%, Nebulizers as needed Continue diuresis as noted above Enlarged neck mass ?thyroid nodule/goiter. Check CT scan of neck. Check T3 and T4. Patient reports difficulty swallowing on occasion. Hypertension; continue current antihypertensives and when necessary medications Type 2 diabetes mellitus; Accu-Chek sliding scale coverage and ADA diet and long-acting insulin Closely monitor blood sugars and adjust as needed Dilated cardiomyopathy. As above. History of V. fib. s/p AICD. Patient also on amiodarone for suppression. DVT prophylaxis; Lovenox renal dose Stress test in May 2016 revealed evidence of dilated cardiomyopathy with prior inferior wall infarction. History Interval history: No new issues overnight. Hospitalist Physical - Constitutional Vitals: Temp Pulse Resp BP Pulse Ox 97.9 F 75 16 128/95 95 08/27/18 09:26 08/27/18 09:30 08/27/18 09:26 08/27/18 09:30 08/27/18 09:26 General appearance: Present: no acute distress - EENT Eyes: Present: PERRL, EOM intact ENT: hearing intact, clear oral mucosa, dentition normal - Neck Neck: Present: supple, normal ROM - Respiratory Respiratory effort: normal Respiratory: bilateral: CTA - Cardiovascular Rhythm: regular Heart Sounds: Present: S1 & S2. Absent: gallop, rub - Extremities Extremities: no ischemia, No edema, Full ROM - Abdominal General gastrointestinal: soft, non-tender, non-distended, normal bowel sounds - Integumentary Integumentary: Present: clear, warm, dry - Neurologic Neurologic: CNII-XII intact, moves all extremities Results - Labs CBC & Chem 7: 08/25/18 06:33 08/27/18 05:43 Labs: Laboratory Last Values WBC 8.9 K/mm3 (4.5-11.0) 08/25/18 06:33 RBC 4.40 M/mm3 (3.65-5.03) 08/25/18 06:33 Hgb 12.2 gm/dl (11.8-15.2) 08/25/18 06:33 Hct 37.4 % (35.5-45.6) 08/25/18 06:33 MCV 85 fl (84-94) 08/25/18 06:33 MCH 28 pg (28-32) 08/25/18 06:33 MCHC 33 % (32-34) 08/25/18 06:33 RDW 14.6 % (13.2-15.2) 08/25/18 06:33 Plt Count 170 K/mm3 (140-440) 08/25/18 06:33 Lymph % (Auto) 13.3 % (13.4-35.0) L 08/25/18 06:33 [place] % (Auto) 11.2 % (0.0-7.3) H 08/25/18 06:33 Eos % (Auto) 1.4 % (0.0-4.3) 08/25/18 06:33 Baso % (Auto) 0.8 % (0.0-1.8) 08/25/18 06:33 Lymph # 1.2 K/mm3 (1.2-5.4) 08/25/18 06:33 [place] # 1.0 K/mm3 (0.0-0.8) H 08/25/18 06:33 Eos # 0.1 K/mm3 (0.0-0.4) 08/25/18 06:33 Baso # 0.1 K/mm3 (0.0-0.1) 08/25/18 06:33 Seg Neutrophils % 73.3 % (40.0-70.0) H 08/25/18 06:33 Seg Neutrophils # 6.5 K/mm3 (1.8-7.7) 08/25/18 06:33 Sodium 138 mmol/L (137-145) 08/27/18 05:43 Potassium 4.1 mmol/L (3.6-5.0) 08/27/18 05:43 Chloride 104.5 mmol/L (98-107) 08/27/18 05:43 Carbon Dioxide 18 mmol/L (22-30) L 08/27/18 05:43 Anion Gap 20 mmol/L 08/27/18 05:43 BUN 42 mg/dL (9-20) H 08/27/18 05:43 Creatinine 2.8 mg/dL (0.8-1.5) H 08/27/18 05:43 Estimated GFR 30 ml/min 08/27/18 05:43 BUN/Creatinine Ratio 15 % 08/27/18 05:43 Glucose 167 mg/dL (75-100) H 08/27/18 05:43 POC Glucose 118 (70-105) H 08/27/18 12:27 Hemoglobin A1c 13.7 % (4-6) H 08/24/18 21:10 Calcium 8.9 mg/dL (8.4-10.2) 08/27/18 05:43 Phosphorus 3.10 mg/dL (2.5-4.5) 08/26/18 05:55 Magnesium 2.10 mg/dL (1.7-2.3) 08/26/18 05:55 Total Bilirubin 1.30 mg/dL (0.1-1.2) H 08/25/18 06:33 AST 27 units/L (5-40) 08/25/18 06:33 ALT 40 units/L (7-56) 08/25/18 06:33 Alkaline Phosphatase 70 units/L (35-129) 08/25/18 06:33 Troponin T 0.059 ng/mL (0.00-0.029) H 08/24/18 11:07 NT-Pro-B Natriuret Pep 91565 pg/mL (0-450) H 08/24/18 11:07 Total Protein 6.7 g/dL (6.3-8.2) 08/25/18 06:33 Albumin 3.2 g/dL (3.9-5) L 08/25/18 06:33 Albumin/Globulin Ratio 0.9 % 08/25/18 06:33 Triglycerides 128 mg/dL (2-149) 08/24/18 11:07 Cholesterol 199 mg/dL (50-199) 08/24/18 11:07 LDL Cholesterol Direct 154 mg/dL (50-130) H 08/24/18 11:07 HDL Cholesterol 48 mg/dL (40-59) 08/24/18 11:07 Cholesterol/HDL Ratio 4.14 % 08/24/18 11:07 TSH 28.340 mlU/mL (0.270-4.200) H 08/24/18 11:07 Free T4 0.55 ng/dL (0.76-1.46) L 08/26/18 13:23 Thyroxine (T4) 3.9 ug/dL (4.0-12.0) L 08/26/18 13:23 PTH Intact 124.8 pg/mL (15-65) H 08/27/18 05:43 Urine Color Yellow (Yellow) 08/24/18 12:10 Urine Turbidity Clear (Clear) 08/24/18 12:10 Urine pH 5.0 (5.0-7.0) 08/24/18 12:10 Ur Specific [place] 1.017 (1.003-1.030) 08/24/18 12:10 Urine Protein >2000 mg dl mg/dL (Negative) 08/24/18 12:10 Urine Glucose (UA) >=500 mg/dL (Negative) 08/24/18 12:10 Urine Ketones Neg mg/dL (Negative) 08/24/18 12:10 Urine Blood Sm (Negative) 08/24/18 12:10 Urine Nitrite Neg (Negative) 08/24/18 12:10 Urine Bilirubin Neg (Negative) 08/24/18 12:10 Urine Urobilinogen < 2.0 mg/dL (<2.0) 08/24/18 12:10 Ur Leukocyte Esterase Neg (Negative) 08/24/18 12:10 Urine WBC (Auto) 1.0 /HPF (0.0-6.0) 08/24/18 12:10 Urine RBC (Auto) 2.0 /HPF (0.0-6.0) 08/24/18 12:10 Urine Mucus Few /HPF 08/24/18 12:10 Urine Creatinine 63.9 mg/dL (0.1-20.0) H 08/25/18 17:15 Protein/Creatinin Ratio 3.05 08/25/18 17:15 Urine Sodium 117 mmol/L 08/25/18 17:15 Urine Total Protein 195 mg/dL (5-11.8) H 08/25/18 17:15 Influenza A (Rapid) Negative (Negative) 08/24/18 Unknown Influenza B (Rapid) Negative (Negative) 08/24/18 Unknown Active Medications - Current Medications Current Medications: Generic Name Dose Route Start Last Admin Trade Name Freq PRN Reason Stop Dose Admin Acetaminophen 650 mg 08/24/18 21:47 Tylenol PO Q4H PRN Pain MILD(1-3)/Fever >100.5/SPRING Amiodarone HCl 200 mg 08/24/18 22:00 08/27/18 09:28 Cordarone PO 200 mg QDAY MALACHI Administration Aspirin 81 mg 08/24/18 22:00 08/27/18 09:30 Halfprin Ec PO 81 mg QDAY MALACHI Administration Carvedilol 3.125 mg 08/24/18 22:00 08/27/18 09:27 Coreg PO 3.125 mg BID [facility] Administration Enoxaparin Sodium 30 mg 08/24/18 22:00 08/26/18 21:52 Lovenox SUB-Q 30 mg QDAY@2200 MALACHI Administration Famotidine 10 mg 08/24/18 22:00 08/27/18 09:28 Pepcid PO 10 mg BID MALACHI Administration Furosemide 40 mg 08/27/18 10:00 08/27/18 09:47 Lasix PO 40 mg QDAY [facility] Administration Guaifenesin 200 mg 08/25/18 13:36 08/27/18 09:29 Robitussin PO 200 mg Q6H PRN Administration Cough Hydromorphone HCl 0.5 mg 08/24/18 21:47 Dilaudid IV Q3H PRN Pain , Severe (7-10) Insulin Human Isoph/Insulin Regular 35 unit 08/25/18 08:00 08/27/18 09:31 Humulin 70/30 SUB-Q 35 unit QAMDIAB [facility] Administration Insulin Human Lispro 0 unit 08/24/18 22:00 08/27/18 13:25 Humalog SUB-Q Not Given ACHS [facility] Protocol Levothyroxine Sodium 150 mcg 08/26/18 11:00 08/27/18 05:23 Synthroid PO 150 mcg DAILY@0600 [facility] Administration Losartan Potassium 100 mg 08/24/18 22:00 08/27/18 09:30 Cozaar PO 100 mg QDAY [facility] Administration Methocarbamol 500 mg 08/24/18 21:44 Robaxin PO Q6H PRN Pain Ondansetron HCl 4 mg 08/24/18 21:47 Zofran IV Q8H PRN Nausea And Vomiting Oxycodone/Acetaminophen 1 tab 08/24/18 21:47 Percocet 5/325 PO Q6H PRN Pain, Moderate (4-6) Potassium Chloride 20 meq 08/24/18 22:00 08/27/18 09:28 K-Dur PO 20 meq QDAY [facility] Administration Pravastatin Sodium 40 mg 08/24/18 22:00 08/26/18 21:51 Pravachol PO 40 mg QHS [facility] Administration Sodium Chloride 10 ml 08/24/18 22:00 08/27/18 09:55 Sodium Chloride Flush Syringe 10 Ml IV 10 ml BID [facility]ACH[facility] Administration Sodium Chloride 10 ml 08/24/18 21:47 08/24/18 23:33 Sodium Chloride Flush Syringe 10 Ml IV 10 ml PRN PRN Administration LINE FLUSH Spironolactone 25 mg 08/24/18 22:00 08/27/18 09:28 Aldactone PO 25 mg QDAY [facility]ACH[facility] Administration Zolpidem Tartrate 5 mg 08/26/18 23:27 08/26/18 23:40 Ambien PO 5 mg QHS PRN Administration Sleep
--- NOTE | 2018-08-27 14:19 | Progress Note ---
Assessment and Plan - Patient Problems (1) Hypothyroidism Current Visit: Yes Status: Acute Plan to address problem: We will defer to internal medicine and endocrinology for management of the patient's hypothyroidism and thyroid goiter. We have discontinued amiodarone therapy at this time in response to the thyroid disease. (2) Acute exacerbation of CHF (congestive heart failure) Current Visit: No Status: Acute Qualifiers: Qualified Code(s): I50.23 - Acute on chronic systolic (congestive) heart failure Plan to address problem: Medical therapy including diuretics, afterload agents, beta blockers and oral antiplatelet therapy. Subjective Date of service: 08/27/18 Interval history: Patient is comfortable, no cardiac complaints. Objective Vital Signs Temp Pulse Pulse Resp BP Pulse Ox 08/27/18 09:30 75 128/95 08/27/18 09:28 75 128/95 08/27/18 09:27 75 128/95 08/27/18 09:26 97.9 F 76 16 128/95 95 08/27/18 04:03 97.6 F 69 12 129/94 95 08/26/18 23:37 98.2 F 74 16 137/100 94 08/26/18 22:30 73 18 08/26/18 21:51 73 143/107 08/26/18 20:33 98.2 F 73 16 143/107 97 08/26/18 20:22 74 08/26/18 16:24 97.2 F L 70 16 171/109 95 08/26/18 15:00 88 - Physical Examination General: Appears Well, No Apparent Distress HEENT: Positive: PERRL Neck: Positive: neck supple, trachea midline Cardiac: Positive: Reg Rate and Rhythm Lungs: Positive: clear to auscultation Neuro: Positive: Grossly Intact Abdomen: Positive: Soft Skin: Positive: Clear Extremities: Absent: edema - Labs and Meds Comprehensive Metabolic Panel 08/27/18 Range/Units 05:43 Sodium 138 (137-145) mmol/L Potassium 4.1 (3.6-5.0) mmol/L Chloride 104.5 (98-107) mmol/L Carbon Dioxide 18 L (22-30) mmol/L BUN 42 H (9-20) mg/dL Creatinine 2.8 H (0.8-1.5) mg/dL Glucose 167 H (75-100) mg/dL Calcium 8.9 (8.4-10.2) mg/dL
[2018-08-27] MEDS: LOVENOX SUB-Q SCH (22:28)
[2018-08-27] MEDS: PRAVACHOL PO SCH (22:28)
[2018-08-28] MEDS: AMBIEN PO PRN (00:06)
[2018-08-28] MEDS: SYNTHROID PO SCH (05:27)
--- NOTE | 2018-08-28 07:45 | Progress Note ---
Assessment and Plan 1. Acute kidney injury: [place] superimposed on CKD in the setting of NSAID and CHF. Renal US negative for hydro. Increase in the creatinine level noted. Hold diuretics for now. Monitor renal function. Renal prognosis is guarded. Avoid nephrotoxic agents. Meds dosage based on GFR. 2. CHF exacerbation: Followed by Cards. Appears compensated. 3. Proteinuria: Secondary to diabetic nephropathy. On Losartan. 4. Uncontrolled DM type 2: HbA1C 13.7 5. Hypothyroid. 6. Hypertension. 7. Medical non-compliance: Counseled. Subjective Date of service: 08/28/18 Interval history: Patient was seen and examined at the bedside. Doing ok. Objective - Vital Signs Vital signs: Vital Signs - 12hr 08/27/18 08/27/18 08/28/18 20:24 22:27 00:09 Temperature 98.4 F Pulse Rate 71 79 Pulse Rate [ 71 Apical] Respiratory 18 18 Rate Blood Pressure 131/88 125/96 O2 Sat by Pulse 96 98 Oximetry 08/28/18 04:39 Temperature 98.3 F Pulse Rate 72 Pulse Rate [ Apical] Respiratory 18 Rate Blood Pressure 122/91 O2 Sat by Pulse 90 Oximetry - General Appearance General appearance: well-developed, well-nourished, appears stated age, other (not in distress) EENT: ATNC, PERRL, hearing intact, vision intact Neck: thyromegaly, supple Respiratory: Present: Clear to Ascultation Cardiology: regular, S1S2, no murmurs Gastrointestinal: normoactive bowel sounds, no tenderness, no distended Integumentary: no rash, warm and dry Neurologic: no focal deficit, no asterixis, alert and oriented x3 Musculoskeletal: other (no edema) - Lab 08/25/18 06:33 08/28/18 05:33 Most recent lab results Calcium 9.0 mg/dL (8.4-10.2) 08/28/18 05:33 Phosphorus 3.10 mg/dL (2.5-4.5) 08/26/18 05:55 Magnesium 2.10 mg/dL (1.7-2.3) 08/26/18 05:55 Urine Creatinine 63.9 mg/dL (0.1-20.0) H 08/25/18 17:15 Urine Sodium 117 mmol/L 08/25/18 17:15 Urine Total Protein 195 mg/dL (5-11.8) H 08/25/18 17:15 Medications & Allergies - Medications Allergies/Adverse Reactions: Allergies pineapple Allergy (Verified 08/24/18 21:54) Anaphylaxis Home Medications: Home Medications Medication Instructions Recorded Confirmed Last Taken Type Pravastatin [Pravachol] 40 mg PO QHS #30 10/26/16 08/24/18 12/23/16 Rx Aspirin EC [Aspirin Enteric Coated 81 mg PO QDAY 12/13/16 08/24/18 12/23/16 History TAB] Insulin Aspart Prot/Aspart(Nf) 35 units SQ QAM 12/13/16 08/24/18 12/23/16 History [NovoLOG Mix 70/30 VIAL] Amiodarone [Cordarone 200 MG TAB] 200 mg PO QDAY #14 tablet 12/26/16 08/24/18 Unknown Rx Carvedilol [Coreg] 3.125 mg PO BID #30 tablet 12/26/16 08/24/18 Unknown Rx Furosemide [Lasix TAB] 40 mg PO QDAY #15 tablet 12/26/16 08/24/18 Unknown Rx Losartan [Cozaar] 100 mg PO QDAY #15 tablet 12/26/16 08/24/18 Unknown Rx Spironolactone [Aldactone] 25 mg PO QDAY #15 tablet 12/26/16 08/24/18 Unknown Rx methOCARBAMOL [Robaxin TAB] 500 mg PO Q6H PRN #15 tablet 07/14/18 08/24/18 Unknown Rx Active Medications: Generic Name Dose Route Start Last Admin Trade Name Freq PRN Reason Stop Dose Admin Acetaminophen 650 mg 08/24/18 21:47 Tylenol PO Q4H PRN Pain MILD(1-3)/Fever >100.5/SPRING Amiodarone HCl 200 mg 08/24/18 22:00 08/27/18 09:28 Cordarone PO 200 mg QDAY MALACHI Administration Aspirin 81 mg 08/24/18 22:00 08/27/18 09:30 Halfprin Ec PO 81 mg QDAY MALACHI Administration Carvedilol 3.125 mg 08/24/18 22:00 08/27/18 22:27 Coreg PO 3.125 mg BID MALACHI Administration Enoxaparin Sodium 30 mg 08/24/18 22:00 08/27/18 22:28 Lovenox SUB-Q 30 mg QDAY@2200 MALACHI Administration Famotidine 10 mg 08/24/18 22:00 08/27/18 22:27 Pepcid PO 10 mg BID MALACHI Administration Furosemide 40 mg 08/27/18 10:00 08/27/18 09:47 Lasix PO 40 mg QDAY MALACHI Administration Guaifenesin 200 mg 08/25/18 13:36 08/27/18 09:29 Robitussin PO 200 mg Q6H PRN Administration Cough Hydromorphone HCl 0.5 mg 08/24/18 21:47 Dilaudid IV Q3H PRN Pain , Severe (7-10) Insulin Human Isoph/Insulin Regular 35 unit 08/25/18 08:00 08/27/18 09:31 Humulin 70/30 SUB-Q 35 unit QAMDIAB MALACHI Administration Insulin Human Lispro 0 unit 08/24/18 22:00 08/27/18 22:28 Humalog SUB-Q 2 unit ACHS MALACHI Administration Protocol Levothyroxine Sodium 150 mcg 08/26/18 11:00 08/28/18 05:27 Synthroid PO 150 mcg DAILY@0600 MALACHI Administration Losartan Potassium 100 mg 08/24/18 22:00 08/27/18 09:30 Cozaar PO 100 mg QDAY MALACHI Administration Methocarbamol 500 mg 08/24/18 21:44 Robaxin PO Q6H PRN Pain Ondansetron HCl 4 mg 08/24/18 21:47 Zofran IV Q8H PRN Nausea And Vomiting Oxycodone/Acetaminophen 1 tab 08/24/18 21:47 Percocet 5/325 PO Q6H PRN Pain, Moderate (4-6) Potassium Chloride 20 meq 08/24/18 22:00 08/27/18 09:28 K-Dur PO 20 meq QDAY MALACHI Administration Pravastatin Sodium 40 mg 08/24/18 22:00 08/27/18 22:28 Pravachol PO 40 mg QHS MALACHI Administration Sodium Chloride 10 ml 08/24/18 22:00 08/27/18 22:30 Sodium Chloride Flush Syringe 10 Ml IV 10 ml BID MALACHI Administration Sodium Chloride 10 ml 08/24/18 21:47 08/24/18 23:33 Sodium Chloride Flush Syringe 10 Ml IV 10 ml PRN PRN Administration LINE FLUSH Spironolactone 25 mg 08/24/18 22:00 08/27/18 09:28 Aldactone PO 25 mg QDAY MALACHI Administration Zolpidem Tartrate 5 mg 08/26/18 23:27 08/28/18 00:06 Ambien PO 5 mg QHS PRN Administration Sleep
[2018-08-28] MEDS: HALFPRIN EC PO SCH (09:44)
[2018-08-28] MEDS: CORDARONE PO SCH (09:44)
[2018-08-28] MEDS: K-DUR PO SCH (09:44)
[2018-08-28] MEDS: PEPCID PO SCH ×3 (09:44→22:22)
[2018-08-28] MEDS: COZAAR PO SCH (09:45)
[2018-08-28] MEDS: ALDACTONE PO SCH (09:45)
[2018-08-28] MEDS: COREG PO SCH ×2 (09:45→22:15)
[2018-08-28] MEDS: HumaLOG SUB-Q SCH ×4 (09:49→22:21)
[2018-08-28] MEDS: SODIUM CHLORIDE FLUSH SYRINGE 10 ML IV SCH ×2 (10:01→22:21)
--- NOTE | 2018-08-28 13:18 | Progress Note ---
Assessment and Plan Assessment and plan: Acute on chronic systolic congestive heart failure, EF 30% Continue heart failure medications and output monitoring. Continue Coreg, Lasix Acute on chronic respiratory failure secondary to acute exacerbation of congestive heart failure systolic dysfunction Oxygen titrated to O2 sats more than 90%, Nebulizers as needed Continue diuresis as noted above Enlarged neck mass ?thyroid nodule/goiter. Check CT scan of neck results. Check T3 and T4. Patient reports difficulty swallowing on occasion. Hypertension; continue current antihypertensives and when necessary medications Type 2 diabetes mellitus; Accu-Chek sliding scale coverage and ADA diet and long-acting insulin Closely monitor blood sugars and adjust as needed Dilated cardiomyopathy. As above. History of V. fib. s/p AICD. Patient also on amiodarone for suppression. DVT prophylaxis; Lovenox renal dose Stress test in May 2016 revealed evidence of dilated cardiomyopathy with prior inferior wall infarction. History Interval history: No new issues overnight. Hospitalist Physical - Constitutional Vitals: Temp Pulse Resp BP Pulse Ox 98.1 F 72 18 123/91 97 08/28/18 08:06 08/28/18 09:45 08/28/18 08:06 08/28/18 09:45 08/28/18 08:06 General appearance: Present: no acute distress - EENT Eyes: Present: PERRL, EOM intact ENT: hearing intact, clear oral mucosa, dentition normal - Neck Neck: Present: supple, normal ROM - Respiratory Respiratory effort: normal Respiratory: bilateral: CTA - Cardiovascular Rhythm: regular Heart Sounds: Present: S1 & S2. Absent: gallop, rub - Extremities Extremities: no ischemia, No edema, Full ROM - Abdominal General gastrointestinal: soft, non-tender, non-distended, normal bowel sounds - Integumentary Integumentary: Present: clear, warm, dry - Neurologic Neurologic: CNII-XII intact, moves all extremities Results - Labs CBC & Chem 7: 08/25/18 06:33 08/28/18 05:33 Labs: Laboratory Last Values WBC 8.9 K/mm3 (4.5-11.0) 08/25/18 06:33 RBC 4.40 M/mm3 (3.65-5.03) 08/25/18 06:33 Hgb 12.2 gm/dl (11.8-15.2) 08/25/18 06:33 Hct 37.4 % (35.5-45.6) 08/25/18 06:33 MCV 85 fl (84-94) 08/25/18 06:33 MCH 28 pg (28-32) 08/25/18 06:33 MCHC 33 % (32-34) 08/25/18 06:33 RDW 14.6 % (13.2-15.2) 08/25/18 06:33 Plt Count 170 K/mm3 (140-440) 08/25/18 06:33 Lymph % (Auto) 13.3 % (13.4-35.0) L 08/25/18 06:33 [place] % (Auto) 11.2 % (0.0-7.3) H 08/25/18 06:33 Eos % (Auto) 1.4 % (0.0-4.3) 08/25/18 06:33 Baso % (Auto) 0.8 % (0.0-1.8) 08/25/18 06:33 Lymph # 1.2 K/mm3 (1.2-5.4) 08/25/18 06:33 [place] # 1.0 K/mm3 (0.0-0.8) H 08/25/18 06:33 Eos # 0.1 K/mm3 (0.0-0.4) 08/25/18 06:33 Baso # 0.1 K/mm3 (0.0-0.1) 08/25/18 06:33 Seg Neutrophils % 73.3 % (40.0-70.0) H 08/25/18 06:33 Seg Neutrophils # 6.5 K/mm3 (1.8-7.7) 08/25/18 06:33 Sodium 138 mmol/L (137-145) 08/28/18 05:33 Potassium 4.3 mmol/L (3.6-5.0) 08/28/18 05:33 Chloride 105.4 mmol/L (98-107) 08/28/18 05:33 Carbon Dioxide 17 mmol/L (22-30) L 08/28/18 05:33 Anion Gap 20 mmol/L 08/28/18 05:33 BUN 39 mg/dL (9-20) H 08/28/18 05:33 Creatinine 3.4 mg/dL (0.8-1.5) H 08/28/18 05:33 Estimated GFR 24 ml/min 08/28/18 05:33 BUN/Creatinine Ratio 11 % 08/28/18 05:33 Glucose 151 mg/dL (75-100) H 08/28/18 05:33 POC Glucose 163 (70-105) H 08/28/18 07:41 Hemoglobin A1c 13.7 % (4-6) H 08/24/18 21:10 Calcium 9.0 mg/dL (8.4-10.2) 08/28/18 05:33 Phosphorus 3.10 mg/dL (2.5-4.5) 08/26/18 05:55 Magnesium 2.10 mg/dL (1.7-2.3) 08/26/18 05:55 Total Bilirubin 1.30 mg/dL (0.1-1.2) H 08/25/18 06:33 AST 27 units/L (5-40) 08/25/18 06:33 ALT 40 units/L (7-56) 08/25/18 06:33 Alkaline Phosphatase 70 units/L (35-129) 08/25/18 06:33 Troponin T 0.059 ng/mL (0.00-0.029) H 08/24/18 11:07 NT-Pro-B Natriuret Pep 43407 pg/mL (0-450) H 08/24/18 11:07 Total Protein 6.7 g/dL (6.3-8.2) 08/25/18 06:33 Albumin 3.2 g/dL (3.9-5) L 08/25/18 06:33 Albumin/Globulin Ratio 0.9 % 08/25/18 06:33 Triglycerides 128 mg/dL (2-149) 08/24/18 11:07 Cholesterol 199 mg/dL (50-199) 08/24/18 11:07 LDL Cholesterol Direct 154 mg/dL (50-130) H 08/24/18 11:07 HDL Cholesterol 48 mg/dL (40-59) 08/24/18 11:07 Cholesterol/HDL Ratio 4.14 % 08/24/18 11:07 TSH 28.340 mlU/mL (0.270-4.200) H 08/24/18 11:07 Free T4 0.55 ng/dL (0.76-1.46) L 08/26/18 13:23 Thyroxine (T4) 3.9 ug/dL (4.0-12.0) L 08/26/18 13:23 PTH Intact 124.8 pg/mL (15-65) H 08/27/18 05:43 Urine Color Yellow (Yellow) 08/24/18 12:10 Urine Turbidity Clear (Clear) 08/24/18 12:10 Urine pH 5.0 (5.0-7.0) 08/24/18 12:10 Ur Specific [place] 1.017 (1.003-1.030) 08/24/18 12:10 Urine Protein >2000 mg dl mg/dL (Negative) 08/24/18 12:10 Urine Glucose (UA) >=500 mg/dL (Negative) 08/24/18 12:10 Urine Ketones Neg mg/dL (Negative) 08/24/18 12:10 Urine Blood Sm (Negative) 08/24/18 12:10 Urine Nitrite Neg (Negative) 08/24/18 12:10 Urine Bilirubin Neg (Negative) 08/24/18 12:10 Urine Urobilinogen < 2.0 mg/dL (<2.0) 08/24/18 12:10 Ur Leukocyte Esterase Neg (Negative) 08/24/18 12:10 Urine WBC (Auto) 1.0 /HPF (0.0-6.0) 08/24/18 12:10 Urine RBC (Auto) 2.0 /HPF (0.0-6.0) 08/24/18 12:10 Urine Mucus Few /HPF 08/24/18 12:10 Urine Creatinine 63.9 mg/dL (0.1-20.0) H 08/25/18 17:15 Protein/Creatinin Ratio 3.05 08/25/18 17:15 Urine Sodium 117 mmol/L 08/25/18 17:15 Urine Total Protein 195 mg/dL (5-11.8) H 08/25/18 17:15 Influenza A (Rapid) Negative (Negative) 08/24/18 Unknown Influenza B (Rapid) Negative (Negative) 08/24/18 Unknown Active Medications - Current Medications Current Medications: Generic Name Dose Route Start Last Admin Trade Name Freq PRN Reason Stop Dose Admin Acetaminophen 650 mg 08/24/18 21:47 Tylenol PO Q4H PRN Pain MILD(1-3)/Fever >100.5/SPRING Amiodarone HCl 200 mg 08/24/18 22:00 08/28/18 09:44 Cordarone PO 200 mg QDAY MALACHI Administration Aspirin 81 mg 08/24/18 22:00 08/28/18 09:44 Halfprin Ec PO 81 mg QDAY MALACHI Administration Carvedilol 3.125 mg 08/24/18 22:00 08/28/18 09:45 Coreg PO 3.125 mg BID MALACHI Administration Enoxaparin Sodium 30 mg 08/24/18 22:00 08/27/18 22:28 Lovenox SUB-Q 30 mg QDAY@2200 MALACHI Administration Famotidine 10 mg 08/24/18 22:00 08/28/18 09:44 Pepcid PO 10 mg BID MALACHI Administration Guaifenesin 200 mg 08/25/18 13:36 08/27/18 09:29 Robitussin PO 200 mg Q6H PRN Administration Cough Hydromorphone HCl 0.5 mg 08/24/18 21:47 Dilaudid IV Q3H PRN Pain , Severe (7-10) Insulin Human Isoph/Insulin Regular 35 unit 08/25/18 08:00 08/28/18 09:46 Humulin 70/30 SUB-Q 35 unit QAMDIAB MALACHI Administration Insulin Human Lispro 0 unit 08/24/18 22:00 08/28/18 09:49 Humalog SUB-Q 2 unit ACHS MALACHI Administration Protocol Levothyroxine Sodium 150 mcg 08/26/18 11:00 08/28/18 05:27 Synthroid PO 150 mcg DAILY@0600 MALACHI Administration Losartan Potassium 100 mg 08/24/18 22:00 08/28/18 09:45 Cozaar PO 100 mg QDAY MALACHI Administration Methocarbamol 500 mg 08/24/18 21:44 Robaxin PO Q6H PRN Pain Ondansetron HCl 4 mg 08/24/18 21:47 Zofran IV Q8H PRN Nausea And Vomiting Oxycodone/Acetaminophen 1 tab 08/24/18 21:47 Percocet 5/325 PO Q6H PRN Pain, Moderate (4-6) Potassium Chloride 20 meq 08/24/18 22:00 08/28/18 09:44 K-Dur PO 20 meq QDAY MALACHI Administration Pravastatin Sodium 40 mg 08/24/18 22:00 08/27/18 22:28 Pravachol PO 40 mg QHS MALACHI Administration Sodium Chloride 10 ml 08/24/18 22:00 08/28/18 10:01 Sodium Chloride Flush Syringe 10 Ml IV 10 ml BID MALACHI Administration Sodium Chloride 10 ml 08/24/18 21:47 08/24/18 23:33 Sodium Chloride Flush Syringe 10 Ml IV 10 ml PRN PRN Administration LINE FLUSH Spironolactone 25 mg 08/24/18 22:00 08/28/18 09:45 Aldactone PO 25 mg QDAY MALACHI Administration Zolpidem Tartrate 5 mg 08/26/18 23:27 08/28/18 00:06 Ambien PO 5 mg QHS PRN Administration Sleep
--- NOTE | 2018-08-28 17:03 | Progress Note ---
Assessment and Plan - Patient Problems (1) Hypothyroidism Current Visit: Yes Status: Acute Plan to address problem: We will defer to internal medicine and endocrinology for management of the patient's hypothyroidism and thyroid goiter. We have discontinued amiodarone therapy at this time in response to the thyroid disease. (2) Acute exacerbation of CHF (congestive heart failure) Current Visit: No Status: Acute Qualifiers: Qualified Code(s): I50.23 - Acute on chronic systolic (congestive) heart failure Plan to address problem: Medical therapy including diuretics, afterload agents, beta blockers and oral antiplatelet therapy. Subjective Date of service: 08/28/18 Interval history: Patient is comfortable, looks and feels better, no cardiac complaints. Objective Vital Signs Temp Pulse Pulse Resp BP Pulse Ox 08/28/18 13:42 97.6 F 79 20 129/97 98 08/28/18 09:45 72 123/91 08/28/18 08:06 98.1 F 72 18 123/91 97 08/28/18 04:39 98.3 F 72 18 122/91 90 08/28/18 00:09 98.4 F 79 18 125/96 98 08/27/18 22:27 71 131/88 08/27/18 20:24 71 18 96 08/27/18 19:23 72 08/27/18 19:15 98.2 F 71 18 131/88 96 08/27/18 17:29 97.7 F 68 16 130/92 97 - Physical Examination General: Appears Well, No Apparent Distress HEENT: Positive: PERRL Neck: Positive: neck supple, trachea midline Cardiac: Positive: Reg Rate and Rhythm Lungs: Positive: Decreased Breath Sounds Neuro: Positive: Grossly Intact Abdomen: Positive: Soft Skin: Positive: Clear Extremities: Absent: edema - Labs and Meds Comprehensive Metabolic Panel 08/28/18 Range/Units 05:33 Sodium 138 (137-145) mmol/L Potassium 4.3 (3.6-5.0) mmol/L Chloride 105.4 (98-107) mmol/L Carbon Dioxide 17 L (22-30) mmol/L BUN 39 H (9-20) mg/dL Creatinine 3.4 H (0.8-1.5) mg/dL Glucose 151 H (75-100) mg/dL Calcium 9.0 (8.4-10.2) mg/dL
[2018-08-28] MEDS: PRAVACHOL PO SCH (22:16)
[2018-08-28] MEDS: LOVENOX SUB-Q SCH (22:16)
[2018-08-29] MEDS: SYNTHROID PO SCH (05:46)
[2018-08-29 06:01] LABS: Calcium 8.4 mg/dL (8.4-10.2)
--- NOTE | 2018-08-29 07:36 | Progress Note ---
Assessment and Plan 1. Acute kidney injury: [place] superimposed on CKD in the setting of NSAID and CHF. Renal US negative for hydro. Creatinine has returned to previous levels. Hold diuretics for now. Monitor renal function. Renal prognosis is guarded. Avoid nephrotoxic agents. Meds dosage based on GFR. 2. CHF exacerbation: Followed by Cards. Appears compensated. 3. Proteinuria: Secondary to diabetic nephropathy. On Losartan. 4. Uncontrolled DM type 2: HbA1C 13.7 5. Hypothyroid. 6. Hypertension. 7. Medical non-compliance: Counseled. Subjective Date of service: 08/29/18 Interval history: Patient was seen and examined at the bedside. Doing ok. Objective - Vital Signs Vital signs: Vital Signs - 12hr 08/28/18 08/28/18 08/28/18 20:33 21:19 22:15 Temperature 98.0 F Pulse Rate 72 72 Pulse Rate [ 72 Apical] Respiratory 20 18 Rate Blood Pressure 125/96 125/96 O2 Sat by Pulse 96 96 Oximetry 08/29/18 08/29/18 08/29/18 00:18 04:51 04:54 Temperature 98.1 F 97.7 F Pulse Rate 75 72 Pulse Rate [ Apical] Respiratory 20 Rate Blood Pressure 122/87 127/88 O2 Sat by Pulse 95 97 Oximetry - General Appearance General appearance: well-developed, well-nourished, appears stated age, other (not in distress) EENT: ATNC, PERRL, mucous membranes moist, hearing intact, vision intact Neck: thyromegaly, supple Respiratory: Present: Clear to Ascultation Cardiology: regular, S1S2, no murmurs Gastrointestinal: normoactive bowel sounds, no tenderness, no distended Integumentary: no rash, warm and dry Neurologic: no focal deficit, no asterixis, alert and oriented x3 Musculoskeletal: other (no edema) Psychiatric: cooperative - Lab 08/25/18 06:33 08/30/18 07:13 Most recent lab results Calcium 8.4 mg/dL (8.4-10.2) 08/29/18 05:25 Phosphorus 3.10 mg/dL (2.5-4.5) 08/26/18 05:55 Magnesium 2.10 mg/dL (1.7-2.3) 08/26/18 05:55 Urine Creatinine 63.9 mg/dL (0.1-20.0) H 04/02/19 17:15 Urine Sodium 117 mmol/L 08/25/18 17:15 Urine Total Protein 195 mg/dL (5-11.8) H 08/25/18 17:15 Medications & Allergies - Medications Allergies/Adverse Reactions: Allergies pineapple Allergy (Verified 08/24/18 21:54) Anaphylaxis Home Medications: Home Medications Medication Instructions Recorded Confirmed Last Taken Type Insulin Aspart Prot/Aspart(Nf) 35 units SQ QAM 12/13/16 08/24/18 12/23/16 History [NovoLOG Mix 70/30 VIAL] Amiodarone [Cordarone 200 MG TAB] 200 mg PO QDAY #14 tablet 08/30/18 Unknown Rx Aspirin EC [Aspirin Enteric Coated 81 mg PO QDAY #30 tablet 08/30/18 Unknown Rx TAB] Carvedilol [Coreg] 3.125 mg PO BID #30 tablet 08/30/18 Unknown Rx Furosemide [Lasix TAB] 40 mg PO QDAY #15 tablet 08/30/18 Unknown Rx Losartan [Cozaar] 100 mg PO QDAY #15 tablet 08/30/18 Unknown Rx Potassium Chloride [K-Dur] 20 meq PO QDAY #14 tablet 08/30/18 Unknown Rx Pravastatin [Pravachol] 40 mg PO QHS #30 tablet 08/30/18 Unknown Rx Spironolactone [Aldactone] 25 mg PO QDAY #15 tablet 08/30/18 Unknown Rx methOCARBAMOL [Robaxin TAB] 500 mg PO Q6H PRN #15 tablet 08/30/18 Unknown Rx oxyCODONE /ACETAMINOPHEN [Percocet 1 tab PO Q6H PRN #6 tablet 08/30/18 Unknown Rx 5/325 mg] Active Medications: Generic Name Dose Route Start Last Admin Trade Name Freq PRN Reason Stop Dose Admin Acetaminophen 650 mg 08/24/18 21:47 Tylenol PO Q4H PRN Pain MILD(1-3)/Fever >100.5/SPRING Amiodarone HCl 200 mg 08/24/18 22:00 08/28/18 09:44 Cordarone PO 200 mg QDAY MALACHI Administration Aspirin 81 mg 08/24/18 22:00 08/28/18 09:44 Halfprin Ec PO 81 mg QDAY MALACHI Administration Carvedilol 3.125 mg 08/24/18 22:00 08/28/18 22:15 Coreg PO 3.125 mg BID MALACHI Administration Enoxaparin Sodium 30 mg 08/24/18 22:00 08/28/18 22:16 Lovenox SUB-Q 30 mg QDAY@2200 MALACHI Administration Famotidine 10 mg 08/28/18 22:00 08/28/18 22:17 Pepcid PO 10 mg BID MALACHI Administration Guaifenesin 200 mg 08/25/18 13:36 08/27/18 09:29 Robitussin PO 200 mg Q6H PRN Administration Cough Hydromorphone HCl 0.5 mg 08/24/18 21:47 Dilaudid IV Q3H PRN Pain , Severe (7-10) Insulin Human Isoph/Insulin Regular 35 unit 08/25/18 08:00 08/28/18 09:46 Humulin 70/30 SUB-Q 35 unit QAMDIAB MALACHI Administration Insulin Human Lispro 0 unit 08/24/18 22:00 08/28/18 22:21 Humalog SUB-Q Not Given ACHS [facility] Protocol Levothyroxine Sodium 150 mcg 08/26/18 11:00 08/29/18 05:46 Synthroid PO 150 mcg DAILY@0600 [facility] Administration Losartan Potassium 100 mg 08/24/18 22:00 08/28/18 09:45 Cozaar PO 100 mg QDAY MALACHI Administration Methocarbamol 500 mg 08/24/18 21:44 Robaxin PO Q6H PRN Pain Ondansetron HCl 4 mg 08/24/18 21:47 Zofran IV Q8H PRN Nausea And Vomiting Oxycodone/Acetaminophen 1 tab 08/24/18 21:47 Percocet 5/325 PO Q6H PRN Pain, Moderate (4-6) Potassium Chloride 20 meq 08/24/18 22:00 08/28/18 09:44 K-Dur PO 20 meq QDAY MALACHI Administration Pravastatin Sodium 40 mg 08/24/18 22:00 08/28/18 22:16 Pravachol PO 40 mg QHS MALACHI Administration Sodium Chloride 10 ml 08/24/18 22:00 08/28/18 22:21 Sodium Chloride Flush Syringe 10 Ml IV 10 ml BID MALACHI Administration Sodium Chloride 10 ml 08/24/18 21:47 08/24/18 23:33 Sodium Chloride Flush Syringe 10 Ml IV 10 ml PRN PRN Administration LINE FLUSH Spironolactone 25 mg 08/24/18 22:00 08/28/18 09:45 Aldactone PO 25 mg QDAY MALACHI Administration Zolpidem Tartrate 5 mg 08/26/18 23:27 08/28/18 00:06 Ambien PO 5 mg QHS PRN Administration Sleep
--- NOTE | 2018-08-29 08:09 | Progress Note ---
Assessment and Plan 1. Chronic combined systolic and diastolic heart failure 2. Severe dilated known ischemic cardiomyopathy 3. Essential hypertension 4. Chronic kidney disease stage III 5. Hypothyroidism 6. Presence of a ICD Plan. Cardiac-oliver stable continue present medication follow-up in the office upon discharge. Subjective Date of service: 08/29/18 Interval history: No cardiac symptoms Objective Vital Signs Temp Pulse Pulse Resp BP Pulse Ox 08/29/18 04:54 97.7 F 08/29/18 04:51 72 127/88 97 08/29/18 00:18 98.1 F 75 20 122/87 95 08/28/18 22:15 72 125/96 08/28/18 21:19 72 18 96 08/28/18 20:33 98.0 F 72 20 125/96 96 08/28/18 19:24 78 08/28/18 17:59 98.5 F 77 20 147/104 96 08/28/18 13:42 97.6 F 79 20 129/97 98 08/28/18 09:45 72 123/91 - Physical Examination General: Appears Well, No Apparent Distress HEENT: Positive: PERRL Neck: Positive: neck supple, trachea midline Cardiac: Positive: Reg Rate and Rhythm, Regular Rate, S1/S2, PMI, Laterally Displaced. Negative: S3, S4 Lungs: Positive: Normal Breath Sounds, No Wheeze, Rales, Rhonchi Neuro: Positive: Grossly Intact Abdomen: Positive: Soft Skin: Positive: Clear Extremities: Absent: edema - Labs and Meds Comprehensive Metabolic Panel 08/29/18 Range/Units 05:25 Sodium 138 (137-145) mmol/L Potassium 4.5 (3.6-5.0) mmol/L Chloride 107.9 H (98-107) mmol/L Carbon Dioxide 19 L (22-30) mmol/L BUN 34 H (9-20) mg/dL Creatinine 2.8 H (0.8-1.5) mg/dL Glucose 181 H (75-100) mg/dL Calcium 8.4 (8.4-10.2) mg/dL
[2018-08-29] MEDS: HumaLOG SUB-Q SCH ×4 (08:21→21:59)
[2018-08-29] MEDS: COZAAR PO SCH (09:57)
[2018-08-29] MEDS: K-DUR PO SCH (09:58)
[2018-08-29] MEDS: CORDARONE PO SCH (09:58)
[2018-08-29] MEDS: HALFPRIN EC PO SCH (09:58)
[2018-08-29] MEDS: ALDACTONE PO SCH (09:58)
[2018-08-29] MEDS: PEPCID PO SCH ×2 (09:59→21:22)
[2018-08-29] MEDS ORDERED: PEPCID PO SCH (10:00)
[2018-08-29] MEDS: SODIUM CHLORIDE FLUSH SYRINGE 10 ML IV SCH ×2 (10:00→21:30)
[2018-08-29] MEDS: COREG PO SCH ×2 (10:14→21:21)
--- NOTE | 2018-08-29 12:57 | Progress Note ---
Assessment and Plan Assessment and plan: Acute on chronic systolic congestive heart failure, EF 30% Continue heart failure medications and output monitoring. Continue Coreg, Lasix Acute on chronic respiratory failure secondary to acute exacerbation of congestive heart failure systolic dysfunction Oxygen titrated to O2 sats more than 90%, Nebulizers as needed Continue diuresis as noted above Enlarged neck mass ?thyroid nodule/goiter. Check CT scan of neck results. Goiter with (Elevated TSH and decreased T4) hypothyroidism suspicious for Rashaun's thyroiditis. Check TPO antibody Hypothyroidism. Continue Synthroid. Hypertension; continue current antihypertensives and when necessary medications Type 2 diabetes mellitus; Accu-Chek sliding scale coverage and ADA diet and long-acting insulin Closely monitor blood sugars and adjust as needed Dilated cardiomyopathy. As above. History of V. fib. s/p AICD. Patient also on amiodarone for suppression. DVT prophylaxis; Lovenox renal dose Stress test in May 2016 revealed evidence of dilated cardiomyopathy with prior inferior wall infarction. History Interval history: No new issues overnight. Hospitalist Physical - Constitutional Vitals: Temp Pulse Resp BP Pulse Ox 97.7 F 83 16 135/98 99 08/29/18 12:49 08/29/18 12:49 08/29/18 12:49 08/29/18 12:49 08/29/18 12:49 General appearance: Present: no acute distress - EENT Eyes: Present: PERRL, EOM intact ENT: hearing intact, clear oral mucosa, dentition normal - Neck Neck: Present: supple, normal ROM - Respiratory Respiratory effort: normal Respiratory: bilateral: CTA - Cardiovascular Rhythm: regular Heart Sounds: Present: S1 & S2. Absent: gallop, rub - Extremities Extremities: no ischemia, No edema, Full ROM - Abdominal General gastrointestinal: soft, non-tender, non-distended, normal bowel sounds - Integumentary Integumentary: Present: clear, warm, dry - Neurologic Neurologic: CNII-XII intact, moves all extremities Results - Labs CBC & Chem 7: 08/25/18 06:33 08/29/18 05:25 Labs: Laboratory Last Values WBC 8.9 K/mm3 (4.5-11.0) 08/25/18 06:33 RBC 4.40 M/mm3 (3.65-5.03) 08/25/18 06:33 Hgb 12.2 gm/dl (11.8-15.2) 08/25/18 06:33 Hct 37.4 % (35.5-45.6) 08/25/18 06:33 MCV 85 fl (84-94) 08/25/18 06:33 MCH 28 pg (28-32) 08/25/18 06:33 MCHC 33 % (32-34) 08/25/18 06:33 RDW 14.6 % (13.2-15.2) 08/25/18 06:33 Plt Count 170 K/mm3 (140-440) 08/25/18 06:33 Lymph % (Auto) 13.3 % (13.4-35.0) L 08/25/18 06:33 [place] % (Auto) 11.2 % (0.0-7.3) H 08/25/18 06:33 Eos % (Auto) 1.4 % (0.0-4.3) 08/25/18 06:33 Baso % (Auto) 0.8 % (0.0-1.8) 08/25/18 06:33 Lymph # 1.2 K/mm3 (1.2-5.4) 08/25/18 06:33 [place] # 1.0 K/mm3 (0.0-0.8) H 08/25/18 06:33 Eos # 0.1 K/mm3 (0.0-0.4) 08/25/18 06:33 Baso # 0.1 K/mm3 (0.0-0.1) 08/25/18 06:33 Seg Neutrophils % 73.3 % (40.0-70.0) H 08/25/18 06:33 Seg Neutrophils # 6.5 K/mm3 (1.8-7.7) 08/25/18 06:33 Sodium 138 mmol/L (137-145) 08/29/18 05:25 Potassium 4.5 mmol/L (3.6-5.0) 08/29/18 05:25 Chloride 107.9 mmol/L (98-107) H 08/29/18 05:25 Carbon Dioxide 19 mmol/L (22-30) L 08/29/18 05:25 Anion Gap 16 mmol/L 08/29/18 05:25 BUN 34 mg/dL (9-20) H 08/29/18 05:25 Creatinine 2.8 mg/dL (0.8-1.5) H 08/29/18 05:25 Estimated GFR 30 ml/min 08/29/18 05:25 BUN/Creatinine Ratio 12 % 08/29/18 05:25 Glucose 181 mg/dL (75-100) H 08/29/18 05:25 POC Glucose 212 (70-105) H 08/29/18 12:05 Hemoglobin A1c 13.7 % (4-6) H 08/24/18 21:10 Calcium 8.4 mg/dL (8.4-10.2) 08/29/18 05:25 Phosphorus 3.10 mg/dL (2.5-4.5) 08/26/18 05:55 Magnesium 2.10 mg/dL (1.7-2.3) 08/26/18 05:55 Total Bilirubin 1.30 mg/dL (0.1-1.2) H 08/25/18 06:33 AST 27 units/L (5-40) 08/25/18 06:33 ALT 40 units/L (7-56) 08/25/18 06:33 Alkaline Phosphatase 70 units/L (35-129) 08/25/18 06:33 Troponin T 0.059 ng/mL (0.00-0.029) H 08/24/18 11:07 NT-Pro-B Natriuret Pep 98002 pg/mL (0-450) H 08/24/18 11:07 Total Protein 6.7 g/dL (6.3-8.2) 08/25/18 06:33 Albumin 3.2 g/dL (3.9-5) L 08/25/18 06:33 Albumin/Globulin Ratio 0.9 % 08/25/18 06:33 Triglycerides 128 mg/dL (2-149) 08/24/18 11:07 Cholesterol 199 mg/dL (50-199) 08/24/18 11:07 LDL Cholesterol Direct 154 mg/dL (50-130) H 08/24/18 11:07 HDL Cholesterol 48 mg/dL (40-59) 08/24/18 11:07 Cholesterol/HDL Ratio 4.14 % 08/24/18 11:07 TSH 28.340 mlU/mL (0.270-4.200) H 08/24/18 11:07 Free T4 0.55 ng/dL (0.76-1.46) L 08/26/18 13:23 Thyroxine (T4) 3.9 ug/dL (4.0-12.0) L 08/26/18 13:23 PTH Intact 124.8 pg/mL (15-65) H 08/27/18 05:43 Urine Color Yellow (Yellow) 08/24/18 12:10 Urine Turbidity Clear (Clear) 08/24/18 12:10 Urine pH 5.0 (5.0-7.0) 08/24/18 12:10 Ur Specific [place] 1.017 (1.003-1.030) 08/24/18 12:10 Urine Protein >2000 mg dl mg/dL (Negative) 08/24/18 12:10 Urine Glucose (UA) >=500 mg/dL (Negative) 08/24/18 12:10 Urine Ketones Neg mg/dL (Negative) 08/24/18 12:10 Urine Blood Sm (Negative) 08/24/18 12:10 Urine Nitrite Neg (Negative) 08/24/18 12:10 Urine Bilirubin Neg (Negative) 08/24/18 12:10 Urine Urobilinogen < 2.0 mg/dL (<2.0) 08/24/18 12:10 Ur Leukocyte Esterase Neg (Negative) 08/24/18 12:10 Urine WBC (Auto) 1.0 /HPF (0.0-6.0) 08/24/18 12:10 Urine RBC (Auto) 2.0 /HPF (0.0-6.0) 08/24/18 12:10 Urine Mucus Few /HPF 08/24/18 12:10 Urine Creatinine 63.9 mg/dL (0.1-20.0) H 08/25/18 17:15 Protein/Creatinin Ratio 3.05 08/25/18 17:15 Urine Sodium 117 mmol/L 08/25/18 17:15 Urine Total Protein 195 mg/dL (5-11.8) H 08/25/18 17:15 Influenza A (Rapid) Negative (Negative) 08/24/18 Unknown Influenza B (Rapid) Negative (Negative) 08/24/18 Unknown Active Medications - Current Medications Current Medications: Generic Name Dose Route Start Last Admin Trade Name Freq PRN Reason Stop Dose Admin Acetaminophen 650 mg 08/24/18 21:47 Tylenol PO Q4H PRN Pain MILD(1-3)/Fever >100.5/SPRING Amiodarone HCl 200 mg 08/24/18 22:00 08/29/18 09:58 Cordarone PO 200 mg QDAY MALACHI Administration Aspirin 81 mg 08/24/18 22:00 08/29/18 09:58 Halfprin Ec PO 81 mg QDAY MALACHI Administration Carvedilol 3.125 mg 08/24/18 22:00 08/29/18 10:14 Coreg PO 3.125 mg BID MALACHI Administration Enoxaparin Sodium 30 mg 08/24/18 22:00 08/28/18 22:16 Lovenox SUB-Q 30 mg QDAY@2200 [facility] Administration Famotidine 10 mg 08/28/18 22:00 08/29/18 09:59 Pepcid PO 10 mg BID MALACHI Administration Guaifenesin 200 mg 08/25/18 13:36 08/27/18 09:29 Robitussin PO 200 mg Q6H PRN Administration Cough Hydromorphone HCl 0.5 mg 08/24/18 21:47 Dilaudid IV Q3H PRN Pain , Severe (7-10) Insulin Human Isoph/Insulin Regular 35 unit 08/25/18 08:00 08/29/18 08:24 Humulin 70/30 SUB-Q Not Given QAMDIAB [facility] Insulin Human Lispro 0 unit 08/24/18 22:00 08/29/18 12:13 Humalog SUB-Q 3 unit ACHS MALACHI Administration Protocol Levothyroxine Sodium 150 mcg 08/26/18 11:00 08/29/18 05:46 Synthroid PO 150 mcg DAILY@0600 [facility] Administration Losartan Potassium 100 mg 08/24/18 22:00 08/29/18 09:57 Cozaar PO 100 mg QDAY [facility] Administration Methocarbamol 500 mg 08/24/18 21:44 Robaxin PO Q6H PRN Pain Ondansetron HCl 4 mg 08/24/18 21:47 Zofran IV Q8H PRN Nausea And Vomiting Oxycodone/Acetaminophen 1 tab 08/24/18 21:47 Percocet 5/325 PO Q6H PRN Pain, Moderate (4-6) Potassium Chloride 20 meq 08/24/18 22:00 08/29/18 09:58 K-Dur PO 20 meq QDAY MALACHI Administration Pravastatin Sodium 40 mg 08/24/18 22:00 08/28/18 22:16 Pravachol PO 40 mg QHS MALACHI Administration Sodium Chloride 10 ml 08/24/18 22:00 08/29/18 10:00 Sodium Chloride Flush Syringe 10 Ml IV 10 ml BID MALACHI Administration Sodium Chloride 10 ml 08/24/18 21:47 08/24/18 23:33 Sodium Chloride Flush Syringe 10 Ml IV 10 ml PRN PRN Administration LINE FLUSH Spironolactone 25 mg 08/24/18 22:00 08/29/18 09:58 Aldactone PO 25 mg QDAY MALACHI Administration Zolpidem Tartrate 5 mg 08/26/18 23:27 08/28/18 00:06 Ambien PO 5 mg QHS PRN Administration Sleep
[2018-08-29] MEDS: PRAVACHOL PO SCH (21:22)
[2018-08-29] MEDS: LOVENOX SUB-Q SCH (21:29)
[2018-08-30] MEDS: SYNTHROID PO SCH (06:09)
[2018-08-30 08:19] LABS: Calcium 8.5 mg/dL (8.4-10.2)
[2018-08-30] MEDS: HumaLOG SUB-Q SCH ×2 (09:29→12:27)
[2018-08-30] MEDS: CORDARONE PO SCH (09:39)
--- NOTE | 2018-08-30 09:39 | Discharge Summary ---
Providers - Providers Date of Admission: 08/24/18 13:07 Date of discharge: 08/30/18 Attending physician: ISH MATA 08/24/18 21:47 Consult to Physician [CONS] Routine Comment: Consulting Provider: REGGIE LEE Physician Instructions: Reason For Exam: CHF 08/25/18 06:02 Consult to Physician [CONS] Routine Comment: Consulting Provider: BLACK CEVALLOS Physician Instructions: Reason For Exam: [place] Primary care physician: CORDELL GLEASON Hospitalization Reason for admission: gen weakness Condition: Stable Hospital course: Patient is a 47 Yo male who is well known to our service with history significant for HTN, Diabetes mellitus type 2, Dilated cardiomyopathy s/p AICD, Chronic systolic CHF and CKD stage 3 who presented to ER with multiple symptoms including generalized weakness, some shortness of breath, non-productive cough and rib pain. Labs were significant for creatinine 2.9, TSH 28, elevated Troponin and BNP. His ECG is normal sinus rhythm with a nonspecific intraventricular conduction delay. No acute ischemic changes. Chest x-ray showed cardiomegaly, but clear lungs and no interstitial edema. Nephrology and cardiology were consulted for further evaluation and treatment. The patient was admitted with diagnosis of acute hypoxemic respiratory failure secondary to a cute on chronic systolic heart failure and hypothyroidism. The elevated TSH was consistent with hypothyroidism. Findings on physical examination revealed fullness at the base of the neck consistent with likely goiter. CT scan of the neck was obtained which is pending. Amiodarone therapy was discontinued by cardiology at this time in response to the thyroid disease. The heart failure was treated with medical therapy including diuretics, afterload agents, beta blockers and/or antiplatelets. Patient has significant improvement and returned back to his baseline with regards to his respiratory status. Cardiology reported no further heart failure or cardiac symptoms. With regards to the hypothyroidism patient was treated with Synthroid and will need further follow- up as an outpatient with thyroid ultrasound and follow-up studies. Physical examination findings of goiter with (Elevated TSH and decreased T4) hypothyroidism suspicious for Rashaun's thyroiditis. TPO antibodies were ob tained and are pending. Referral for endocrinology for Dr. Silva will be given a discharge. Dedicated discharge time 32 minutes. Disposition: TO HOME OR SELFCARE Time spent for discharge: 32 - Discharge Diagnoses (1) Hypothyroidism Status: Acute (2) Acute exacerbation of CHF (congestive heart failure) Status: Acute (3) Respiratory failure Status: Acute Qualifiers: Chronicity: acute Respiratory failure complication: hypoxia Qualified Code(s): J96.01 - Acute respiratory failure with hypoxia (4) HLD (hyperlipidemia) Status: Chronic Qualifiers: Hyperlipidemia type: mixed hyperlipidemia Qualified Code(s): E78.2 - Mixed hyperlipidemia (5) HTN (hypertension) Status: Chronic Qualifiers: Hypertension type: essential hypertension Qualified Code(s): I10 - Essential (primary) hypertension (6) IDDM (insulin dependent diabetes mellitus) Status: Chronic Core Measure Documentation - Palliative Care Palliative Care/ Comfort Measures: Not Applicable - Core Measures Any of the following diagnoses?: heart failure - Heart Failure Discharge Requirements CAITLIN/ARB for LVSD if EF <40%: Yes Beta yris at discharge: Yes Exam - Constitutional Vitals: Temp Pulse Resp BP Pulse Ox 97.6 F 106 H 20 130/97 96 08/30/18 05:00 08/30/18 05:00 08/30/18 05:00 08/30/18 05:00 08/30/18 05:00 General appearance: Present: no acute distress, well-nourished - EENT Eyes: Present: PERRL ENT: hearing intact, clear oral mucosa - Neck Neck: Present: supple, normal ROM - Respiratory Respiratory effort: normal Respiratory: bilateral: CTA - Cardiovascular Heart Sounds: Present: S1 & S2. Absent: rub, click - Extremities Extremities: pulses symmetrical, No edema Peripheral Pulses: within normal limits - Abdominal General gastrointestinal: Present: soft, non-tender, non-distended, normal bowel sounds Male genitourinary: Present: normal - Integumentary Integumentary: Present: clear, warm, dry - Musculoskeletal Musculoskeletal: gait normal, strength equal bilaterally - Psychiatric Psychiatric: appropriate mood/affect, intact judgment & insight - Neurologic Neurologic: CNII-XII intact, moves all extremities Plan Activity: advance as tolerated Weight Bearing Status: Weight Bear as Tolerated Diet: diabetic Special Instructions: restrict fluid intake to (1.2 L) Additional Instructions: Follow-up with endocrinology for thyroid ultrasound and TPO antibody Follow up with: CORDELL GLEASON MD [Primary Care Provider] - 3-5 Days LAURENCE CARBAJAL MD [Referring] - 7 Days Prescriptions: Spironolactone [Aldactone] 25 mg PO QDAY #15 tablet Aspirin EC [Aspirin Enteric Coated TAB] 81 mg PO QDAY #30 tablet Amiodarone [Cordarone 200 MG TAB] 200 mg PO QDAY #14 tablet Carvedilol [Coreg] 3.125 mg PO BID #30 tablet Losartan [Cozaar] 100 mg PO QDAY #15 tablet Potassium Chloride [K-Dur] 20 meq PO QDAY #14 tablet Furosemide [Lasix TAB] 40 mg PO QDAY #15 tablet oxyCODONE /ACETAMINOPHEN [Percocet 5/325 mg] 1 tab PO Q6H PRN #6 tablet PRN Reason: Pain, Moderate (4-6) Pravastatin [Pravachol] 40 mg PO QHS #30 tablet methOCARBAMOL [Robaxin TAB] 500 mg PO Q6H PRN #15 tablet PRN Reason: Pain
[2018-08-30] MEDS: K-DUR PO SCH (09:41)
[2018-08-30] MEDS: COZAAR PO SCH (09:42)
[2018-08-30] MEDS: PEPCID PO SCH (09:44)
[2018-08-30] MEDS: ALDACTONE PO SCH (09:45)
[2018-08-30] MEDS: COREG PO SCH (09:45)
[2018-08-30] MEDS: HALFPRIN EC PO SCH (09:46)
[2018-08-30] MEDS: SODIUM CHLORIDE FLUSH SYRINGE 10 ML IV SCH (09:46)
[2018-08-30 09:48] VITALS: BP 131/90
--- NOTE | 2018-08-30 09:59 | Cat Scan Report ---
PROCEDURE: CT NECK WO CON TECHNIQUE: Axial helical imaging through the neck with sagittal and coronal reformatted images obtai marleny. HISTORY: neck mass COMPARISONS: Chest x-ray dated August 24, 2018 FINDINGS: Visualization of detail of the larynx is limited by motion artifact in this region. Visualization of detail of portions of the oropharynx are limited by streak artifact created by denta l amalgam. Visualization of detail the soft tissues of the neck is limited by lack of IV contrast. The thyroid gland appears to be enlarged with a possible nodule in the isthmus. Evaluation is limited by streak artifact in this region. There is no other definite evidence of a cervical mass. There is no evidence of cervical adenopathy. There is no evidence of compromise of the airway. The visualized portions of the paranasal sinuses are notable for a probable moderate-sized caliber re tention cyst in the right maxillary sinus. The bony structures are unremarkable. Visualization of detail the contents of the cervical canal is limited by artifact. The visualized portion of the chest is notable for bilateral pleural effusions that are incompletely imaged. There is partial visualization of AICD leads. IMPRESSION: 1. Evaluation for the presence or absence of a cervical mass is limited by streak artifact, motion ar tifact and lack of IV contrast. A small cervical mass could be missed. If the patient has normal renal function, CT of the neck with IV contrast may be helpful for further evaluation. 2. The thyroid gland appears to be enlarged with a possible nodule in the isthmus. Thyroid ultrasound would be helpful for further evaluation. 3. Bilateral pleural effusions that are incompletely imaged. 4. Partial visualization of AICD leads. This document is electronically signed by Claire Alcantar MD., August 30 2018 09:57:41 AM ET
--- NOTE | 2018-08-30 10:22 | Progress Note ---
Assessment and Plan 1. Acute kidney injury: [place] superimposed on CKD in the setting of NSAID and CHF. Renal US negative for hydro. Creatinine level is better today. Hold diuretics for now. Monitor renal function. Renal prognosis is guarded. Avoid nephrotoxic agents. Meds dosage based on GFR. 2. CHF exacerbation: Followed by Cards. Appears compensated. 3. Proteinuria: Secondary to diabetic nephropathy. On Losartan. 4. Uncontrolled DM type 2: HbA1C 13.7 5. Hypothyroid. 6. Hypertension. 7. Medical non-compliance: Counseled. F/u with me in 1-2 weeks. Subjective Date of service: 08/30/18 Interval history: Patient was seen and examined at the bedside. Doing well. Objective - Vital Signs Vital signs: Vital Signs - 12hr 08/29/18 08/30/18 08/30/18 23:57 00:00 00:05 Temperature 97.7 F 97.7 F Pulse Rate 96 H 76 Respiratory 20 20 Rate Blood Pressure 119/89 Blood Pressure 119/89 [Left] O2 Sat by Pulse 100 Oximetry 08/30/18 08/30/18 08/30/18 04:34 05:00 09:36 Temperature 97.6 F 97.6 F Pulse Rate 106 H 81 Respiratory 20 20 18 Rate Blood Pressure 130/97 131/90 Blood Pressure 130/97 [Left] O2 Sat by Pulse 96 100 Oximetry 08/30/18 08/30/18 08/30/18 09:38 09:42 09:45 Temperature 98.1 F Pulse Rate 78 78 Respiratory Rate Blood Pressure 131/90 131/90 Blood Pressure [Left] O2 Sat by Pulse Oximetry - General Appearance General appearance: well-developed, well-nourished, appears stated age, other (not in distress) EENT: ATNC, PERRL, mucous membranes moist, hearing intact, vision intact Neck: thyromegaly, supple Respiratory: Present: Clear to Ascultation Cardiology: regular, S1S2, no murmurs Gastrointestinal: normoactive bowel sounds, no tenderness, no distended Integumentary: no rash, warm and dry Neurologic: no focal deficit, no asterixis, alert and oriented x3 Musculoskeletal: other (no edema) - Lab 08/25/18 06:33 08/30/18 07:13 Most recent lab results Calcium 8.5 mg/dL (8.4-10.2) 08/30/18 07:13 Phosphorus 3.10 mg/dL (2.5-4.5) 08/26/18 05:55 Magnesium 2.10 mg/dL (1.7-2.3) 08/26/18 05:55 Urine Creatinine 63.9 mg/dL (0.1-20.0) H 08/25/18 17:15 Urine Sodium 117 mmol/L 08/25/18 17:15 Urine Total Protein 195 mg/dL (5-11.8) H 08/25/18 17:15 Medications & Allergies - Medications Allergies/Adverse Reactions: Allergies pineapple Allergy (Verified 08/24/18 21:54) Anaphylaxis Home Medications: Home Medications Medication Instructions Recorded Confirmed Last Taken Type Insulin Aspart Prot/Aspart(Nf) 35 units SQ QAM 12/13/16 08/24/18 12/23/16 History [NovoLOG Mix 70/30 VIAL] Amiodarone [Cordarone 200 MG TAB] 200 mg PO QDAY #14 tablet 08/30/18 Unknown Rx Aspirin EC [Aspirin Enteric Coated 81 mg PO QDAY #30 tablet 08/30/18 Unknown Rx TAB] Carvedilol [Coreg] 3.125 mg PO BID #30 tablet 08/30/18 Unknown Rx Furosemide [Lasix TAB] 40 mg PO QDAY #15 tablet 08/30/18 Unknown Rx Levothyroxine (Nf) [Synthroid (Nf)] 100 mcg PO QAM #30 tablet 08/30/18 Unknown Rx Losartan [Cozaar] 100 mg PO QDAY #15 tablet 08/30/18 Unknown Rx Potassium Chloride [K-Dur] 20 meq PO QDAY #14 tablet 08/30/18 Unknown Rx Pravastatin [Pravachol] 40 mg PO QHS #30 tablet 08/30/18 Unknown Rx Spironolactone [Aldactone] 25 mg PO QDAY #15 tablet 08/30/18 Unknown Rx methOCARBAMOL [Robaxin TAB] 500 mg PO Q6H PRN #15 tablet 08/30/18 Unknown Rx oxyCODONE /ACETAMINOPHEN [Percocet 1 tab PO Q6H PRN #6 tablet 08/30/18 Unknown Rx 5/325 mg] Active Medications: Generic Name Dose Route Start Last Admin Trade Name Freq PRN Reason Stop Dose Admin Acetaminophen 650 mg 08/24/18 21:47 Tylenol PO Q4H PRN Pain MILD(1-3)/Fever >100.5/SPRING Amiodarone HCl 200 mg 08/24/18 22:00 08/30/18 09:39 Cordarone PO 200 mg QDAY MALACHI Administration Aspirin 81 mg 08/24/18 22:00 08/30/18 09:46 Halfprin Ec PO 81 mg QDAY [facility] Administration Carvedilol 3.125 mg 08/24/18 22:00 08/30/18 09:45 Coreg PO 3.125 mg BID MALACHI Administration Enoxaparin Sodium 30 mg 08/24/18 22:00 08/29/18 21:29 Lovenox SUB-Q 30 mg QDAY@2200 [facility] Administration Famotidine 10 mg 08/28/18 22:00 08/30/18 09:44 Pepcid PO 10 mg BID [facility] Administration Guaifenesin 200 mg 08/25/18 13:36 08/27/18 09:29 Robitussin PO 200 mg Q6H PRN Administration Cough Hydromorphone HCl 0.5 mg 08/24/18 21:47 Dilaudid IV Q3H PRN Pain , Severe (7-10) Insulin Human Isoph/Insulin Regular 35 unit 08/25/18 08:00 08/30/18 09:44 Humulin 70/30 SUB-Q 35 unit QAMDIAB [facility] Administration Insulin Human Lispro 0 unit 08/24/18 22:00 08/30/18 09:29 Humalog SUB-Q Not Given ACHS [facility] Protocol Levothyroxine Sodium 150 mcg 08/26/18 11:00 08/30/18 06:09 Synthroid PO 150 mcg DAILY@0600 [facility] Administration Losartan Potassium 100 mg 08/24/18 22:00 08/30/18 09:42 Cozaar PO 100 mg QDAY [facility] Administration Methocarbamol 500 mg 08/24/18 21:44 Robaxin PO Q6H PRN Pain Ondansetron HCl 4 mg 08/24/18 21:47 Zofran IV Q8H PRN Nausea And Vomiting Oxycodone/Acetaminophen 1 tab 08/24/18 21:47 Percocet 5/325 PO Q6H PRN Pain, Moderate (4-6) Potassium Chloride 20 meq 08/24/18 22:00 08/30/18 09:41 K-Dur PO 20 meq QDAY MALACHI Administration Pravastatin Sodium 40 mg 08/24/18 22:00 08/29/18 21:22 Pravachol PO 40 mg QHS MALACHI Administration Sodium Chloride 10 ml 08/24/18 22:00 08/30/18 09:46 Sodium Chloride Flush Syringe 10 Ml IV 10 ml BID MALACHI Administration Sodium Chloride 10 ml 08/24/18 21:47 08/24/18 23:33 Sodium Chloride Flush Syringe 10 Ml IV 10 ml PRN PRN Administration LINE FLUSH Spironolactone 25 mg 08/24/18 22:00 08/30/18 09:45 Aldactone PO 25 mg QDAY MALACHI Administration Zolpidem Tartrate 5 mg 08/26/18 23:27 08/28/18 00:06 Ambien PO 5 mg QHS PRN Administration Sleep
--- NOTE | 2018-08-30 12:44 | Progress Note ---
Assessment and Plan 1. Chronic combined systolic and diastolic heart failure 2. Severe dilated known ischemic cardiomyopathy 3. Essential hypertension 4. Chronic kidney disease stage III 5. Hypothyroidism 6. Presence of a ICD Plan. Cardiac-oliver stable continue present medication follow-up in the office upon discharge. Subjective Date of service: 08/30/18 Interval history: No cardiac symptoms Objective Vital Signs Temp Pulse Pulse Resp BP BP Pulse Ox 08/30/18 09:45 78 131/90 08/30/18 09:42 78 131/90 08/30/18 09:38 98.1 F 08/30/18 09:36 81 18 131/90 100 08/30/18 05:00 97.6 F 106 H 20 130/97 96 08/30/18 04:34 97.6 F 20 130/97 08/30/18 00:05 76 08/30/18 00:00 97.7 F 96 H 20 119/89 100 08/29/18 23:57 97.7 F 20 119/89 08/29/18 22:15 76 18 100 08/29/18 21:21 76 136/100 08/29/18 19:38 77 08/29/18 19:33 97.6 F 76 20 136/100 100 08/29/18 16:23 97.8 F 76 20 117/96 98 08/29/18 12:49 97.7 F 83 16 135/98 99 - Physical Examination General: Appears Well, No Apparent Distress HEENT: Positive: PERRL Neck: Positive: neck supple, trachea midline Cardiac: Positive: Reg Rate and Rhythm, S1/S2, S3, PMI, Laterally Displaced Lungs: Positive: clear to auscultation, No Wheeze, Rales, Rhonchi Neuro: Positive: Grossly Intact Abdomen: Positive: Unremarkable, Soft Skin: Positive: Clear Extremities: Absent: edema - Labs and Meds Comprehensive Metabolic Panel 08/30/18 Range/Units 07:13 Sodium 134 L (137-145) mmol/L Potassium 4.9 (3.6-5.0) mmol/L Chloride 106.2 (98-107) mmol/L Carbon Dioxide 19 L (22-30) mmol/L BUN 31 H (9-20) mg/dL Creatinine 2.5 H (0.8-1.5) mg/dL Glucose 210 H (75-100) mg/dL Calcium 8.5 (8.4-10.2) mg/dL
[2018-09-01 21:06] LABS: Myeloperoxidase Antibody <1.0 AI (<1.0)
[2018-09-01 22:49] LABS: Albumin 2.9 g/dL (3.8-4.8); Gamma Globulin 1.2 g/dL (0.8-1.7)
[2018-09-03 11:57] LABS: ANA Screen, IFA Negative (Negative)
[2018-09-03 13:13] LABS: Anti-TPO Antibodies SEE SCANNED RESULT; Thyroglobulin Antibodies SEE SCANNED RESULT
== END 2018-08-30 14:47 | disposition home or self-care (01) | DRG 682 ==
LOC: ED 09:26 → 4A 13:07
PROVIDERS: ADMIT Internal Medicine; ATTEND Hospitalist
DX: N17.9 Acute kidney failure, unspecified (principal); J96.20 Acute and chronic respiratory failure, unspecified whether with hypoxia or hypercapnia; I50.43 Acute on chronic combined systolic (congestive) and diastolic (congestive) heart failure; I13.0 Hypertensive heart and chronic kidney disease with heart failure and stage 1 through stage 4 chronic kidney disease, or unspecified chronic kidney disease; I42.0 Dilated cardiomyopathy; E03.9 Hypothyroidism, unspecified; N18.3 Chronic kidney disease, stage 3 (moderate); E11.21 Type 2 diabetes mellitus with diabetic nephropathy; E11.22 Type 2 diabetes mellitus with diabetic chronic kidney disease; E78.2 Mixed hyperlipidemia; J45.909 Unspecified asthma, uncomplicated; I48.91 Unspecified atrial fibrillation; Z95.810 Presence of automatic (implantable) cardiac defibrillator; Z91.018 Allergy to other foods; Z79.82 Long term (current) use of aspirin; Z79.899 Other long term (current) drug therapy; Z79.4 Long term (current) use of insulin; Z91.14 Patient's other noncompliance with medication regimen
CPT/HCPCS: 36415; 70490; 71046; 76770; 80048; 80053; 80061; 81001; 82570; 82962; 83036; 83735; 83880; 83970; 84100; 84156; 84165; 84300; 84436; 84439; 84443; 84481; 84484; 85025; 86021; 86038; 86160; 86800; 87116; 87400; 93005; 93010; G0378; A9270-GY; J1650; J1815; J1940

== ENCOUNTER 2018-10-26 07:39 | Emergency (ER) | payer MEDICARE ==
[2018-10-26 07:45] VITALS: BP 129/88
--- NOTE | 2018-10-26 08:26 | Emergency Department Report ---
[facility] Chief Complaint: Eye Problems Stated Complaint: (L) EYE PINK Duration: 1 Day Side: Left Severity: moderate Symptoms: Yes Eye Itching, Yes Eye Redness, Yes Mucous Drainage, Yes Purulent Drainage, No Eye Pain, No Blurred Vision, No Preceding URI, No H/O Allergic Rhinitis, No Contact Lens Use, No Trauma, No Fever Other History: This is a 48-year-old male who presents to the emergency room with irritation and redness to left eye. Patient states he went to [employer] yesterday and when he left he noticed redness and watering to left eye. Patient states when he woke up this morning and it was crusty and sensitive to light. He does not wear glasses or contacts. He denies visual changes, swelling, or pain. ED Review of Systems ROS: Stated complaint: (L) EYE PINK Other details as noted in HPI Constitutional: denies: chills, fever Eyes: eye discharge (left eye). denies: eye pain, vision change Respiratory: denies: cough, shortness of breath, wheezing Cardiovascular: denies: chest pain, palpitations Gastrointestinal: denies: abdominal pain, nausea, diarrhea Skin: denies: rash, lesions Neurological: denies: headache, weakness, paresthesias Psychiatric: denies: anxiety, depression ED Past Medical Hx - Past Medical History Previous Medical History?: Yes Hx Hypertension: Yes Hx Congestive Heart Failure: Yes Hx Diabetes: Yes Hx Asthma: Yes Hx COPD: No Additional medical history: Afib - Surgical History Past Surgical History?: Yes Hx Pacemaker: Yes Hx Internal Defibrillator: Yes (X 3) - Social History Smoking Status: Never Smoker Substance Use Type: Alcohol - Medications Home Medications: Home Medications Medication Instructions Recorded Confirmed Last Taken Type Insulin Aspart Prot/Aspart(Nf) 35 units SQ QAM 12/13/16 08/24/18 12/23/16 History [NovoLOG Mix 70/30 VIAL] Amiodarone [Cordarone 200 MG TAB] 200 mg PO QDAY #14 tablet 08/30/18 Unknown Rx Aspirin EC 81 mg PO QDAY #30 tablet 08/30/18 Unknown Rx Carvedilol [Coreg] 3.125 mg PO BID #30 tablet 08/30/18 Unknown Rx Furosemide [Lasix TAB] 40 mg PO QDAY #15 tablet 08/30/18 Unknown Rx Levothyroxine (Nf) [Synthroid (Nf)] 100 mcg PO QAM #30 tablet 08/30/18 Unknown Rx Losartan [Cozaar] 100 mg PO QDAY #15 tablet 08/30/18 Unknown Rx Potassium Chloride [K-Dur] 20 meq PO QDAY #14 tablet 08/30/18 Unknown Rx Pravastatin [Pravachol] 40 mg PO QHS #30 tablet 08/30/18 Unknown Rx Spironolactone [Aldactone] 25 mg PO QDAY #15 tablet 08/30/18 Unknown Rx methOCARBAMOL [Robaxin TAB] 500 mg PO Q6H PRN #15 tablet 08/30/18 Unknown Rx oxyCODONE /ACETAMINOPHEN [Percocet 1 tab PO Q6H PRN #6 tablet 08/30/18 Unknown Rx 5/325 mg] Erythromycin [Erythromycin Ophth 10 applic OP Q4H #1 tube 10/26/18 Unknown Rx Oint] [facility] Exam - Exam General: Vital signs noted. No distress. Alert and acting appropriately. Eye Exam: Left Injection, Left Mucous Discharge, Both EOMI, Neither Chemosis, Neither Abnormal Pupil, Neither Eye Foreign Body, Neither Lid Foreign Body, Neither Purulent Discharge, Neither Fluorescein Uptake, Neither Fluorescein Uptake (slit lamp), Neither Cell/Flare (slit lamp), Neither Corneal Edema, Neither Photophobia HEENT: No Nasal Congestion, No Pharyngeal Erythema Remainder of HEENT: Normal Lungs: Yes Clear Lung Sounds, Yes Good Air Exchange, No Wheezes, No Stridor, No Cough, No Nasal Flaring, No Retractions, No Use of Accessory Muscles ED Course Vital Signs 10/26/18 07:43 Temperature 97.8 F Pulse Rate 84 Respiratory 16 Rate Blood Pressure 129/88 O2 Sat by Pulse 99 Oximetry ED Medical Decision Making - Medical Decision Making This is a 48-year-old male that presents with left pink eye with mucous discharge since yesterday. Patient is stable and was examined by me. Vitals normal. Physical assessment susceptible of conjunctivitis on the left. Start erythromycin ointment. Discussed plan with patient and he agreed with plan. Discharged home in stable condition. Follow up with PCP in 24-72 hours. Critical care attestation.: If time is entered above; I have spent that time in minutes in the direct care of this critically ill patient, excluding procedure time. ED Disposition Clinical Impression: Conjunctivitis Qualifiers: Conjunctivitis type: acute Acute conjunctivitis type: bacterial Laterality: left Qualified Code(s): H10.32 - Unspecified acute conjunctivitis, left eye Disposition: DC- TO HOME OR SELFCARE Is pt being admited?: No Does the pt Need Aspirin: No Condition: Stable Instructions: Conjunctivitis (ED) Additional Instructions: Pinkeye is very contagious so please wash hands frequently. Don't share any towels or bedding to prevent spread of infection. Follow up with primary care physician in 24-72 hours. Use cool compress to each eye to decrease swelling. Avoid rubbing or touching eyes, because rubbing eyes can cause worsening symptoms. Take medication as prescribed. Return to ER if swelling don't improve or difficulty breathing after 2 days of medication. Prescriptions: Erythromycin [Erythromycin Ophth Oint] 10 applic OP Q4H #1 tube Referrals: JOSE PITTS MD [Staff Physician] - 3-5 Days [facility], [facility] [Provider Group] - 3-5 Days [facility] [Provider Group] - 3-5 Days Forms: Work/School Release Form(ED) Time of Disposition: 08:28
== END 2018-10-26 08:52 | disposition home or self-care (01) ==
LOC: ED 07:39
DX: H10.32 Unspecified acute conjunctivitis, left eye (principal); I11.0 Hypertensive heart disease with heart failure; I50.9 Heart failure, unspecified; E11.9 Type 2 diabetes mellitus without complications; J45.909 Unspecified asthma, uncomplicated; I48.91 Unspecified atrial fibrillation; Z91.018 Allergy to other foods; Z95.0 Presence of cardiac pacemaker; Z79.4 Long term (current) use of insulin; Z79.82 Long term (current) use of aspirin
CPT/HCPCS: 99283

== ENCOUNTER 2019-07-02 15:33 | Emergency (ER) | payer MEDICARE ==
[2019-07-02 17:32] VITALS: BP 111/88
--- NOTE | 2019-07-02 17:37 | Emergency Department Report ---
Chief Complaint: Dyspnea/Respdistress Stated Complaint: SOB Time Seen by Provider: 07/02/19 17:31 - HPI History of Present Illness: Pt with CHF, several days ago drank too much power aid. noticed sob. no CP . started to double his lasix yesterday and is already feeling better - ROS Review of Systems: all systems reviewed and negative - Exam Vital Signs: Vital Signs 07/02/19 15:36 Temperature 98.0 F Pulse Rate 78 Respiratory 18 Rate Blood Pressure 111/88 O2 Sat by Pulse 98 Oximetry Physical Exam: NAP, lungs clear to ausc. heart tones normal. no pedal edema, AOx3. abd soft MSE screening note: Focused history and physical exam performed. Due to findings the following was ordered: ED Medical Decision Making - Medical Decision Making Pt to continue his lasix doubled for 3 days. stable and no emergenct cond at this time ED Disposition for MSE Clinical Impression: CHF (congestive heart failure) Qualifiers: Heart failure type: unspecified Heart failure chronicity: chronic Qualified Code(s): I50.9 - Heart failure, unspecified Disposition: MED SCREENING EXAM-LEFT Is pt being admited?: No Does the pt Need Aspirin: No Condition: Stable Time of Disposition: 17:37
== END 2019-07-02 17:35 | disposition left against medical advice (07) ==
LOC: ED 15:33
DX: I50.9 Heart failure, unspecified (principal); Z91.018 Allergy to other foods
CPT/HCPCS: 99281

== ENCOUNTER 2019-11-06 14:48 | Emergency (ER) | payer MEDICARE ==
[2019-11-06 15:40] VITALS: BP 101/74
--- NOTE | 2019-11-06 16:14 | Event Note ---
ED Screening Note ED Screening Note: three days ago right foot swelling states he used epsom salt and drank truong juice states that improved in foot now having discomfort in the right ankle states that he has hx of CHF and is on lasix
--- NOTE | 2019-11-06 16:23 | Emergency Department Report ---
Chief Complaint: Extremity Injury, Lower Stated Complaint: RT ANKLE PAIN Time Seen by Provider: 11/06/19 16:13 - HPI History of Present Illness: pt is a 49 yo male who presents to the ED with c/o three days ago right foot swelling. he states he used epsom salt and drank truong juice and states that the swelling improved in foot. he states that now having discomfort in the right ankle. he denies any swelling in the ankle. states that he has hx of CHF and is on lasix. vitals are normal on exam: Non toxic appearing, no acute distress atraumatic, normocephalic normal appearance of the eyes, PERRL, EOMI, no periorbital edema or ecchymosis moist mucus membranes regular heart rate and rhythm, no gallops, no rubs, no murmurs breath sounds are clear bilaterally, no w/r/r, no stridor, no accessory muscle use, no respiratory distress No edema present to the bilateral lower extremities, no bony tenderness to palpation of the bilateral lower extremities, no increased warmth, no skin changes, neurovascularly intact, no calf tenderness to palpation A&O x4, no focal neuro deficit skin is warm, dry, intact No clinical signs of septic joint, DVT, fluid overload, gout Breath sounds are clear, no rales, there is no swelling in the bilateral lower extremities Patient states that occasionally feels like a burning pain in the foot and ankle Could be related to neuropathy versus arthritis He states he does have diabetes but is not on any medication for neuropathy Patient will be referred to a primary care doctor, discussed the importance of follow-up with patient Discussed in detail with patient strict return precautions Medical screening examination performed and there is no threat to life or limb at this time - Exam Vital Signs: Vital Signs 11/06/19 15:39 Temperature 98.8 F Pulse Rate 88 Respiratory 19 Rate Blood Pressure 101/74 O2 Sat by Pulse 100 Oximetry MSE screening note: Focused history and physical exam performed. ED Disposition for MSE Clinical Impression: Right ankle pain Qualifiers: Chronicity: acute Qualified Code(s): M25.571 - Pain in right ankle and joints of right foot Disposition: Z-07 MED SCREENING EXAM-LEFT Is pt being admited?: No Does the pt Need Aspirin: No Condition: Stable Instructions: Osteoarthritis (ED), Diabetic Neuropathy (ED) Additional Instructions: please follow up with a primary care doctor. return to the emergency room for any new or worsening symptoms. Referrals: CORDELL GLEASON MD [Staff Physician] - 2-3 Days Forms: Work/School Release Form(ED) Time of Disposition: 16:21 Print Language: BAHAMIAN
== END 2019-11-06 16:28 | disposition left against medical advice (07) ==
LOC: ED 14:48
DX: M25.571 Pain in right ankle and joints of right foot (principal); I11.0 Hypertensive heart disease with heart failure; I50.9 Heart failure, unspecified; J45.909 Unspecified asthma, uncomplicated; E11.9 Type 2 diabetes mellitus without complications; Z98.890 Other specified postprocedural states; Z91.018 Allergy to other foods; Z53.21 Procedure and treatment not carried out due to patient leaving prior to being seen by health care provider

== ENCOUNTER 2020-03-16 21:29 | Inpatient (IN) | payer MEDICARE, OTHER ==
[2020-03-16] MEDS ORDERED: ASPIRIN 325 MG TAB PO ONE (22:09)
[2020-03-16 22:39] LABS: Basophils # (Auto) 0.1 K/mm3 (0.0-0.1); Basophils % (Auto) 0.6 % (0.0-1.8); Eosinophils % (Auto) 9.7 % (0.0-4.3); Hematocrit 37.1 % (35.5-45.6); Hemoglobin 12.1 gm/dl (11.8-15.2); Lymphocytes % (Auto) 10.2 % (13.4-35.0); Mean Corpuscular HGB Conc 33 % (32-34); Mean Corpuscular Volume 84 fl (84-94); Monocytes # (Auto) 0.8 K/mm3 (0.0-0.8); Monocytes % (Auto) 8.1 % (0.0-7.3); Platelet Count 255 K/mm3 (140-440); Red Cell Distribution Width 15.6 % (13.2-15.2)
[2020-03-16] MEDS ORDERED: AMIODARONE 150 MG in DEXTROSE 5% IN WATER 97 ML IV ONE (22:45)
[2020-03-16 22:46] LABS: Calcium 8.8 mg/dL (8.4-10.2)
--- NOTE | 2020-03-16 22:54 | Emergency Department Report ---
HPI - General Chief Complaint: Chest Pain Time Seen by Provider: 03/16/20 22:19 - HPI HPI: Room 20 The patient is a 49-year-old male present with a chief complaint of defibrillator firing. Patient states this evening he was laying down at rest when he began to feel dizzy. Patient states she sat up and developed chest pain. Patient states he leaned down and then had a syncopal episode. The patient states when he awakened he drove himself to the emergency department. Patient states he had a similar episode approximately 2 weeks ago where he felt dizzy developed chest pain and had a syncopal episode. Patient did not seek medical attention at that time. Patient states he received a telephone call from his belt builder informing him that his defibrillator had fired. The patient came into the office for evaluation at that time. At this time the patient states he just feels nervous does not have any specific complaints outside of diarrhea which he attributes to his medication ED Past Medical Hx - Past Medical History Previous Medical History?: Yes Hx Hypertension: Yes Hx Congestive Heart Failure: Yes Hx Diabetes: Yes Hx Asthma: Yes Additional medical history: Afib - Surgical History Past Surgical History?: Yes Hx Pacemaker: Yes Hx Internal Defibrillator: Yes (X 3) - Family History Family history: no significant - Social History Smoking Status: Never Smoker Substance Use Type: None (Denies illicit drug use) - Medications Home Medications: Home Medications Medication Instructions Recorded Confirmed Last Taken Type Insulin Aspart Prot/Aspart(Nf) 35 units SQ QAM 12/13/16 08/24/18 12/23/16 Hist ory [NovoLOG Mix 70/30 VIAL] Amiodarone [Cordarone 200 MG TAB] 200 mg PO QDAY #14 tablet 08/30/18 Unknown Rx Aspirin EC [Halfprin EC] 81 mg PO QDAY #30 tablet 08/30/18 Unknown Rx Furosemide [Lasix TAB] 40 mg PO QDAY #15 tablet 08/30/18 Unknown Rx Levothyroxine (Nf) [Synthroid (Nf)] 100 mcg PO QAM #30 tablet 08/30/18 Unknown Rx Losartan [Cozaar] 100 mg PO QDAY #15 tablet 08/30/18 Unknown Rx Potassium Chloride [K-Dur] 20 meq PO QDAY #14 tablet 08/30/18 Unknown Rx Pravastatin [Pravachol] 40 mg PO QHS #30 tablet 08/30/18 Unknown Rx Spironolactone [Aldactone] 25 mg PO QDAY #15 tablet 08/30/18 Unknown Rx carvediloL [Coreg] 3.125 mg PO BID #30 tablet 08/30/18 Unknown Rx methOCARBAMOL [Robaxin TAB] 500 mg PO Q6H PRN #15 tablet 08/30/18 Unknown Rx oxyCODONE /ACETAMINOPHEN [Percocet 1 tab PO Q6H PRN #6 tablet 08/30/18 Unknown Rx 5/325 mg] Erythromycin [Erythromycin Ophth 10 applic OP Q4H #1 tube 10/26/18 Unknown Rx Oint] Ondansetron [Zofran Odt] 4 mg PO Q8HR PRN #15 tab.rapdis 12/06/19 Unknown Rx Dicyclomine [Bentyl] 20 mg PO QID PRN #20 tablet 12/09/19 Unknown Rx Promethazine [Phenergan TAB] 25 mg PO Q6HR PRN #20 tab 12/09/19 Unknown Rx Promethazine [Phenergan] 25 mg AK Q6HR PRN #10 supp.rect 12/09/19 Unknown Rx ED Review of Systems ROS: Stated complaint: DIFFIBILATOR ALERT/CHEST PAIN Other details as noted in HPI Constitutional: no symptoms reported Respiratory: no symptoms reported Cardiovascular: chest pain Endocrine: no symptoms reported Neurological: other (Dizziness) Physical Exam - Physical Exam Vital Signs: Vital Signs 03/16/20 22:15 Temperature 97.9 F Pulse Rate 87 Respiratory 18 Rate Blood Pressure 135/101 [Left] O2 Sat by Pulse 98 Oximetry Physical Exam: GENERAL: The patient is well-developed well-nourished male lying on stretcher not appearing to be in acute distress. [] HEENT: Normocephalic. Atraumatic. Extraocular motions are intact. Patient has moist mucous membranes. NECK: Supple. Trachea midline CHEST/LUNGS: Clear to auscultation. There is no respiratory distress noted. HEART/CARDIOVASCULAR: Regular. There is no tachycardia. There is no gallop rub or murmur. ABDOMEN: Abdomen is soft, nontender. Patient has normal bowel sounds. There is no abdominal distention. SKIN: There is no rash. There is trace right lower extremity pitting edema and trace to 1+ left lower extremity pitting edema. There is no diaphoresis. NEURO: The patient is awake, alert, and oriented. The patient is cooperative. The patient has no focal neurologic deficits. The patient has normal speech MUSCULOSKELETAL: There is no evidence of acute injury. ED Course Vital Signs 03/16/20 22:15 Temperature 97.9 F Pulse Rate 87 Respiratory 18 Rate Blood Pressure 135/101 [Left] O2 Sat by Pulse 98 Oximetry - Consultations Consultation #1: 03/16/20 22:46 Case discussed with belt builder Dr. Cervantes-states patient's episode 2 weeks ago with subsequent to ventricular fibrillation. Recommends patient be admitted to the hospital by hospitalist and given an amiodarone load and drip. Request [facility] to be called to interrogate defibrillator tomorrow Consultation #2: 03/16/20 22:49 [facility] pharmacy services representative paged ( ) ED Medical Decision Making - Lab Data Result diagrams: 03/16/20 22:16 03/16/20 22:16 Laboratory Tests 03/16/20 03/16/20 22:16 22:16 WBC 9.9 RBC 4.40 Hgb 12.1 Hct 37.1 MCV 84 MCH 28 MCHC 33 RDW 15.6 H Plt Count 255 Lymph % (Auto) 10.2 L Mcminn % (Auto) 8.1 H Eos % (Auto) 9.7 H Baso % (Auto) 0.6 Lymph # (Auto) 1.0 L Mcminn # (Auto) 0.8 Eos # (Auto) 1.0 H Baso # (Auto) 0.1 Seg Neutrophils % 71.4 H Seg Neutrophils # 7.0 Sodium 137 Potassium 4.1 Chloride 104.8 Carbon Dioxide 16 L Anion Gap 20 BUN 46 H Creatinine 3.4 H Estimated GFR 24 BUN/Creatinine Ratio 14 Glucose 188 H Calcium 8.8 Troponin T 0.086 H - EKG Data -: EKG Interpreted by Me EKG shows normal: sinus rhythm Rate: normal - EKG Data When compared to previous EKG there are: previous EKG unavailable Interpretation: other (PVC. No ischemic changes seen) - Radiology Data Radiology results: report reviewed (Chest x-ray), image reviewed (Chest x-ray) interpreted by me: Chest x-ray-no focal infiltrates, no pneumothorax. Cardiomegaly Findings [facility] [address] [place] [address] XRay Report Signed Patient: MELA HENSLEY MR#: [id number] : 1970 Acct:[id number] Age/Sex: 49 / M ADM Date: 03/16/20 Loc: ED Attending Dr: Ordering Physician: ROBIN CABRERA MD Date of Service: 03/16/20 Procedure(s): XR chest 1V ap Accession Number(s): [id number] cc: ROBIN CABRERA MD Fluoro Time In Minutes: CHEST 1 VIEW INDICATION / CLINICAL INFORMATION: Chest Pain. COMPARISON: 12/09/2019 FINDINGS: SUPPORT DEVICES: AICD leads appear unchanged HEART / MEDIASTINUM: There is prominence of the cardiac silhouette LUNGS / PLEURA: No significant pulmonary or pleural abnormality.. No pneumothorax. ADDITIONAL FINDINGS: No significant additional findings. IMPRESSION: 1. No acute findings. Signer Name: Bean Fleming MD Signed: 03/16/2020 10:48 PM Workstation Name: [id number] Transcribed By: SS Dictated By: Bean Fleming MD Electronically Authenticated By: Bean Fleming MD Signed Date/Time: 03/16/202247 DD/ 46 TD/TT: Critical care attestation.: If time is entered above; I have spent that time in minutes in the direct care of this critically ill patient, excluding procedure time. ED Disposition Clinical Impression: Syncope Disposition: 09 OP ADMIT IP TO THIS HOSP Is pt being admited?: Yes Does the pt Need Aspirin: Yes Condition: Fair Instructions: Syncope (ED) Time of Disposition: 23:38 (Hospitalist notified (Dr Blake))
[2020-03-16] MEDS ORDERED: AMIODARONE 900 MG in DEXTROSE 5% IN WATER 482 ML IV SCH (23:00)
[2020-03-16 23:49] LABS: Chol/HDL Ratio 4.1 %
[2020-03-17] MEDS ORDERED: DEXTROSE 50% IN WATER (25GM) 50 ML SYRINGE IV PRN (01:09)
[2020-03-17] MEDS ORDERED: MORPHINE 2 MG/1 ML INJ IV PRN (01:09)
[2020-03-17] MEDS ORDERED: ACETAMINOPHEN 325 MG TAB PO PRN (01:09)
--- NOTE | 2020-03-17 01:22 | History and Physical Report ---
History of Present Illness Date of examination: 03/17/20 Date of admission: 03/17/2020 Chief complaint: Malfunctioning defibrillator History of present illness: 49-year-old male with known history of atrial fibrillation, CHF, hypertension , diabetes mellitus and history of defibrillator placement presenting to the emergency room today with complaint of malfunctioning of the defibrillator. Patient states that the defibrillator was firing. Was lying down at home and began to feel dizzy. He has also had some mild chest pain and thereafter had a syncopal episode. He had a similar episode about 2 weeks ago but did not seek medical medical attention at that time. However he has been following up with his wire spring relay adjuster Dr. Cervantes. He states he feels nervous today otherwise he is doing fairly well. Patient was started on amiodarone drip as recommended by the wire spring relay adjuster. Work-up in the emergency room reveals troponin of 0.086, patient also found to to have elevated BUN and creatinine of 46 and 3.4 respectively. EKG shows some PVCs. Past History Past Medical History: atrial fib, diabetes, heart failure, hypertension Past Surgical History: Other (Pacemaker/Defibrillator placement) Social history: no significant social history Family history: no significant family history Medications and Allergies Allergies Allergy/AdvReac Type Severity Reaction Status Date / Time pineapple Allergy Anaphylaxis Verified 12/09/19 12:03 Home Medications Medication Instructions Recorded Confirmed Last Taken Type Aspirin [Adult Aspirin] 81 mg PO DAILY 03/17/20 03/17/20 Unknown History Furosemide [Lasix TAB] 40 mg PO QDAY 03/17/20 03/17/20 Unknown History Insulin NPH Hum/Reg Insulin Hm 0 units SQ BID 03/17/20 03/17/20 Unknown History [Novolin 70-30 100 Unit/ml Vial] Pravastatin [Pravachol] 40 mg PO QHS 03/17/20 03/17/20 Unknown History Sacubitril/Valsartan [Entresto 1 each PO BID 03/17/20 03/17/20 Unknown History 49-51 mg] carvediloL [Coreg] 25 mg PO BID 03/17/20 03/17/20 Unknown History Active Meds: Active Medications Acetaminophen (Tylenol) 650 mg PO Q4H PRN PRN Reason: Pain MILD(1-3)/Fever >100.5/SPRING Dextrose (D50w (25gm) Syringe) 50 ml IV Q30MIN PRN; Protocol PRN Reason: Hypoglycemia Dextrose (D50w (25gm) Syringe) 50 ml IV Q30MIN PRN; Protocol PRN Reason: Hypoglycemia Amiodarone HCl 900 mg/ (Dextrose) 500 mls @ 33.333 mls/hr IV DIRECT MALACHI; Protocol Last Admin: 03/16/20 23:32 Dose: 1 mg/min, 33.333 mls/hr Documented by: Insulin Human Lispro (Humalog) 0 unit SUB-Q ACHS MALACHI; Protocol Morphine Sulfate (Morphine) 2 mg IV Q4H PRN PRN Reason: Pain, Moderate (4-6) Ondansetron HCl (Zofran) 4 mg IV Q8H PRN PRN Reason: Nausea And Vomiting Sodium Chloride (Sodium Chloride Flush Syringe 10 Ml) 10 ml IV BID MALACHI Sodium Chloride (Sodium Chloride Flush Syringe 10 Ml) 10 ml IV PRN PRN PRN Reason: LINE FLUSH Review of Systems Constitutional: no fever, no chills Ears, nose, mouth and throat: no nasal congestion, no sore throat Cardiovascular: chest pain, syncope, no palpitations Respiratory: no cough, no shortness of breath, no dyspnea on exertion Gastrointestinal: no nausea, no vomiting, no diarrhea Genitourinary Male: no dysuria, no hematuria, no flank pain Musculoskeletal: no neck pain, no low back pain Integumentary: no rash, no pruritis Neurological: no headaches, no confusion Psychiatric: no anxiety, no depression Exam - Constitutional Vitals: Temp Pulse Resp BP Pulse Ox 97.9 F 79 10 L 117/89 99 03/16/20 22:15 03/17/20 01:00 03/17/20 01:00 03/17/20 01:00 03/17/20 01:00 General appearance: Present: no acute distress, well-nourished - EENT Eyes: Present: PERRL, EOM intact. Absent: scleral icterus ENT: hearing intact, clear oral mucosa, dentition normal - Neck Neck: Present: supple, normal ROM - Respiratory Respiratory effort: normal Respiratory: bilateral: CTA - Cardiovascular Rhythm: regular Heart Sounds: Present: S1 & S2. Absent: gallop, systolic murmur, diastolic murmur, rub - Extremities Extremities: no ischemia, pulses intact, pulses symmetrical, No edema, Full ROM Peripheral Pulses: within normal limits - Abdominal General gastrointestinal: Present: soft, non-tender, non-distended, normal bowel sounds - Integumentary Integumentary: Present: clear, warm, dry - Musculoskeletal Musculoskeletal: strength equal bilaterally - Psychiatric Psychiatric: appropriate mood/affect, intact judgment & insight, memory intact, cooperative - Neurologic Neurologic: CNII-XII intact, no focal deficits, moves all extremities HEART Score - HEART Score Troponin: Troponin T 0.086 ng/mL (0.00-0.029) H 03/16/20 22:16 Results - Labs CBC & Chem 7: 03/16/20 22:16 03/16/20 22:16 Labs: Abnormal lab results 03/16/20 03/16/20 Range/Units 22:16 22:16 RDW 15.6 H (13.2-15.2) % Lymph % (Auto) 10.2 L (13.4-35.0) % Butts % (Auto) 8.1 H (0.0-7.3) % Eos % (Auto) 9.7 H (0.0-4.3) % Lymph # (Auto) 1.0 L (1.2-5.4) K/mm3 Eos # (Auto) 1.0 H (0.0-0.4) K/mm3 Seg Neutrophils % 71.4 H (40.0-70.0) % Carbon Dioxide 16 L (22-30) mmol/L BUN 46 H (9-20) mg/dL Creatinine 3.4 H (0.8-1.3) mg/dL Glucose 188 H (75-100) mg/dL Troponin T 0.086 H (0.00-0.029) ng/mL Triglycerides 157 H (2-149) mg/dL HDL Cholesterol 37 L (40-59) mg/dL Assessment and Plan - Patient Problems (1) AICD lead malfunction Current Visit: No Status: Acute Plan to address problem: Quirk Sander has been consulted for evaluation and recommendation. Patient follows up with Dr. Cervantes. (2) Acute on chronic renal insufficiency Current Visit: No Status: Acute Plan to address problem: We will monitor BUN and creatinine. Consult placed to nephrology for evaluation and recommendation. (3) Atrial fibrillation Current Visit: No Status: Acute Plan to address problem: Rate currently controlled. Patient has also been started on amiodarone as recommended by the wire spring relay adjuster. (4) Diabetes Current Visit: No Status: Acute Plan to address problem: We will monitor Accu-Cheks. (5) HTN (hypertension) Current Visit: No Status: Acute Plan to address problem: We will monitor blood pressure continue routine home medications. (6) Chest pain Current Visit: No Status: Acute Plan to address problem: Currently patient is chest pain-free. Will monitor EKG and also monitor cardiac enzymes. We will await further evaluation and recommendation from cardiology. (7) Elevated troponin Current Visit: Yes Status: Acute Plan to address problem: Currently no acute changes on EKG. We are awaits evaluation and recommendation from cardiology. (8) DVT prophylaxis Current Visit: No Status: Acute Plan to address problem: Patient placed on subcutaneous heparin. (9) Full code status Current Visit: Yes Status: Acute
--- NOTE | 2020-03-17 09:44 | Consultation ---
History of Present Illness - Reason for Consult Consult date: 03/17/20 acute renal failure, chronic renal failure - History of Present Illness The patient is a 49 YO male who is well known to our service with history significant for HTN, Diabetes mellitus type 2, Dilated cardiomyopathy s/p AICD, Chronic systolic CHF and CKD stage 3-4 who presented to [facility] ED 03/16/20 with complaint of AICD discharge. Patient also admits feeling dizzy and associated iwth some mild chest pain and thereafter had a syncopal episode. Work-up in the ED revealed Troponin of 0.086, BUN 46 and creatinine 3.4. EKG showed some PVCs. Patient was started on amiodarone drip by [facility]. Nephrology was consul ivonne for further evaluation and treatment. Past History Past Medical History: atrial fib, diabetes, heart failure, hypertension, renal failure Past Surgical History: Other (Pacemaker/Defibrillator placement) Social history: no significant social history Family history: no significant family history Medications and Allergies Allergies Allergy/AdvReac Type Severity Reaction Status Date / Time pineapple Allergy Anaphylaxis Verified 12/09/19 12:03 Home Medications Medication Instructions Recorded Confirmed Last Taken Type Aspirin [Adult Aspirin] 81 mg PO DAILY 03/17/20 03/17/20 Unknown History Furosemide [Lasix TAB] 40 mg PO QDAY 03/17/20 03/17/20 Unknown History Insulin NPH Hum/Reg Insulin Hm 0 units SQ BID 03/17/20 03/17/20 Unknown History [Novolin 70-30 100 Unit/ml Vial] Pravastatin [Pravachol] 40 mg PO QHS 03/17/20 03/17/20 Unknown History Sacubitril/Valsartan [Entresto 1 each PO BID 03/17/20 03/17/20 Unknown History 49-51 mg] carvediloL [Coreg] 25 mg PO BID 03/17/20 03/17/20 Unknown History Active Meds: Active Medications Acetaminophen (Tylenol) 650 mg PO Q4H PRN PRN Reason: Pain MILD(1-3)/Fever >100.5/SPRING Dextrose (D50w (25gm) Syringe) 50 ml IV Q30MIN PRN; Protocol PRN Reason: Hypoglycemia Heparin Sodium (Porcine) (Heparin) 5,000 unit SUB-Q Q8HR MALACHI Amiodarone HCl 900 mg/ (Dextrose) 500 mls @ 33.333 mls/hr IV DIRECT MALACHI; Protocol Last Titration: 03/17/20 05:32 Dose: 0.5 mg/min, 16.667 mls/hr Documented by: Insulin Human Lispro (Humalog) 0 unit SUB-Q ACHS MALACHI; Protocol Morphine Sulfate (Morphine) 2 mg IV Q4H PRN PRN Reason: Pain, Moderate (4-6) Last Admin: 03/17/20 06:01 Dose: 2 mg Documented by: Ondansetron HCl (Zofran) 4 mg IV Q8H PRN PRN Reason: Nausea And Vomiting Sodium Chloride (Sodium Chloride Flush Syringe 10 Ml) 10 ml IV BID MALACHI Sodium Chloride (Sodium Chloride Flush Syringe 10 Ml) 10 ml IV PRN PRN PRN Reason: LINE FLUSH Review of Systems Constitutional: no weight loss, no weight gain, no fever, no chills, no anorexia, no fatigue, no weakness Cardiovascular: high blood pressure, no chest pain, no edema, no syncope, no lightheadedness, no leg edema Respiratory: no cough, no hemoptysis, no shortness of breath Gastrointestinal: no abdominal pain, no nausea, no vomiting, no diarrhea Genitourinary Male: no dysuria, no hematuria Integumentary: no rash, no wounds, no jaundice Neurological: no syncope, no tremors, no change in speech, no change in mentation, no confusion, no memory loss Exam - Vital Signs Vital signs: Vital Signs Temp Pulse Resp BP Pulse Ox 97.9 F 87 18 135/101 98 03/16/20 22:15 03/16/20 22:15 03/16/20 22:15 03/16/20 22:15 03/16/20 22:15 Results - Lab Results 03/16/20 22:16 03/16/20 22:16 Most recent lab results Calcium 8.8 mg/dL (8.4-10.2) 03/16/20 22:16 Assessment and Plan 1. Acute kidney injury: Mild [place] superimposed on CKD in the setting of V.fib. Urine studies ordered. Monitor renal function. Renal prognosis is guarded. Avoid nephrotoxic agents. Meds dosage based on GFR. 2. FEN: Metabolic acidosis, monitor. Monitor lytes. 3. Spontaneous ventricular fibrillation: S/p appropriate AICD firing. Followed by Cards. 4. Non-ischemic Cardiomyopathy: Followed by Cards. Appears compensated. 5. DM type 2. 6. Hypothyroid. 7. Hypertension. 8. Medical non-compliance: Counseled. Subjective: Patient was seen and examined at the bedside. Examination: General appearance: well-developed, well-nourished, appears stated age, no distress HEENT: ATNC, ERIC, mucous membranes moist, hearing intact, vision intact Neck: thyromegaly, supple Respiratory: Clear to Ascultation Cardiology: regular, S1S2, no murmur Gastrointestinal: normoactive bowel sounds, not tender, not distended Integumentary: no rash, warm and dry Neurologic: no focal deficit, no asterixis, alert and oriented x3 Ext: no edema
[2020-03-17] MEDS: INSULIN LISPRO 100 UNIT/ML VIAL 3 mL SUB-Q SCH ×4 (09:51→22:43)
--- NOTE | 2020-03-17 09:59 | Event Note ---
Date: 03/17/20 Patient was admitted earlier this morning. Patient was seen and evaluated this morning, patient said he has left-sided chest pain. Pain controlled with pain medication. Patient was sleepy he states due to the pain medication and did not sleep overnight. Cardiology nephrology is following. Continue management as outlined in the H&P.
--- NOTE | 2020-03-17 10:18 | Consultation ---
History of Present Illness Consult date: 03/17/20 Consult reason: other (ICD discharge) History of present illness: This is a 49-year old M with a long standing history of nonischemic cardiomyopa thy and in 2017 changed to a subcutaneous cardiac defibrillator for lead fracture. He presents to this hospital, admitted with reports of ICD discharge. Of note, 2 weeks ago, during a routine device check, there was an episode of ventricular fibrillation requiring appropriate ICD shock. He is currently on intravenous amiodarone and awaits ICD interrogation. TSH lab result is pending. Cardiology consultation has been requested for further evaluation and management. Past History Past Medical History: atrial fib, diabetes, heart failure, hypertension Past Surgical History: Other (SC Defibrillator placement) Social history: no significant social history Family history: no significant family history Medications and Allergies Allergies Allergy/AdvReac Type Severity Reaction Status Date / Time pineapple Allergy Anaphylaxis Verified 12/09/19 12:03 Home Medications Medication Instructions Recorded Confirmed Last Taken Type Aspirin [Adult Aspirin] 81 mg PO DAILY 03/17/20 03/17/20 Unknown History Furosemide [Lasix TAB] 40 mg PO QDAY 03/17/20 03/17/20 Unknown History Insulin NPH Hum/Reg Insulin Hm 0 units SQ BID 03/17/20 03/17/20 Unknown History [Novolin 70-30 100 Unit/ml Vial] Pravastatin [Pravachol] 40 mg PO QHS 03/17/20 03/17/20 Unknown History Sacubitril/Valsartan [Entresto 1 each PO BID 03/17/20 03/17/20 Unknown History 49-51 mg] carvediloL [Coreg] 25 mg PO BID 03/17/20 03/17/20 Unknown History Active Meds: Active Medications Acetaminophen (Tylenol) 650 mg PO Q4H PRN PRN Reason: Pain MILD(1-3)/Fever >100.5/SPRING Dextrose (D50w (25gm) Syringe) 50 ml IV Q30MIN PRN; Protocol PRN Reason: Hypoglycemia Heparin Sodium (Porcine) (Heparin) 5,000 unit SUB-Q Q8HR MALACHI Amiodarone HCl 900 mg/ (Dextrose) 500 mls @ 33.333 mls/hr IV DIRECT MALACHI; Protocol Last Titration: 03/17/20 05:32 Dose: 0.5 mg/min, 16.667 mls/hr Documented by: Insulin Human Lispro (Humalog) 0 unit SUB-Q ACHS [facility]; Protocol Last Admin: 03/17/20 09:51 Dose: 3 unit Documented by: Morphine Sulfate (Morphine) 2 mg IV Q4H PRN PRN Reason: Pain, Moderate (4-6) Last Admin: 03/17/20 06:01 Dose: 2 mg Documented by: Ondansetron HCl (Zofran) 4 mg IV Q8H PRN PRN Reason: Nausea And Vomiting Sodium Chloride (Sodium Chloride Flush Syringe 10 Ml) 10 ml IV BID [facility] Last Admin: 03/17/20 09:53 Dose: 10 ml Documented by: Sodium Chloride (Sodium Chloride Flush Syringe 10 Ml) 10 ml IV PRN PRN PRN Reason: LINE FLUSH Physical Examination Vital Signs Temp Pulse Resp BP Pulse Ox 97.9 F 87 18 135/101 98 03/16/20 22:15 03/16/20 22:15 03/16/20 22:15 03/16/20 22:15 03/16/20 22:15 Results 03/16/20 22:16 03/16/20 22:16 Lipids 03/16/20 Range/Units 22:16 Triglycerides 157 H (2-149) mg/dL Cholesterol 152 (50-199) mg/dL HDL Cholesterol 37 L (40-59) mg/dL Cholesterol/HDL Ratio 4.10 % CBC 03/16/20 Range/Units 22:16 WBC 9.9 (4.5-11.0) K/mm3 RBC 4.40 (3.65-5.03) M/mm3 Hgb 12.1 (11.8-15.2) gm/dl Hct 37.1 (35.5-45.6) % Plt Count 255 (140-440) K/mm3 Lymph # (Auto) 1.0 L (1.2-5.4) K/mm3 [place] # (Auto) 0.8 (0.0-0.8) K/mm3 Eos # (Auto) 1.0 H (0.0-0.4) K/mm3 Baso # (Auto) 0.1 (0.0-0.1) K/mm3 Comprehensive Metabolic Panel 03/16/20 Range/Units 22:16 Sodium 137 (137-145) mmol/L Potassium 4.1 (3.6-5.0) mmol/L Chloride 104.8 (98-107) mmol/L Carbon Dioxide 16 L (22-30) mmol/L BUN 46 H (9-20) mg/dL Creatinine 3.4 H (0.8-1.3) mg/dL Glucose 188 H (75-100) mg/dL Calcium 8.8 (8.4-10.2) mg/dL Assessment and Plan ICD shock interrogation is pending ([place]) Hx of paroxysmal VF NICMP Hypertension Hypothyroidism TSH result is pending. ICD interrogation is pending. Continue IV amiodarone for now. Resume medical therapy for nonischemic cardiomyopathy.
[2020-03-17] MEDS ORDERED: FLU VACC QUAD 2020-2021 (6 months +)/PF 60 0.5 ML SYRINGE IM ONE (12:00)
[2020-03-17] MEDS: HEPARIN 5,000 UNIT/1 ML VIAL SUB-Q SCH ×2 (13:10→22:43)
[2020-03-17] MEDS: ONDANSETRON 4 MG/2 ML INJ IV PRN (13:10)
[2020-03-17] MEDS: AMIODARONE 200 MG TAB PO SCH ×2 (13:10→22:42)
[2020-03-17] MEDS: FUROSEMIDE 40 MG TAB PO SCH (13:11)
[2020-03-17] MEDS: SACUBITRIL/VALSARTAN 49-51 MG TAB PO SCH (22:42)
[2020-03-17] MEDS: carvediloL 25 MG TAB PO SCH (22:42)
[2020-03-18] MEDS: HEPARIN 5,000 UNIT/1 ML VIAL SUB-Q SCH ×2 (05:42→13:08)
--- NOTE | 2020-03-18 07:38 | Progress Note ---
Assessment and Plan Assessment and plan: (1) AICD fired Current Visit: No Status: Acute Plan to address problem: Cardiology was consulted Device interrogation was done and it was appropriate firing for V. tach Patient was on IV amiodarone and will be changed to p.o. (2) Acute on chronic renal insufficiency Current Visit: No Status: Acute Plan to address problem: -Patient is followed with Dr. Peterson -Saw the patient yesterday -We will monitor BMP (3) Atrial fibrillation Current Visit: No Status: Acute Plan to address problem: Rate currently controlled. Patient has also been started on amiodarone as recommended by the lather apprentice. (4) Diabetes Current Visit: No Status: Acute Plan to address problem: We will monitor Accu-Cheks. (5) HTN (hypertension) Current Visit: No Status: Acute Plan to address problem: We will monitor blood pressure continue routine home medications. (6) Chest pain Current Visit: No Status: Acute Plan to address problem: Currently patient is chest pain-free. Will monitor EKG and also monitor cardiac enzymes. We will await further evaluation and recommendation from cardiology. (7) Elevated troponin Current Visit: Yes Status: Acute Plan to address problem: Currently no acute changes on EKG. We are awaits evaluation and recommendation from cardiology. (8) DVT prophylaxis Current Visit: No Status: Acute Plan to address problem: Patient placed on subcutaneous heparin. (9) Full code status Current Visit: Yes Status: Acute Disposition; patient is cleared by cardiology for discharge. History Interval history: Patient was seen and evaluated this morning Hospitalist Physical - Physical exam Narrative exam: Not in cardiopulmonary distress. The patient appeared well nourished and normally developed. Vital signs as documented. Head exam is unremarkable. No scleral icterus . Neck is without jugular venous distension, thyromegaly, or carotid bruits. Lungs are clear to auscultation. Cardiac exam reveals regular rate and Rhythm. Abdominal exam reveals normal bowel sounds, nontender, no organomegaly. Extremities are nonedematous and both femoral and pedal pulses are normal. SENIOR CONTROLS ANALYST: Alert and oriented 3. No focal weakness. - Constitutional Vitals: Temp Pulse Resp BP Pulse Ox 98.0 F 73 20 115/87 93 03/18/20 04:03 03/18/20 04:03 03/18/20 04:03 03/18/20 04:03 03/18/20 04:03 General appearance: Present: no acute distress, well-nourished HEART Score - HEART Score Troponin: Troponin T 0.082 ng/mL (0.00-0.029) H 03/17/20 04:39 Results - Labs CBC & Chem 7: 03/16/20 22:16 03/16/20 22:16 Labs: Laboratory Last Values WBC 9.9 K/mm3 (4.5-11.0) 03/16/20 22:16 RBC 4.40 M/mm3 (3.65-5.03) 03/16/20 22:16 Hgb 12.1 gm/dl (11.8-15.2) 03/16/20 22:16 Hct 37.1 % (35.5-45.6) 03/16/20 22:16 MCV 84 fl (84-94) 03/16/20 22:16 MCH 28 pg (28-32) 03/16/20 22:16 MCHC 33 % (32-34) 03/16/20 22:16 RDW 15.6 % (13.2-15.2) H 03/16/20 22:16 Plt Count 255 K/mm3 (140-440) 03/16/20 22:16 Lymph % (Auto) 10.2 % (13.4-35.0) L 03/16/20 22:16 [place] % (Auto) 8.1 % (0.0-7.3) H 03/16/20 22:16 Eos % (Auto) 9.7 % (0.0-4.3) H 03/16/20 22:16 Baso % (Auto) 0.6 % (0.0-1.8) 03/16/20 22:16 Lymph # (Auto) 1.0 K/mm3 (1.2-5.4) L 03/16/20 22:16 [place] # (Auto) 0.8 K/mm3 (0.0-0.8) 03/16/20 22:16 Eos # (Auto) 1.0 K/mm3 (0.0-0.4) H 03/16/20 22:16 Baso # (Auto) 0.1 K/mm3 (0.0-0.1) 03/16/20 22:16 Seg Neutrophils % 71.4 % (40.0-70.0) H 03/16/20 22:16 Seg Neutrophils # 7.0 K/mm3 (1.8-7.7) 03/16/20 22:16 Sodium 137 mmol/L (137-145) 03/16/20 22:16 Potassium 4.1 mmol/L (3.6-5.0) 03/16/20 22:16 Chloride 104.8 mmol/L (98-107) 03/16/20 22:16 Carbon Dioxide 16 mmol/L (22-30) L 03/16/20 22:16 Anion Gap 20 mmol/L 03/16/20 22:16 BUN 46 mg/dL (9-20) H 03/16/20 22:16 Creatinine 3.4 mg/dL (0.8-1.3) H 03/16/20 22:16 Estimated GFR 24 ml/min 03/16/20 22:16 BUN/Creatinine Ratio 14 % 03/16/20 22:16 Glucose 188 mg/dL (75-100) H 03/16/20 22:16 POC Glucose 257 mg/dL (70-105) H 03/17/20 21:57 Calcium 8.8 mg/dL (8.4-10.2) 03/16/20 22:16 Magnesium 2.50 mg/dL (1.7-2.3) H 03/17/20 12:24 Troponin T 0.082 ng/mL (0.00-0.029) H 03/17/20 04:39 Triglycerides 157 mg/dL (2-149) H 03/16/20 22:16 Cholesterol 152 mg/dL (50-199) 03/16/20 22:16 LDL Cholesterol Direct 93 mg/dL (50-130) 03/16/20 22:16 HDL Cholesterol 37 mg/dL (40-59) L 03/16/20 22:16 Cholesterol/HDL Ratio 4.10 % 03/16/20 22:16 TSH 3.140 mlU/mL (0.270-4.200) 03/17/20 12:24 Free T4 1.18 ng/dL (0.76-1.46) 03/17/20 12:24 [place]/IV: Voiding Method Urinal IV Catheter Type [Left INT / Saline Lock Antecubital] Active Medications - Current Medications Current Medications: Generic Name Dose Route Start Last Admin Trade Name Freq PRN Reason Stop Dose Admin Acetaminophen 650 mg 03/17/20 01:09 Tylenol PO Q4H PRN Pain MILD(1-3)/Fever >100.5/SPRING Amiodarone HCl 200 mg 03/17/20 13:00 03/17/20 22:42 Cordarone PO 200 mg BID MAALCHI Administration Carvedilol 25 mg 03/17/20 22:00 03/17/20 22:42 Coreg PO 25 mg BID MALACHI Administration Dextrose 50 ml 03/17/20 01:09 D50w (25gm) Syringe IV Q30MIN PRN Hypoglycemia Protocol Furosemide 40 mg 03/17/20 12:30 03/17/20 13:11 Lasix PO 40 mg QDAY MALACHI Administration Heparin Sodium (Porcine) 5,000 unit 03/17/20 14:00 03/18/20 05:42 Heparin SUB-Q 5,000 unit Q8HR MALACHI Administration Insulin Human Lispro 0 unit 03/17/20 07:30 03/17/20 22:43 Humalog SUB-Q 4 unit ACHS MALACHI Administration Protocol Morphine Sulfate 2 mg 03/17/20 01:09 03/17/20 06:01 Morphine IV 2 mg Q4H PRN Administration Pain, Moderate (4-6) Ondansetron HCl 4 mg 03/17/20 01:09 03/17/20 13:10 Zofran IV 4 mg Q8H PRN Administration Nausea And Vomiting Sodium Chloride 10 ml 03/17/20 10:00 03/17/20 22:44 Sodium Chloride Flush Syringe 10 Ml IV 10 ml BID MALACHI Administration Sodium Chloride 10 ml 03/17/20 01:09 Sodium Chloride Flush Syringe 10 Ml IV PRN PRN LINE FLUSH Nutrition/Malnutrition Assess - Dietary Evaluation Nutrition/Malnutrition Findings: Nutrition Notes Start: 03/17/20 11:03 Freq: Status: Active Protocol: Document 03/17/20 11:03 RUBEN (Rec: 03/17/20 11:10 RUBEN [id number]) Co-Sign 03/17/20 11:03 Nutrition Notes Need for Assessment generated from: MD Order Initial or Follow up Assessment Current Diagnosis Acute Kidney Injury,Diabetes, Hypertension,Heart Failure Other Pertinent Diagnosis A-fib, syncope Current Diet Cardiac/Consistent CHO Labs/Tests BUN 46 Cr 3.4 BG 188 Pertinent Medications Insulin Height 5 ft 4 in Weight 70.4 kg [place] Body Weight (kg) 59.09 BMI 26.6 Intake Prior to Admission Good Weight Status Overweight Subjective/Other Information MD consult for diet education. Pt had prior diet education and verbalized good understanding of nutrition for DM. Pt states eating 75% breakfast, but threw up shortly after. Burn Absent Trauma Absent GI Symptoms Nausea,Vomiting,Diarrhea Food Allergy Yes Current % PO Fair (50-74%) Minimum of two criteria No physical signs of malnutrition #1 Nutrition Diagnosis Inadequate oral intake Etiology N/V/D As Evidenced by Signs and Symptoms Pt unable to keep down breakfast Is patient on ventilator? No Is Patient Ambulatory and/or Out of Bed Yes REE-([facility]-ambulatory/OOB) [ 1937.000 [id number]] Calculation Used for Recommendations [facility] Additional Notes Pro: 56-84 g (0.8-1.2 g/kg) Fluid: 1 ml/kcal Nutrition Intervention Change Diet Order: Continue Cardiac/Consistent CHO Goal #1 Meet at least 75% energy and protein needs Anticipated Discharge Needs: Cardiac/Consistent CHO diet Follow-Up By: 03/22/20 Additional Comments F/U for intakes and N/V/D
[2020-03-18 08:15] LABS: Calcium 8.9 mg/dL (8.4-10.2)
[2020-03-18 08:20] LABS: INR 1.15 (0.87-1.13)
[2020-03-18] MEDS: INSULIN LISPRO 100 UNIT/ML VIAL 3 mL SUB-Q SCH ×2 (09:22→12:27)
[2020-03-18] MEDS: FUROSEMIDE 40 MG TAB PO SCH (09:23)
[2020-03-18] MEDS: carvediloL 25 MG TAB PO SCH (09:23)
[2020-03-18] MEDS: ONDANSETRON 4 MG/2 ML INJ IV PRN (09:23)
[2020-03-18] MEDS: SACUBITRIL/VALSARTAN 49-51 MG TAB PO SCH (09:23)
[2020-03-18] MEDS: AMIODARONE 200 MG TAB PO SCH (09:24)
--- NOTE | 2020-03-18 09:58 | Progress Note ---
Assessment and Plan 1. Acute kidney injury: Mild [place] superimposed on CKD in the setting of V.fib. Monitor renal function. Slight increase in the creatinine level. Renal prognosis is guarded. Avoid nephrotoxic agents. Meds dosage based on GFR. 2. FEN: Metabolic acidosis, monitor. Monitor lytes. 3. Spontaneous ventricular fibrillation: S/p appropriate AICD firing. Followed by Cards. 4. Non-ischemic Cardiomyopathy: Followed by Cards. Appears compensated. 5. DM type 2. 6. Hypothyroid. 7. Hypertension. 8. Medical non-compliance: Counseled. Patient wants to go home today. Advised to follow with me in 1-2 weeks. Subjective: Patient was seen and examined at the bedside. Doing better. Examination: General appearance: well-developed, well-nourished, appears stated age, no distress HEENT: ATNC, ERIC, mucous membranes moist, hearing intact, vision intact Neck: thyromegaly, supple Respiratory: Clear to Ascultation Cardiology: regular, S1S2, no murmur Gastrointestinal: normoactive bowel sounds, not tender, not distended Integumentary: no rash, warm and dry Neurologic: no focal deficit, no asterixis, alert and oriented x3 Ext: no edema Subjective Date of service: 03/18/20 Objective - Vital Signs Vital signs: Vital Signs - 12hr 03/17/20 03/17/20 03/18/20 22:09 23:00 04:00 Temperature 98 F Pulse Rate 58 L 77 Respiratory 18 20 Rate Blood Pressure Blood Pressure 121/68 [Left] O2 Sat by Pulse 99 Oximetry 03/18/20 03/18/20 03/18/20 04:03 08:09 09:23 Temperature 98.0 F 98.1 F Pulse Rate 73 83 75 Respiratory 20 18 Rate Blood Pressure 115/87 113/79 111/74 Blood Pressure [Left] O2 Sat by Pulse 93 97 Oximetry - Lab 03/16/20 22:16 03/18/20 07:05 Most recent lab results Calcium 8.9 mg/dL (8.4-10.2) 03/18/20 07:05 Magnesium 2.50 mg/dL (1.7-2.3) H 03/17/20 12:24 Medications & Allergies - Medications Allergies/Adverse Reactions: Allergies pineapple Allergy (Verified 12/09/19 12:03) Anaphylaxis Home Medications: Home Medications Medication Instructions Recorded Confirmed Last Taken Type Aspirin [Adult Aspirin] 81 mg PO DAILY 03/17/20 03/17/20 Unknown History Furosemide [Lasix TAB] 40 mg PO QDAY 03/17/20 03/17/20 Unknown History Insulin NPH Hum/Reg Insulin Hm 0 units SQ BID 03/17/20 03/17/20 Unknown History [Novolin 70-30 100 Unit/ml Vial] Pravastatin [Pravachol] 40 mg PO QHS 03/17/20 03/17/20 Unknown History Sacubitril/Valsartan [Entresto 1 each PO BID 03/17/20 03/17/20 Unknown History 49-51 mg] carvediloL [Coreg] 25 mg PO BID 03/17/20 03/17/20 Unknown History Active Medications: Generic Name Dose Route Start Last Admin Trade Name Freq PRN Reason Stop Dose Admin Acetaminophen 650 mg 03/17/20 01:09 Tylenol PO Q4H PRN Pain MILD(1-3)/Fever >100.5/SPRING Amiodarone HCl 200 mg 03/17/20 13:00 03/18/20 09:24 Cordarone PO 200 mg BID MALACHI Administration Carvedilol 25 mg 03/17/20 22:00 03/18/20 09:23 Coreg PO 25 mg BID MALACHI Administration Dextrose 50 ml 03/17/20 01:09 D50w (25gm) Syringe IV Q30MIN PRN Hypoglycemia Protocol Furosemide 40 mg 03/17/20 12:30 03/18/20 09:23 Lasix PO 40 mg QDAY MALACHI Administration Heparin Sodium (Porcine) 5,000 unit 03/17/20 14:00 03/18/20 05:42 Heparin SUB-Q 5,000 unit Q8HR MALACHI Administration Insulin Human Lispro 0 unit 03/17/20 07:30 03/18/20 09:22 Humalog SUB-Q 3 unit ACHS MALACHI Administration Protocol Morphine Sulfate 2 mg 03/17/20 01:09 03/17/20 06:01 Morphine IV 2 mg Q4H PRN Administration Pain, Moderate (4-6) Ondansetron HCl 4 mg 03/17/20 01:09 03/18/20 09:23 Zofran IV 4 mg Q8H PRN Administration Nausea And Vomiting Sodium Chloride 10 ml 03/17/20 10:00 03/18/20 09:24 Sodium Chloride Flush Syringe 10 Ml IV 10 ml BID MALACHI Administration Sodium Chloride 10 ml 03/17/20 01:09 Sodium Chloride Flush Syringe 10 Ml IV PRN PRN LINE FLUSH
[2020-03-18 11:04] LABS: Bilirubin,Urine NEG (Negative); Blood,Urine SM (Negative); Color,Urine Yellow (Yellow); Mucus,Urine FEW /HPF; Urobilinogen,Urine < 2.0 mg/dL (<2.0)
[2020-03-18 11:07] LABS: Protein,Urine >500 mg/dL (Negative)
[2020-03-18 11:23] LABS: Creatinine,Urine 141.2 mg/dL (0.1-20.0)
[2020-03-18 12:16] VITALS: BP 116/62
--- NOTE | 2020-03-18 12:28 | Discharge Summary ---
Providers - Providers Date of Admission: 03/17/20 01:10 Date of discharge: 03/18/20 Attending physician: RENEE DÍAZ MD 03/17/20 01:09 Consult to Physician [CONS] Routine Comment: Consulting Provider: CAMILLE CERVANTES Physician Instructions: Reason For Exam: malfunctioning Defibrillator 03/17/20 01:10 Consult to Dietitian/Nutrition [CONS] Routine Physician Instructions: Reason For Exam: Reason for Consult: Diet education 03/17/20 07:18 Consult to Physician [CONS] Routine Comment: Consulting Provider: BLACK CEVALLOS Physician Instructions: Reason For Exam: renal Failure Primary care physician: [facility], Hospitalization Reason for admission: AICD firing for malignant V. tach Condition: Stable Hospital course: 49-year-old male with known history of atrial fibrillation, CHF, hypertension , diabetes mellitus and history of defibrillator placement presenting to the e mergency room today with complaint of malfunctioning of the defibrillator. Patient states that the defibrillator was firing. Was lying down at home and began to feel dizzy. He has also had some mild chest pain and thereafter had a syncopal episode. He had a similar episode about 2 weeks ago but did not seek medical medical attention at that time. However he has been following up with his hand collator Dr. Cervantes. He states he feels nervous today otherwise he is doing fairly well. Patient was started on amiodarone drip as recommended by the hand collator. Work-up in the emergency room reveals troponin of 0.086, patient also found to to have elevated BUN and creatinine of 46 and 3.4 respectively. EKG shows some PVCs. (1) AICD fired Current Visit: No Status: Acute Plan to address problem: Cardiology was consulted Device interrogation was done and it was appropriate firing for malignant V. tach Patient was on IV amiodarone and will be changed to p.o. (2) Acute on chronic renal insufficiency Current Visit: No Status: Acute Plan to address problem: -Patient was seen by Dr. Cevallos and cleared for discharge and will follow him in the office (3) Atrial fibrillation Current Visit: No Status: Acute Plan to address problem: Rate currently controlled. Patient has also been started on amiodarone as recommended by the hand collator. (4) Diabetes Current Visit: No Status: Acute Plan to address problem: We will monitor Accu-Cheks. (5) HTN (hypertension) Current Visit: No Status: Acute Plan to address problem: We will monitor blood pressure continue routine home medications. (6) Chest pain Current Visit: No Status: Acute Plan to address problem: No further work-up per cardiology (7) Elevated troponin Current Visit: Yes Status: Acute Plan to address problem: Currently no acute changes on EKG. cardiology consult appreciated Patient was seen by cardiology and recommend to discharge him with 200 mg of p.o. amiodarone twice daily, patient was seen by nephrology and recommend to discharge him and will follow him in the office in 1 week. Disposition: DC-01 TO HOME OR SELFCARE Time spent for discharge: 32 minutes - Discharge Diagnoses (1) Elevated troponin Status: Acute (2) Syncope Status: Acute (3) AICD lead malfunction Status: Acute (4) Acute exacerbation of CHF (congestive heart failure) Status: Acute (5) Acute on chronic renal insufficiency Status: Acute (6) Atrial fibrillation Status: Acute (7) CHF (congestive heart failure) Status: Acute Qualifiers: Heart failure type: unspecified Heart failure chronicity: chronic Qualified Code(s): I50.9 - Heart failure, unspecified Core Measure Documentation - Palliative Care Palliative Care/ Comfort Measures: Not Applicable - Core Measures Any of the following diagnoses?: none Exam - Physical Exam Narrative exam: Not in cardiopulmonary distress. The patient appeared well nourished and normally developed. Vital signs as documented. Head exam is unremarkable. No scleral icterus . Neck is without jugular venous distension, thyromegaly, or carotid bruits. Lungs are clear to auscultation. Cardiac exam reveals regular rate and Rhythm. Abdominal exam reveals normal bowel sounds, nontender, no organomegaly. Extremities are nonedematous and both femoral and pedal pulses are normal. 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 No focal weakness. - Constitutional Vitals: Temp Pulse Resp BP Pulse Ox 97.5 F L 74 19 116/62 99 03/18/20 11:30 03/18/20 11:30 03/18/20 11:30 03/18/20 11:30 03/18/20 11:00 Plan Activity: no restrictions Weight Bearing Status: Full Weight Bearing Diet: renal Follow up with: LU DE LEON MD [Primary Care Provider] - 3-5 Days REGGIE LEE MD [Staff Physician] - 7 Days BLACK CEVALLOS MD [Staff Physician] - 7 Days Prescriptions: Amiodarone [Cordarone 200 MG TAB] 200 mg PO BID #60 tablet
--- NOTE | 2020-03-18 12:36 | Progress Note ---
Assessment and Plan - Patient Problems (1) ICD (implantable cardioverter-defibrillator) discharge Current Visit: Yes Status: Acute Plan to address problem: Patient experienced an appropriate ICD discharge for malignant ventricular arrhythmia. He has been started on amiodarone and is recommended for discharge on 200 mg twice daily in addition to his baseline guideline directed medical therapy. Follow-up in my office in 1 week. Subjective Date of service: 03/18/20 Interval history: Patient is comfortable, no cardiac complaints, looks and feels better. Objective Vital Signs Temp Pulse Pulse Pulse Pulse Resp BP 03/18/20 11:30 97.5 F L 74 19 03/18/20 11:00 73 73 73 18 03/18/20 10:00 79 03/18/20 09:23 75 111/74 03/18/20 08:09 98.1 F 83 18 113/79 03/18/20 04:03 98.0 F 73 20 115/87 03/18/20 04:00 77 03/17/20 23:00 20 03/17/20 22:09 98 F 58 L 18 03/17/20 16:06 97.5 F L 74 18 121/87 BP Pulse Ox 03/18/20 11:30 116/62 03/18/20 11:00 99 03/18/20 10:00 03/18/20 09:23 03/18/20 08:09 97 03/18/20 04:03 93 03/18/20 04:00 03/17/20 23:00 03/17/20 22:09 121/68 99 03/17/20 16:06 97 - Physical Examination General: Appears Well, No Apparent Distress HEENT: Positive: PERRL Neck: Positive: neck supple Cardiac: Positive: Reg Rate and Rhythm Lungs: Positive: clear to auscultation Neuro: Positive: Grossly Intact Abdomen: Positive: Soft Skin: Positive: Clear Extremities: Absent: edema - Labs and Meds Coagulation 03/18/20 Range/Units 07:05 PT 14.8 (12.2-14.9) Sec. INR 1.15 H (0.87-1.13) Comprehensive Metabolic Panel 03/18/20 Range/Units 07:05 Sodium 139 (137-145) mmol/L Potassium 4.6 (3.6-5.0) mmol/L Chloride 104.8 (98-107) mmol/L Carbon Dioxide 19 L (22-30) mmol/L BUN 51 H (9-20) mg/dL Creatinine 3.6 H (0.8-1.3) mg/dL Glucose 145 H (75-100) mg/dL Calcium 8.9 (8.4-10.2) mg/dL
[2020-03-18] MEDS ORDERED: SODIUM BICARBONATE 650 MG TAB PO SCH (14:00)
[2020-03-18] MEDS ORDERED: BENZONATATE 100 MG CAP PO SCH (14:00)
== END 2020-03-18 14:14 | disposition home or self-care (01) | DRG 308 ==
LOC: ED 21:29 → 4A 03-17 01:10
PROVIDERS: ADMIT Internal Medicine Geriatric Medicine; ATTEND Internal Medicine
PROC: 4B02XTZ Measurement of Cardiac Defibrillator, External Approach (ICD-10-PCS; principal; 2020-03-18)
DX: T82.110A Breakdown (mechanical) of cardiac electrode, initial encounter (principal); I49.01 Ventricular fibrillation; N17.9 Acute kidney failure, unspecified; E87.2 Acidosis; I50.9 Heart failure, unspecified; I42.8 Other cardiomyopathies; N18.4 Chronic kidney disease, stage 4 (severe); I13.0 Hypertensive heart and chronic kidney disease with heart failure and stage 1 through stage 4 chronic kidney disease, or unspecified chronic kidney disease; I48.91 Unspecified atrial fibrillation; R55 Syncope and collapse; E11.22 Type 2 diabetes mellitus with diabetic chronic kidney disease; E03.9 Hypothyroidism, unspecified; J45.909 Unspecified asthma, uncomplicated; Y92.89 Other specified places as the place of occurrence of the external cause; Z91.14 Patient's other noncompliance with medication regimen; Z71.89 Other specified counseling; Z79.82 Long term (current) use of aspirin; Z79.899 Other long term (current) drug therapy; Z79.4 Long term (current) use of insulin; Y83.8 Other surgical procedures as the cause of abnormal reaction of the patient, or of later complication, without mention of misadventure at the time of the procedure
CPT/HCPCS: 36415; 71045; 80048; 80061; 81001; 82570; 82962; 83735; 84300; 84439; 84443; 84484; 85025; 85610; 87641; 90686; 93005; 96365; G0378; J0282; J1644; J2270; J2405; J7060